=== PATIENT | male | born 1950 | race Caucasian/White ===

== ENCOUNTER → 2020-08-01 10:47 | Outpatient (BNVA) | payer BC, SELFPAY | PROVIDERS: Visit Provider Urology | DX: N40.1 Benign prostatic hyperplasia with lower urinary tract symptoms (principal); R39.12 Poor urinary stream; N13.8 Other obstructive and reflux uropathy; R35.1 Nocturia | CPT/HCPCS: 81002 ==

== ENCOUNTER 2020-11-23 10:48 | Outpatient (REF) | payer BC, SELFPAY ==
[2020-11-23 13:37] LABS: Hematocrit 39.4 % (42-52); Hemoglobin 12.6 g/dl (14.0-18.0); Mean Corpuscular Hemoglobin 31.1 pg (27.0-33.0); Mean Corpuscular Volume 97.3 fL (80-98); Mean Platelet Volume 12.4 fL (9.4-12.4); Platelet Count 153 X10*3/uL (160-400); Red Blood Count 4.05 X10*6/uL (4.60-5.80); Red Cell Distribution Width 14.1 % (11.0-16.0); White Blood Count 5.7 X10*3/uL (4.8-10.8)
[2020-11-23 14:25] LABS: Alanine Aminotransferase 11 U/L (0-40); Albumin Level 3.8 g/dL (3.5-5.0); Alkaline Phosphatase 79 U/L (39-117); Anion Gap 11 (12-20); Aspartate Amino Transferase 16 U/L (5-37); Bilirubin Total 0.4 mg/dL (0.0-1.0); Blood Urea Nitrogen 28 mg/dL (9-16); Calcium 9.1 mg/dL (8.4-10.2); Carbon Dioxide 29 mmol/L (22-29); Chloride 106 mmol/L (96-108); Estimated Glomerular Filt Rate > 60; Glucose Random 83 mg/dL (60-115); Potassium 3.9 mmol/L (3.3-5.1); Sodium 142 mmol/L (135-145); Total Protein 5.8 g/dL (6.5-8.0)
== END 2020-11-23 10:49 | disposition home or self-care (01) ==
LOC: HO.LAB 10:48
PROVIDERS: PCP Internal Medicine; Referring Provider Internal Medicine; Visit Provider Nurse Practitioner Family
DX: Z86.010 Personal history of colon polyps (principal); M62.838 Other muscle spasm; G25.79 Other drug induced movement disorders; T43.015A Adverse effect of tricyclic antidepressants, initial encounter
CPT/HCPCS: 36415; 80053; 85027

== ENCOUNTER 2021-04-17 15:53 | Outpatient (REF) | payer BC, SELFPAY ==
[2021-04-17 16:56] LABS: Cholesterol 138 mg/dL; HDL Cholesterol 45 mg/dL; LDL Cholesterol Calculated 75 mg/dl; Triglycerides 92 mg/dL
[2021-04-17 17:13] LABS: Prostate Specific Antigen 0.12 ng/mL (<0.05-4.0)
[2021-04-17 17:18] LABS: Thyroid Stimulating Hormone 0.73 uIU/mL (0.32-4.0)
== END 2021-04-17 15:54 | disposition home or self-care (01) ==
LOC: HO.LAB 15:53
PROVIDERS: Urology; PCP Internal Medicine; Visit Provider Internal Medicine
DX: Z12.5 Encounter for screening for malignant neoplasm of prostate (principal); N13.8 Other obstructive and reflux uropathy; N40.1 Benign prostatic hyperplasia with lower urinary tract symptoms; E78.00 Pure hypercholesterolemia, unspecified; I10 Essential (primary) hypertension; R63.4 Abnormal weight loss; Z86.010 Personal history of colon polyps
CPT/HCPCS: 36415; 80061; 84153; 84443

== ENCOUNTER 2021-05-29 09:15 | Day surgery (SDC) | payer BC, SELFPAY ==
[2021-05-29 09:59] VITALS: BP 151/82; PULSE 84; RESP 18; TEMP 36.1; O2SAT 96; BMI 22.3
--- NOTE | 2021-05-29 10:25 | P.HPSUR_ITS ---
Pre-Procedural Eval Section A Date of Service: 05/29/21 Section B Chief Complaint: screening Relevant Family History (Specify if Yes): No Relevant Social History: Tobacco Use Present Medications: see Short Stay Collaborative assessment Medical History: Significant History (Chronic back pain Groin pain HTN (hypertension)) History of Previous Operations: Relevant previous surgery/procedure and date(s) (H/O arthroscopic knee surgery History of left knee replacement Previous back surgery) Allergies: Allergies Allergy/AdvReac Type Severity Reaction Status Date / Time amitriptyline [From ELAVIL] AdvReac Unknown ARMS Verified 11/23/20 10:59 SHAKING Elavil AdvReac Unknown muscle Uncoded 03/06/17 00:00 spasms, uncontrollable arm movements Review of Systems Sugical H&P ROS: Negative: Constitution, Cardiovascular, Respiratory, Ne urological, Psychiatric, Hem-Onc, Allergic/Immunologic, Gastrointestinal, Genitourinary, Musculoskeletal, Integumentary, Endocrine and Eyes/Ears/Nose/Throat Exam Surgical H&P Exam: Normal: HEENT, Normal: Heart, Normal: Lungs, Normal: Extremities, Normal: Abdomen, Normal: Skin and Normal: Neurological Plan Diagnosis/Plan: Unchanged I have reviewed the history and physical and performed a pertinent physical examination on my patient. No changes have occurred unless specified.
--- NOTE | 2021-05-29 10:42 | P.CONAN_ITS ---
HPI - Anesthesia Eval Consult details Narrative: 71yo male patient for colonoscopy PMFSH Active Problems Active Problems: All Active Problems (Updated 08/01/20 @ 11:27 by Ortega Richardson MD) Nocturia more than twice per night (Acute) Weak urinary stream (Acute) BPH w urinary obs/LUTS (Acute) Glaucoma- eye drops prn for increased pressure Memory issues-does not know president, cannot remember if he did the prep or whether he had breakfast GERD- not needed omeprazole recently. Asymptomatic Past Medical History Medical History (Updated 05/29/21 @ 10:50 by Beverly Wong RN) Chronic back pain Groin pain HTN (hypertension) Left knee injury Family History Family history of problems with anesthesia: No Surgical History Surgical History (Updated 05/29/21 @ 10:55 by Candi Payne MD) H/O arthroscopic knee surgery History of left knee replacement Previous back surgery History of Problems with Anesthesia: No Social History Social History (Updated 05/29/21 @ 10:52 by Candi Payne MD) Patient Tobacco Use Status: Current everyday Tobacco user Smoked in Last 30 Days: Yes Use of substances other than those prescribed or required for medical reasons: No Have you been hit, kicked, punched, or otherwise hurt by someone within the past year? If so, by whom?: No Are you DNR?: No Advance Directives: No Advance Directives Information Provided: Yes Meds Allergies Allergy/AdvReac Type Severity Reaction Status Date / Time amitriptyline [From ELAVIL] AdvReac Unknown ARMS Verified 11/23/20 10:59 SHAKING Elavil AdvReac Unknown muscle Uncoded 03/06/17 00:00 spasms, uncontrollable arm movements Active Medications: Current Medications Lactated Ringer's (Lr) 1,000 mls @ 100 mls/hr IVCONT .Q10H [facility] Home Medications Medication Instructions Recorded Confirmed Last Taken Type atorvastatin 80 mg tablet 80 mg PO DAILY 08/01/20 Unknown History diclofenac sodium 75 mg 75 mg PO BID 08/01/20 Unknown History tablet,delayed release ergocalciferol (vitamin D2) 1,250 1,250 mcg PO QWEEK 08/01/20 Unknown History mcg (50,000 unit) capsule gabapentin 600 mg tablet 600 mg PO TID 08/01/20 Unknown History lisinopril 10 1 tab PO DAILY 08/01/20 Unknown History mg-hydrochlorothiazide 12.5 mg tablet omeprazole 20 mg capsule,delayed 20 mg PO DAILY 08/01/20 Unknown History release buprenorphine 8 mg-naloxone 2 mg 2 film SUBLINGUAL DAILY 05/29/21 05/29/21 Unknown History sublingual film (Suboxone) Exam Exam Date and Time: May 29, 2021 1042 Height,Weight and Vital Signs: Height 5 ft 11 in Weight 72.575 kg Last Vital Signs Temp 97 F 05/29/21 09:59 Pulse 84 05/29/21 09:59 Resp 18 05/29/21 09:59 BP 151/82 H 05/29/21 09:59 Pulse Ox 96 05/29/21 09:59 Airway Mallampati Class: II TM Dist: >3cm Neck ROM: Full Denture: Upper and Lower Heart: RRR Lungs: CTAB Assessment and Plan Assessment Anesthesia Assessment: Anesthesia Plan Discussed and Chart Reviewed Final Anesthetic Review Family History of Problems with Anesthesia: No History of Problems with Anesthesia: No NPO: Yes ASA Class: II Final Preanesthetic Review: No Changes in Pt Med Stat, Meds/Allgs Chart Reviewed, Consent Obtained/Reviewed and Anes Risks/Benef Reviewed Patient Risk: Low Procedure Risk: Low Assessment/Block/Sedation in SS: Assess/Block/Sedation-SS Anesthetic Plan Anesthetic Plan: MAC: Disposition: Standard PACU and Inp. Admit - Standard Bed
[2021-05-29] MEDS: Lactated Ringers 1,000 ML 100 ML IVCONT (10:46)
--- NOTE | 2021-05-29 10:53 | PC.NURSE ---
SON STATED PT TOOK ENTIRE PREP AND WITH CLEAR RESULTS ALL CLEAR LIQUIDS YESTERDAY NO MEDS TAKEN TODAY
--- NOTE | 2021-05-29 11:00 | PC.NURSE ---
PT NEEDS ASSISTANCE TO GET DRESS UNSTEADY WHEN ATTEMPTING TO AMBULATE WITH [facility] NOTED TO RIGHT HIP PT DENIES FALL STS BUMPED INTO SOMETHING PT TRANSFERRED WITH ONE ASST AND CANE FROM W/C TO BED THIS RN UNDRESSED PATIENT
--- NOTE | 2021-05-29 11:04 | HO.ANESPROP2 ---
[facility] Active Problems Active Problems: All Active Problems (Updated 05/29/21 @ 10:50 by Beverly Wong, RN) BPH w urinary obs/LUTS (Acute) Weak urinary stream (Acute) Nocturia more than twice per night (Acute) Past Medical History Medical History (Updated 05/29/21 @ 10:50 by Beverly Wong RN) Chronic back pain Groin pain HTN (hypertension) Left knee injury Family History Family history of problems with anesthesia: No Surgical History Surgical History (Updated 05/29/21 @ 10:55 by Candi Payne MD) H/O arthroscopic knee surgery History of left knee replacement Previous back surgery History of Problems with Anesthesia: No Social History Social History (Updated 05/29/21 @ 10:52 by Candi Payne MD) Patient Tobacco Use Status: Current everyday Tobacco user Smoked in Last 30 Days: Yes Use of substances other than those prescribed or required for medical reasons: No Have you been hit, kicked, punched, or otherwise hurt by someone within the past year? If so, by whom?: No Are you DNR?: No Advance Directives: No Advance Directives Information Provided: Yes Meds Allergies Allergy/AdvReac Type Severity Reaction Status Date / Time amitriptyline [From ELAVIL] AdvReac Unknown ARMS Verified 11/23/20 10:59 SHAKING Elavil AdvReac Unknown muscle Uncoded 03/06/17 00:00 spasms, uncontrollable arm movements Active Medications: Current Medications Lactated Ringer's (Lr) 1,000 mls @ 100 mls/hr IVCONT .Q10H J LUIS Last Admin: 05/29/21 10:46 Dose: 100 mls/hr Documented by: Ondansetron HCl (Ondansetron Hcl 4 Mg/2 Ml Vial) 4 mg IVPUSH ONCE PRN PRN Reason: Nausea and Vomiting Home Medications Medication Instructions Recorded Confirmed Last Taken Type atorvastatin 80 mg tablet 80 mg PO DAILY 08/01/20 Unknown History diclofenac sodium 75 mg 75 mg PO BID 08/01/20 Unknown History tablet,delayed release ergocalciferol (vitamin D2) 1,250 1,250 mcg PO QWEEK 08/01/20 Unknown History mcg (50,000 unit) capsule gabapentin 600 mg tablet 600 mg PO TID 08/01/20 Unknown History lisinopril 10 1 tab PO DAILY 08/01/20 Unknown History mg-hydrochlorothiazide 12.5 mg tablet omeprazole 20 mg capsule,delayed 20 mg PO DAILY 08/01/20 Unknown History release buprenorphine 8 mg-naloxone 2 mg 2 film SUBLINGUAL DAILY 05/29/21 05/29/21 Unknown History sublingual film (Suboxone) Exam Exam Date and Time: May 29, 2021 1104 Height,Weight and Vital Signs: Height 5 ft 11 in Weight 72.575 kg Last Vital Signs Temp 97 F 05/29/21 09:59 Pulse 84 05/29/21 09:59 Resp 18 05/29/21 09:59 BP 151/82 H 05/29/21 09:59 Pulse Ox 96 05/29/21 09:59 Airway Mallampati Class: II TM Dist: >3cm Neck ROM: Full Denture: Upper and Lower Assessment and Plan Assessment Anesthesia Assessment: Anesthesia Plan Discussed, Smoking Cess. Discussed and Chart Reviewed Final Anesthetic Review Family History of Problems with Anesthesia: No History of Problems with Anesthesia: No NPO: Yes ASA Class: II Final Preanesthetic Review: No Changes in Pt Med Stat, Meds/Allgs Chart Reviewed, Consent Obtained/Reviewed and Anes Risks/Benef Reviewed Patient Risk: Intermediate Procedure Risk: Low Anesthetic Plan Anesthetic Plan: MAC: Disposition: Standard PACU
--- NOTE | 2021-05-29 11:14 | PM.OP ---
Brief Operative Note Date of Service: 05/29/21 Pre-op diagnosis: hx of polyps of colon Post-op diagnosis: same Procedure: see op note Surgeon: Heron Robledo MD Anesthesia: MAC Was an Dental Office Receptionist used for this Procedure?: No Estimated blood loss (mL): 0 Condition: stable Disposition: PACU
--- NOTE | 2021-05-29 11:15 | W.PM.OPN ---
Operative Note Operative Note Date of Service: 05/29/21 Narrative: Operative Information Procedure Description: Colonoscopy COLONOSCOPY Instrument: Olympus variable stiffness adult scope 190L Colonoscopy Monitoring: Vital signs and clinical assessment, continuous EKG monitoring, Pulse oximetry, Carbon Dioxide monitoring and blood pressure monitoring were done throughout the procedure. Colon withdrawal time was 12 minutes. Procedure: The patient was placed in the left lateral decubitis position and pre-procedure medications were administered. After a digital rectal examination of the ano-rectum, the video colonoscope was inserted into the rectum and advanced through the colon to the cecum/TI. The colonoscope was slowly withdrawn in a retrograde panoramic fashion and the colon mucosa was carefully examined including a retroflexed view of the rectum. Findings and interventions are described below. Procedure Difficulty: moderate Findings: Terminal Ileum-not intubated Cecum:normal Ascending Colon: normal Transverse Colon -normal Descending Colon:normal Sigmoid Colon: normal Rectum: Retroflexion with small internal hemorrhoids, grade I Anorectum - normal Colon preparation: Donalds Bowel Preparation Scale Right colon; 1 Transverse colon: 2 Left colon; 1 (0 = Unprepared colon segment with mucosa not seen due to solid stool that cannot be cleared. 1 = Portion of mucosa of the colon segment seen, but other areas of the colon segment not well seen due to staining, residual stool and/or opaque liquid. 2 = Minor amount of residual staining, small fragments of stool and/or opaque liquid, but mucosa of colon segment seen well. 3 = Entire mucosa of colon segment seen well with no residual staining, small fragments of stool or opaque liquid) Impression and Post Procedure Diagnosis: internal hemorrhoids poor prep Plan: High fiber diet leaflet Avoid straining at stool, epsom salts and sitz bath, anusol supps or cream Repeat Colonoscopy in 6-12 months or earlier if clinically indicated, check compliance with prep, may need 2 d clear diet next time. Within limitations of prep no large masses or tumours seen but smaller lesions may have been missed. Above findings were reviewed with the patient and relevant handouts were provided if indicated.
[2021-05-29 12:01] VITALS: BP 122/63; PULSE 84; RESP 16; TEMP 36.5; O2SAT 97
[2021-05-29 12:16] VITALS: BP 123/83; PULSE 78; RESP 16; TEMP 36.5; O2SAT 97
[2021-05-29 12:31] VITALS: BP 110/66; PULSE 63; RESP 16; TEMP 36.7; O2SAT 97
== END 2021-05-29 13:15 | disposition home or self-care (01) ==
PROVIDERS: PCP Internal Medicine; Visit Provider Internal Medicine Gastroenterology
PROC: 0DJD8ZZ Inspection of Lower Intestinal Tract, Via Natural or Artificial Opening Endoscopic (ICD-10-PCS; CPT 45378; principal; 2021-05-29 10:50)
DX: Z12.11 Encounter for screening for malignant neoplasm of colon (principal); K64.0 First degree hemorrhoids; Z86.010 Personal history of colon polyps; R10.30 Lower abdominal pain, unspecified; G89.29 Other chronic pain; M54.9 Dorsalgia, unspecified; I10 Essential (primary) hypertension; N40.1 Benign prostatic hyperplasia with lower urinary tract symptoms; R39.12 Poor urinary stream; Z79.899 Other long term (current) drug therapy; Z88.8 Allergy status to other drugs, medicaments and biological substances; Z96.652 Presence of left artificial knee joint; F17.210 Nicotine dependence, cigarettes, uncomplicated
CPT/HCPCS: 45378

== ENCOUNTER 2021-07-29 20:35 | Emergency (ER) | payer BC, SELFPAY ==
--- NOTE | ~2021-07-29 | XR_ITS ---
EXAMINATION: XR CHEST CLINICAL INFORMATION: Question CHF COMPARISON: None TECHNIQUE: Frontal view of the chest was obtained. FINDINGS: Mild elevation of the right hemidiaphragm. No focal consolidation is seen. Linear atelectasis is present at the right lung base. No evidence of pneumothorax, pleural effusion, or pulmonary edema. The cardiomediastinal contour is unremarkable. There is severe degenerative change at the left glenohumeral joint. XR/XR chest 1V IMPRESSION: No acute cardiopulmonary findings.
--- NOTE | ~2021-07-29 | CT_ITS ---
EXAMINATION: NONCONTRAST HEAD CT NONCONTRAST CERVICAL SPINE CT INDICATION INFORMATION: Fall, hematoma, neck pain COMPARISON: None TECHNIQUE: Separate noncontrast CT examinations of the head and cervical spine were performed. Coronal head CT images and coronal and sagittal cervical spine images were created at the technologist workstation. DLP: 1085 mGy-cm DOSE LOWERING TECHNIQUES: This CT examination was performed using dose optimization techniques as appropriate, variously including the following: - Automated exposure control - Adjustment of mA and/or kV according to patient size (this includes techniques or standardized protocols for targeted exams were dose is matched to indication/reason for exam; i.e. extremities or head) - Use of iterative reconstruction technique FINDINGS: Head: Limited evaluation in some regions due to motion artifact. There is no evidence of acute intracranial hemorrhage or territorial infarction. No abnormal mass-effect or midline shift is seen. [place] to white matter differentiation is well preserved. No extra-axial fluid collections are identified. The ventricles are normal in size. There is mild periventricular white matter hypoattenuation consistent with chronic small vessel ischemic disease. Right frontal scalp hematoma is present. No acute fracture is seen.. The mastoid air cells and visualized portions of the paranasal sinuses are well-aerated. Cervical spine: There is reversal of the normal cervical lordosis. There is disc space narrowing throughout the cervical spine with endplate osteophytes which is most severe at C5-C6 and C6-C7. Multilevel facet arthropathy is present, most severe at C2-C3 on the right and C2-C3 and C3-C4 on the left. Vertebral body heights are maintained. No evidence of acute fracture. No prevertebral soft tissue swelling. Visualized portions of the lung apices demonstrate emphysema. The thyroid gland is grossly unremarkable. CT/CT cervical spine wo con IMPRESSION: No acute findings identified in the head or cervical spine. Moderate to severe degenerative changes of the cervical spine as noted above.
[2021-07-29 20:44] VITALS: BP 147/79; PULSE 70; RESP 18; TEMP 36.7; BMI 18.8
[2021-07-29 21:00] LABS: MANUAL DIFF FLAG NO
[2021-07-29 21:01] LABS: Basophils Percent Auto 0.5 % (0-2); Eosinophils Absolute Auto 0.1 X10*3/uL (0.0-0.4); Eosinophils Percent Auto 1.5 % (0-4); Hematocrit 40.3 % (42.0-52.0); Imm Gran Abs Auto 0.02 X10*3/uL (0.00-0.03); Imm Gran Pct Auto 0.4 % (0.0-0.4); Lymphocytes Absolute Auto 0.7 X10*3/uL (1.2-4.9); Lymphocytes Percent Auto 13.5 % (20-40); Mean Corpuscular HGB Conc 32.3 g/dl (31.0-36.0); Mean Corpuscular Hemoglobin 31.9 pg (27.0-33.0); Mean Platelet Volume 11.7 fL (9.4-12.4); Monocytes Absolute Auto 0.4 X10*3/uL (0.1-1.2); Monocytes Percent Auto 6.9 % (2-11); Neutrophils Absolute Auto 4.3 x10*3/uL (2.0-8.3); Neutrophils Percent Auto 77.2 % (45-73); Platelet Count 159 X10*3/uL (160-400); Red Blood Count 4.07 X10*6/uL (4.60-5.80); Red Cell Distribution Width 13.3 % (11.0-16.0); White Blood Count 5.5 X10*3/uL (4.8-10.8)
[2021-07-29 21:14] LABS: Anion Gap 10 (12-20); Blood Urea Nitrogen 41 mg/dL (9-16); Calcium 9.1 mg/dL (8.4-10.2); Carbon Dioxide 33 mmol/L (22-29); Chloride 105 mmol/L (96-108); Creatinine Clr Calc Pharmacy 86.2; Estimated Glomerular Filt Rate > 60; Glucose Random 105 mg/dL (60-115); Potassium 4.2 mmol/L (3.3-5.1); Sodium 144 mmol/L (135-145)
--- NOTE | 2021-07-29 21:51 | PC.NURSE ---
pt taken to ct
--- NOTE | 2021-07-29 21:59 | ED_ITS ---
HPI - Fall General Chief Complaint: Fall Stated Complaint: fell and hit his head Time Seen by Provider: 07/29/21 21:35 Source: patient Mode of arrival: ambulatory Limitations: no limitations History of Present Illness HPI Narrative: Patient was walking to the bathroom without asking for help did not use his walker or cane lost balance and fell in the kitchen ,came with hematoma on the right forehead above the eye no loss of consciousness no other injury patient is not on any blood thinner patient been falling very often feel dizzy lightheaded off and on denies any palpitation or chest pain prior to episode but felt lightheaded Related Data Home Medications Medication Instructions Recorded Confirmed atorvastatin 80 mg tablet 80 mg PO DAILY 08/01/20 diclofenac sodium 75 mg 75 mg PO BID 08/01/20 tablet,delayed release ergocalciferol (vitamin D2) 1,250 1,250 mcg PO QWEEK 08/01/20 mcg (50,000 unit) capsule gabapentin 600 mg tablet 600 mg PO TID 08/01/20 lisinopril 10 1 tab PO DAILY 08/01/20 mg-hydrochlorothiazide 12.5 mg tablet buprenorphine 8 mg-naloxone 2 mg 2 film SUBLINGUAL DAILY 05/29/21 05/29/21 sublingual film (Suboxone) Valium 5 g PO BID 07/30/21 07/30/21 trazodone 150 mg PO BEDTIME 07/30/21 07/30/21 Previous Rx's Medication Instructions Recorded bisacodyl 5 mg tablet,delayed 10 mg PO ONCE 1 Days #2 tab 05/27/21 release (Dulcolax (bisacodyl)) terazosin 5 mg capsule 5 mg PO BEDTIME #90 cap 06/04/21 Allergies Allergy/AdvReac Type Severity Reaction Status Date / Time amitriptyline [From ELAVIL] AdvReac Unknown ARMS Verified 07/29/21 20:44 SHAKING Elavil AdvReac Unknown muscle Uncoded 07/29/21 20:44 spasms, uncontrollable arm movements Review of Systems Review of Systems: Yes all other systems are reviewed and are negative PMFSH Past Medical History Medical History Chronic back pain COPD (chronic obstructive pulmonary disease) Cough Emphysema lung Groin pain HTN (hypertension) Left knee injury Surgical History H/O arthroscopic knee surgery History of left knee replacement Previous back surgery Social History Social History Alcohol intake: never Patient Tobacco Use Status: Current everyday Tobacco user Smoked in Last 30 Days: Yes Use of substances other than those prescribed or required for medical reasons: No Advance Directives: No Advance Directives Information Provided: No Physical Exam Vital Signs: Vital Signs: Last Vital Signs Temp 98.1 F 07/29/21 20:44 Pulse 95 07/30/21 00:20 Resp 16 07/30/21 00:20 BP 154/99 H 07/30/21 00:20 Pulse Ox 94 07/30/21 00:20 BMI result Body Mass Index 18.8 Appearance: Alert. Oriented X3. No acute distress. Eyes: PERRLA, No Nystagmus ENT: Pharynx normal. Oral Mucosa moist hematoma above right eyebrow Neck: Normal inspection. Neck supple. CVS: Irregularly irregular heart rate no murmur or gallop Pulses normal. Respiratory: No respiratory distress. Equal air entry bilateral, no wheezing/rales/rhonchi Abdomen: Soft and nontender. Bowel sounds are present, no mass palpable, no CVA tenderness Skin: Skin warm and dry. Normal skin color. Normal skin turgor. Extremities: No lower extremity edema. No calf tenderness low muscle mass Neuro: Oriented X 3. No motor deficit. .No cerebellar signs , cranial nerves II-XII intact HENMT: Face images: 1. Hematoma with ecchymosis MDM - Fall MDM Narrative Medical decision making narrative: Patient with atrial fibrillation with history of dizziness and fall multiple times likely the cause along with patient has low muscle mass. Patient does not have a diagnosis of AFib in the past will admit patient for further workup as he has a high risk of fall will just give aspirin for now. Heart rate is controlled Lab Data Attestation: I reviewed the patient's lab results. Result diagrams: 07/29/21 20:56 07/29/21 20:56 Labs: Lab Results 07/29/21 07/29/21 Range/Units 20:56 20:56 WBC 5.5 (4.8-10.8) X10*3/uL RBC 4.07 L (4.60-5.80) X10*6/uL Hgb 13.0 L (14.0-18.0) g/dl Hct 40.3 L (42.0-52.0) % MCV 99.0 H (80.0-98.0) fL MCH 31.9 (27.0-33.0) pg MCHC 32.3 (31.0-36.0) g/dl RDW 13.3 (11.0-16.0) % Plt Count 159 L (160-400) X10*3/uL MPV 11.7 (9.4-12.4) fL Immature Gran % (Auto) 0.4 (0.0-0.4) % Neut % (Auto) 77.2 H (45-73) % Lymph % (Auto) 13.5 L (20-40) % [place] % (Auto) 6.9 (2-11) % Eos % (Auto) 1.5 (0-4) % Baso % (Auto) 0.5 (0-2) % Lymph # (Auto) 0.7 L (1.2-4.9) X10*3/uL [place] # (Auto) 0.4 (0.1-1.2) X10*3/uL Eos # (Auto) 0.1 (0.0-0.4) X10*3/uL Baso # (Auto) 0.0 (0.0-0.2) X10*3/uL Abs Immat Gran (auto) 0.02 (0.00-0.03) X10*3/uL Absolute Neuts (auto) 4.3 (2.0-8.3) x10*3/uL Absolute Nucleated RBC 0.000 (0.0-0.012) X10*3/uL Nucleated RBC % (auto) 0.0 (0.0-0.2) /100WBC Sodium 144 (135-145) mmol/L Potassium 4.2 (3.3-5.1) mmol/L Chloride 105 (96-108) mmol/L Carbon Dioxide 33 H (22-29) mmol/L Anion Gap 10 L (12-20) BUN 41 H (9-16) mg/dL Creatinine 0.68 (0.5-1.4) mg/dL Estim Creat Clear Calc 86.2 Estimated GFR > 60 Random Glucose 105 (60-115) mg/dL Calcium 9.1 (8.4-10.2) mg/dL ECG Data Attestation: I personally reviewed and interpreted this ECG as follows: Interpretation: Heart rate 72 beats per minute irregularly irregular atrial fibrillation no acute ST T wave changes no acute ischemia Discharge Plan Discharge Clinical Impression: New onset a-fib, Frequent falls Patient Disposition: Admitted As Inpatient
--- NOTE | 2021-07-29 22:02 | ECG_ITS ---
Test Reason : FALL Blood Pressure : / mmHG Vent. Rate : 091 BPM Atrial Rate : 091 BPM P-R Int : 136 ms QRS Dur : 098 ms QT Int : 380 ms P-R-T Axes : -01 064 021 degrees QTc Int : 467 ms Normal sinus rhythm Nonspecific ST abnormality Abnormal ECG When compared with ECG of 30-APR-2016 16:01, Vent. rate has increased BY 30 BPM Nonspecific T wave abnormality now evident in Inferior leads QT has lengthened Referred By: Wesley Holder Electronically Signed By:Rafita Prater
[2021-07-29 23:12] VITALS: BP 156/83; PULSE 88; RESP 17; O2SAT 93
--- NOTE | 2021-07-29 23:52 | PM.IMHP ---
History of Present Illness Date of Service: 07/29/21 Chief Complaint: fall PMF Medical History Chronic back pain COPD (chronic obstructive pulmonary disease) Cough Emphysema lung Groin pain HTN (hypertension) Left knee injury Surgical History H/O arthroscopic knee surgery History of left knee replacement Previous back surgery Social History Alcohol intake: never Patient Tobacco Use Status: Current everyday Tobacco user Smoked in Last 30 Days: Yes Use of substances other than those prescribed or required for medical reasons: No Advance Directives: No Advance Directives Information Provided: No Meds Allergies Allergy/AdvReac Type Severity Reaction Status Date / Time amitriptyline [From ELAVIL] AdvReac Unknown ARMS Verified 07/29/21 20:44 SHAKING Elavil AdvReac Unknown muscle Uncoded 07/29/21 20:44 spasms, uncontrollable arm movements Home Medications Medication Instructions Recorded Confirmed Last Taken Type atorvastatin 80 mg tablet 80 mg PO DAILY 08/01/20 07/30/21 07/29/21 History diclofenac sodium 75 mg 75 mg PO BID 08/01/20 07/30/21 07/29/21 History tablet,delayed release ergocalciferol (vitamin D2) 1,250 1,250 mcg PO QWEEK 08/01/20 07/30/21 07/22/21 History mcg (50,000 unit) capsule gabapentin 600 mg tablet 600 mg PO TID 08/01/20 07/30/21 07/29/21 History lisinopril 10 1 tab PO DAILY 08/01/20 07/30/21 07/29/21 History mg-hydrochlorothiazide 12.5 mg tablet buprenorphine 8 mg-naloxone 2 mg 2 film SUBLINGUAL DAILY 05/29/21 05/29/21 Unknown History sublingual film (Suboxone) Valium 5 g PO BID 07/30/21 07/30/21 07/30/21 History 1 trazodone 150 mg PO BEDTIME 07/30/21 07/30/21 07/29/21 History Physical Exam Vital Signs and Narrative: Vital Signs: Last Vital Signs Temp 98.1 F 07/29/21 20:44 Pulse 88 02/28/22 23:12 Resp 17 07/29/21 23:12 BP 156/83 H 07/29/21 23:12 Pulse Ox 93 07/29/21 23:12 BMI result Body Mass Index 18.8 Results Labs CBC and Chem 7: 07/29/21 20:56 07/29/21 20:56 Labs: Laboratory Results - last 24 hr 07/29/21 07/29/21 20:56 20:56 MCV 99.0 H MCH 31.9 MCHC 32.3 RDW 13.3 Plt Count 159 L MPV 11.7 Immature Gran % (Auto) 0.4 Neut % (Auto) 77.2 H Lymph % (Auto) 13.[address] [place] % (Auto) 6.9 Eos % (Auto) 1.5 Baso % (Auto) 0.5 Lymph # (Auto) 0.[address] [place] # (Auto) 0.4 Eos # (Auto) 0.1 Baso # (Auto) 0.0 Abs Immat Gran (auto) 0.02 Absolute Neuts (auto) 4.3 Absolute Nucleated RBC 0.000 Nucleated RBC % (auto) 0.0 Anion Gap 10 L Estim Creat Clear Calc 86.2 Estimated GFR > 60 Random Glucose 105 Calcium 9.1 Imaging Radiologist's Impressions: Impressions Cervical Spine CT 07/29/21 22:24 IMPRESSION: No acute findings identified in the head or cervical spine. Moderate to severe degenerative changes of the cervical spine as noted above. Head CT 07/29/21 22:24 IMPRESSION: No acute findings identified in the head or cervical spine. Moderate to severe degenerative changes of the cervical spine as noted above. Assessment and Plan (1) New onset a-fib: Status: Acute (2) Frequent falls: Status: Acute Plan 71-year-old male with a past medical history of hypertension, hyperlipidemia, COPD, chronic back pain, history of back surgery, walks with the help of a crutches at home; presented to the hospital today with a chief complaint of fall. Patient reports that he had intermittent falls mostly mechanical; today he had a fall, lost balance and fell on the ground, hit on the forehead; denies any loss of consciousness. Denies any chest pain or palpitations. Denies any lightheadedness dizziness. Patient denies any GI symptoms. Review of all other systems is negative except mentioned above ER course: Per ER team patient noted to have large ecchymosis on the left eye; intact extraocular movements; CT head showed no acute findings; labs essentially benign; on EKG noted to have new onset AFib; admitted to the hospital for further management Quality Stroke Does the patient have a stroke diagnosis?: No VTE Prior VTE?: No VTE Risk Level:: Medical - moderate - high VTE Device Contraindication: Treatment Not Indicated VTE Drug Contraindication: N/A - Med Ordered
[2021-07-30 00:20] VITALS: BP 154/99; PULSE 95; RESP 16; O2SAT 94
[2021-07-30] MEDS: Nicotine 14 MG PATCH.TD24 TRANSDERMA (00:26)
[2021-07-30] MEDS: Aspirin 81 MG TAB.CHEW 162 MG PO (00:27)
[2021-07-30] MEDS: Heparin Sodium,Porcine 5,000 UNIT/ML VIAL 5000 UNIT SUBCUT (00:27)
[2021-07-30 01:06] LABS: COVID-19 Test Negative (Negative)
== END 2021-07-30 01:19 | disposition home or self-care (01) ==
LOC: HO.ED 23:27 → HO.EDOVER 07-30 01:03
PROVIDERS: Emergency Provider Internal Medicine; PCP Internal Medicine
DX: S00.11XA Contusion of right eyelid and periocular area, initial encounter (principal); W18.39XA Other fall on same level, initial encounter; R42 Dizziness and giddiness; R53.1 Weakness; F17.200 Nicotine dependence, unspecified, uncomplicated; Z91.81 History of falling; Y93.89 Activity, other specified; Y92.000 Kitchen of unspecified non-institutional (private) residence as the place of occurrence of the external cause; Y99.9 Unspecified external cause status
CPT/HCPCS: 36415; 70450; 71045; 72125; 80048; 85025; 87635; 93005; 99284

== ENCOUNTER 2021-09-09 13:42 | Inpatient (IN) | payer OTHER, SELFPAY ==
--- NOTE | ~2021-09-09 | XR_ITS ---
EXAMINATION: PORTABLE CHEST 1 VIEW CLINICAL INFORMATION: ams . COMPARISON: 07/30/2021. TECHNIQUE: Portable frontal view of the chest was obtained. FINDINGS: The lungs are mildly hypoexpanded, in part due to the patient rotation to the right. There are increased markings at the right base which could be due to atelectasis although early infiltrate cannot be excluded in the acute setting.. No focal infiltrate, effusion, edema, or pneumothorax. Cardiac and mediastinal silhouettes are within normal limits for technique. No acute bony abnormality seen. XR/XR chest 1V IMPRESSION: Increased right basilar airspace disease may reflect component of atelectasis although early infiltrate could've a similar appearance. Clinical correlation and follow-up would be helpful.
--- NOTE | ~2021-09-09 | CT_ITS ---
EXAMINATION: CT CHEST WITHOUT CONTRAST CLINICAL INFORMATION: Respiratory failure, hypoxia, weight loss, heavy smoking history. COMPARISON: CXR from 07/30/2021 and 09/09/2021. TECHNIQUE: Multidetector volumetric CT imaging of the chest was done. Axial MIP volume rendering provided. Sagittal and coronal reformatted images were obtained. This CT examination was performed using dose optimization techniques as appropriate, variously including the following: *Automated exposure control *Adjustment of mA and/or kV according to patient size (this includes techniques or standardized protocols for targeted exams where dose is matched to indication/reason for exam; i.e. extremities or head) *Use of iterative reconstruction technique DLP: 267 mGy-cm Fleischner Society guidelines are followed, if deemed appropriate. FINDINGS: LUNGS AND PLEURA: Trachea and central airways are widely patent and normal in caliber. The right diaphragm is chronically, mildly elevated. [id number] centrilobular emphysema has an upper lobe predominance. There are mild linear and slightly nodular opacities in the posterior right upper lobe that are probably inflammatory or postinfectious changes. However, in a patient with risk factors, noncontrast chest CT follow-up is recommended. The findings include a 0.5 cm noncalcified nodular focus (image 150, series 5) and irregular, predominantly linear opacity in the nearby upper lobe occupying area of approximately 1.5 cm transverse dimension (as measured on image 173, series 5). Linear opacity of mild atelectasis in the posterior right lower lobe. No pneumothorax or pleural effusion. CARDIOVASCULAR: The heart size is normal. No pericardial effusion. There is atherosclerotic calcification of the left anterior descending coronary artery. Pulmonary arteries and thoracic aorta are normal in caliber. MEDIASTINUM AND LOWER NECK: No mediastinal mass. The esophagus is unremarkable. LYMPHATICS: No pathologic sized lymph nodes. UPPER ABDOMEN: Unremarkable. SKELETAL AND CHEST WALL: No suspicious bone lesions. Bones are diffusely osteopenic. There is levocurvature of the upper thoracic spine. There is Schmorl's node and minimal compression deformity of the superior endplate of T12. Vacuum disc phenomenon at T11-T12. CT/CT chest wo con IMPRESSION: * [id number] centrilobular emphysema has an upper lobe predominance. * There are linear and somewhat nodular opacities in the posterior right upper lobe. Although these are likely inflammatory/infectious changes, follow-up is advised, particularly in a patient with risk factors. [address] follow-up is recommended to determine whether these abnormalities resolve/improve Fleischner Society guideline.
--- NOTE | ~2021-09-09 | CT_ITS ---
EXAMINATION: CT HEAD WITHOUT CONTRAST CLINICAL INFORMATION: AMS COMPARISON: None TECHNIQUE: Contiguous axial imaging was performed from the skull base to vertex without intravenous administration of contrast. This CT examination was performed using dose optimization techniques as appropriate, variously including the following: *Automated exposure control *Adjustment of mA and/or kV according to patient size (this includes techniques or standardized protocols for targeted exams where dose is matched to indication/reason for exam; i.e. extremities or head) *Use of iterative reconstruction technique DLP: 782 mGy-cm FINDINGS: There is no evidence of acute intracranial hemorrhage or territorial infarction. No abnormal mass effect or midline shift is seen. There is diffuse periventricular hypodensity in both cerebral hemispheres suggestive of chronic small vessel ischemic changes. These are most prominent in the posterior parietal region. No extra-axial fluid collections are identified. The lateral ventricles are symmetrical in size and configuration without enlargement. The osseous structures and soft tissues are normal. The mastoid air cells and visualized portions of the paranasal sinuses are well aerated. CT/CT head/brain wo con IMPRESSION: No acute intracranial process seen.
[2021-09-09 14:30] VITALS: BP 134/108; PULSE 63; RESP 16; TEMP 36.2; O2SAT 83; BMI 18.8
--- NOTE | 2021-09-09 14:43 | PC.NURSE ---
lungs - diminished all lobes
--- NOTE | 2021-09-09 14:45 | ECG_ITS ---
Test Reason : AMS Blood Pressure : / mmHG Vent. Rate : 098 BPM Atrial Rate : 098 BPM P-R Int : 136 ms QRS Dur : 104 ms QT Int : 368 ms P-R-T Axes : 034 164 069 degrees QTc Int : 469 ms Normal sinus rhythm with sinus arrhythmia Right axis deviation Minimal voltage criteria for LVH, may be normal variant ( Deuce product ) Nonspecific ST and T wave abnormality Abnormal ECG When compared with ECG of 29-JUL-2021 23:00, QRS axis Shifted right Nonspecific T wave abnormality, worse in Anterolateral leads Referred By: Generic ED Physician Electronically Signed By:Rafita Prater
--- NOTE | 2021-09-09 15:00 | PC.NURSE ---
pt finger slightly dusky, was a ppd smoker now 1/2ppd smoker. 02 applied at 2l/m via n/c.
[2021-09-09 15:04] LABS: MANUAL DIFF FLAG NO
[2021-09-09 15:09] LABS: Basophils Percent Auto 0.1 % (0-2); Hematocrit 48.4 % (42.0-52.0); Hemoglobin 15.5 g/dl (14.0-18.0); Imm Gran Abs Auto 0.03 X10*3/uL (0.00-0.03); Imm Gran Pct Auto 0.4 % (0.0-0.4); Lymphocytes Absolute Auto 0.6 X10*3/uL (1.2-4.9); Lymphocytes Percent Auto 6.5 % (20-40); Mean Corpuscular Hemoglobin 31.4 pg (27.0-33.0); Mean Corpuscular Volume 98.2 fL (80.0-98.0); Mean Platelet Volume 11.9 fL (9.4-12.4); Monocytes Absolute Auto 0.8 X10*3/uL (0.1-1.2); Monocytes Percent Auto 9.4 % (2-11); Neutrophils Percent Auto 83.6 % (45-73); Platelet Count 241 X10*3/uL (160-400); Red Blood Count 4.93 X10*6/uL (4.60-5.80); Red Cell Distribution Width 14.5 % (11.0-16.0); White Blood Count 8.4 X10*3/uL (4.8-10.8)
[2021-09-09 15:22] LABS: Alanine Aminotransferase 23 U/L (0-40); Albumin Level 3.7 g/dL (3.5-5.0); Alkaline Phosphatase 125 U/L (39-117); Anion Gap 12 (12-20); Aspartate Amino Transferase 20 U/L (5-37); Bilirubin Total 0.5 mg/dL (0.0-1.0); Blood Urea Nitrogen 24 mg/dL (9-16); Calcium 9.2 mg/dL (8.4-10.2); Carbon Dioxide 38 mmol/L (22-29); Chloride 90 mmol/L (96-108); Creatinine Clr Calc Pharmacy 87.5; Estimated Glomerular Filt Rate > 60; Glucose Random 118 mg/dL (60-115); Sodium 136 mmol/L (135-145); Total Protein 5.9 g/dL (6.5-8.0)
[2021-09-09 15:28] LABS: Troponin-I High Sensitivity 61.8 ng/L (<3.5-35.0)
[2021-09-09 15:35] VITALS: BP 143/89; PULSE 81; RESP 10; TEMP 36.8; O2SAT 98
--- NOTE | 2021-09-09 16:35 | ED.MALEGU ---
HPI - Male Genitourinary General Chief complaint: Urogenital-Male Stated complaint: quest uti Time Seen by Provider: 09/09/21 15:46 Source: family Mode of arrival: wheelchair Limitations: altered mental status History of Present Illness HPI Narrative: Patient lives at home with his son on Suboxone, Valium for chronic back pain, has history of recurrent UTI brought by his son as patient was feeling more weak for last 3 weeks got worse in last 1 week had difficulty in walking and more confused lately no fever, no cough ,unlikely patient has taken any extra dose of medication when came to the ER patient is in deep sleep Related Data Home Medications Medication Instructions Recorded Confirmed atorvastatin 80 mg tablet 80 mg PO BEDTIME 08/01/20 09/09/21 diclofenac sodium 75 mg 75 mg PO BID 08/01/20 09/09/21 tablet,delayed release gabapentin 600 mg tablet 600 mg PO TID 08/01/20 09/09/21 lisinopril 10 1 tab PO DAILY 08/01/20 09/09/21 mg-hydrochlorothiazide 12.5 mg tablet trazodone 150 mg PO BEDTIME 07/30/21 09/09/21 acetaminophen 500 mg tablet 1,000 mg PO BID 09/09/21 09/09/21 acetaminophen 500 mg tablet 500 mg PO DAILY@1200 09/09/21 09/09/21 buprenorphine 2 mg-naloxone 0.5 mg 3 tab SUBLINGUAL BID 09/09/21 09/09/21 sublingual tablet bupropion HCl 300 mg 24 hr tablet, 300 mg PO QAM 09/09/21 09/09/21 extended release diazepam 5 mg tablet 1 tab PO BID 09/09/21 09/09/21 venlafaxine 150 mg 150 mg PO DAILY 09/09/21 09/09/21 capsule,extended release 24 hr Allergies Allergy/AdvReac Type Severity Reaction Status Date / Time amitriptyline [From ELAVIL] AdvReac Unknown ARMS Verified 07/29/21 20:44 SHAKING Elavil AdvReac Unknown muscle Uncoded 07/29/21 20:44 spasms, uncontrollable arm movements Review of Systems Review of Systems: Per patient's son no head injury no seizures no fever no cough Yes all other systems are reviewed and are negative PMFSH Past Medical History Medical History Chronic back pain COPD (chronic obstructive pulmonary disease) Cough Emphysema lung Groin pain HTN (hypertension) Left knee injury Surgical History H/O arthroscopic knee surgery History of left knee replacement Previous back surgery Social History Social History Alcohol intake: never Patient Tobacco Use Status: Current everyday Tobacco user Advance Directives: No Advance Directives Information Provided: No Physical Exam Vital Signs: Vital Signs: Last Vital Signs Temp 97.9 F 09/09/21 22:00 Pulse 75 09/09/21 22:00 Resp 18 09/09/21 22:00 BP 158/95 H 09/09/21 22:00 Pulse Ox 96 09/09/21 22:00 BMI result Body Mass Index 18.8 Appearance: Lethargic ,in deep sleep Eyes: PERRLA, No Nystagmus ENT: Pharynx normal. Oral Mucosa moist Neck: Normal inspection. Neck supple. CVS: Normal heart rate and rhythm. Pulses normal. Respiratory: No respiratory distress. Equal air entry bilateral, no wheezing/rales/rhonchi Abdomen: Soft and nontender. Bowel sounds are present, no mass palpable, no CVA tenderness Skin: Skin warm and dry. Normal skin color. Normal skin turgor. Extremities: No lower extremity edema. No calf tenderness Neuro: Oriented X 3. No motor deficit. Course Reevaluation(s) Reevaluation #1: Patient more alert still lethargic asking for pain medication for chronic back pain will hold on to narcotics at this time will advise him to take p.o. food first. Patient is on Suboxone 12 mg a day and has taken only 3 tablets today Time: 01:04 MDM - Male Genitourinary MDM Narrative Medical decision making narrative: Patient is 71 years old with chronic back pain hip pain on chronic pain management with Suboxone 12 mg a day with Valium came here for increased lethargy and weakness sleeping all the time and difficulty in walking on arrival patient workup is negative no signs of infection head CT was negative patient was sleeping pill 01:00 started waking up asking for more pain medication. Patient still lethargic. Urine drug screening showed positive for benzo. Family is not sure whether patient needs to go to rehab at this time were not will admit patient for failure to thrive and increased lethargy patient chest x-ray showed possible right lower lobe infiltrate versus atelectasis was given a dose of Rocephin Lab Data Attestation: I reviewed the patient's lab results. Result diagrams: 09/09/21 14:59 09/09/21 14:59 Labs: Lab Results 09/09/21 09/09/21 09/09/21 Range/Units 14:59 14:59 14:59 WBC 8.4 (4.8-10.8) X10*3/uL RBC 4.93 D (4.60-5.80) X10*6/uL Hgb 15.5 (14.0-18.0) g/dl Hct 48.4 D (42.0-52.0) % MCV 98.2 H (80.0-98.0) fL MCH 31.4 (27.0-33.0) pg MCHC 32.0 (31.0-36.0) g/dl RDW 14.5 (11.0-16.0) % Plt Count 241 D (160-400) X10*3/uL MPV 11.9 (9.4-12.4) fL Immature Gran % (Auto) 0.4 (0.0-0.4) % Neut % (Auto) 83.6 H (45-73) % Lymph % (Auto) 6.5 L (20-40) % [place] % (Auto) 9.4 (2-11) % Eos % (Auto) 0.0 (0-4) % Baso % (Auto) 0.1 (0-2) % Lymph # (Auto) 0.6 L (1.2-4.9) X10*3/uL [place] # (Auto) 0.8 (0.1-1.2) X10*3/uL Eos # (Auto) 0.0 (0.0-0.4) X10*3/uL Baso # (Auto) 0.0 (0.0-0.2) X10*3/uL Abs Immat Gran (auto) 0.03 (0.00-0.03) X10*3/uL Absolute Neuts (auto) 7.0 (2.0-8.3) x10*3/uL Absolute Nucleated RBC 0.000 (0.0-0.012) X10*3/uL Nucleated RBC % (auto) 0.0 (0.0-0.2) /100WBC VBG pH (7.32-7.43) VBG pCO2 mmHg VBG pO2 mmHg VBG HCO3 (22-26) mmol/L VBG O2 Saturation % VBG Base Excess mmol/L Sodium 136 (135-145) mmol/L Potassium 4.0 (3.3-5.1) mmol/L Chloride 90 L (96-108) mmol/L Carbon Dioxide 38 H (22-29) mmol/L Anion Gap 12 (12-20) BUN 24 H (9-16) mg/dL Creatinine 0.67 (0.5-1.4) mg/dL Estim Creat Clear Calc 87.5 Estimated GFR > 60 Random Glucose 118 H (60-115) mg/dL Lactic Acid (0.5-2.0) mmol/L Calcium 9.2 (8.4-10.2) mg/dL Total Bilirubin 0.5 (0.0-1.0) mg/dL AST 20 (5-37) U/L ALT 23 (0-40) U/L Alkaline Phosphatase 125 H D (39-117) U/L Ammonia (13-55) umol/L Troponin I High Sens 61.8 H (<3.5-35.0) ng/L Total Protein 5.9 L (6.5-8.0) g/dL Albumin 3.7 (3.5-5.0) g/dL Urine Color Urine Appearance Urine pH (5.0-8.0) Ur Specific [place] (1.005-1.025) Urine Protein (NEG-TRACE) MG/DL Urine Glucose (UA) (NEG) MG/DL Urine Ketones (NEG) MG/DL Urine Blood (NEG) Urine Nitrite (NEG) Ur Leukocyte Esterase (NEG) Urine Opiates Screen (Not Detect) Urine Fentanyl Screen (Not Detect) Ur Barbiturates Screen (Not Detect) Ur Phencyclidine Scrn (Not Detect) Ur Amphetamines Screen (Not Detect) U Benzodiazepines Scrn (Not Detect) Urine Cocaine Screen (Not Detect) U Marijuana (THC) Screen (Not Detect) COVID-19 (RADHA) COVID-19 Clin Com Influenza Type A (PHILLIP) (Negative) Influenza Type B (PHILLIP) (Negative) Influenza A & B Note 09/09/21 09/09/21 09/09/21 Range/Units 17:06 17:06 17:06 WBC (4.8-10.8) X10*3/uL RBC (4.60-5.80) X10*6/uL Hgb (14.0-18.0) g/dl Hct (42.0-52.0) % MCV (80.0-98.0) fL MCH (27.0-33.0) pg MCHC (31.0-36.0) g/dl RDW (11.0-16.0) % Plt Count (160-400) X10*3/uL MPV (9.4-12.4) fL Immature Gran % (Auto) (0.0-0.4) % Neut % (Auto) (45-73) % Lymph % (Auto) (20-40) % [place] % (Auto) (2-11) % Eos % (Auto) (0-4) % Baso % (Auto) (0-2) % Lymph # (Auto) (1.2-4.9) X10*3/uL [place] # (Auto) (0.1-1.2) X10*3/uL Eos # (Auto) (0.0-0.4) X10*3/uL Baso # (Auto) (0.0-0.2) X10*3/uL Abs Immat Gran (auto) (0.00-0.03) X10*3/uL Absolute Neuts (auto) (2.0-8.3) x10*3/uL Absolute Nucleated RBC (0.0-0.012) X10*3/uL Nucleated RBC % (auto) (0.0-0.2) /100WBC VBG pH (7.32-7.43) VBG pCO2 mmHg VBG pO2 mmHg VBG HCO3 (22-26) mmol/L VBG O2 Saturation % VBG Base Excess mmol/L Sodium (135-145) mmol/L Potassium (3.3-5.1) mmol/L Chloride (96-108) mmol/L Carbon Dioxide (22-29) mmol/L Anion Gap (12-20) BUN (9-16) mg/dL Creatinine (0.5-1.4) mg/dL Estim Creat Clear Calc Estimated GFR Random Glucose (60-115) mg/dL Lactic Acid 0.7 (0.5-2.0) mmol/L Calcium (8.4-10.2) mg/dL Total Bilirubin (0.0-1.0) mg/dL AST (5-37) U/L ALT (0-40) U/L Alkaline Phosphatase (39-117) U/L Ammonia (13-55) umol/L Troponin I High Sens (<3.5-35.0) ng/L Total Protein (6.5-8.0) g/dL Albumin (3.5-5.0) g/dL Urine Color YELLOW Urine Appearance CLEAR Urine pH 6.0 (5.0-8.0) Ur Specific [place] 1.020 (1.005-1.025) Urine Protein TRACE (NEG-TRACE) MG/DL Urine Glucose (UA) NEG (NEG) MG/DL Urine Ketones NEG (NEG) MG/DL Urine Blood NEG (NEG) Urine Nitrite NEG (NEG) Ur Leukocyte Esterase NEG (NEG) Urine Opiates Screen (Not Detect) Urine Fentanyl Screen (Not Detect) Ur Barbiturates Screen (Not Detect) Ur Phencyclidine Scrn (Not Detect) Ur Amphetamines Screen (Not Detect) U Benzodiazepines Scrn (Not Detect) Urine Cocaine Screen (Not Detect) U Marijuana (THC) Screen (Not Detect) COVID-19 (RADHA) Cancelled COVID-19 Clin Com Cancelled Influenza Type A (PHILLIP) (Negative) Influenza Type B (PHILLIP) (Negative) Influenza A & B Note 09/09/21 09/09/21 09/09/21 Range/Units 17:06 19:22 19:31 WBC (4.8-10.8) X10*3/uL RBC (4.60-5.80) X10*6/uL Hgb (14.0-18.0) g/dl Hct (42.0-52.0) % MCV (80.0-98.0) fL MCH (27.0-33.0) pg MCHC (31.0-36.0) g/dl RDW (11.0-16.0) % Plt Count (160-400) X10*3/uL MPV (9.4-12.4) fL Immature Gran % (Auto) (0.0-0.4) % Neut % (Auto) (45-73) % Lymph % (Auto) (20-40) % [place] % (Auto) (2-11) % Eos % (Auto) (0-4) % Baso % (Auto) (0-2) % Lymph # (Auto) (1.2-4.9) X10*3/uL [place] # (Auto) (0.1-1.2) X10*3/uL Eos # (Auto) (0.0-0.4) X10*3/uL Baso # (Auto) (0.0-0.2) X10*3/uL Abs Immat Gran (auto) (0.00-0.03) X10*3/uL Absolute Neuts (auto) (2.0-8.3) x10*3/uL Absolute Nucleated RBC (0.0-0.012) X10*3/uL Nucleated RBC % (auto) (0.0-0.2) /100WBC VBG pH (7.32-7.43) VBG pCO2 mmHg VBG pO2 mmHg VBG HCO3 (22-26) mmol/L VBG O2 Saturation % VBG Base Excess mmol/L Sodium (135-145) mmol/L Potassium (3.3-5.1) mmol/L Chloride (96-108) mmol/L Carbon Dioxide (22-29) mmol/L Anion Gap (12-20) BUN (9-16) mg/dL Creatinine (0.5-1.4) mg/dL Estim Creat Clear Calc Estimated GFR Random Glucose (60-115) mg/dL Lactic Acid (0.5-2.0) mmol/L Calcium (8.4-10.2) mg/dL Total Bilirubin (0.0-1.0) mg/dL AST (5-37) U/L ALT (0-40) U/L Alkaline Phosphatase (39-117) U/L Ammonia (13-55) umol/L Troponin I High Sens 52.3 H (<3.5-35.0) ng/L Total Protein (6.5-8.0) g/dL Albumin (3.5-5.0) g/dL Urine Color Urine Appearance Urine pH (5.0-8.0) Ur Specific [place] (1.005-1.025) Urine Protein (NEG-TRACE) MG/DL Urine Glucose (UA) (NEG) MG/DL Urine Ketones (NEG) MG/DL Urine Blood (NEG) Urine Nitrite (NEG) Ur Leukocyte Esterase (NEG) Urine Opiates Screen Not Detected (Not Detect) Urine Fentanyl Screen Not Detected (Not Detect) Ur Barbiturates Screen Not Detected (Not Detect) Ur Phencyclidine Scrn Not Detected (Not Detect) Ur Amphetamines Screen Not Detected (Not Detect) U Benzodiazepines Scrn POSITIVE H (Not Detect) Urine Cocaine Screen Not Detected (Not Detect) U Marijuana (THC) Screen Not Detected (Not Detect) COVID-19 (RADHA) COVID-19 Clin Com Influenza Type A (PHILLIP) Negative (Negative) Influenza Type B (PHILLIP) Negative (Negative) Influenza A & B Note See Note 09/09/21 09/09/21 09/09/21 Range/Units 19:36 21:56 21:58 WBC (4.8-10.8) X10*3/uL RBC (4.60-5.80) X10*6/uL Hgb (14.0-18.0) g/dl Hct (42.0-52.0) % MCV (80.0-98.0) fL MCH (27.0-33.0) pg MCHC (31.0-36.0) g/dl RDW (11.0-16.0) % Plt Count (160-400) X10*3/uL MPV (9.4-12.4) fL Immature Gran % (Auto) (0.0-0.4) % Neut % (Auto) (45-73) % Lymph % (Auto) (20-40) % [place] % (Auto) (2-11) % Eos % (Auto) (0-4) % Baso % (Auto) (0-2) % Lymph # (Auto) (1.2-4.9) X10*3/uL [place] # (Auto) (0.1-1.2) X10*3/uL Eos # (Auto) (0.0-0.4) X10*3/uL Baso # (Auto) (0.0-0.2) X10*3/uL Abs Immat Gran (auto) (0.00-0.03) X10*3/uL Absolute Neuts (auto) (2.0-8.3) x10*3/uL Absolute Nucleated RBC (0.0-0.012) X10*3/uL Nucleated RBC % (auto) (0.0-0.2) /100WBC VBG pH 7.30 L (7.32-7.43) VBG pCO2 74 mmHg VBG pO2 124 mmHg VBG HCO3 37 H (22-26) mmol/L VBG O2 Saturation 99.0 % VBG Base Excess 7.6 mmol/L Sodium (135-145) mmol/L Potassium (3.3-5.1) mmol/L Chloride (96-108) mmol/L Carbon Dioxide (22-29) mmol/L Anion Gap (12-20) BUN (9-16) mg/dL Creatinine (0.5-1.4) mg/dL Estim Creat Clear Calc Estimated GFR Random Glucose (60-115) mg/dL Lactic Acid (0.5-2.0) mmol/L Calcium (8.4-10.2) mg/dL Total Bilirubin (0.0-1.0) mg/dL AST (5-37) U/L ALT (0-40) U/L Alkaline Phosphatase (39-117) U/L Ammonia 48 (13-55) umol/L Troponin I High Sens (<3.5-35.0) ng/L Total Protein (6.5-8.0) g/dL Albumin (3.5-5.0) g/dL Urine Color Urine Appearance Urine pH (5.0-8.0) Ur Specific [place] (1.005-1.025) Urine Protein (NEG-TRACE) MG/DL Urine Glucose (UA) (NEG) MG/DL Urine Ketones (NEG) MG/DL Urine Blood (NEG) Urine Nitrite (NEG) Ur Leukocyte Esterase (NEG) Urine Opiates Screen (Not Detect) Urine Fentanyl Screen (Not Detect) Ur Barbiturates Screen (Not Detect) Ur Phencyclidine Scrn (Not Detect) Ur Amphetamines Screen (Not Detect) U Benzodiazepines Scrn (Not Detect) Urine Cocaine Screen (Not Detect) U Marijuana (THC) Screen (Not Detect) COVID-19 (RADHA) Negative COVID-19 Clin Com See Note Influenza Type A (PHILLIP) (Negative) Influenza Type B (PHILLIP) (Negative) Influenza A & B Note Discharge Plan Discharge Clinical Impression: Adult failure to thrive, Pneumonia, Weakness Patient Disposition: Admitted As Inpatient
[2021-09-09 17:23] LABS: Appearance Urine CLEAR; Color Urine YELLOW; Glucose Urine UA NEG (NEG); Leukocyte Esterase Urine NEG (NEG); Nitrite Urine NEG (NEG); Urine Blood NEG (NEG); Urine Ketones NEG (NEG); Urine Protein TRACE MG/DL (NEG-TRACE)
[2021-09-09 17:40] LABS: Lactic Acid 0.7 mmol/L (0.5-2.0)
[2021-09-09] MEDS: 0.9 % Sodium Chloride 1,000 ML 999 ML IV ×2 (17:49→22:03)
[2021-09-09 19:18] VITALS: BP 162/93; PULSE 82; RESP 16; TEMP 37.1; O2SAT 99
[2021-09-09] MEDS: Naloxone HCl 0.4 MG/ML VIAL IVPUSH (19:28)
[2021-09-09 19:57] LABS: Influenza A Negative (Negative); Influenza B2 Negative (Negative)
[2021-09-09 20:20] LABS: COVID-19 Test Negative (Negative); IDNOW Serial# 55D5AD1C
[2021-09-09 20:24] LABS: Amphetamine Screen Urine Not Detected (Not Detect); Barbiturates, Urine Not Detected (Not Detect); Benzodiazepines Screen Urine POSITIVE (Not Detect); Cannabinoid Screen Urine Not Detected (Not Detect); Cocaine Screen Urine Not Detected (Not Detect); Fentanyl, urine Not Detected (Not Detect); Opiate Screen Urine Not Detected (Not Detect); Phencyclidine Screen Urine Not Detected (Not Detect)
[2021-09-09 20:24] LABS: Troponin-I High Sensitivity 52.3 ng/L (<3.5-35.0)
[2021-09-09] MEDS: cefTRIAXone sodium 1 GM in 0.9 % Sodium Chloride 50 ML IV (20:34)
--- NOTE | 2021-09-09 21:51 | PHA.MEDREC ---
Pharmacy Consult ? Medication Reconciliation Pharmacy has completed the medication reconciliation.
[2021-09-09 22:00] VITALS: BP 158/95; PULSE 75; RESP 18; TEMP 36.6; O2SAT 96
[2021-09-09 22:09] LABS: VBG Base Excess 7.6 mmol/L; VBG HCO3 37 mmol/L (22-26); VBG pCO2 74 mmHg; VBG pO2 124 mmHg
[2021-09-09 22:13] LABS: Ammonia 48 umol/L (13-55)
--- NOTE | 2021-09-09 22:15 | PC.NURSE ---
PATIENT NORIEGA CATCH OUT PUT WAS 500 ML ,COLOR YELLOW
[2021-09-09 22:16] LABS: Venous Blood Gas Refer to POC result
--- NOTE | 2021-09-09 22:46 | PC.NURSE ---
patient responsive at this time, drinking fluids when offered. patient in no obvious distress at this time. still non-verbal at this time.
[2021-09-10] VITALS (13 sets, daily range): BP systolic 140–172; BP diastolic 75–117; PULSE 64–102; RESP 10–22; TEMP 36.4; O2SAT 92–100
[2021-09-10] MEDS: Haloperidol Lactate 5 MG/ML VIAL 2.5 MG IM (03:23)
[2021-09-10] MEDS: LORazepam 2 MG/ML VIAL IM (04:11)
--- NOTE | 2021-09-10 10:18 | PM.IMHP ---
History of Present Illness Date of Service: 09/10/21 Chief Complaint: confusion This is a 71 yo M with a PMH as outlined below who was brought to [facility] ED on 09/09/21 by family for increasing confusion over the last 5 days prior to arrival. The patient is currently sedated and unable to provide a history. Hence, the history is obtained from his son Maliha (and HCP) who is bedside. His son (whom the patient lives) reports that the last 5 days his father has becoming increasingly confused and agitated. The son reports that his father also may have been hallucinating. He reports that the patient, who is on chronic suboxone for back pain recently had his dose increased (but has only received 1 dose of the increased amount). The son reports that in addition to the increasing confusion, his father has not been eating or drinking well. There are no reports of fevers or chills. Son reports that his father had a similar presentation in the past when he had a UTI. Initially upon arrival to the ED, the patient was found to be lethargic and minimally responsive. He was hypoxic down to 83% on RA. His work up revealed a possible early RLL pneumonia. His VBG (suspected mixed sampling given pO2) showed a pH of 7.3 and pCO2 of 72. He was given IVF and IV antibiotics. Overnight, it appears that the patient became increasingluy more alert and eventually agitated -- pulling out his IV and dowell. He required IV sedation with haldol and ativan. The patient is seen this morning around 9 am. He is minimally responsive. He is seen again around 10am at which point in time, it appears that he is slowly waking up. Review of Systems Review of Systems: unable to complete due to mental status [facility] Medical History Chronic back pain COPD (chronic obstructive pulmonary disease) Cough Emphysema lung Groin pain HTN (hypertension) Left knee injury Pertinent family history: unable to determine due to mental status Surgical History H/O arthroscopic knee surgery History of left knee replacement Previous back surgery Social History (Updated 09/10/21 @ 10:25 by Kevin Vasquez MD) Alcohol intake: never Patient Tobacco Use Status: Current everyday Tobacco user Use of substances other than those prescribed or required for medical reasons: No Advance Directives: No Advance Directives Information Provided: No Meds Allergies Allergy/AdvReac Type Severity Reaction Status Date / Time amitriptyline [From ELAVIL] AdvReac Unknown ARMS Verified 07/29/21 20:44 SHAKING Elavil AdvReac Unknown muscle Uncoded 07/29/21 20:44 spasms, uncontrollable arm movements Active Medications: Current Medications Acetaminophen (Acetaminophen 325 Mg Tablet) 650 mg PO Q6H PRN PRN Reason: Pain, Mild (Pain Scale 1-3) Enoxaparin Sodium (Enoxaparin Sodium 40 Mg/0.4 Ml Syringe) 40 mg SUBCUT Q24H J LUIS Ondansetron HCl (Ondansetron Hcl 4 Mg/2 Ml Vial) 4 mg IVPUSH Q8H PRN PRN Reason: Nausea and Vomiting Sodium Chloride (0.9 % Sodium Chloride Flush 3 Ml Syringe) 3 ml IVFLUSH QSHIFT J LUIS Home Medications Medication Instructions Recorded Confirmed Last Taken Type atorvastatin 80 mg tablet 80 mg PO BEDTIME 08/01/20 09/09/21 09/08/21 History diclofenac sodium 75 mg 75 mg PO BID 08/01/20 09/09/21 09/09/21 History tablet,delayed release gabapentin 600 mg tablet 600 mg PO TID 08/01/20 09/09/21 09/09/21 History lisinopril 10 1 tab PO DAILY 08/01/20 09/09/21 09/09/21 History mg-hydrochlorothiazide 12.5 mg tablet trazodone 150 mg PO BEDTIME 07/30/21 09/09/21 09/08/21 History acetaminophen 500 mg tablet 1,000 mg PO BID 09/09/21 09/09/21 09/09/21 History acetaminophen 500 mg tablet 500 mg PO DAILY@1200 09/09/21 09/09/21 09/09/21 History buprenorphine 2 mg-naloxone 0.5 mg 3 tab SUBLINGUAL BID 09/09/21 09/09/21 09/09/21 History sublingual tablet bupropion HCl 300 mg 24 hr tablet, 300 mg PO QAM 09/09/21 09/09/21 09/09/21 History extended release diazepam 5 mg tablet 1 tab PO BID 09/09/21 09/09/21 09/09/21 History venlafaxine 150 mg 150 mg PO DAILY 09/09/21 09/09/21 09/09/21 History capsule,extended release 24 hr Physical Exam Vital Signs and Narrative: Vital Signs: Last Vital Signs Temp 97.9 F 09/09/21 22:00 Pulse 83 09/10/21 08:44 Resp 13 09/10/21 08:44 BP 164/95 H 09/10/21 08:44 Pulse Ox 96 09/10/21 08:44 BMI result Body Mass Index 18.8 Const: Other: Constitutional - Lethargic and minimally responsive HEENT - eyes close but opens to verbal stimuli; PERRL, dry mucous membranes Cardiovascular - S1S2, RRR, No edema Respiratory - Diminished breath sounds, no respiratory distress; saturatios upper 90s on 3L Gastrointestinal - NT / ND; +BS; No rebound or guarding - No CVA tenderness Extremities - no calf tenderness bilaterally, no swelling Musculoskeletal - Normal inspection, normal ROM Skin - Warm/Dry Neurological - lethargic, unable to obey commands Results Labs CBC and Chem 7: 09/09/21 14:59 09/09/21 14:59 Labs: Laboratory Results - last 24 hr 09/09/21 09/09/21 09/09/21 14:59 14:59 14:59 MCV 98.2 H MCH 31.4 MCHC 32.0 RDW 14.5 Plt Count 241 D MPV 11.9 Immature Gran % (Auto) 0.4 Neut % (Auto) 83.6 H Lymph % (Auto) 6.5 L [place] % (Auto) 9.4 Eos % (Auto) 0.0 Baso % (Auto) 0.1 Lymph # (Auto) 0.6 L [place] # (Auto) 0.8 Eos # (Auto) 0.0 Baso # (Auto) 0.0 Abs Immat Gran (auto) 0.03 Absolute Neuts (auto) 7.0 Absolute Nucleated RBC 0.000 Nucleated RBC % (auto) 0.0 VBG pH VBG pCO2 VBG pO2 VBG HCO3 VBG O2 Saturation VBG Base Excess Anion Gap 12 Estim Creat Clear Calc 87.5 Estimated GFR > 60 Random Glucose 118 H Lactic Acid Calcium 9.2 Total Bilirubin 0.5 AST 20 ALT 23 Alkaline Phosphatase 125 H D Ammonia Troponin I High Sens 61.8 H Total Protein 5.9 L Albumin 3.7 Urine Color Urine Appearance Urine pH Ur Specific [place] Urine Protein Urine Glucose (UA) Urine Ketones Urine Blood Urine Nitrite Ur Leukocyte Esterase Urine Opiates Screen Urine Fentanyl Screen Ur Barbiturates Screen Ur Phencyclidine Scrn Ur Amphetamines Screen U Benzodiazepines Scrn Urine Cocaine Screen U Marijuana (THC) Screen COVID-19 (RADHA) COVID-19 Clin Com Influenza Type A (PHILLIP) Influenza Type B (PHILLIP) Influenza A & B Note 09/09/21 09/09/21 09/09/21 17:06 17:06 17:06 MCV MCH MCHC RDW Plt Count MPV Immature Gran % (Auto) Neut % (Auto) Lymph % (Auto) [place] % (Auto) Eos % (Auto) Baso % (Auto) Lymph # (Auto) [place] # (Auto) Eos # (Auto) Baso # (Auto) Abs Immat Gran (auto) Absolute Neuts (auto) Absolute Nucleated RBC Nucleated RBC % (auto) VBG pH VBG pCO2 VBG pO2 VBG HCO3 VBG O2 Saturation VBG Base Excess Anion Gap Estim Creat Clear Calc Estimated GFR Random Glucose Lactic Acid 0.7 Calcium Total Bilirubin AST ALT Alkaline Phosphatase Ammonia Troponin I High Sens Total Protein Albumin Urine Color YELLOW Urine Appearance CLEAR Urine pH 6.0 Ur Specific [place] 1.020 Urine Protein TRACE Urine Glucose (UA) NEG Urine Ketones NEG Urine Blood NEG Urine Nitrite NEG Ur Leukocyte Esterase NEG Urine Opiates Screen Urine Fentanyl Screen Ur Barbiturates Screen Ur Phencyclidine Scrn Ur Amphetamines Screen U Benzodiazepines Scrn Urine Cocaine Screen U Marijuana (THC) Screen COVID-19 (RADHA) Cancelled COVID-19 Clin Com Cancelled Influenza Type A (PHILLIP) Influenza Type B (PHILLIP) Influenza A & B Note 09/09/21 09/09/21 09/09/21 17:06 19:22 19:31 MCV MCH MCHC RDW Plt Count MPV Immature Gran % (Auto) Neut % (Auto) Lymph % (Auto) [place] % (Auto) Eos % (Auto) Baso % (Auto) Lymph # (Auto) [place] # (Auto) Eos # (Auto) Baso # (Auto) Abs Immat Gran (auto) Absolute Neuts (auto) Absolute Nucleated RBC Nucleated RBC % (auto) VBG pH VBG pCO2 VBG pO2 VBG HCO3 VBG O2 Saturation VBG Base Excess Anion Gap Estim Creat Clear Calc Estimated GFR Random Glucose Lactic Acid Calcium Total Bilirubin AST ALT Alkaline Phosphatase Ammonia Troponin I High Sens 52.3 H Total Protein Albumin Urine Color Urine Appearance Urine pH Ur Specific [place] Urine Protein Urine Glucose (UA) Urine Ketones Urine Blood Urine Nitrite Ur Leukocyte Esterase Urine Opiates Screen Not Detected Urine Fentanyl Screen Not Detected Ur Barbiturates Screen Not Detected Ur Phencyclidine Scrn Not Detected Ur Amphetamines Screen Not Detected U Benzodiazepines Scrn POSITIVE H Urine Cocaine Screen Not Detected U Marijuana (THC) Screen Not Detected COVID-19 (RADHA) COVID-19 Clin Com Influenza Type A (PHILLIP) Negative Influenza Type B (PHILLIP) Negative Influenza A & B Note See Note 09/09/21 09/09/21 09/09/21 19:36 21:56 21:58 MCV MCH MCHC RDW Plt Count MPV Immature Gran % (Auto) Neut % (Auto) Lymph % (Auto) [place] % (Auto) Eos % (Auto) Baso % (Auto) Lymph # (Auto) [place] # (Auto) Eos # (Auto) Baso # (Auto) Abs Immat Gran (auto) Absolute Neuts (auto) Absolute Nucleated RBC Nucleated RBC % (auto) VBG pH 7.30 L VBG pCO2 74 VBG pO2 124 VBG HCO3 37 H VBG O2 Saturation 99.0 VBG Base Excess 7.6 Anion Gap Estim Creat Clear Calc Estimated GFR Random Glucose Lactic Acid Calcium Total Bilirubin AST ALT Alkaline Phosphatase Ammonia 48 Troponin I High Sens Total Protein Albumin Urine Color Urine Appearance Urine pH Ur Specific [place] Urine Protein Urine Glucose (UA) Urine Ketones Urine Blood Urine Nitrite Ur Leukocyte Esterase Urine Opiates Screen Urine Fentanyl Screen Ur Barbiturates Screen Ur Phencyclidine Scrn Ur Amphetamines Screen U Benzodiazepines Scrn Urine Cocaine Screen U Marijuana (THC) Screen COVID-19 (RADHA) Negative COVID-19 Clin Com See Note Influenza Type A (PHILLIP) Influenza Type B (PHILLIP) Influenza A & B Note Imaging Radiologist's Impressions: Impressions Chest X-Ray 09/09/21 17:40 IMPRESSION: Increased right basilar airspace disease may reflect component of atelectasis although early infiltrate could've a similar appearance. Clinical correlation and follow-up would be helpful. Head CT 09/09/21 18:59 IMPRESSION: No acute intracranial process seen. Assessment and Plan (1) Pneumonia: Status: Acute Plan This is a 71 year old M who arrived to [facility] on 09/09/21 with reports of worsening confusion over the preceeding 5 days. His work up has revealed a likely early pneumonia. No definitive cause of his acute encephalopathy is found. 1. Acute Toxic/Metabolic Encephalopathy No definitive cause of his presentation. Possibly medication related. VBG showing elevated PCO2 yesterday evening. Will repeat one now. for now, hold any sedative meds and observe will given gentle IVF, NPO for now and bedside swallow eval once more awake 2. Suspected early pneumonia, possibly aspiration 2a. Acute respiratory failure with hypoxia IV unasyn f/u cultures continue 2L by NC -- goal 88-92 3. Chronic back pain hold all sedative meds for now and reassess 4. Elevated HS trop-I flat x 2 monitor on tele 5. Suspected undiagnosed COPD DuoNebs q6 hours 6. HTN hold PO meds Full Code DVT pptx, Lovenox Son Maliha endorses he is HCP In light of the patient's encephalopathy + pneumonia + hypoxia, I anticipate he will likely need a inpatient hospitalization spanning at least 2 midnights to treatment and monitoring response. This cannot be completed in a less acute setting. Quality Stroke Does the patient have a stroke diagnosis?: No VTE Prior VTE?: No VTE Risk Level:: Medical - moderate - high VTE Device Contraindication: Treatment Not Indicated VTE Drug Contraindication: N/A - Med Ordered
--- NOTE | 2021-09-10 10:19 | PC.NURSE ---
son present and Dr Vasquez present. pt was turned and repositioned, rectal temp was 97.8. he was not responsive fully and only briefly opened his eyes for a short period of time. O2 is 85% on RA and pt put back on 2 L. HR in the 90's and sinus rhythm noted.
[2021-09-10 11:26] LABS: Venous Blood Gas Refer to POC result
[2021-09-10 11:27] LABS: VBG Base Excess 13.6 mmol/L; VBG HCO3 44 mmol/L (22-26); VBG pCO2 81 mmHg; VBG pH 7.33 (7.32-7.43); VBG pO2 112 mmHg
[2021-09-10] MEDS: Ampicillin Sodium/Sulbactam Na 1.5 GM in 0.9 % Sodium Chloride 100 ML IV ×3 (11:39→21:43)
[2021-09-10] MEDS: Enoxaparin Sodium 40 MG/0.4 ML SYRINGE SUBCUT (11:40)
[2021-09-10] MEDS: Nicotine 21 MG PATCH.TD24 TRANSDERMA (11:40)
[2021-09-10] MEDS: Dextrose 5 % and 0.9 % NaCl 1,000 ML 80 ML IVCONT (12:45)
[2021-09-10] MEDS: Albuterol/Iprat 2.5/0.5MG 3 ML AMPUL.NEB INHALE (13:59)
--- NOTE | 2021-09-10 14:36 | PC.NURSE ---
has been resting/sleeping for the last few hours. now is awake, responds to name, slightly agitated but redirectable. cleansed of incontinent stool.
[2021-09-10] MEDS: buPROPion HCl XL 300 MG TAB.ER.24H PO (16:05)
--- NOTE | 2021-09-10 18:44 | PC.NURSE ---
Pt has dowell catheter placed, 1000 ml of urine was removed.
[2021-09-10] MEDS: Gabapentin 600 MG TABLET PO ×2 (18:52→21:44)
[2021-09-10] MEDS: 0.9 % Sodium Chloride Flush 3 ML SYRINGE IVFLUSH (18:53)
[2021-09-10] MEDS: Buprenorphine/Naloxone 2/0.5mg FILM 3 FILM SUBLINGUAL (19:13)
[2021-09-10] MEDS: traZODone HCL 50 MG TABLET 150 MG PO (21:45)
--- NOTE | 2021-09-10 21:50 | PC.NURSE ---
Pt sleeping in bed, son at bedside. Son agreeable to some PO medications for pt, pills crushed in pudding. Pt able to wake for Trazodone and Gabapentin. Other medications documented against due to concern for aspiration. Pt tolerating crushed pills well with small sips of water.
[2021-09-11] VITALS (12 sets, daily range): BP systolic 114–159; BP diastolic 74–93; PULSE 79–98; RESP 15–34; TEMP 36.3–37.2; O2SAT 89–100
[2021-09-11] MEDS: 0.9 % Sodium Chloride Flush 3 ML SYRINGE IVFLUSH ×2 (01:05→17:11)
--- NOTE | 2021-09-11 02:03 | PC.NURSE ---
Pt remains asleep in bed at this time. Pt repositioned into POC, pillows added for comfort. 800 ml of UO drained from dowell bag. VSS. Continue to monitor.
[2021-09-11] MEDS: Ampicillin Sodium/Sulbactam Na 1.5 GM in 0.9 % Sodium Chloride 100 ML IV ×4 (03:48→21:54)
[2021-09-11] MEDS: Dextrose 5 % and 0.9 % NaCl 1,000 ML 80 ML IVCONT ×2 (04:48→13:13)
--- NOTE | 2021-09-11 06:40 | PC.NURSE ---
Pt rotated onto side, pillows applied for comfort. Pt noted to be clean/dry @ this time. VSS.
[2021-09-11 07:20] LABS: Hemoglobin 14.7 g/dl (14.0-18.0); Mean Corpuscular HGB Conc 31.3 g/dl (31.0-36.0); Mean Corpuscular Hemoglobin 32.3 pg (27.0-33.0); Mean Corpuscular Volume 103.3 fL (80.0-98.0); Mean Platelet Volume 11.4 fL (9.4-12.4); Platelet Count 158 X10*3/uL (160-400); Red Blood Count 4.55 X10*6/uL (4.60-5.80); Red Cell Distribution Width 14.5 % (11.0-16.0); White Blood Count 6.2 X10*3/uL (4.8-10.8)
--- NOTE | 2021-09-11 07:34 | PC.NURSE ---
pt repositioned to eat breakfast, reports feeling hungry. alert to person only. IVF running at 80ml/hr. pt afebrile and VSS
[2021-09-11 07:44] LABS: Anion Gap 9 (12-20); Blood Urea Nitrogen 14 mg/dL (9-16); Calcium 8.5 mg/dL (8.4-10.2); Carbon Dioxide 44 mmol/L (22-29); Chloride 95 mmol/L (96-108); Creatinine Clr Calc Pharmacy 97.8; Estimated Glomerular Filt Rate > 60; Glucose Random 128 mg/dL (60-115); Potassium 3.6 mmol/L (3.3-5.1); Sodium 144 mmol/L (135-145)
[2021-09-11] MEDS: Albuterol/Iprat 2.5/0.5MG 3 ML AMPUL.NEB INHALE ×3 (08:12→19:26)
[2021-09-11] MEDS: lisinopriL 10 MG, hydroCHLOROthiazide 12.5 MG PO (09:18)
[2021-09-11] MEDS: Acetaminophen 325 MG TABLET 975 MG PO (09:18)
[2021-09-11] MEDS: Gabapentin 600 MG TABLET PO ×3 (09:19→21:30)
[2021-09-11] MEDS: Venlafaxine HCl ER 150 MG CAP.ER.24H PO (09:19)
[2021-09-11] MEDS: Diclofenac Sodium Delayed Rel 75 MG TABLET.DR PO ×2 (09:19→21:29)
[2021-09-11] MEDS: buPROPion HCl XL 300 MG TAB.ER.24H PO (09:19)
[2021-09-11] MEDS: Nicotine 21 MG PATCH.TD24 TRANSDERMA (09:20)
[2021-09-11] MEDS: Buprenorphine/Naloxone 2/0.5mg FILM 3 FILM SUBLINGUAL ×2 (09:20→21:30)
[2021-09-11] MEDS: diazePAM 5 MG TABLET 2.5 MG PO (09:20)
[2021-09-11] MEDS: Enoxaparin Sodium 40 MG/0.4 ML SYRINGE SUBCUT (10:49)
[2021-09-11 12:22] LABS: ABG Refer to POC result
[2021-09-11 12:24] LABS: ABG Base Excess 18.4 mmol/L; ABG HCO3 49 mmol/L (22-26); ABG pCO2 95 mmHg (32-45); ABG pH 7.32 (7.35-7.45); ABG pO2 147 mmHg (83-108)
--- NOTE | 2021-09-11 12:41 | MHC.CM.PN ---
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
--- NOTE | 2021-09-11 14:01 | HO.PM.IMPN ---
Subjective Subjective Date of Service: 09/11/21 Interval History: F/u for acute hypoxic respiratory, metabolic encephalopath Interval history: intermittently somnolent, with bicap inreasing CO2 Review of Systems intermittently sob, no wheeze, some confusion Physical Exam Vital Signs: Vital Signs: Last Vital Signs Temp 97.9 F 09/11/21 06:42 Pulse 81 09/11/21 12:00 Resp 18 09/11/21 12:00 BP 125/81 09/11/21 12:00 Pulse Ox 100 09/11/21 12:00 BMI result Body Mass Index 18.8 Const: Other: General: Alert x1,, no acute distress Resp: No wheeze, hyperresonance sounds, no accessory muscle use CVS: S1,S2,RRR GI: +BS, NT, no distention Skin: No rash Neuro: motor grossly intact Psych: appropriate affect Objective Data Active Medications Acetaminophen (Acetaminophen 325 Mg Tablet) 650 mg PO Q6H PRN PRN Reason: Pain, Mild (Pain Scale 1-3) Acetaminophen (Acetaminophen 325 Mg Tablet) 975 mg PO BID [facility] Last Admin: 09/11/21 09:18 Dose: 975 mg Documented by: JERE Albuterol/Ipratropium (Albuterol/Iprat 2.5/0.5mg 3 Ml Ampul.Neb) 3 ml INHALE RQ6H WHILE AWAKE [facility] Last Admin: 09/11/21 08:12 Dose: 3 ml Documented by: RASHIDA Atorvastatin Calcium (Atorvastatin Calcium 80 Mg Tablet) 80 mg PO BEDTIME [facility] Last Admin: 09/10/21 21:44 Dose: Not Given Documented by: CARLOS Non-Admin Reason: Patient Refused Buprenorphine/Naloxone (Buprenorphine/Naloxone 2/0.5mg Film) 3 film SUBLINGUAL BID [facility] Last Admin: 09/11/21 09:20 Dose: 3 film Documented by: JERE Bupropion HCl (Bupropion Hcl Xl 300 Mg Tab.Er.24h) 300 mg PO DAILY [facility] Last Admin: 09/11/21 09:19 Dose: 300 mg Documented by: JERE Lisinopril 10 mg/ (Hydrochlorothiazide 12.5 mg) 0 mg PO DAILY [facility] Last Admin: 09/11/21 09:18 Dose: 22.5 tablet Documented by: JERE Diazepam (Diazepam 5 Mg Tablet) 2.5 mg PO BID [facility] Last Admin: 09/11/21 09:20 Dose: 2.5 mg Documented by: JERE Diclofenac Sodium (Diclofenac Sodium Delayed Rel 75 Mg Tablet.Dr) 75 mg PO BID [facility] Last Admin: 09/11/21 09:19 Dose: 75 mg Documented by: JERE Enoxaparin Sodium (Enoxaparin Sodium 40 Mg/0.4 Ml Syringe) 40 mg SUBCUT Q24H [facility] Last Admin: 09/11/21 10:49 Dose: 40 mg Documented by: JERE Gabapentin (Gabapentin 600 Mg Tablet) 600 mg PO TID [facility] Last Admin: 09/11/21 09:19 Dose: 600 mg Documented by: JERE Ampicillin Sodium/Sulbactam (Sodium 1.5 gm/ Sodium Chloride) 100 mls @ 200 mls/hr IV Q6H [facility] Last Infusion: 09/11/21 11:38 Dose: 0 mls/hr Documented by: JERE Dextrose/Sodium Chloride (D5ns) 1,000 mls @ 80 mls/hr IVCONT .[id number] [facility] Last Admin: 09/11/21 13:13 Dose: 80 mls/hr Documented by: GINI Nicotine (Nicotine 21 Mg Patch.Td24) 21 mg TRANSDERMA DAILY [facility] Last Admin: 09/11/21 09:20 Dose: 21 mg Documented by: JERE Ondansetron HCl (Ondansetron Hcl 4 Mg/2 Ml Vial) 4 mg IVPUSH Q8H PRN PRN Reason: Nausea and Vomiting Sodium Chloride (0.9 % Sodium Chloride Flush 3 Ml Syringe) 3 ml IVFLUSH QSHIFT [facility] Last Admin: 09/11/21 10:26 Dose: Not Given Documented by: JERE Non-Admin Reason: IV Running Trazodone HCl (Trazodone Hcl 50 Mg Tablet) 150 mg PO BEDTIME [facility] Last Admin: 09/10/21 21:45 Dose: 150 mg Documented by: CARLOS Venlafaxine HCl (Venlafaxine Hcl Er 150 Mg Cap.Er.24h) 150 mg PO DAILY [facility] Last Admin: 09/11/21 09:19 Dose: 150 mg Documented by: JERE Labs CBC & Chem 7: 09/11/21 06:55 09/11/21 06:55 Labs: Laboratory Results - last 24 hr 09/11/21 09/11/21 09/11/21 06:55 06:55 12:11 MCV 103.3 H D MCH 32.3 MCHC 31.3 RDW 14.5 Plt Count 158 L D MPV 11.4 Absolute Nucleated RBC 0.000 Nucleated RBC % (auto) 0.0 O2 Saturation 99.0 ABG pH at Pt Temp 7.32 L ABG pCO2 at Pt Temp 95 H* ABG pO2 at Pt Temp 147 H ABG HCO3 49 H ABG Base Excess (Actual) 18.4 Anion Gap 9 L Estim Creat Clear Calc 97.8 Estimated GFR > 60 Random Glucose 128 H Calcium 8.5 D Microbiology Microbiology Results: Microbiology 09/09/21 17:48 Blood Culture - Preliminary Blood - Venous No growth after 24 hours. 09/09/21 17:48 Blood Culture - Preliminary Blood - Venous No growth after 24 hours. Assessment and Plan (1) Pneumonia: Status: Acute (2) COPD (chronic obstructive pulmonary disease): Status: Acute Plan 71 year old M who arrived to [facility] on 09/09/21 with reports of worsening confusion over the preceeding 5 days. His work up has revealed a likely early pneumonia. No definitive cause of his acute encephalopathy is found. 1. Acute Toxic/Metabolic Encephalopathy--likely related to CO2 narcosis and sedative meds given in ED 2. 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 Suspected early pneumonia, possibly aspiration -Continue Unasyn 3. Chronic back pain hold all sedative meds for now and reassess 4. Elevated HS trop-I flat x 2 monitor on tele 6. HTN--BP normal, hold meds DVT pptx, Lovenox Son Maliha endorses he is HCP Need for inpatient: acute resp failure that needs bibpa and being evaluated for ICU level of care. Discussed with son at the bedside Quality Stroke Does the patient have a stroke diagnosis?: No VTE Prior VTE?: No VTE Risk Level:: Medical - moderate - high VTE Device Contraindication: Treatment Not Indicated VTE Drug Contraindication: N/A - Med Ordered
--- NOTE | 2021-09-11 15:03 | PM.CCN ---
Critical Care Event Note Summary Date of Service: 09/11/21 Code activated: No Narrative: 71-year-old gentleman with underlying COPD, CO2 retention admitted with alteration of mental status, UTI, possible aspiration pneumonia, adult failure to thrive, covered with empiric Unasyn. Today patient with worsening lethargy with arterial blood gas showing worsening CO2 retention and acidemia requiring rescue BiPAP support. Patient started on BiPAP and slated to be transferred to the intensive care unit, however no staffed bed available at this time. Patient kept on telemetry medical sher with follow-up arterial blood gas ordered. If improving, may be titrated off BiPAP. Otherwise, may require intubation. Critical Care Time (minutes): 30
[2021-09-11] MEDS: acetaZOLAMIDE sodium 500 MG VIAL 250 MG IVPUSH (15:15)
[2021-09-11 15:56] LABS: ABG HCO3 49 mmol/L (22-26); ABG pCO2 67 mmHg (32-45); ABG pH 7.46 (7.35-7.45); ABG pO2 49 mmHg (83-108)
[2021-09-11] MEDS: Acetaminophen 325 MG TABLET 650 MG PO (18:00)
[2021-09-11 18:29] LABS: Venous Blood Gas Refer to POC result
[2021-09-11 18:30] LABS: VBG Base Excess 18.5 mmol/L; VBG HCO3 44 mmol/L (22-26); VBG pCO2 53 mmHg; VBG pH 7.52 (7.32-7.43); VBG pO2 70 mmHg
[2021-09-11 19:41] LABS: ABG Refer to POC result
[2021-09-11] MEDS: traZODone HCL 50 MG TABLET 150 MG PO (21:29)
[2021-09-11] MEDS: Atorvastatin Calcium 80 MG TABLET PO (21:30)
[2021-09-12] VITALS (14 sets, daily range): BP systolic 156–200; BP diastolic 52–97; PULSE 57–101; RESP 18–22; TEMP 36.4–37.9; O2SAT 90–99; BMI 18.8
[2021-09-12] MEDS: Ampicillin Sodium/Sulbactam Na 1.5 GM in 0.9 % Sodium Chloride 100 ML IV ×4 (04:56→22:22)
[2021-09-12] MEDS: Albuterol/Iprat 2.5/0.5MG 3 ML AMPUL.NEB INHALE ×3 (07:48→20:04)
[2021-09-12] MEDS: 0.9 % Sodium Chloride Flush 3 ML SYRINGE IVFLUSH ×2 (08:11→16:17)
[2021-09-12] MEDS: Acetaminophen 325 MG TABLET 975 MG PO (08:11)
[2021-09-12] MEDS: lisinopriL 10 MG, hydroCHLOROthiazide 12.5 MG PO (08:12)
[2021-09-12] MEDS: Buprenorphine/Naloxone 2/0.5mg FILM 3 FILM SUBLINGUAL ×2 (08:13→20:46)
[2021-09-12] MEDS: buPROPion HCl XL 300 MG TAB.ER.24H PO (08:13)
[2021-09-12] MEDS: Nicotine 21 MG PATCH.TD24 TRANSDERMA (08:13)
[2021-09-12] MEDS: Gabapentin 600 MG TABLET PO ×3 (08:13→20:45)
[2021-09-12] MEDS: Enoxaparin Sodium 40 MG/0.4 ML SYRINGE SUBCUT (10:39)
--- NOTE | 2021-09-12 10:48 | MHC.CLN ---
PT IS SEVERELY MALNOURISHED PT WITH 21% SIGNIFICANT WT LOSS X 1YEAR WITH MODERATELY DEPLTED MUSCLE MASS, BMI 18.8 AND CHRONIC POOR PO INTAKE REPORTED BY FAMILY FAMILY STATED PT ONLY TAKES SIPS/BITES OF MEALS DIET RX: PUREED-APPROPRIATE PT NOT RECEPTIVE TO ENSURE ENLIVE AND STATED I DONT DRINK THAT PT WILLING TO TRIAL ENSURE CLEAR TID TO INCREASE KCALS SUPP TO PROVIDE 720KCALS, 24G PROTEIN MONITOR PO INTAKE CLOSELY SEE ALSO FULL CLINICAL NUTRITION ASSESSMENT
--- NOTE | 2021-09-12 11:16 | HO.PM.IMPN ---
Subjective Subjective Date of Service: 09/12/21 Interval History: F/u for acute hypoxic respiratory, metabolic encephalopath Interval history: He's more awake yet confusion remains Review of Systems intermittently sob, no wheeze, some confusion Physical Exam Vital Signs: Vital Signs: Last Vital Signs Temp 98.8 F 09/12/21 07:02 Pulse 92 09/12/21 07:50 Resp 20 09/12/21 07:50 BP 170/90 H 09/12/21 07:02 Pulse Ox 90 L 09/12/21 11:11 BMI result Body Mass Index 18.8 Const: Other: General: Alert x1,, no acute distress Resp: No wheeze, hyperresonance sounds, no accessory muscle use CVS: S1,S2,RRR GI: +BS, NT, no distention Skin: No rash Neuro: motor grossly intact Psych: appropriate affect Objective Data Active Medications Acetaminophen (Acetaminophen 325 Mg Tablet) 650 mg PO Q6H PRN PRN Reason: Pain, Mild (Pain Scale 1-3) Last Admin: 09/11/21 18:00 Dose: 650 mg Documented by: GINI Acetaminophen (Acetaminophen 325 Mg Tablet) 975 mg PO BID [facility] Last Admin: 09/12/21 08:11 Dose: 975 mg Documented by: ALLEN Albuterol/Ipratropium (Albuterol/Iprat 2.5/0.5mg 3 Ml Ampul.Neb) 3 ml INHALE RQ6H WHILE AWAKE [facility] Last Admin: 09/12/21 07:48 Dose: 3 ml Documented by: KEELEY Atorvastatin Calcium (Atorvastatin Calcium 80 Mg Tablet) 80 mg PO BEDTIME [facility] Last Admin: 09/11/21 21:30 Dose: 80 mg Documented by: DANIELLE Buprenorphine/Naloxone (Buprenorphine/Naloxone 2/0.5mg Film) 3 film SUBLINGUAL BID [facility] Last Admin: 09/12/21 08:13 Dose: 3 film Documented by: ALLEN Bupropion HCl (Bupropion Hcl Xl 300 Mg Tab.Er.24h) 300 mg PO DAILY [facility] Last Admin: 09/12/21 08:13 Dose: 300 mg Documented by: ALLEN Lisinopril 10 mg/ (Hydrochlorothiazide 12.5 mg) 0 mg PO DAILY [facility] Last Admin: 09/12/21 08:12 Dose: 2 tablet Documented by: ALLEN Diclofenac Sodium (Diclofenac Sodium Delayed Rel 75 Mg Tablet.Dr) 75 mg PO BID [facility] Last Admin: 09/12/21 08:14 Dose: Not Given Documented by: ALLEN Non-Admin Reason: cannot be crushed Enoxaparin Sodium (Enoxaparin Sodium 40 Mg/0.4 Ml Syringe) 40 mg SUBCUT Q24H [facility] Last Admin: 09/12/21 10:39 Dose: 40 mg Documented by: ALLEN Gabapentin (Gabapentin 600 Mg Tablet) 600 mg PO TID [facility] Last Admin: 09/12/21 08:13 Dose: 600 mg Documented by: ALLEN Ampicillin Sodium/Sulbactam (Sodium 1.5 gm/ Sodium Chloride) 100 mls @ 200 mls/hr IV Q6H [facility] Last Admin: 09/12/21 10:47 Dose: 200 mls/hr Documented by: ALLEN Nicotine (Nicotine 21 Mg Patch.Td24) 21 mg TRANSDERMA DAILY [facility] Last Admin: 09/12/21 08:13 Dose: 21 mg Documented by: ALLEN Ondansetron HCl (Ondansetron Hcl 4 Mg/2 Ml Vial) 4 mg IVPUSH Q8H PRN PRN Reason: Nausea and Vomiting Sodium Chloride (0.9 % Sodium Chloride Flush 3 Ml Syringe) 3 ml IVFLUSH QSHIFT [facility] Last Admin: 09/12/21 08:11 Dose: 3 ml Documented by: ALLEN Trazodone HCl (Trazodone Hcl 50 Mg Tablet) 150 mg PO BEDTIME [facility] Last Admin: 09/11/21 21:29 Dose: 150 mg Documented by: DANIELLE Venlafaxine HCl (Venlafaxine Hcl Er 150 Mg Cap.Er.24h) 150 mg PO DAILY [facility] Last Admin: 09/12/21 08:14 Dose: Not Given Documented by: ALLEN Non-Admin Reason: cannot be crushed Labs CBC & Chem 7: 09/11/21 06:55 09/11/21 06:55 Labs: Laboratory Results - last 24 hr 09/11/21 09/11/21 09/11/21 12:11 15:49 18:24 O2 Saturation 99.0 82.0 ABG pH at Pt Temp 7.32 L 7.46 H ABG pCO2 at Pt Temp 95 H* 67 H* ABG pO2 at Pt Temp 147 H 49 L* ABG HCO3 49 H 49 H ABG Base Excess (Actual) 18.4 21.0 VBG pH 7.52 H VBG pCO2 53 VBG pO2 70 VBG HCO3 44 H VBG O2 Saturation 96.0 VBG Base Excess 18.5 Microbiology Microbiology Results: Microbiology 09/09/21 17:48 Blood Culture - Preliminary Blood - Venous No growth after 48 hours. 09/09/21 17:48 Blood Culture - Preliminary Blood - Venous No growth after 48 hours. Assessment and Plan (1) Pneumonia: Status: Acute (2) COPD (chronic obstructive pulmonary disease): Status: Acute Plan 71 year old M who arrived to [facility] [place] on 09/09/21 with reports of worsening confusion over the preceeding 5 days. His work up has revealed a likely early pneumonia. No definitive cause of his acute encephalopathy is found. 1. Acute Toxic/Metabolic Encephalopathy--likely related to CO2 narcosis and sedative meds given in ED, could also possible have underlying dementia 2. Acute hypercarbic respiratory failure with marked increase in CO2 likely leading to somnolence and confusion -He likely has underlying undiagnosed COPD with chronic CO2 retention---Was put on BiPAP briefly for this (BIPAP not for sepsis) -keep O2 88 to 92 -continue bronchodialtors and corticosteroids, smoking cessation discussed 2. Suspected early pneumonia, possibly aspiration -Continue Unasyn 3. Chronic back pain hold all sedative meds for now and reassess 4. Elevated HS trop-I flat x 2 monitor on tele 6. HTN--BP normal, hold meds 7. Severe protein caloary malnutrition--supplement DVT pptx, Lovenox Son Maliha endorses he is HCP Need for inpatient: acute resp failure, encephalopathy need for IV steroid for copd exacerbation and IV Abx for sepsis with asipriation pneumonia Quality Stroke Does the patient have a stroke diagnosis?: No VTE Prior VTE?: No VTE Risk Level:: Medical - moderate - high VTE Device Contraindication: Treatment Not Indicated VTE Drug Contraindication: N/A - Med Ordered
--- NOTE | 2021-09-12 12:41 | PC.NURSE ---
Addendum entered by Alexandria Dennis RN 09/12/21 15:41: Pt voided small amount, yellow, incontinent at 14:30. Next due to void 09/12/21 20:20 Original Note: Pt dowell catheter previously placed due to urinary retention. Pt dowell removed today 09/12/21 at 12:20. Pt due to void 18:20.
[2021-09-12] MEDS: Acetaminophen 325 MG TABLET 650 MG PO (16:17)
[2021-09-12] MEDS: diazePAM 5 MG TABLET PO (16:54)
[2021-09-12 20:07] LABS: CDiff Gene PCR NEGATIVE (Negative)
[2021-09-12] MEDS: traZODone HCL 50 MG TABLET 150 MG PO (20:45)
[2021-09-12] MEDS: Diclofenac Sodium Delayed Rel 75 MG TABLET.DR PO (20:45)
[2021-09-12] MEDS: Atorvastatin Calcium 80 MG TABLET PO (20:45)
[2021-09-12] MEDS: amLODIPine Besylate 2.5 MG TABLET PO (20:51)
[2021-09-13] VITALS (11 sets, daily range): BP systolic 100–177; BP diastolic 64–100; PULSE 63–106; RESP 12–24; TEMP 36.8–37.2; O2SAT 93–98
[2021-09-13] MEDS: QUEtiapine Fumarate 25 MG TABLET PO (02:00)
[2021-09-13] MEDS: Acetaminophen 325 MG TABLET 650 MG PO (02:25)
[2021-09-13] MEDS: Ampicillin Sodium/Sulbactam Na 1.5 GM in 0.9 % Sodium Chloride 100 ML IV ×4 (04:10→22:33)
[2021-09-13] MEDS: Albuterol/Iprat 2.5/0.5MG 3 ML AMPUL.NEB INHALE ×3 (07:47→18:05)
[2021-09-13] MEDS: Gabapentin 600 MG TABLET PO ×2 (09:11→19:37)
[2021-09-13] MEDS: lisinopriL 10 MG, hydroCHLOROthiazide 12.5 MG PO (09:11)
[2021-09-13] MEDS: Buprenorphine/Naloxone 2/0.5mg FILM 3 FILM SUBLINGUAL ×2 (09:12→19:36)
[2021-09-13] MEDS: Nicotine 21 MG PATCH.TD24 TRANSDERMA (09:12)
[2021-09-13] MEDS: 0.9 % Sodium Chloride Flush 3 ML SYRINGE IVFLUSH ×3 (09:13→19:38)
[2021-09-13] MEDS: Acetaminophen 325 MG TABLET 975 MG PO ×2 (09:14→19:37)
[2021-09-13] MEDS: Diclofenac Sodium Delayed Rel 75 MG TABLET.DR PO ×2 (09:15→19:36)
--- NOTE | 2021-09-13 10:48 | MHC.CLN ---
F/U PT IS SEVERELY MALNOURISHED SEE ALSO FULL CLINICAL NUTRITION ASSESSMENT DATED 09/12 PO INTAKE 100% X 2 MEALS DIET RX: PUREED-APPROPRIATE PT WILLING TO TRIAL ENSURE CLEAR TID TO INCREASE KCALS PROVIDES 720KCALS, 24G PROTEIN MONITOR PO INTAKE CLOSELY
--- NOTE | 2021-09-13 12:13 | P.PNIM_ITS ---
Subjective Subjective Date of Service: 09/13/21 Interval History: F/u for acute hypoxic respiratory, metabolic encephalopath Interval history: he remains confused, no sings of respiratory distress, family reports signficant weight loss Review of Systems intermittently sob, no wheeze, some confusion Physical Exam Vital Signs: Vital Signs: Last Vital Signs Temp 98.4 F 09/13/21 11:24 Pulse 78 09/13/21 11:24 Resp 18 09/13/21 11:24 BP 160/82 H 09/13/21 11:24 Pulse Ox 95 09/13/21 11:24 BMI result Body Mass Index 18.8 Const: Other: General: Alert x1,, no acute distress Resp: No wheeze, hyperresonance sounds, no accessory muscle use CVS: S1,S2,RRR GI: +BS, NT, no distention Skin: No rash Neuro: motor grossly intact Psych: appropriate affect Objective Data Active Medications Acetaminophen (Acetaminophen 325 Mg Tablet) 650 mg PO Q6H PRN PRN Reason: Pain, Mild (Pain Scale 1-3) Last Admin: 09/13/21 02:25 Dose: 650 mg Documented by: Acetaminophen (Acetaminophen 325 Mg Tablet) 975 mg PO BID [facility] Last Admin: 09/13/21 09:14 Dose: 975 mg Documented by: CHRIS Albuterol/Ipratropium (Albuterol/Iprat 2.5/0.5mg 3 Ml Ampul.Neb) 3 ml INHALE RQ6H WHILE AWAKE [facility] Last Admin: 09/13/21 07:47 Dose: 3 ml Documented by: KEELEY Atorvastatin Calcium (Atorvastatin Calcium 80 Mg Tablet) 80 mg PO BEDTIME [facility] Last Admin: 09/12/21 20:45 Dose: 80 mg Documented by: DANIELLE Buprenorphine/Naloxone (Buprenorphine/Naloxone 2/0.5mg Film) 3 film SUBLINGUAL BID [facility] Last Admin: 09/13/21 09:12 Dose: 3 film Documented by: CHRIS Bupropion HCl (Bupropion Hcl Xl 300 Mg Tab.Er.24h) 300 mg PO DAILY [facility] Last Admin: 09/13/21 09:10 Dose: 300 mg Documented by: CHRIS Lisinopril 10 mg/ (Hydrochlorothiazide 12.5 mg) 0 mg PO DAILY [facility] Last Admin: 09/13/21 09:11 Dose: 2 tablet Documented by: CHRIS Diazepam (Diazepam 2 Mg Tablet) 2 mg PO BID [facility] Diclofenac Sodium (Diclofenac Sodium Delayed Rel 75 Mg Tablet.Dr) 75 mg PO BID [facility] Last Admin: 09/13/21 09:15 Dose: 75 mg Documented by: CHRIS Enoxaparin Sodium (Enoxaparin Sodium 40 Mg/0.4 Ml Syringe) 40 mg SUBCUT Q24H [facility] Last Admin: 09/13/21 09:28 Dose: Not Given Documented by: CHRIS Non-Admin Reason: patient refusing Gabapentin (Gabapentin 600 Mg Tablet) 600 mg PO TID [facility] Last Admin: 09/13/21 09:11 Dose: 600 mg Documented by: CHRIS Ampicillin Sodium/Sulbactam (Sodium 1.5 gm/ Sodium Chloride) 100 mls @ 200 mls/hr IV Q6H [facility] Last Infusion: 09/13/21 10:18 Dose: 100 mls/hr Documented by: CHRIS Nicotine (Nicotine 21 Mg Patch.Td24) 21 mg TRANSDERMA DAILY [facility] Last Admin: 09/13/21 09:12 Dose: 21 mg Documented by: CHRIS Ondansetron HCl (Ondansetron Hcl 4 Mg/2 Ml Vial) 4 mg IVPUSH Q8H PRN PRN Reason: Nausea and Vomiting Sodium Chloride (0.9 % Sodium Chloride Flush 3 Ml Syringe) 3 ml IVFLUSH QSHIFT [facility] Last Admin: 09/13/21 09:13 Dose: 3 ml Documented by: CHRIS Trazodone HCl (Trazodone Hcl 50 Mg Tablet) 150 mg PO BEDTIME [facility] Last Admin: 09/12/21 20:45 Dose: 150 mg Documented by: DANIELLE Venlafaxine HCl (Venlafaxine Hcl Er 150 Mg Cap.Er.24h) 150 mg PO DAILY [facility] Last Admin: 09/13/21 09:10 Dose: 150 mg Documented by: CHRIS Labs CBC & Chem 7: 09/11/21 06:55 09/11/21 06:55 Labs: Laboratory Results - last 24 hr 09/12/21 18:48 C. difficile Tox B Gene NEGATIVE Assessment and Plan (1) Pneumonia: Status: Acute (2) COPD (chronic obstructive pulmonary disease): Status: Acute Plan 71 year old M who arrived to [facility] on 09/09/21 with reports of worsening confusion over the preceeding 5 days. His work up has revealed a likely early pneumonia. No definitive cause of his acute encephalopathy is found. 1. Acute Toxic/Metabolic Encephalopathy--likely related to CO2 narcosis and sedative meds given in ED, could also possible have underlying dementia 2. Acute hypercarbic respiratory failure with marked increase in CO2 likely leading to somnolence and confusion -He likely has underlying undiagnosed COPD with chronic CO2 retention---Was put on BiPAP briefly for this (BIPAP not for sepsis) -keep O2 88 to 92, BiPAP at night -continue bronchodialtors and corticosteroids, smoking cessation discussed -CT of chest to assess lungs better 2. Suspected early pneumonia, possibly aspiration -Continue Unasyn 3. Chronic back pain hold all sedative meds for now and reassess 4. Elevated HS trop-I flat x 2 monitor on tele 6. HTN--BP normal, hold meds 7. Severe protein caloary malnutrition--supplement--At some point will need malignancy work up 8. History of anxiety--to continue anxiety DVT pptx, Lovenox Son Maliha endorses he is HCP Need for inpatient: acute resp failure, encephalopathy need for IV steroid for copd exacerbation and IV Abx for sepsis with asipriation pneumonia Quality Stroke Does the patient have a stroke diagnosis?: No VTE Prior VTE?: No VTE Risk Level:: Medical - moderate - high VTE Device Contraindication: Treatment Not Indicated VTE Drug Contraindication: N/A - Med Ordered
--- NOTE | 2021-09-13 13:52 | MHC.CM.PN ---
CM MET W/PT'S HCP/SON ZEINAB AND SISTER/ALTERNATE HCP ALEXANDRA AT BEDSIDE PER REQUEST TO DISCUSS DCP AND SNF PREFERENCES FOR STR, ALEXANDRA GAVE CM A LIST OF PREFERRED SNF'S W/[facility] AND IN ORDER IF MM DOESN'T HAVE A BED, [facility], [facility] [place] AND THEN [place], PT EVAL WILL NEED TO BE COMPLETED PRIOR TO TXFR AND PT'S SON/HCP ZEINAB WILL BRING IN A COPY OF PT'S HCP WE DO NOT HAVE IT ON FILE. D/C PLAN: STR W/BLS TRANSPORT.
[2021-09-13] MEDS: Haloperidol Lactate 5 MG/ML VIAL 1 MG IM (14:16)
[2021-09-13 15:19] LABS: ABG Base Excess 12.5 mmol/L; ABG HCO3 35 mmol/L (22-26); ABG pCO2 40 mmHg (32-45); ABG pH 7.55 (7.35-7.45); ABG pO2 71 mmHg (83-108)
[2021-09-13 18:21] LABS: ABG Refer to POC result
[2021-09-13] MEDS: traZODone HCL 50 MG TABLET 150 MG PO (19:37)
[2021-09-13] MEDS: diazePAM 2 MG TABLET PO (19:38)
[2021-09-13] MEDS: Atorvastatin Calcium 80 MG TABLET PO (19:38)
[2021-09-14] VITALS (10 sets, daily range): BP systolic 132–168; BP diastolic 60–120; PULSE 66–102; RESP 16–20; TEMP 36.3–36.7; O2SAT 93–100
[2021-09-14] MEDS: Ampicillin Sodium/Sulbactam Na 1.5 GM in 0.9 % Sodium Chloride 100 ML IV ×3 (03:48→21:56)
[2021-09-14] MEDS: hydrOXYzine HCL 50 MG/ML VIAL 25 MG IM (03:53)
[2021-09-14 08:25] LABS: Hematocrit 49.2 % (42.0-52.0); Hemoglobin 15.8 g/dl (14.0-18.0); Mean Corpuscular HGB Conc 32.1 g/dl (31.0-36.0); Mean Corpuscular Hemoglobin 31.5 pg (27.0-33.0); Mean Corpuscular Volume 98.2 fL (80.0-98.0); Mean Platelet Volume 11.4 fL (9.4-12.4); Platelet Count 154 X10*3/uL (160-400); Red Blood Count 5.01 X10*6/uL (4.60-5.80); Red Cell Distribution Width 14.8 % (11.0-16.0); White Blood Count 7.9 X10*3/uL (4.8-10.8)
[2021-09-14 08:41] LABS: Anion Gap 13 (12-20); Blood Urea Nitrogen 26 mg/dL (9-16); Calcium 9.6 mg/dL (8.4-10.2); Carbon Dioxide 37 mmol/L (22-29); Chloride 97 mmol/L (96-108); Creatinine Clr Calc Pharmacy 90.2; Estimated Glomerular Filt Rate > 60; Glucose Random 104 mg/dL (60-115); Potassium 4.2 mmol/L (3.3-5.1); Sodium 143 mmol/L (135-145)
--- NOTE | 2021-09-14 09:11 | P.PNIM_ITS ---
Subjective Subjective Date of Service: 09/14/21 Interval History: F/u for acute hypoxic respiratory, metabolic encephalopath Interval history: Persistent confusion, but less agitation, no hypoxia Review of Systems intermittently sob, no wheeze, some confusion Physical Exam Vital Signs: Vital Signs: Last Vital Signs Temp 97.3 F 09/14/21 08:00 Pulse 99 09/14/21 08:00 Resp 16 09/14/21 08:00 BP 158/70 H 09/14/21 08:00 Pulse Ox 96 09/14/21 08:00 BMI result Body Mass Index 18.8 Const: Other: General: Alert x1,, no acute distress, emaciated Resp: No wheeze, hyperresonance sounds, no accessory muscle use CVS: S1,S2,RRR GI: +BS, NT, no distention Skin: No rash Neuro: motor grossly intact Psych: appropriate affect Objective Data Active Medications Acetaminophen (Acetaminophen 325 Mg Tablet) 650 mg PO Q6H PRN PRN Reason: Pain, Mild (Pain Scale 1-3) Last Admin: 09/13/21 02:25 Dose: 650 mg Documented by: Acetaminophen (Acetaminophen 325 Mg Tablet) 975 mg PO BID [facility] Last Admin: 09/13/21 19:37 Dose: 975 mg Documented by: TAMIKO Albuterol/Ipratropium (Albuterol/Iprat 2.5/0.5mg 3 Ml Ampul.Neb) 3 ml INHALE RQ6H WHILE AWAKE [facility] Last Admin: 09/14/21 07:39 Dose: Not Given Documented by: SHERMAN Non-Admin Reason: Patient Refused Atorvastatin Calcium (Atorvastatin Calcium 80 Mg Tablet) 80 mg PO BEDTIME [facility] Last Admin: 09/13/21 19:38 Dose: 80 mg Documented by: TAMIKO Buprenorphine/Naloxone (Buprenorphine/Naloxone 2/0.5mg Film) 3 film SUBLINGUAL BID [facility] Last Admin: 09/13/21 19:36 Dose: 3 film Documented by: TAMIKO Bupropion HCl (Bupropion Hcl Xl 300 Mg Tab.Er.24h) 300 mg PO DAILY [facility] Last Admin: 09/13/21 14:20 Dose: Not Given Documented by: CHRIS Non-Admin Reason: patient spit out Lisinopril 10 mg/ (Hydrochlorothiazide 12.5 mg) 0 mg PO DAILY [facility] Last Admin: 09/13/21 09:11 Dose: 2 tablet Documented by: CHRIS Diazepam (Diazepam 2 Mg Tablet) 2 mg PO BID [facility] Last Admin: 09/13/21 19:38 Dose: 2 mg Documented by: TAMIKO Diclofenac Sodium (Diclofenac Sodium Delayed Rel 75 Mg Tablet.Dr) 75 mg PO BID [facility] Last Admin: 09/13/21 19:36 Dose: 75 mg Documented by: TAMIKO Enoxaparin Sodium (Enoxaparin Sodium 40 Mg/0.4 Ml Syringe) 40 mg SUBCUT Q24H [facility] Last Admin: 09/13/21 09:28 Dose: Not Given Documented by: CHRIS Non-Admin Reason: patient refusing Gabapentin (Gabapentin 600 Mg Tablet) 600 mg PO TID [facility] Last Admin: 09/13/21 19:37 Dose: 600 mg Documented by: TAMIKO Hydroxyzine HCl (Hydroxyzine Hcl 50 Mg/Ml Vial) 25 mg IM Q6H PRN PRN Reason: Anxiety Last Admin: 09/14/21 03:53 Dose: 25 mg Documented by: TAMIKO Ampicillin Sodium/Sulbactam (Sodium 1.5 gm/ Sodium Chloride) 100 mls @ 200 mls/hr IV Q6H [facility] Last Infusion: 09/14/21 05:08 Dose: 0 mls/hr Documented by: TAMIKO Nicotine (Nicotine 21 Mg Patch.Td24) 21 mg TRANSDERMA DAILY [facility] Last Admin: 09/13/21 09:12 Dose: 21 mg Documented by: CHRIS Ondansetron HCl (Ondansetron Hcl 4 Mg/2 Ml Vial) 4 mg IVPUSH Q8H PRN PRN Reason: Nausea and Vomiting Sodium Chloride (0.9 % Sodium Chloride Flush 3 Ml Syringe) 3 ml IVFLUSH QSHIFT [facility] Last Admin: 09/13/21 19:38 Dose: 3 ml Documented by: TAMIKO Trazodone HCl (Trazodone Hcl 50 Mg Tablet) 150 mg PO BEDTIME [facility] Last Admin: 09/13/21 19:37 Dose: 150 mg Documented by: TAMIKO Venlafaxine HCl (Venlafaxine Hcl Er 150 Mg Cap.Er.24h) 150 mg PO DAILY [facility] Last Admin: 09/13/21 14:20 Dose: Not Given Documented by: CHRIS Non-Admin Reason: patient spit out Labs CBC & Chem 7: 09/14/21 08:17 09/14/21 08:17 Labs: Laboratory Results - last 24 hr 09/13/21 09/14/21 09/14/21 15:10 08:17 08:17 MCV 98.2 H D MCH 31.5 MCHC 32.1 RDW 14.8 Plt Count 154 L MPV 11.4 Absolute Nucleated RBC 0.000 Nucleated RBC % (auto) 0.0 O2 Saturation 96.0 ABG pH at Pt Temp 7.55 H ABG pCO2 at Pt Temp 40 ABG pO2 at Pt Temp 71 L ABG HCO3 35 H ABG Base Excess (Actual) 12.5 Anion Gap 13 Estim Creat Clear Calc 90.2 Estimated GFR > 60 Random Glucose 104 Calcium 9.6 D Assessment and Plan (1) Pneumonia: Status: Acute (2) COPD (chronic obstructive pulmonary disease): Status: Acute Plan 71 year old M who [place] [facility] with reports of worsening confusion over the preceeding 5 days. His work up has revealed a likely early pneumonia. No definitive cause of his acute encephalopathy is found. 1. Acute Toxic/Metabolic Encephalopathy--likely related to CO2 narcosis and sedative meds given in ED, could also possible have underlying dementia--slightly better 2. Acute hypercarbic respiratory failure with marked increase in CO2 likely leading to somnolence and confusion -He likely has underlying undiagnosed COPD with chronic CO2 retention-- Has been tolerate bipap -keep O2 88 to 92, BiPAP at night -continue bronchodialtors and corticosteroids, smoking cessation discussed -CT of chest to assess lungs better 2. Suspected early pneumonia, possible aspiration -Continue Unasyn 3. Chronic back pain--Tyelenol for pain, avoid narcs for now 4. Elevated HS trop-I flat x 2 monitor on tele 6. HTN--BP normal, hold meds 7. Severe protein caloary malnutrition--supplement--At some point will need malignancy work up 8. History of anxiety--takes Valum 5 mg po bid at home, continue to avoid withdrawal state DVT pptx, Lovenox Son Maliha endorses he is HCP Need for inpatient: acute resp failure, encephalopathy need for IV steroid for copd exacerbation and IV Abx for sepsis with asipriation pneumonia Quality Stroke Does the patient have a stroke diagnosis?: No VTE Prior VTE?: No VTE Risk Level:: Medical - moderate - high VTE Device Contraindication: Treatment Not Indicated VTE Drug Contraindication: N/A - Med Ordered
[2021-09-14] MEDS: buPROPion HCl XL 300 MG TAB.ER.24H PO (10:04)
[2021-09-14] MEDS: lisinopriL 10 MG, hydroCHLOROthiazide 12.5 MG PO (10:04)
[2021-09-14] MEDS: Diclofenac Sodium Delayed Rel 75 MG TABLET.DR PO ×2 (10:04→20:30)
[2021-09-14] MEDS: Venlafaxine HCl ER 150 MG CAP.ER.24H PO (10:06)
[2021-09-14] MEDS: Acetaminophen 325 MG TABLET 975 MG PO ×2 (10:06→20:29)
[2021-09-14] MEDS: Gabapentin 600 MG TABLET PO ×3 (10:07→20:30)
[2021-09-14] MEDS: diazePAM 2 MG TABLET PO ×2 (10:07→20:30)
[2021-09-14] MEDS: Enoxaparin Sodium 40 MG/0.4 ML SYRINGE SUBCUT (10:10)
[2021-09-14] MEDS: Buprenorphine/Naloxone 2/0.5mg FILM 3 FILM SUBLINGUAL ×2 (10:12→20:31)
[2021-09-14] MEDS: Nicotine 21 MG PATCH.TD24 TRANSDERMA (10:15)
[2021-09-14] MEDS: Albuterol/Iprat 2.5/0.5MG 3 ML AMPUL.NEB INHALE ×2 (15:20→20:01)
[2021-09-14] MEDS: Atorvastatin Calcium 80 MG TABLET PO (20:29)
[2021-09-14] MEDS: traZODone HCL 50 MG TABLET 150 MG PO (20:30)
[2021-09-14] MEDS: 0.9 % Sodium Chloride Flush 3 ML SYRINGE IVFLUSH (21:59)
[2021-09-15] VITALS (12 sets, daily range): BP systolic 95–153; BP diastolic 66–76; PULSE 66–101; RESP 12–20; TEMP 36.4–37.2; O2SAT 93–98
[2021-09-15] MEDS: Ampicillin Sodium/Sulbactam Na 1.5 GM in 0.9 % Sodium Chloride 100 ML IV (03:46)
[2021-09-15] MEDS: Albuterol/Iprat 2.5/0.5MG 3 ML AMPUL.NEB INHALE ×3 (07:28→20:10)
--- NOTE | 2021-09-15 09:26 | HO.PM.IMPN ---
Subjective Subjective Date of Service: 09/15/21 Interval History: F/u for acute hypoxic respiratory, metabolic encephalopath Interval history: less confused and more cooperative, no sob Review of Systems intermittently sob, no wheeze, some confusion Physical Exam Vital Signs: Vital Signs: Last Vital Signs Temp 98.9 F 09/15/21 07:39 Pulse 89 09/15/21 07:39 Resp 20 09/15/21 07:39 BP 127/75 09/15/21 07:39 Pulse Ox 97 09/15/21 04:00 BMI result Body Mass Index 18.8 Const: Other: General: Alert x1,, no acute distress, emaciated Resp: No wheeze, hyperresonance sounds, no accessory muscle use CVS: S1,S2,RRR GI: +BS, NT, no distention Skin: No rash Neuro: motor grossly intact Psych: appropriate affect Objective Data Active Medications Acetaminophen (Acetaminophen 325 Mg Tablet) 650 mg PO Q6H PRN PRN Reason: Pain, Mild (Pain Scale 1-3) Last Admin: 09/13/21 02:25 Dose: 650 mg Documented by: Acetaminophen (Acetaminophen 325 Mg Tablet) 975 mg PO BID [facility] Last Admin: 09/14/21 20:29 Dose: 975 mg Documented by: SAGE Albuterol/Ipratropium (Albuterol/Iprat 2.5/0.5mg 3 Ml Ampul.Neb) 3 ml INHALE RQ6H WHILE AWAKE [facility] Last Admin: 09/15/21 07:28 Dose: 3 ml Documented by: SHERMAN Atorvastatin Calcium (Atorvastatin Calcium 80 Mg Tablet) 80 mg PO BEDTIME [facility] Last Admin: 09/14/21 20:29 Dose: 80 mg Documented by: SAGE Buprenorphine/Naloxone (Buprenorphine/Naloxone 2/0.5mg Film) 3 film SUBLINGUAL BID [facility] Last Admin: 09/14/21 20:31 Dose: 3 film Documented by: SAGE Bupropion HCl (Bupropion Hcl Xl 300 Mg Tab.Er.24h) 300 mg PO DAILY [facility] Last Admin: 09/14/21 10:04 Dose: 300 mg Documented by: ZACH Lisinopril 10 mg/ (Hydrochlorothiazide 12.5 mg) 0 mg PO DAILY [facility] Last Admin: 09/14/21 10:04 Dose: 12.5 each Documented by: ZACH Diazepam (Diazepam 2 Mg Tablet) 2 mg PO BID [facility] Last Admin: 09/14/21 20:30 Dose: 2 mg Documented by: SAGE Diclofenac Sodium (Diclofenac Sodium Delayed Rel 75 Mg Tablet.Dr) 75 mg PO BID [facility] Last Admin: 09/14/21 20:30 Dose: 75 mg Documented by: SAGE Enoxaparin Sodium (Enoxaparin Sodium 40 Mg/0.4 Ml Syringe) 40 mg SUBCUT Q24H [facility] Last Admin: 09/14/21 10:10 Dose: 40 mg Documented by: ZACH Gabapentin (Gabapentin 600 Mg Tablet) 600 mg PO TID [facility] Last Admin: 09/14/21 20:30 Dose: 600 mg Documented by: SAGE Hydroxyzine HCl (Hydroxyzine Hcl 50 Mg/Ml Vial) 25 mg IM Q6H PRN PRN Reason: Anxiety Last Admin: 09/14/21 03:53 Dose: 25 mg Documented by: TAMIKO Ampicillin Sodium/Sulbactam (Sodium 1.5 gm/ Sodium Chloride) 100 mls @ 200 mls/hr IV Q6H [facility] Last Infusion: 09/15/21 04:25 Dose: 0 mls/hr Documented by: SAGE Nicotine (Nicotine 21 Mg Patch.Td24) 21 mg TRANSDERMA DAILY [facility] Last Admin: 09/14/21 10:15 Dose: 21 mg Documented by: ZACH Ondansetron HCl (Ondansetron Hcl 4 Mg/2 Ml Vial) 4 mg IVPUSH Q8H PRN PRN Reason: Nausea and Vomiting Sodium Chloride (0.9 % Sodium Chloride Flush 3 Ml Syringe) 3 ml IVFLUSH QSHIFT [facility] Last Admin: 09/14/21 21:59 Dose: 3 ml Documented by: SAGE Trazodone HCl (Trazodone Hcl 50 Mg Tablet) 150 mg PO BEDTIME [facility] Last Admin: 09/14/21 20:30 Dose: 150 mg Documented by: SAGE Venlafaxine HCl (Venlafaxine Hcl Er 150 Mg Cap.Er.24h) 150 mg PO DAILY [facility] Last Admin: 09/14/21 10:06 Dose: 150 mg Documented by: HO.LENNJU Labs CBC & Chem 7: 09/14/21 08:17 09/14/21 08:17 Microbiology Microbiology Results: Microbiology 09/09/21 17:48 Blood Culture - Final Blood - Venous No growth after 5 days. 09/09/21 17:48 Blood Culture - Final Blood - Venous No growth after 5 days. Assessment and Plan (1) Pneumonia: Status: Acute (2) COPD (chronic obstructive pulmonary disease): Status: Acute Plan 71 year old M who arrived [place] [facility] [place] with reports of worsening confusion over the preceeding 5 days. His work up has revealed a likely early pneumonia. No definitive cause of his acute encephalopathy is found. 1. Acute Toxic/Metabolic Encephalopathy--likely related to CO2 narcosis, overall better. I think he has underlying undiagnosed dementia 2. Acute hypercarbic respiratory failure with marked increase in CO2 with likely chronic respiratory failure due to copd -He likely has underlying undiagnosed COPD with chronic CO2 retention-- Has been tolerate bipap -keep O2 88 to 92, BiPAP at night -continue bronchodialtors and corticosteroids, smoking cessation discussed -CT lung suggest emphasema 2. Suspected early pneumonia, possible aspiration -Change to PO Augmentin 3. Chronic back pain--Tyelenol for pain, avoid narcs for now 4. Elevated HS trop-I flat x 2 monitor on tele 6. HTN--BP normal, hold meds 7. Severe protein caloary malnutrition--supplement--At some point will need malignancy work up 8. History of anxiety--takes Valum 5 mg po bid at home, continue to avoid withdrawal state PT eval tomorrow DVT pptx, Lovenox Son Maliha endorses he is HCP Need for inpatient: acute resp failure, encephalopathy need for IV steroid for copd exacerbation and IV Abx for sepsis with asipriation pneumonia Quality Stroke Does the patient have a stroke diagnosis?: No VTE Prior VTE?: No VTE Risk Level:: Medical - moderate - high VTE Device Contraindication: Treatment Not Indicated VTE Drug Contraindication: N/A - Med Ordered
[2021-09-15] MEDS: buPROPion HCl XL 300 MG TAB.ER.24H PO (09:54)
[2021-09-15] MEDS: Diclofenac Sodium Delayed Rel 75 MG TABLET.DR PO ×2 (09:55→20:20)
[2021-09-15] MEDS: Amoxicillin/Potassium Clav 875 MG TABLET PO ×2 (09:55→20:19)
[2021-09-15] MEDS: Acetaminophen 325 MG TABLET 975 MG PO ×2 (09:56→20:19)
[2021-09-15] MEDS: diazePAM 2 MG TABLET PO ×2 (09:56→20:19)
[2021-09-15] MEDS: Venlafaxine HCl ER 150 MG CAP.ER.24H PO (09:57)
[2021-09-15] MEDS: lisinopriL 10 MG, hydroCHLOROthiazide 12.5 MG PO (09:57)
[2021-09-15] MEDS: Gabapentin 600 MG TABLET PO ×3 (09:58→20:19)
[2021-09-15] MEDS: Buprenorphine/Naloxone 2/0.5mg FILM 3 FILM SUBLINGUAL ×2 (10:06→20:20)
[2021-09-15] MEDS: Nicotine 21 MG PATCH.TD24 TRANSDERMA (10:06)
[2021-09-15] MEDS: 0.9 % Sodium Chloride Flush 3 ML SYRINGE IVFLUSH ×3 (10:08→20:20)
[2021-09-15] MEDS: Enoxaparin Sodium 40 MG/0.4 ML SYRINGE SUBCUT (10:08)
[2021-09-15] MEDS: traZODone HCL 50 MG TABLET 150 MG PO (20:19)
[2021-09-15] MEDS: Atorvastatin Calcium 80 MG TABLET PO (20:19)
[2021-09-16] VITALS (10 sets, daily range): BP systolic 114–142; BP diastolic 60–97; PULSE 72–92; RESP 16–20; TEMP 36.4–37; O2SAT 91–98
[2021-09-16] MEDS: Albuterol/Iprat 2.5/0.5MG 3 ML AMPUL.NEB INHALE ×3 (07:40→20:07)
[2021-09-16] MEDS: Nicotine 21 MG PATCH.TD24 TRANSDERMA (10:07)
[2021-09-16] MEDS: buPROPion HCl XL 300 MG TAB.ER.24H PO (10:08)
[2021-09-16] MEDS: Amoxicillin/Potassium Clav 875 MG TABLET PO ×2 (10:08→21:32)
[2021-09-16] MEDS: lisinopriL 10 MG, hydroCHLOROthiazide 12.5 MG PO (10:08)
[2021-09-16] MEDS: Buprenorphine/Naloxone 2/0.5mg FILM 3 FILM SUBLINGUAL ×2 (10:08→21:31)
[2021-09-16] MEDS: diazePAM 2 MG TABLET PO ×2 (10:08→21:31)
[2021-09-16] MEDS: Acetaminophen 325 MG TABLET 975 MG PO ×2 (10:09→21:32)
[2021-09-16] MEDS: Gabapentin 600 MG TABLET PO ×3 (10:09→21:33)
[2021-09-16] MEDS: Diclofenac Sodium Delayed Rel 75 MG TABLET.DR PO ×2 (10:09→21:33)
[2021-09-16] MEDS: 0.9 % Sodium Chloride Flush 3 ML SYRINGE IVFLUSH ×3 (10:10→21:31)
[2021-09-16] MEDS: Enoxaparin Sodium 40 MG/0.4 ML SYRINGE SUBCUT (10:10)
[2021-09-16] MEDS: Venlafaxine HCl ER 150 MG CAP.ER.24H PO (10:10)
--- NOTE | 2021-09-16 10:19 | P.PNIM_ITS ---
Subjective Subjective Date of Service: 09/16/21 Interval History: F/u for acute hypoxic respiratory, Toxic metabolic encephalopath Interval history: less confused and more cooperative, no sob, eating well. off O2 Review of Systems no sob no fever underlying cognitive impairment Physical Exam Vital Signs: Vital Signs: Last Vital Signs Temp 98.1 F 09/16/21 06:55 Pulse 77 09/16/21 07:45 Resp 20 09/16/21 07:45 BP 123/82 09/16/21 06:55 Pulse Ox 95 09/16/21 06:55 BMI result Body Mass Index 18.8 Const: Other: General: Alert x2,, no acute distress, emaciated Resp: No wheeze, hyperresonance sounds, no accessory muscle use CVS: S1,S2,RRR GI: +BS, NT, no distention Skin: No rash Neuro: motor grossly intact Psych: appropriate affect Objective Data Active Medications Acetaminophen (Acetaminophen 325 Mg Tablet) 650 mg PO Q6H PRN PRN Reason: Pain, Mild (Pain Scale 1-3) Last Admin: 09/13/21 02:25 Dose: 650 mg Documented by: Acetaminophen (Acetaminophen 325 Mg Tablet) 975 mg PO BID [facility] Last Admin: 09/15/21 20:19 Dose: 975 mg Documented by: TAMIKO Albuterol/Ipratropium (Albuterol/Iprat 2.5/0.5mg 3 Ml Ampul.Neb) 3 ml INHALE RQ6H WHILE AWAKE [facility] Last Admin: 09/16/21 07:40 Dose: 3 ml Documented by: RASHIDA Amoxicillin/Clavulanate Potassium (Amoxicillin/Potassium Clav 875 Mg Tablet) 875 mg PO Q12H [facility] Last Admin: 09/15/21 20:19 Dose: 875 mg Documented by: TAMIKO Atorvastatin Calcium (Atorvastatin Calcium 80 Mg Tablet) 80 mg PO BEDTIME [facility] Last Admin: 09/15/21 20:19 Dose: 80 mg Documented by: TAMIKO Buprenorphine/Naloxone (Buprenorphine/Naloxone 2/0.5mg Film) 3 film SUBLINGUAL BID [facility] Last Admin: 09/15/21 20:20 Dose: 3 film Documented by: TAMIKO Bupropion HCl (Bupropion Hcl Xl 300 Mg Tab.Er.24h) 300 mg PO DAILY [facility] Last Admin: 09/15/21 09:54 Dose: 300 mg Documented by: ZACH Lisinopril 10 mg/ (Hydrochlorothiazide 12.5 mg) 0 mg PO DAILY [facility] Last Admin: 09/15/21 09:57 Dose: 10 each Documented by: ZACH Comments: 12.5 Diazepam (Diazepam 2 Mg Tablet) 2 mg PO BID [facility] Last Admin: 09/15/21 20:19 Dose: 2 mg Documented by: TAMIKO Diclofenac Sodium (Diclofenac Sodium Delayed Rel 75 Mg Tablet.Dr) 75 mg PO BID [facility] Last Admin: 09/15/21 20:20 Dose: 75 mg Documented by: TAMIKO Enoxaparin Sodium (Enoxaparin Sodium 40 Mg/0.4 Ml Syringe) 40 mg SUBCUT Q24H [facility] Last Admin: 09/15/21 10:08 Dose: 40 mg Documented by: ZACH Gabapentin (Gabapentin 600 Mg Tablet) 600 mg PO TID [facility] Last Admin: 09/15/21 20:19 Dose: 600 mg Documented by: TAMIKO Hydroxyzine HCl (Hydroxyzine Hcl 50 Mg/Ml Vial) 25 mg IM Q6H PRN PRN Reason: Anxiety Last Admin: 09/14/21 03:53 Dose: 25 mg Documented by: TAMIKO Nicotine (Nicotine 21 Mg Patch.Td24) 21 mg TRANSDERMA DAILY [facility] Last Admin: 09/15/21 10:06 Dose: 21 mg Documented by: ZACH Ondansetron HCl (Ondansetron Hcl 4 Mg/2 Ml Vial) 4 mg IVPUSH Q8H PRN PRN Reason: Nausea and Vomiting Sodium Chloride (0.9 % Sodium Chloride Flush 3 Ml Syringe) 3 ml IVFLUSH QSHIFT [facility] Last Admin: 09/15/21 20:20 Dose: 3 ml Documented by: TAMIKO Trazodone HCl (Trazodone Hcl 50 Mg Tablet) 150 mg PO BEDTIME [facility] Last Admin: 09/15/21 20:19 Dose: 150 mg Documented by: TAMIKO Venlafaxine HCl (Venlafaxine Hcl Er 150 Mg Cap.Er.24h) 150 mg PO DAILY [facility] Last Admin: 09/15/21 09:57 Dose: 150 mg Documented by: ZACH Labs CBC & Chem 7: 09/14/21 08:17 09/14/21 08:17 Assessment and Plan (1) Pneumonia: Status: Acute (2) COPD (chronic obstructive pulmonary disease): Status: Acute Plan 71 year old M who arrived to [facility] on 09/09/21 with reports of worsening confusion over the preceeding 5 days. His work up has revealed a likely early pneumonia. No definitive cause of his acute encephalopathy is found. 1. Acute Toxic/Metabolic Encephalopathy--likely related to CO2 narcosis, overall better. I think this is baseline now with undiagnosed underlinging dementia 2. Acute hypercarbic respiratory failure with marked increase in CO2 with likely chronic respiratory failure due to copd--this has improved much -He likely has underlying undiagnosed COPD with chronic CO2 retention-- Has been tolerate bipap -keep O2 88 to 92, BiPAP at night -continue bronchodialtors, smoking cessation discussed -CT lung suggest emphasema 2. Suspected early pneumonia, possible aspiration -Change to PO Augmentin--treat for 7 days total 3. Chronic back pain--Tyelenol for pain, avoid narcs for now 4. Elevated HS trop-I flat x 2 monitor on tele 6. HTN--BP normal, hold meds 7. Severe protein caloary malnutrition--supplement--At some point will need malignancy work up 8. History of anxiety--takes Valum 5 mg po bid at home, continue to avoid withdrawal state PT eval today DVT pptx, Lovenox Son Maliha endorses he is HCP Need for inpatient: acute resp failure, encephalopathy need for IV steroid for copd exacerbation and IV Abx for sepsis with asipriation pneumonia Quality Stroke Does the patient have a stroke diagnosis?: No VTE Prior VTE?: No VTE Risk Level:: Medical - moderate - high VTE Device Contraindication: Treatment Not Indicated VTE Drug Contraindication: N/A - Med Ordered
--- NOTE | 2021-09-16 12:20 | MHC.CLN ---
F/U PT IS SEVERELY MALNOURISHED APPEARS TO BE EATING WELL WITH MOST MEALS 100%. DIET RX: PUREED-APPROPRIATE. ENSURE CLEAR TID TO PROVIDES ADDITIONAL 720 KCALS, 24 G PROTEIN. MONITOR PO INTAKE CLOSELY
[2021-09-16] MEDS: traZODone HCL 50 MG TABLET 150 MG PO (21:31)
[2021-09-16] MEDS: Atorvastatin Calcium 80 MG TABLET PO (21:31)
[2021-09-17] VITALS (9 sets, daily range): BP systolic 135–172; BP diastolic 80–109; PULSE 64–87; RESP 16–20; TEMP 36.3–37.3; O2SAT 91–96
[2021-09-17] MEDS: Albuterol/Iprat 2.5/0.5MG 3 ML AMPUL.NEB INHALE (07:40)
--- NOTE | 2021-09-17 08:43 | P.PNIM_ITS ---
Subjective Subjective Date of Service: 09/17/21 Interval History: F/u for acute hypoxic respiratory, Toxic metabolic encephalopath Interval history: Minimal confusion, proabably at baseline, no sob, no agiation, Review of Systems no sob no fever underlying cognitive impairment Physical Exam Vital Signs: Vital Signs: Last Vital Signs Temp 99.0 F 09/17/21 07:20 Pulse 87 09/17/21 07:41 Resp 18 09/17/21 07:41 BP 160/90 H 09/17/21 07:20 Pulse Ox 94 09/17/21 07:20 BMI result Body Mass Index 18.8 Const: Other: General: Alert x2,, no acute distress, emaciated Resp: No wheeze, hyperresonance sounds, no accessory muscle use CVS: S1,S2,RRR GI: +BS, NT, no distention Skin: No rash Neuro: motor grossly intact Psych: appropriate affect Objective Data Active Medications Acetaminophen (Acetaminophen 325 Mg Tablet) 650 mg PO Q6H PRN PRN Reason: Pain, Mild (Pain Scale 1-3) Last Admin: 09/13/21 02:25 Dose: 650 mg Documented by: Acetaminophen (Acetaminophen 325 Mg Tablet) 975 mg PO BID [facility] Last Admin: 09/16/21 21:32 Dose: 975 mg Documented by: JACKIE Albuterol/Ipratropium (Albuterol/Iprat 2.5/0.5mg 3 Ml Ampul.Neb) 3 ml INHALE RQ6H WHILE AWAKE [facility] Last Admin: 09/17/21 07:40 Dose: 3 ml Documented by: KEELEY Amoxicillin/Clavulanate Potassium (Amoxicillin/Potassium Clav 875 Mg Tablet) 875 mg PO Q12H [facility] Last Admin: 09/16/21 21:32 Dose: 875 mg Documented by: JACKIE Atorvastatin Calcium (Atorvastatin Calcium 80 Mg Tablet) 80 mg PO BEDTIME [facility] Last Admin: 09/16/21 21:31 Dose: 80 mg Documented by: JACKIE Buprenorphine/Naloxone (Buprenorphine/Naloxone 2/0.5mg Film) 3 film SUBLINGUAL BID [facility] Last Admin: 09/16/21 21:31 Dose: 3 film Documented by: JACKIE Bupropion HCl (Bupropion Hcl Xl 300 Mg Tab.Er.24h) 300 mg PO DAILY [facility] Last Admin: 09/16/21 10:08 Dose: 300 mg Documented by: SHANNON Lisinopril 10 mg/ (Hydrochlorothiazide 12.5 mg) 0 mg PO DAILY [facility] Last Admin: 09/16/21 10:08 Dose: 22.5 each Documented by: SHANNON Diazepam (Diazepam 2 Mg Tablet) 2 mg PO BID [facility] Last Admin: 09/16/21 21:31 Dose: 2 mg Documented by: JACKIE Diclofenac Sodium (Diclofenac Sodium Delayed Rel 75 Mg Tablet.Dr) 75 mg PO BID [facility] Last Admin: 09/16/21 21:33 Dose: 75 mg Documented by: JACKIE Enoxaparin Sodium (Enoxaparin Sodium 40 Mg/0.4 Ml Syringe) 40 mg SUBCUT Q24H [facility] Last Admin: 09/16/21 10:10 Dose: 40 mg Documented by: SHANNON Gabapentin (Gabapentin 600 Mg Tablet) 600 mg PO TID [facility] Last Admin: 09/16/21 21:33 Dose: 600 mg Documented by: JACKIE Hydroxyzine HCl (Hydroxyzine Hcl 50 Mg/Ml Vial) 25 mg IM Q6H PRN PRN Reason: Anxiety Last Admin: 09/14/21 03:53 Dose: 25 mg Documented by: TAMIKO Nicotine (Nicotine 21 Mg Patch.Td24) 21 mg TRANSDERMA DAILY [facility] Last Admin: 09/16/21 10:07 Dose: 21 mg Documented by: SHANNON Ondansetron HCl (Ondansetron Hcl 4 Mg/2 Ml Vial) 4 mg IVPUSH Q8H PRN PRN Reason: Nausea and Vomiting Sodium Chloride (0.9 % Sodium Chloride Flush 3 Ml Syringe) 3 ml IVFLUSH QSHIFT [facility] Last Admin: 09/16/21 21:31 Dose: 3 ml Documented by: JACKIE Trazodone HCl (Trazodone Hcl 50 Mg Tablet) 150 mg PO BEDTIME [facility] Last Admin: 09/16/21 21:31 Dose: 150 mg Documented by: JACKIE Venlafaxine HCl (Venlafaxine Hcl Er 150 Mg Cap.Er.24h) 150 mg PO DAILY [facility] Last Admin: 09/16/21 10:10 Dose: 150 mg Documented by: SHANNON Labs CBC & Chem 7: 09/14/21 08:17 09/14/21 08:17 Assessment and Plan (1) COPD (chronic obstructive pulmonary disease): Status: Acute (2) Adult failure to thrive: Status: Acute (3) Pneumonia: Status: Acute Plan 71 year old M who arrived to [facility] on 09/09/21 with reports of worsening confusion over the preceeding 5 days. His work up has revealed a likely early pneumonia. No definitive cause of his acute encephalopathy is found. 1. Acute Toxic/Metabolic Encephalopathy--likely related to CO2 narcosis, overall better. I continue to think this is baseline now with undiagnosed underlinging dementia 2. Acute hypercarbic respiratory failure with marked increase in CO2 with likely chronic respiratory failure due to copd--this has improved much -He likely has underlying undiagnosed COPD with chronic CO2 retention-- Has been tolerate bipap -keep O2 88 to 92, BiPAP at night -continue bronchodialtors, smoking cessation discussed -CT lung suggest emphasema - Can follow pulmonology on outpatient basis 2. Suspected early pneumonia, possible aspiration -Change to PO Augmentin--treat for 7 days total 3. Chronic back pain--Tyelenol for pain, avoid narcs for now 4. Elevated HS trop-I flat x 2 monitor on tele 6. HTN--BP normal, hold meds 7. Severe protein caloary malnutrition--supplement--At some point will need malignancy work up 8. History of anxiety--takes Valum 5 mg po bid at home, continue to avoid withdrawal state 9. Cognitive Imapairment.. He likely has undiagnosed underlying dementia, work usually outpatient, will check B12, Folate and TSH. neurology consult. I don't think MRI is needed at this time physical deconditioning--PT recommends STR rehab Try to DC sitter Care discussed with son and Sister--both HealthCare proxies and requesting another provider, one of my coleagues will take over starting tomorrow DVT pptx, Lovenox Son Maliha is HCP Need for inpatient: COPD treatment,encephlaopathy and will need rehab Quality Stroke Does the patient have a stroke diagnosis?: No VTE Prior VTE?: No VTE Risk Level:: Medical - moderate - high VTE Device Contraindication: Treatment Not Indicated VTE Drug Contraindication: N/A - Med Ordered
[2021-09-17] MEDS: Diclofenac Sodium Delayed Rel 75 MG TABLET.DR PO ×2 (09:03→20:08)
[2021-09-17] MEDS: Enoxaparin Sodium 40 MG/0.4 ML SYRINGE SUBCUT (09:03)
[2021-09-17] MEDS: Buprenorphine/Naloxone 2/0.5mg FILM 3 FILM SUBLINGUAL ×2 (09:03→20:09)
[2021-09-17] MEDS: lisinopriL 10 MG, hydroCHLOROthiazide 12.5 MG PO (09:04)
[2021-09-17] MEDS: Venlafaxine HCl ER 150 MG CAP.ER.24H PO (09:04)
[2021-09-17] MEDS: Gabapentin 600 MG TABLET PO ×3 (09:04→20:08)
[2021-09-17] MEDS: buPROPion HCl XL 300 MG TAB.ER.24H PO (09:04)
[2021-09-17] MEDS: Amoxicillin/Potassium Clav 875 MG TABLET PO ×2 (09:04→20:07)
[2021-09-17] MEDS: diazePAM 2 MG TABLET PO ×2 (09:04→20:08)
[2021-09-17] MEDS: Acetaminophen 325 MG TABLET 975 MG PO ×2 (09:04→20:07)
[2021-09-17] MEDS: 0.9 % Sodium Chloride Flush 3 ML SYRINGE IVFLUSH ×3 (09:05→20:09)
[2021-09-17] MEDS: Nicotine 21 MG PATCH.TD24 TRANSDERMA (09:05)
--- NOTE | 2021-09-17 10:41 | PM.NEUROCN ---
History of Present Illness Data of Consult Service Date: 09/17/21 Primary Care Provider: Lucía Higginbotham MD [facility] Reason for consult: Question dementia 71 years old man who was brought to hospital with few days his of confusion and change in mental status. In hospital he was noted to be hypoxic with possible infectious lung pathology. Initially he was unable to provide any history but now he was alert and awake and talking. Family stated that even before this illness he was somewhat forgetful. Review of Systems Review of Systems: At this point there was no shortness of breath. He was still somewhat vaguely confused. There was no report of change in personality or headache. [facility] Past Medical History Medical History (Updated 09/17/21 @ 10:51 by Ramirez Robertson MD) Chronic back pain COPD (chronic obstructive pulmonary disease) Cough Emphysema lung Groin pain HTN (hypertension) Left knee injury Surgical History Surgical History H/O arthroscopic knee surgery History of left knee replacement Previous back surgery Social History Social History (Updated 09/10/21 @ 10:25 by Kevin Vasquez MD) Household Members: Family Housing: House Do you presently have visiting nurse or other home services: No Alcohol intake: never Patient Tobacco Use Status: Current everyday Tobacco user Tobacco use type: Cigarette Cigarette Packs Per Day: 1 Cigarettes Per Day: 20.0 service: Yes Current occupational status: retired Meds Allergies Allergy/AdvReac Type Severity Reaction Status Date / Time amitriptyline [From ELAVIL] AdvReac Unknown ARMS Verified 07/29/21 20:44 SHAKING Elavil AdvReac Unknown muscle Uncoded 07/29/21 20:44 spasms, uncontrollable arm movements Active Medications: Current Medications Acetaminophen (Acetaminophen 325 Mg Tablet) 650 mg PO Q6H PRN PRN Reason: Pain, Mild (Pain Scale 1-3) Last Admin: 09/13/21 02:25 Dose: 650 mg Documented by: Acetaminophen (Acetaminophen 325 Mg Tablet) 975 mg PO BID [facility] Last Admin: 09/17/21 09:04 Dose: 975 mg Documented by: Albuterol/Ipratropium (Albuterol/Iprat 2.5/0.5mg 3 Ml Ampul.Neb) 3 ml INHALE RQ6H WHILE AWAKE [facility] Last Admin: 09/17/21 07:40 Dose: 3 ml Documented by: Amoxicillin/Clavulanate Potassium (Amoxicillin/Potassium Clav 875 Mg Tablet) 875 mg PO Q12H [facility] Last Admin: 09/17/21 09:04 Dose: 875 mg Documented by: Atorvastatin Calcium (Atorvastatin Calcium 80 Mg Tablet) 80 mg PO BEDTIME [facility] Last Admin: 09/16/21 21:31 Dose: 80 mg Documented by: Buprenorphine/Naloxone (Buprenorphine/Naloxone 2/0.5mg Film) 3 film SUBLINGUAL BID [facility] Last Admin: 09/17/21 09:03 Dose: 3 film Documented by: Bupropion HCl (Bupropion Hcl Xl 300 Mg Tab.Er.24h) 300 mg PO DAILY [facility] Last Admin: 09/17/21 09:04 Dose: 300 mg Documented by: Lisinopril 10 mg/ (Hydrochlorothiazide 12.5 mg) 0 mg PO DAILY [facility] Last Admin: 09/17/21 09:04 Dose: 22.5 each Documented by: Diazepam (Diazepam 2 Mg Tablet) 2 mg PO BID [facility] Last Admin: 09/17/21 09:04 Dose: 2 mg Documented by: Diclofenac Sodium (Diclofenac Sodium Delayed Rel 75 Mg Tablet.) 75 mg PO BID [facility] Last Admin: 09/17/21 09:03 Dose: 75 mg Documented by: Enoxaparin Sodium (Enoxaparin Sodium 40 Mg/0.4 Ml Syringe) 40 mg SUBCUT Q24H [facility] Last Admin: 09/17/21 09:03 Dose: 40 mg Documented by: Gabapentin (Gabapentin 600 Mg Tablet) 600 mg PO TID [facility] Last Admin: 09/17/21 09:04 Dose: 600 mg Documented by: Hydroxyzine HCl (Hydroxyzine Hcl 50 Mg/Ml Vial) 25 mg IM Q6H PRN PRN Reason: Anxiety Last Admin: 09/14/21 03:53 Dose: 25 mg Documented by: Nicotine (Nicotine 21 Mg Patch.Td24) 21 mg TRANSDERMA DAILY [facility] Last Admin: 09/17/21 09:05 Dose: 21 mg Documented by: Ondansetron HCl (Ondansetron Hcl 4 Mg/2 Ml Vial) 4 mg IVPUSH Q8H PRN PRN Reason: Nausea and Vomiting Sodium Chloride (0.9 % Sodium Chloride Flush 3 Ml Syringe) 3 ml IVFLUSH QSHIFT [facility] Last Admin: 09/17/21 09:05 Dose: 3 ml Documented by: Trazodone HCl (Trazodone Hcl 50 Mg Tablet) 150 mg PO BEDTIME [facility] Last Admin: 09/16/21 21:31 Dose: 150 mg Documented by: Venlafaxine HCl (Venlafaxine Hcl Er 150 Mg Cap.Er.24h) 150 mg PO DAILY [facility] Last Admin: 09/17/21 09:04 Dose: 150 mg Documented by: Home Medications Medication Instructions Recorded Confirmed Last Taken Type atorvastatin 80 mg tablet 80 mg PO BEDTIME 08/01/20 09/09/21 09/08/21 History diclofenac sodium 75 mg 75 mg PO BID 08/01/20 09/09/21 09/09/21 History tablet,delayed release gabapentin 600 mg tablet 600 mg PO TID 08/01/20 09/09/21 09/09/21 History lisinopril 10 1 tab PO DAILY 08/01/20 09/09/21 09/09/21 History mg-hydrochlorothiazide 12.5 mg tablet trazodone 150 mg PO BEDTIME 07/30/21 09/09/21 09/08/21 History acetaminophen 500 mg tablet 1,000 mg PO BID 09/09/21 09/09/21 09/09/21 History acetaminophen 500 mg tablet 500 mg PO DAILY@1200 09/09/21 09/09/21 09/09/21 History buprenorphine 2 mg-naloxone 0.5 mg 3 tab SUBLINGUAL BID 09/09/21 09/09/21 09/09/21 History sublingual tablet bupropion HCl 300 mg 24 hr tablet, 300 mg PO QAM 09/09/21 09/09/21 09/09/21 History extended release diazepam 5 mg tablet 1 tab PO BID 09/09/21 09/09/21 09/09/21 History venlafaxine 150 mg 150 mg PO DAILY 09/09/21 09/09/21 09/09/21 History capsule,extended release 24 hr Physical Exam Vital Signs: Vital Signs: Last Vital Signs Temp 99.0 F 09/17/21 07:20 Pulse 87 09/17/21 09:37 Resp 18 09/17/21 07:41 BP 160/90 H 09/17/21 07:20 Pulse Ox 94 09/17/21 07:20 BMI result Body Mass Index 18.8 Neuro: Other: Alert and awake with normal spontaneity of speech fluency comprehension and slightly vague affect. He was able to follow commands. Language was okay. Face was symmetrical. There was no abnormal posturing. He was laying flat with his body half naked and wearing a diaper. Deep tendon reflexes are absent with flexor plantars. Results Labs CBC & Chem 7: 09/14/21 08:17 09/14/21 08:17 Labs: Noncontrast head CT did not reveal any significant atrophy. [id number] chronic microvascular ischemic changes were noted Microbiology Microbiology Results: Microbiology 09/09/21 17:48 Blood - Venous Blood Culture - Final No growth after 5 days. 09/09/21 17:48 Blood - Venous Blood Culture - Final No growth after 5 days. Assessment and Plan (1) Encephalopathy: Status: Acute As far as this illness is concerned, it is best explained based upon metabolic toxic encephalopathy. While suffering from this condition, 1 should avoid making a diagnosis of dementia. The might be underlying cognitive difficulties of mild nature. In any case, cognitive dysfunction or dementia evaluation should ideally be performed few weeks after this illness is resolved. At this time I recommend checking serum B12 level Procedures Date of Service Date of Service: 09/17/21
[2021-09-17 11:29] LABS: TSH reflex Free T4 1.19 uIU/mL (0.32-4.0)
[2021-09-17 11:46] LABS: Folate 3.8 ng/mL (> or = 4.0); Vitamin B12 185 pg/mL (200-900)
[2021-09-17] MEDS: traZODone HCL 50 MG TABLET 150 MG PO (20:07)
[2021-09-17] MEDS: Atorvastatin Calcium 80 MG TABLET PO (20:08)
[2021-09-18] VITALS (8 sets, daily range): BP systolic 133–161; BP diastolic 68–97; PULSE 60–88; RESP 16–20; TEMP 36.7–36.9; O2SAT 91–99
[2021-09-18] MEDS: 0.9 % Sodium Chloride Flush 3 ML SYRINGE IVFLUSH ×2 (09:13→17:21)
[2021-09-18] MEDS: Acetaminophen 325 MG TABLET 975 MG PO ×2 (09:14→19:22)
[2021-09-18] MEDS: lisinopriL 10 MG, hydroCHLOROthiazide 12.5 MG PO (09:15)
[2021-09-18] MEDS: Diclofenac Sodium Delayed Rel 75 MG TABLET.DR PO ×2 (09:15→19:21)
[2021-09-18] MEDS: diazePAM 2 MG TABLET PO (09:16)
[2021-09-18] MEDS: Gabapentin 600 MG TABLET PO ×3 (09:17→19:21)
[2021-09-18] MEDS: Amoxicillin/Potassium Clav 875 MG TABLET PO ×2 (09:17→22:32)
[2021-09-18] MEDS: Venlafaxine HCl ER 150 MG CAP.ER.24H PO (09:18)
[2021-09-18] MEDS: buPROPion HCl XL 300 MG TAB.ER.24H PO (09:18)
[2021-09-18] MEDS: Nicotine 21 MG PATCH.TD24 TRANSDERMA (09:26)
[2021-09-18] MEDS: Buprenorphine/Naloxone 2/0.5mg FILM 3 FILM SUBLINGUAL ×2 (09:30→19:21)
--- NOTE | 2021-09-18 10:47 | MHC.CLN ---
F/U APPEARS TO BE EATING WELL WITH MOST MEALS 100%. DIET RX: PUREED-APPROPRIATE. ENSURE CLEAR TID TO PROVIDES ADDITIONAL 720 KCALS, 24 G PROTEIN. SKIN WITH ABRASION TO RIGHT FOOT. MONITOR PO INTAKE CLOSELY.
[2021-09-18] MEDS: Enoxaparin Sodium 40 MG/0.4 ML SYRINGE SUBCUT (10:58)
--- NOTE | 2021-09-18 11:32 | MHC.CM.PN ---
Per ROUNDS discussion, Patient is medically cleared for dc; Sitter was dc'd yesterday morning. Broad SNF search been initiated and CM will continue to follow for dc planning.
--- NOTE | 2021-09-18 13:52 | HO.PM.IMPN ---
Subjective Subjective Date of Service: 09/18/21 Interval History: Complaining of chronic back pain but otherwise no acute events overnight Review of Systems Denies chest pain Denies shortness of breath Denies nausea vomiting diarrhea Denies fever chills Physical Exam Vital Signs: Vital Signs: Last Vital Signs Temp 98.5 F 09/18/21 12:00 Pulse 88 09/18/21 12:00 Resp 19 09/18/21 12:00 BP 150/72 H 09/18/21 12:00 Pulse Ox 94 09/18/21 12:00 BMI result Body Mass Index 18.8 Const: Other: Awake; mildly confused but easily reoriented no acute distress Resp: Other: Clear to auscultation bilaterally no rales rhonchi or wheezes Cardio: Other: No S4; positive S1-S2; no S3 murmurs rubs or gallops GI: Other: Soft nontender nondistended with normoactive bowel sounds Neuro: Other: Alert and awake with normal spontaneity of speech fluency comprehension and slightly vague affect. He was able to follow commands. Language was okay. Face was symmetrical. There was no abnormal posturing. He was laying flat with his body half naked and wearing a diaper. Deep tendon reflexes are absent with flexor plantars. Extrem: Other: No edema bilaterally Objective Data Active Medications Acetaminophen (Acetaminophen 325 Mg Tablet) 650 mg PO Q6H PRN PRN Reason: Pain, Mild (Pain Scale 1-3) Last Admin: 09/13/21 02:25 Dose: 650 mg Documented by: Acetaminophen (Acetaminophen 325 Mg Tablet) 975 mg PO BID [facility] Last Admin: 09/18/21 09:14 Dose: 975 mg Documented by: ZACH Amoxicillin/Clavulanate Potassium (Amoxicillin/Potassium Clav 875 Mg Tablet) 875 mg PO Q12H [facility] Last Admin: 09/18/21 09:17 Dose: 875 mg Documented by: ZACH Atorvastatin Calcium (Atorvastatin Calcium 80 Mg Tablet) 80 mg PO BEDTIME [facility] Last Admin: 09/17/21 20:08 Dose: 80 mg Documented by: MADELYN Buprenorphine/Naloxone (Buprenorphine/Naloxone 2/0.5mg Film) 3 film SUBLINGUAL BID [facility] Last Admin: 09/18/21 09:30 Dose: 3 film Documented by: ZACH Bupropion HCl (Bupropion Hcl Xl 300 Mg Tab.Er.24h) 300 mg PO DAILY [facility] Last Admin: 09/18/21 09:18 Dose: 300 mg Documented by: ZACH Lisinopril 10 mg/ (Hydrochlorothiazide 12.5 mg) 0 mg PO DAILY [facility] Last Admin: 09/18/21 09:15 Dose: 10 each Documented by: ZACH Comments: 12.5 Diclofenac Sodium (Diclofenac Sodium Delayed Rel 75 Mg Tablet.Dr) 75 mg PO BID [facility] Last Admin: 09/18/21 09:15 Dose: 75 mg Documented by: ZACH Enoxaparin Sodium (Enoxaparin Sodium 40 Mg/0.4 Ml Syringe) 40 mg SUBCUT Q24H [facility] Last Admin: 09/18/21 10:58 Dose: 40 mg Documented by: ZACH Gabapentin (Gabapentin 600 Mg Tablet) 600 mg PO TID [facility] Last Admin: 09/18/21 09:17 Dose: 600 mg Documented by: ZACH Hydroxyzine HCl (Hydroxyzine Hcl 50 Mg/Ml Vial) 25 mg IM Q6H PRN PRN Reason: Anxiety Last Admin: 09/14/21 03:53 Dose: 25 mg Documented by: TAMIKO Nicotine (Nicotine 21 Mg Patch.Td24) 21 mg TRANSDERMA DAILY [facility] Last Admin: 09/18/21 09:26 Dose: 21 mg Documented by: ZACH Ondansetron HCl (Ondansetron Hcl 4 Mg/2 Ml Vial) 4 mg IVPUSH Q8H PRN PRN Reason: Nausea and Vomiting Sodium Chloride (0.9 % Sodium Chloride Flush 3 Ml Syringe) 3 ml IVFLUSH QSHIFT [facility] Last Admin: 09/18/21 09:13 Dose: 3 ml Documented by: ZACH Trazodone HCl (Trazodone Hcl 50 Mg Tablet) 150 mg PO BEDTIME [facility] Last Admin: 09/17/21 20:07 Dose: 150 mg Documented by: MADELYN Venlafaxine HCl (Venlafaxine Hcl Er 150 Mg Cap.Er.24h) 150 mg PO DAILY [facility] Last Admin: 09/18/21 09:18 Dose: 150 mg Documented by: ZACH Labs CBC & Chem 7: 09/14/21 08:17 09/14/21 08:17 Assessment and Plan (1) Encephalopathy: Status: Acute (2) COPD (chronic obstructive pulmonary disease): Status: Acute (3) Pneumonia: Status: Acute (4) HTN (hypertension): Status: Acute Plan 71 year old M who arrived to [facility] on 09/09/21 with reports of worsening confusion over the preceeding 5 days. His work up has revealed a likely early pneumonia. No definitive cause of his acute encephalopathy is found. 1. Acute Toxic/Metabolic Encephalopathy -resolving -likely back to baseline.. . Question early dementia 2. Acute hypercarbic respiratory failure (likely chronic COPD with CO2 retention) -keep O2 88 to 92, BiPAP at night -bronchodialtors, smoking cessation discussed 3.Pneumonia, possible aspiration -initially Unasyn(4) -Augmentin--10 days total 4.HTN -acceptable control on current therapies -adjust as indicated 5.Anxiety -continue Valium 5 mg b.i.d. -adjust as indicated DVT pptx, Lovenox Son Maliha is HCP Requiring ongoing hospitalization for treatment of pneumonia and resolution of encephalopathy Quality Stroke Does the patient have a stroke diagnosis?: No VTE Prior VTE?: No VTE Risk Level:: Medical - moderate - high VTE Device Contraindication: Treatment Not Indicated VTE Drug Contraindication: N/A - Med Ordered
[2021-09-18] MEDS: Folic Acid 1 MG TABLET PO (15:32)
[2021-09-18] MEDS: Atorvastatin Calcium 80 MG TABLET PO (19:22)
[2021-09-18] MEDS: traZODone HCL 50 MG TABLET 150 MG PO (19:22)
--- NOTE | 2021-09-18 21:39 | PC.NURSE ---
Pt. was seen for 2100 med pass sitting at the edge of the bed with two aids trying to keep him from exiting. Pt. was attempting to throw himself on the floor, became combative with nurse and aids, stated we were trying to kill him, raping him, kidnapping him. Pt. was then somewhat compliant with his medication. He stated that this mortgage or loan underwriter was poisoning him as well as stealing his medications. TW was able to have pt agree to most of his medications; however he took a bite of the medication mixed with apple sauce and spit/threw it at the aid. made aware of situation. 2.5mg Haldol IV STAT ordered. When attempting to push Haldol, pt. again became combative and pulled at his IV. When attempting to flush IV, TW noticed IV was no longer patent. When pt. was told another IV would need to be placed, pt. refused. Will work with clinical coordinator and preceptor to obtain IV access.
[2021-09-19] MEDS: hydrOXYzine HCL 50 MG/ML VIAL 25 MG IM (01:40)
[2021-09-19] MEDS: Acetaminophen 325 MG TABLET 650 MG PO (01:40)
[2021-09-19 06:03] VITALS: BP 148/79; PULSE 85; RESP 18; O2SAT 94
[2021-09-19 06:12] LABS: MANUAL DIFF FLAG NO
[2021-09-19 06:27] LABS: Basophils Percent Auto 0.6 % (0-2); Eosinophils Absolute Auto 0.1 X10*3/uL (0.0-0.4); Eosinophils Percent Auto 1.5 % (0-4); Hematocrit 45.8 % (42.0-52.0); Hemoglobin 14.7 g/dl (14.0-18.0); Imm Gran Abs Auto 0.04 X10*3/uL (0.00-0.03); Imm Gran Pct Auto 0.7 % (0.0-0.4); Lymphocytes Absolute Auto 0.9 X10*3/uL (1.2-4.9); Mean Corpuscular HGB Conc 32.1 g/dl (31.0-36.0); Mean Corpuscular Hemoglobin 31.4 pg (27.0-33.0); Mean Corpuscular Volume 97.9 fL (80.0-98.0); Monocytes Absolute Auto 0.6 X10*3/uL (0.1-1.2); Monocytes Percent Auto 10.5 % (2-11); Neutrophils Absolute Auto 3.9 x10*3/uL (2.0-8.3); Neutrophils Percent Auto 70.7 % (45-73); Platelet Count 197 X10*3/uL (160-400); Red Blood Count 4.68 X10*6/uL (4.60-5.80); White Blood Count 5.5 X10*3/uL (4.8-10.8)
[2021-09-19 06:46] LABS: Alanine Aminotransferase 28 U/L (0-40); Albumin Level 3.3 g/dL (3.5-5.0); Alkaline Phosphatase 87 U/L (39-117); Anion Gap 13 (12-20); Aspartate Amino Transferase 22 U/L (5-37); Bilirubin Total 0.6 mg/dL (0.0-1.0); Blood Urea Nitrogen 20 mg/dL (9-16); Calcium 9.3 mg/dL (8.4-10.2); Carbon Dioxide 34 mmol/L (22-29); Chloride 96 mmol/L (96-108); Creatinine Clr Calc Pharmacy 102.9; Estimated Glomerular Filt Rate > 60; Glucose Fasting 110 mg/dL (60-99); Sodium 139 mmol/L (135-145); Total Protein 5.5 g/dL (6.5-8.0)
[2021-09-19 07:17] VITALS: BP 168/80; PULSE 92; RESP 18; TEMP 36.3; O2SAT 97
[2021-09-19 08:35] VITALS: BP 168/80; PULSE 92; O2SAT 97
[2021-09-19] MEDS: Diclofenac Sodium Delayed Rel 75 MG TABLET.DR PO ×2 (10:39→21:26)
[2021-09-19] MEDS: Acetaminophen 325 MG TABLET 975 MG PO ×2 (10:40→21:25)
[2021-09-19] MEDS: lisinopriL 10 MG, hydroCHLOROthiazide 12.5 MG PO (10:41)
[2021-09-19] MEDS: buPROPion HCl XL 300 MG TAB.ER.24H PO (10:42)
[2021-09-19] MEDS: Folic Acid 1 MG TABLET PO (10:42)
[2021-09-19] MEDS: Nicotine 21 MG PATCH.TD24 TRANSDERMA (10:48)
[2021-09-19] MEDS: Buprenorphine/Naloxone 2/0.5mg FILM 3 FILM SUBLINGUAL ×2 (10:49→21:25)
[2021-09-19] MEDS: Gabapentin 600 MG TABLET PO ×3 (10:54→21:25)
[2021-09-19] MEDS: 0.9 % Sodium Chloride Flush 3 ML SYRINGE IVFLUSH (10:55)
[2021-09-19] MEDS: Amoxicillin/Potassium Clav 875 MG TABLET PO ×2 (10:56→21:25)
[2021-09-19] MEDS: Venlafaxine HCl ER 150 MG CAP.ER.24H PO (10:56)
[2021-09-19 12:00] VITALS: BP 158/82; PULSE 87; RESP 18; TEMP 36.7; O2SAT 97
[2021-09-19] MEDS: diazePAM 2 MG TABLET PO ×2 (15:04→21:25)
[2021-09-19 15:12] VITALS: BP 160/78; PULSE 90; RESP 18; TEMP 36.4; O2SAT 97
--- NOTE | 2021-09-19 15:25 | HO.PM.IMPN ---
Subjective Subjective Date of Service: 09/19/21 Interval History: Slightly agitated today; confused but easily redirectable Review of Systems Denies chest pain Denies shortness of breath Denies nausea vomiting diarrhea Denies fever chills Physical Exam Vital Signs: Vital Signs: Last Vital Signs Temp 97.6 F 09/19/21 15:12 Pulse 90 09/19/21 15:12 Resp 18 09/19/21 15:12 BP 160/78 H 09/19/21 15:12 Pulse Ox 97 09/19/21 15:12 BMI result Body Mass Index 18.8 Const: Other: Awake; mildly confused but easily reoriented no acute distress Resp: Other: Clear to auscultation bilaterally no rales rhonchi or wheezes Cardio: Other: No S4; positive S1-S2; no S3 murmurs rubs or gallops GI: Other: Soft nontender nondistended with normoactive bowel sounds Neuro: Other: Alert and awake with normal spontaneity of speech fluency comprehension and slightly vague affect. He was able to follow commands. Language was okay. Face was symmetrical. There was no abnormal posturing. He was laying flat with his body half naked and wearing a diaper. Deep tendon reflexes are absent with flexor plantars. Extrem: Other: No edema bilaterally Objective Data Active Medications Acetaminophen (Acetaminophen 325 Mg Tablet) 650 mg PO Q6H PRN PRN Reason: Pain, Mild (Pain Scale 1-3) Last Admin: 09/19/21 01:40 Dose: 650 mg Documented by: JACKIE Acetaminophen (Acetaminophen 325 Mg Tablet) 975 mg PO BID [facility] Last Admin: 09/19/21 10:40 Dose: 975 mg Documented by: ZACH Amoxicillin/Clavulanate Potassium (Amoxicillin/Potassium Clav 875 Mg Tablet) 875 mg PO Q12H [facility] Last Admin: 09/19/21 10:56 Dose: 875 mg Documented by: ZACH Atorvastatin Calcium (Atorvastatin Calcium 80 Mg Tablet) 80 mg PO BEDTIME [facility] Last Admin: 09/18/21 19:22 Dose: 80 mg Documented by: JACKIE Buprenorphine/Naloxone (Buprenorphine/Naloxone 2/0.5mg Film) 3 film SUBLINGUAL BID [facility] Last Admin: 09/19/21 10:49 Dose: 3 film Documented by: ZACH Bupropion HCl (Bupropion Hcl Xl 300 Mg Tab.Er.24h) 300 mg PO DAILY [facility] Last Admin: 09/19/21 10:42 Dose: 300 mg Documented by: ZACH Lisinopril 10 mg/ (Hydrochlorothiazide 12.5 mg) 0 mg PO DAILY [facility] Last Admin: 09/19/21 10:41 Dose: 10 each Documented by: ZACH Comments: 12.5 Diazepam (Diazepam 2 Mg Tablet) 2 mg PO BID [facility] Last Admin: 09/19/21 15:04 Dose: 2 mg Documented by: ZACH Diclofenac Sodium (Diclofenac Sodium Delayed Rel 75 Mg Tablet.Dr) 75 mg PO BID [facility] Last Admin: 09/19/21 10:39 Dose: 75 mg Documented by: ZACH Enoxaparin Sodium (Enoxaparin Sodium 40 Mg/0.4 Ml Syringe) 40 mg SUBCUT Q24H [facility] Last Admin: 09/19/21 10:56 Dose: Not Given Documented by: ZACH Non-Admin Reason: Patient Refused Folic Acid (Folic Acid 1 Mg Tablet) 1 mg PO DAILY [facility] Last Admin: 09/19/21 10:42 Dose: 1 mg Documented by: ZACH Gabapentin (Gabapentin 600 Mg Tablet) 600 mg PO TID [facility] Last Admin: 09/19/21 15:04 Dose: 600 mg Documented by: ZACH Hydroxyzine HCl (Hydroxyzine Hcl 50 Mg/Ml Vial) 25 mg IM Q6H PRN PRN Reason: Anxiety Last Admin: 09/19/21 01:40 Dose: 25 mg Documented by: JACKIE Nicotine (Nicotine 21 Mg Patch.Td24) 21 mg TRANSDERMA DAILY [facility] Last Admin: 09/19/21 10:48 Dose: 21 mg Documented by: ZACH Ondansetron HCl (Ondansetron Hcl 4 Mg/2 Ml Vial) 4 mg IVPUSH Q8H PRN PRN Reason: Nausea and Vomiting Sodium Chloride (0.9 % Sodium Chloride Flush 3 Ml Syringe) 3 ml IVFLUSH QSHIFT [facility] Last Admin: 09/19/21 10:55 Dose: 3 ml Documented by: ZACH Trazodone HCl (Trazodone Hcl 50 Mg Tablet) 150 mg PO BEDTIME [facility] Last Admin: 09/18/21 19:22 Dose: 150 mg Documented by: JACKIE Venlafaxine HCl (Venlafaxine Hcl Er 150 Mg Cap.Er.24h) 150 mg PO DAILY [facility] Last Admin: 09/19/21 10:56 Dose: 150 mg Documented by: ZACH Labs CBC & Chem 7: 09/19/21 05:59 09/19/21 05:59 Labs: Laboratory Results - last 24 hr 09/19/21 09/19/21 05:59 05:59 MCV 97.9 MCH 31.4 MCHC 32.1 RDW 14.0 Plt Count 197 D MPV 12.0 Immature Gran % (Auto) 0.7 H Neut % (Auto) 70.7 Lymph % (Auto) 16.0 L [place] % (Auto) 10.5 Eos % (Auto) 1.5 Baso % (Auto) 0.6 Lymph # (Auto) 0.9 L [place] # (Auto) 0.6 Eos # (Auto) 0.1 Baso # (Auto) 0.0 Abs Immat Gran (auto) 0.04 H Absolute Neuts (auto) 3.9 Absolute Nucleated RBC 0.000 Nucleated RBC % (auto) 0.0 Anion Gap 13 Estim Creat Clear Calc 102.9 Estimated GFR > 60 Fasting Glucose 110 H Calcium 9.3 Total Bilirubin 0.6 AST 22 ALT 28 Alkaline Phosphatase 87 D Total Protein 5.5 L Albumin 3.3 L Assessment and Plan (1) Encephalopathy: Status: Acute (2) COPD (chronic obstructive pulmonary disease): Status: Acute (3) Pneumonia: Status: Acute (4) HTN (hypertension): Status: Acute Plan 71 year old M who arrived to [facility] [place] [place] on 09/09/21 with reports of worsening confusion over the preceeding 5 days. His work up has revealed a likely early pneumonia. No definitive cause of his acute encephalopathy is found. 1. Acute Toxic/Metabolic Encephalopathy -resolved -presentation more resembles dementia with agitated features(worsened by hypercapnea) -BiPAP at night -restart outpt valium 2. Acute hypercarbic respiratory failure (likely chronic COPD with CO2 retention) -keep O2 88 to 92, BiPAP at night -bronchodialtors, smoking cessation discussed 3.Pneumonia, possible aspiration -initially Unasyn(4) -Augmentin--10 days total 4.HTN -acceptable control on current therapies -adjust as indicated 5.Anxiety -continue Valium 5 mg b.i.d. -adjust as indicated DVT pptx, Lovenox Son Maliha is HCP Requiring ongoing hospitalization for treatment of pneumonia and resolution of encephalopathy Quality Stroke Does the patient have a stroke diagnosis?: No VTE Prior VTE?: No VTE Risk Level:: Medical - moderate - high VTE Device Contraindication: Treatment Not Indicated VTE Drug Contraindication: N/A - Med Ordered
[2021-09-19 19:13] VITALS: BP 165/43; PULSE 83; RESP 16; TEMP 37.6; O2SAT 90
[2021-09-19] MEDS: Atorvastatin Calcium 80 MG TABLET PO (21:25)
[2021-09-19] MEDS: traZODone HCL 50 MG TABLET 150 MG PO (21:26)
[2021-09-20] VITALS (9 sets, daily range): BP systolic 128–172; BP diastolic 78–93; PULSE 54–106; RESP 15–18; TEMP 36.1–37.2; O2SAT 85–98
[2021-09-20] MEDS: 0.9 % Sodium Chloride Flush 3 ML SYRINGE IVFLUSH ×4 (00:30→21:34)
[2021-09-20 06:28] LABS: MANUAL DIFF FLAG NO
[2021-09-20 06:34] LABS: Venous Blood Gas Refer to POC result
[2021-09-20 06:34] LABS: VBG Base Excess 8.6 mmol/L; VBG HCO3 31 mmol/L (22-26); VBG pCO2 38 mmHg; VBG pH 7.52 (7.32-7.43); VBG pO2 157 mmHg
[2021-09-20 06:38] LABS: Basophils Percent Auto 0.5 % (0-2); Eosinophils Percent Auto 0.7 % (0-4); Hematocrit 49.4 % (42.0-52.0); Hemoglobin 15.5 g/dl (14.0-18.0); Imm Gran Abs Auto 0.02 X10*3/uL (0.00-0.03); Imm Gran Pct Auto 0.3 % (0.0-0.4); Lymphocytes Absolute Auto 1.2 X10*3/uL (1.2-4.9); Lymphocytes Percent Auto 19.4 % (20-40); Mean Corpuscular HGB Conc 31.4 g/dl (31.0-36.0); Mean Corpuscular Hemoglobin 31.5 pg (27.0-33.0); Mean Corpuscular Volume 100.4 fL (80.0-98.0); Mean Platelet Volume 11.7 fL (9.4-12.4); Monocytes Absolute Auto 0.6 X10*3/uL (0.1-1.2); Monocytes Percent Auto 10.4 % (2-11); Neutrophils Absolute Auto 4.1 x10*3/uL (2.0-8.3); Neutrophils Percent Auto 68.7 % (45-73); Platelet Count 157 X10*3/uL (160-400); Red Blood Count 4.92 X10*6/uL (4.60-5.80); Red Cell Distribution Width 14.1 % (11.0-16.0)
[2021-09-20 08:17] LABS: Alanine Aminotransferase 28 U/L (0-40); Albumin Level 3.3 g/dL (3.5-5.0); Alkaline Phosphatase 86 U/L (39-117); Anion Gap 8 (12-20); Aspartate Amino Transferase 21 U/L (5-37); Bilirubin Total 0.6 mg/dL (0.0-1.0); Blood Urea Nitrogen 19 mg/dL (9-16); Calcium 9.3 mg/dL (8.4-10.2); Carbon Dioxide 38 mmol/L (22-29); Chloride 98 mmol/L (96-108); Creatinine Clr Calc Pharmacy 106.6; Estimated Glomerular Filt Rate > 60; Glucose Fasting 115 mg/dL (60-99); Potassium 3.9 mmol/L (3.3-5.1); Sodium 140 mmol/L (135-145); Total Protein 5.4 g/dL (6.5-8.0)
[2021-09-20] MEDS: Acetaminophen 325 MG TABLET 975 MG PO ×2 (09:42→21:32)
[2021-09-20] MEDS: Diclofenac Sodium Delayed Rel 75 MG TABLET.DR PO ×2 (09:42→21:33)
[2021-09-20] MEDS: Venlafaxine HCl ER 150 MG CAP.ER.24H PO (09:44)
[2021-09-20] MEDS: diazePAM 2 MG TABLET PO ×2 (09:46→21:33)
[2021-09-20] MEDS: Nicotine 21 MG PATCH.TD24 TRANSDERMA (09:46)
[2021-09-20] MEDS: Folic Acid 1 MG TABLET PO (09:46)
[2021-09-20] MEDS: Amoxicillin/Potassium Clav 875 MG TABLET PO ×2 (09:46→21:32)
[2021-09-20] MEDS: buPROPion HCl XL 300 MG TAB.ER.24H PO (09:46)
[2021-09-20] MEDS: lisinopriL 10 MG, hydroCHLOROthiazide 12.5 MG PO (09:46)
[2021-09-20] MEDS: Buprenorphine/Naloxone 2/0.5mg FILM 3 FILM SUBLINGUAL ×2 (09:47→21:34)
[2021-09-20] MEDS: Gabapentin 600 MG TABLET PO ×3 (09:51→21:33)
[2021-09-20] MEDS: Enoxaparin Sodium 40 MG/0.4 ML SYRINGE SUBCUT (09:52)
--- NOTE | 2021-09-20 11:01 | P.PNIM_ITS ---
Subjective Subjective Date of Service: 09/20/21 Interval History: Less agitated since Valium added back to regimen. No acute issues overnight Review of Systems Denies chest pain Denies shortness of breath Denies nausea vomiting diarrhea Denies fever chills Physical Exam Vital Signs: Vital Signs: Last Vital Signs Temp 98 F 09/20/21 07:44 Pulse 74 09/20/21 09:30 Resp 16 09/20/21 07:44 BP 160/93 H 09/20/21 09:30 Pulse Ox 94 09/20/21 09:30 BMI result Body Mass Index 18.8 Const: Other: Awake; mildly confused but easily reoriented no acute distress Resp: Other: Clear to auscultation bilaterally no rales rhonchi or wheezes Cardio: Other: No S4; positive S1-S2; no S3 murmurs rubs or gallops GI: Other: Soft nontender nondistended with normoactive bowel sounds Neuro: Other: Alert and awake with normal spontaneity of speech fluency comprehension and slightly vague affect. He was able to follow commands. Language was okay. Face was symmetrical. There was no abnormal posturing. He was laying flat with his body half naked and wearing a diaper. Deep tendon reflexes are absent with flexor plantars. Extrem: Other: No edema bilaterally Objective Data Active Medications Acetaminophen (Acetaminophen 325 Mg Tablet) 650 mg PO Q6H PRN PRN Reason: Pain, Mild (Pain Scale 1-3) Last Admin: 09/19/21 01:40 Dose: 650 mg Documented by: JACKIE Acetaminophen (Acetaminophen 325 Mg Tablet) 975 mg PO BID [facility] Last Admin: 09/20/21 09:42 Dose: 975 mg Documented by: RASHI Amoxicillin/Clavulanate Potassium (Amoxicillin/Potassium Clav 875 Mg Tablet) 875 mg PO Q12H [facility] Last Admin: 09/20/21 09:46 Dose: 875 mg Documented by: RASHI Atorvastatin Calcium (Atorvastatin Calcium 80 Mg Tablet) 80 mg PO BEDTIME [facility] Last Admin: 09/19/21 21:25 Dose: 80 mg Documented by: BRITTANI Buprenorphine/Naloxone (Buprenorphine/Naloxone 2/0.5mg Film) 3 film SUBLINGUAL BID [facility] Last Admin: 09/20/21 09:47 Dose: 3 film Documented by: RASHI Bupropion HCl (Bupropion Hcl Xl 300 Mg Tab.Er.24h) 300 mg PO DAILY [facility] Last Admin: 09/20/21 09:46 Dose: 300 mg Documented by: RASHI Lisinopril 10 mg/ (Hydrochlorothiazide 12.5 mg) 0 mg PO DAILY [facility] Last Admin: 09/20/21 09:46 Dose: 12.5 each Documented by: RASHI Diazepam (Diazepam 2 Mg Tablet) 2 mg PO BID [facility] Last Admin: 09/20/21 09:46 Dose: 2 mg Documented by: RASHI Diclofenac Sodium (Diclofenac Sodium Delayed Rel 75 Mg Tablet.Dr) 75 mg PO BID [facility] Last Admin: 09/20/21 09:42 Dose: 75 mg Documented by: RASHI Enoxaparin Sodium (Enoxaparin Sodium 40 Mg/0.4 Ml Syringe) 40 mg SUBCUT Q24H [facility] Last Admin: 09/20/21 09:52 Dose: 40 mg Documented by: RASHI Folic Acid (Folic Acid 1 Mg Tablet) 1 mg PO DAILY [facility] Last Admin: 09/20/21 09:46 Dose: 1 mg Documented by: RASHI Gabapentin (Gabapentin 600 Mg Tablet) 600 mg PO TID [facility] Last Admin: 09/20/21 09:51 Dose: 600 mg Documented by: RASHI Hydroxyzine HCl (Hydroxyzine Hcl 50 Mg/Ml Vial) 25 mg IM Q6H PRN PRN Reason: Anxiety Last Admin: 09/19/21 01:40 Dose: 25 mg Documented by: JACKIE Nicotine (Nicotine 21 Mg Patch.Td24) 21 mg TRANSDERMA DAILY [facility] Last Admin: 09/20/21 09:46 Dose: 21 mg Documented by: RASHI Ondansetron HCl (Ondansetron Hcl 4 Mg/2 Ml Vial) 4 mg IVPUSH Q8H PRN PRN Reason: Nausea and Vomiting Sodium Chloride (0.9 % Sodium Chloride Flush 3 Ml Syringe) 3 ml IVFLUSH QSHIFT [facility] Last Admin: 09/20/21 09:42 Dose: 3 ml Documented by: RASHI Trazodone HCl (Trazodone Hcl 50 Mg Tablet) 150 mg PO BEDTIME [facility] Last Admin: 09/19/21 21:26 Dose: 150 mg Documented by: BRITTANI Venlafaxine HCl (Venlafaxine Hcl Er 150 Mg Cap.Er.24h) 150 mg PO DAILY [facility] Last Admin: 09/20/21 09:44 Dose: 150 mg Documented by: RASHI Labs CBC & Chem 7: 09/20/21 06:15 09/20/21 07:31 Labs: Laboratory Results - last 24 hr 09/20/21 09/20/21 09/20/21 06:15 06:27 07:31 MCV 100.4 H MCH 31.5 MCHC 31.4 RDW 14.1 Plt Count 157 L MPV 11.7 Immature Gran % (Auto) 0.3 Neut % (Auto) 68.7 Lymph % (Auto) 19.4 L [place] % (Auto) 10.4 Eos % (Auto) 0.7 Baso % (Auto) 0.5 Lymph # (Auto) 1.2 [place] # (Auto) 0.6 Eos # (Auto) 0.0 Baso # (Auto) 0.0 Abs Immat Gran (auto) 0.02 Absolute Neuts (auto) 4.1 Absolute Nucleated RBC 0.000 Nucleated RBC % (auto) 0.0 VBG pH 7.52 H VBG pCO2 38 VBG pO2 157 VBG HCO3 31 H VBG O2 Saturation 99.0 VBG Base Excess 8.6 Anion Gap 8 L Estim Creat Clear Calc 106.6 Estimated GFR > 60 Fasting Glucose 115 H Calcium 9.3 Total Bilirubin 0.6 AST 21 ALT 28 Alkaline Phosphatase 86 Total Protein 5.4 L Albumin 3.3 L Assessment and Plan (1) Encephalopathy: Status: Acute (2) COPD (chronic obstructive pulmonary disease): Status: Acute (3) Pneumonia: Status: Acute (4) HTN (hypertension): Status: Acute Plan 71 year old M who [place] [facility] [facility] [place] with reports of worsening confusion over the preceeding 5 days. His work up has revealed a likely early pneumonia. No definitive cause of his acute encephalopathy is found. 1. Acute Toxic/Metabolic Encephalopathy -presentation more resembles dementia with agitated features(worsened by hypercapnea) -BiPAP at night -good response to Valium 2. Acute hypercarbic respiratory failure (likely chronic COPD with CO2 retention) -keep O2 88 to 92, BiPAP at night...[VBG PCO2 38 this am] -bronchodialtors, smoking cessation discussed 3.Pneumonia, possible aspiration -initially Unasyn(4) -Augmentin(02/08) days l 4.HTN -acceptable control on current therapies -adjust as indicated 5.Anxiety -continue Valium 5 mg b.i.d. -adjust as indicated DVT pptx, Lovenox Gordon Jett is HCP Requiring ongoing hospitalization for treatment of pneumonia and resolution of encephalopathy Quality Stroke Does the patient have a stroke diagnosis?: No VTE Prior VTE?: No VTE Risk Level:: Medical - moderate - high VTE Device Contraindication: Treatment Not Indicated VTE Drug Contraindication: N/A - Med Ordered
--- NOTE | 2021-09-20 11:21 | MHC.CLN ---
F/U APPEARS TO BE EATING WELL, WITH MOST MEALS 50-100%. DIET RX: PUREED-APPROPRIATE. ENSURE CLEAR TID TO PROVIDES ADDITIONAL 720 KCALS, 24 G PROTEIN. MONITOR PO INTAKE CLOSELY.
--- NOTE | 2021-09-20 13:32 | MHC.CM.PN ---
PER ROUNDS PT READY [facility] DC AWAITING RESOLUTION OF SUBOXONE ISSUE
[2021-09-20] MEDS: traZODone HCL 50 MG TABLET 150 MG PO (21:33)
[2021-09-20] MEDS: Atorvastatin Calcium 80 MG TABLET PO (21:34)
[2021-09-21] VITALS (7 sets, daily range): BP systolic 119–159; BP diastolic 81–102; PULSE 58–100; RESP 17–20; TEMP 36.4–37.2; O2SAT 91–97
[2021-09-21 06:47] LABS: MANUAL DIFF FLAG NO
[2021-09-21 06:57] LABS: Basophils Absolute Auto 0.1 X10*3/uL (0.0-0.2); Basophils Percent Auto 0.9 % (0-2); Eosinophils Absolute Auto 0.1 X10*3/uL (0.0-0.4); Eosinophils Percent Auto 0.9 % (0-4); Hematocrit 48.1 % (42.0-52.0); Hemoglobin 15.3 g/dl (14.0-18.0); Imm Gran Abs Auto 0.02 X10*3/uL (0.00-0.03); Imm Gran Pct Auto 0.4 % (0.0-0.4); Lymphocytes Absolute Auto 0.9 X10*3/uL (1.2-4.9); Lymphocytes Percent Auto 17.1 % (20-40); Mean Corpuscular HGB Conc 31.8 g/dl (31.0-36.0); Mean Corpuscular Hemoglobin 31.5 pg (27.0-33.0); Mean Platelet Volume 11.8 fL (9.4-12.4); Monocytes Absolute Auto 0.5 X10*3/uL (0.1-1.2); Monocytes Percent Auto 8.8 % (2-11); Neutrophils Absolute Auto 3.9 x10*3/uL (2.0-8.3); Neutrophils Percent Auto 71.9 % (45-73); Platelet Count 225 X10*3/uL (160-400); Red Blood Count 4.86 X10*6/uL (4.60-5.80); Red Cell Distribution Width 14.1 % (11.0-16.0); White Blood Count 5.4 X10*3/uL (4.8-10.8)
[2021-09-21 07:46] LABS: Alanine Aminotransferase 31 U/L (0-40); Albumin Level 3.4 g/dL (3.5-5.0); Alkaline Phosphatase 87 U/L (39-117); Anion Gap 12 (12-20); Aspartate Amino Transferase 26 U/L (5-37); Bilirubin Total 0.7 mg/dL (0.0-1.0); Blood Urea Nitrogen 21 mg/dL (9-16); Calcium 9.2 mg/dL (8.4-10.2); Carbon Dioxide 34 mmol/L (22-29); Chloride 97 mmol/L (96-108); Estimated Glomerular Filt Rate > 60; Glucose Fasting 116 mg/dL (60-99); Potassium 4.4 mmol/L (3.3-5.1); Sodium 139 mmol/L (135-145); Total Protein 5.9 g/dL (6.5-8.0)
[2021-09-21] MEDS: Nicotine 21 MG PATCH.TD24 TRANSDERMA (08:05)
[2021-09-21] MEDS: Gabapentin 600 MG TABLET PO ×2 (08:06→20:32)
[2021-09-21] MEDS: Diclofenac Sodium Delayed Rel 75 MG TABLET.DR PO ×2 (08:06→20:31)
[2021-09-21] MEDS: 0.9 % Sodium Chloride Flush 3 ML SYRINGE IVFLUSH ×2 (08:06→15:07)
[2021-09-21] MEDS: Buprenorphine/Naloxone 2/0.5mg FILM 3 FILM SUBLINGUAL ×2 (08:06→20:32)
[2021-09-21] MEDS: Folic Acid 1 MG TABLET PO (08:07)
[2021-09-21] MEDS: lisinopriL 10 MG, hydroCHLOROthiazide 12.5 MG PO (08:07)
[2021-09-21] MEDS: Acetaminophen 325 MG TABLET 975 MG PO ×2 (08:07→20:32)
[2021-09-21] MEDS: buPROPion HCl XL 300 MG TAB.ER.24H PO (08:08)
[2021-09-21] MEDS: Amoxicillin/Potassium Clav 875 MG TABLET PO ×2 (08:08→20:32)
[2021-09-21] MEDS: Venlafaxine HCl ER 150 MG CAP.ER.24H PO (08:08)
[2021-09-21] MEDS: diazePAM 2 MG TABLET PO ×2 (08:08→20:32)
[2021-09-21] MEDS: Enoxaparin Sodium 40 MG/0.4 ML SYRINGE SUBCUT (10:27)
--- NOTE | 2021-09-21 12:43 | P.PNIM_ITS ---
Subjective Subjective Date of Service: 09/21/21 Interval History: No acute issues overnight Review of Systems Denies chest pain Denies shortness of breath Denies nausea vomiting diarrhea Denies fever chills Physical Exam Vital Signs: Vital Signs: Last Vital Signs Temp 98.6 F 09/21/21 11:41 Pulse 82 09/21/21 11:41 Resp 20 09/21/21 11:41 BP 135/90 H 09/21/21 11:41 Pulse Ox 95 09/21/21 11:41 BMI result Body Mass Index 18.8 Const: Other: Awake; mildly confused but easily reoriented no acute distress Resp: Other: Clear to auscultation bilaterally no rales rhonchi or wheezes Cardio: Other: No S4; positive S1-S2; no S3 murmurs rubs or gallops GI: Other: Soft nontender nondistended with normoactive bowel sounds Extrem: Other: No edema bilaterally Objective Data Active Medications Acetaminophen (Acetaminophen 325 Mg Tablet) 650 mg PO Q6H PRN PRN Reason: Pain, Mild (Pain Scale 1-3) Last Admin: 09/19/21 01:40 Dose: 650 mg Documented by: JACKIE Acetaminophen (Acetaminophen 325 Mg Tablet) 975 mg PO BID [facility] Last Admin: 09/21/21 08:07 Dose: 975 mg Documented by: RASHI Amoxicillin/Clavulanate Potassium (Amoxicillin/Potassium Clav 875 Mg Tablet) 875 mg PO Q12H [facility] Last Admin: 09/21/21 08:08 Dose: 875 mg Documented by: RASHI Atorvastatin Calcium (Atorvastatin Calcium 80 Mg Tablet) 80 mg PO BEDTIME [facility] Last Admin: 09/20/21 21:34 Dose: 80 mg Documented by: VIOLET Buprenorphine/Naloxone (Buprenorphine/Naloxone 2/0.5mg Film) 3 film SUBLINGUAL BID [facility] Last Admin: 09/21/21 08:06 Dose: 3 film Documented by: RASHI Bupropion HCl (Bupropion Hcl Xl 300 Mg Tab.Er.24h) 300 mg PO DAILY [facility] Last Admin: 09/21/21 08:08 Dose: 300 mg Documented by: RASHI Lisinopril 10 mg/ (Hydrochlorothiazide 12.5 mg) 0 mg PO DAILY [facility] Last Admin: 09/21/21 08:07 Dose: 12.5 each Documented by: RASHI Diazepam (Diazepam 2 Mg Tablet) 2 mg PO BID [facility] Last Admin: 09/21/21 08:08 Dose: 2 mg Documented by: RASHI Diclofenac Sodium (Diclofenac Sodium Delayed Rel 75 Mg Tablet.Dr) 75 mg PO BID [facility] Last Admin: 09/21/21 08:06 Dose: 75 mg Documented by: RASHI Enoxaparin Sodium (Enoxaparin Sodium 40 Mg/0.4 Ml Syringe) 40 mg SUBCUT Q24H [facility] Last Admin: 09/21/21 10:27 Dose: 40 mg Documented by: RASHI Folic Acid (Folic Acid 1 Mg Tablet) 1 mg PO DAILY [facility] Last Admin: 09/21/21 08:07 Dose: 1 mg Documented by: RASHI Gabapentin (Gabapentin 600 Mg Tablet) 600 mg PO TID [facility] Last Admin: 09/21/21 08:06 Dose: 600 mg Documented by: RASHI Hydroxyzine HCl (Hydroxyzine Hcl 50 Mg/Ml Vial) 25 mg IM Q6H PRN PRN Reason: Anxiety Last Admin: 09/19/21 01:40 Dose: 25 mg Documented by: JACKIE Nicotine (Nicotine 21 Mg Patch.Td24) 21 mg TRANSDERMA DAILY [facility] Last Admin: 09/21/21 08:05 Dose: 21 mg Documented by: RASHI Ondansetron HCl (Ondansetron Hcl 4 Mg/2 Ml Vial) 4 mg IVPUSH Q8H PRN PRN Reason: Nausea and Vomiting Sodium Chloride (0.9 % Sodium Chloride Flush 3 Ml Syringe) 3 ml IVFLUSH QSHIFT [facility] Last Admin: 09/21/21 08:06 Dose: 3 ml Documented by: RASHI Trazodone HCl (Trazodone Hcl 50 Mg Tablet) 150 mg PO BEDTIME [facility] Last Admin: 09/20/21 21:33 Dose: 150 mg Documented by: VIOLET Venlafaxine HCl (Venlafaxine Hcl Er 150 Mg Cap.Er.24h) 150 mg PO DAILY [facility] Last Admin: 09/21/21 08:08 Dose: 150 mg Documented by: RASHI Labs CBC & Chem 7: 09/21/21 06:37 09/21/21 06:33 Labs: Laboratory Results - last 24 hr 09/21/21 09/21/21 06:33 06:37 MCV 99.0 H MCH 31.5 MCHC 31.8 RDW 14.1 Plt Count 225 D MPV 11.8 Immature Gran % (Auto) 0.4 Neut % (Auto) 71.9 Lymph % (Auto) 17.1 L [place] % (Auto) 8.8 Eos % (Auto) 0.9 Baso % (Auto) 0.9 Lymph # (Auto) 0.9 L [place] # (Auto) 0.5 Eos # (Auto) 0.1 Baso # (Auto) 0.1 Abs Immat Gran (auto) 0.02 Absolute Neuts (auto) 3.9 Absolute Nucleated RBC 0.000 Nucleated RBC % (auto) 0.0 Anion Gap 12 Estim Creat Clear Calc 115.0 Estimated GFR > 60 Fasting Glucose 116 H Calcium 9.2 Total Bilirubin 0.7 AST 26 ALT 31 Alkaline Phosphatase 87 Total Protein 5.9 L Albumin 3.4 L Assessment and Plan (1) Encephalopathy: Status: Acute (2) COPD (chronic obstructive pulmonary disease): Status: Acute (3) Pneumonia: Status: Acute (4) HTN (hypertension): Status: Acute Plan 71 year old M who arrived to [facility] on 09/09/21 with reports of worsening confusion over the preceeding 5 days. His work up has revealed a likely early pneumonia. No definitive cause of his acute encephalopathy is found. 1. Acute Toxic/Metabolic Encephalopathy -presentation more resembles dementia with agitated features(worsened by hypercapnea) -BiPAP at night -good response to Valium...continue same 2. Acute hypercarbic respiratory failure (likely chronic COPD with CO2 retention) -keep O2 88 to 92, BiPAP at night -bronchodialtors, smoking cessation discussed 3.Pneumonia, possible aspiration -initially Unasyn(4) -Augmentin(10) days l 4.HTN -acceptable control on current therapies -adjust as indicated 5.Anxiety -continue Valium 5 mg b.i.d. -adjust as indicated DVT pptx, Lovenox Son Maliha is HCP Requiring ongoing hospitalization for treatment of pneumonia and resolution of encephalopathy Quality Stroke Does the patient have a stroke diagnosis?: No VTE Prior VTE?: No VTE Risk Level:: Medical - moderate - high VTE Device Contraindication: Treatment Not Indicated VTE Drug Contraindication: N/A - Med Ordered
[2021-09-21] MEDS: hydrOXYzine HCL 50 MG/ML VIAL 25 MG IM (18:49)
[2021-09-21] MEDS: traZODone HCL 50 MG TABLET 150 MG PO (20:31)
[2021-09-21] MEDS: Atorvastatin Calcium 80 MG TABLET PO (20:32)
[2021-09-22 03:39] VITALS: BP 125/76; PULSE 60; RESP 17; TEMP 36.4; O2SAT 95
[2021-09-22 08:00] VITALS: BP 164/99; PULSE 83; RESP 18; TEMP 37; O2SAT 96
[2021-09-22] MEDS: 0.9 % Sodium Chloride Flush 3 ML SYRINGE IVFLUSH ×3 (08:56→20:32)
[2021-09-22] MEDS: Enoxaparin Sodium 40 MG/0.4 ML SYRINGE SUBCUT (08:56)
[2021-09-22] MEDS: Nicotine 21 MG PATCH.TD24 TRANSDERMA (08:56)
[2021-09-22] MEDS: Buprenorphine/Naloxone 2/0.5mg FILM 3 FILM SUBLINGUAL ×2 (08:56→20:32)
[2021-09-22] MEDS: Diclofenac Sodium Delayed Rel 75 MG TABLET.DR PO ×2 (08:57→20:32)
[2021-09-22] MEDS: Amoxicillin/Potassium Clav 875 MG TABLET PO (08:57)
[2021-09-22] MEDS: Acetaminophen 325 MG TABLET 975 MG PO ×2 (08:57→20:31)
[2021-09-22] MEDS: buPROPion HCl XL 300 MG TAB.ER.24H PO (08:57)
[2021-09-22] MEDS: Gabapentin 600 MG TABLET PO ×3 (08:58→20:31)
[2021-09-22] MEDS: Venlafaxine HCl ER 150 MG CAP.ER.24H PO (08:58)
[2021-09-22] MEDS: lisinopriL 10 MG, hydroCHLOROthiazide 12.5 MG PO (08:58)
[2021-09-22] MEDS: diazePAM 2 MG TABLET PO ×2 (08:58→20:31)
[2021-09-22] MEDS: Folic Acid 1 MG TABLET PO (08:59)
[2021-09-22 11:20] VITALS: BP 134/66; PULSE 87; RESP 18; TEMP 36.6; O2SAT 96
--- NOTE | 2021-09-22 15:01 | P.PNIM_ITS ---
Subjective Subjective Date of Service: 09/22/21 Interval History: No acute issues overnight Review of Systems Denies chest pain Denies shortness of breath Denies nausea vomiting diarrhea Denies fever chills Physical Exam Vital Signs: Vital Signs: Last Vital Signs Temp 97.9 F 09/22/21 11:20 Pulse 87 09/22/21 11:20 Resp 18 09/22/21 11:20 BP 134/66 09/22/21 11:20 Pulse Ox 96 09/22/21 11:20 BMI result Body Mass Index 18.8 Const: Other: Awake; mildly confused but easily reoriented no acute distress Resp: Other: Clear to auscultation bilaterally no rales rhonchi or wheezes Cardio: Other: No S4; positive S1-S2; no S3 murmurs rubs or gallops GI: Other: Soft nontender nondistended with normoactive bowel sounds Neuro: Other: Alert and awake with normal spontaneity of speech fluency comprehension and slightly vague affect. He was able to follow commands. Language was okay. Face was symmetrical. There was no abnormal posturing. He was laying flat with his body half naked and wearing a diaper. Deep tendon reflexes are absent with flexor plantars. Extrem: Other: No edema bilaterally Objective Data Active Medications Acetaminophen (Acetaminophen 325 Mg Tablet) 650 mg PO Q6H PRN PRN Reason: Pain, Mild (Pain Scale 1-3) Last Admin: 09/19/21 01:40 Dose: 650 mg Documented by: JACKIE Acetaminophen (Acetaminophen 325 Mg Tablet) 975 mg PO BID [facility] Last Admin: 09/22/21 08:57 Dose: 975 mg Documented by: RASHI Atorvastatin Calcium (Atorvastatin Calcium 80 Mg Tablet) 80 mg PO BEDTIME [facility] Last Admin: 09/21/21 20:32 Dose: 80 mg Documented by: VIOLET Buprenorphine/Naloxone (Buprenorphine/Naloxone 2/0.5mg Film) 3 film SUBLINGUAL BID [facility] Last Admin: 09/22/21 08:56 Dose: 3 film Documented by: RASHI Bupropion HCl (Bupropion Hcl Xl 300 Mg Tab.Er.24h) 300 mg PO DAILY [facility] Last Admin: 09/22/21 08:57 Dose: 300 mg Documented by: RASHI Lisinopril 10 mg/ (Hydrochlorothiazide 12.5 mg) 0 mg PO DAILY [facility] Last Admin: 09/22/21 08:58 Dose: 12.5 each Documented by: RASHI Diazepam (Diazepam 2 Mg Tablet) 2 mg PO BID [facility] Last Admin: 09/22/21 08:58 Dose: 2 mg Documented by: RASHI Diclofenac Sodium (Diclofenac Sodium Delayed Rel 75 Mg Tablet.Dr) 75 mg PO BID [facility] Last Admin: 09/22/21 08:57 Dose: 75 mg Documented by: RASHI Enoxaparin Sodium (Enoxaparin Sodium 40 Mg/0.4 Ml Syringe) 40 mg SUBCUT Q24H [facility] Last Admin: 09/22/21 08:56 Dose: 40 mg Documented by: RASHI Folic Acid (Folic Acid 1 Mg Tablet) 1 mg PO DAILY [facility] Last Admin: 09/22/21 08:59 Dose: 1 mg Documented by: RASHI Gabapentin (Gabapentin 600 Mg Tablet) 600 mg PO TID [facility] Last Admin: 09/22/21 08:58 Dose: 600 mg Documented by: RASHI Hydroxyzine HCl (Hydroxyzine Hcl 50 Mg/Ml Vial) 25 mg IM Q6H PRN PRN Reason: Anxiety Last Admin: 09/21/21 18:49 Dose: 25 mg Documented by: RASHI Nicotine (Nicotine 21 Mg Patch.Td24) 21 mg TRANSDERMA DAILY [facility] Last Admin: 09/22/21 08:56 Dose: 21 mg Documented by: RASHI Ondansetron HCl (Ondansetron Hcl 4 Mg/2 Ml Vial) 4 mg IVPUSH Q8H PRN PRN Reason: Nausea and Vomiting Sodium Chloride (0.9 % Sodium Chloride Flush 3 Ml Syringe) 3 ml IVFLUSH QSHIFT [facility] Last Admin: 09/22/21 08:56 Dose: 3 ml Documented by: RASHI Trazodone HCl (Trazodone Hcl 50 Mg Tablet) 150 mg PO BEDTIME [facility] Last Admin: 09/21/21 20:31 Dose: 150 mg Documented by: VIOLET Venlafaxine HCl (Venlafaxine Hcl Er 150 Mg Cap.Er.24h) 150 mg PO DAILY [facility] Last Admin: 09/22/21 08:58 Dose: 150 mg Documented by: RASHI Labs CBC & Chem 7: 09/21/21 06:37 09/21/21 06:33 Assessment and Plan (1) Encephalopathy: Status: Acute (2) COPD (chronic obstructive pulmonary disease): Status: Acute (3) Pneumonia: Status: Acute (4) HTN (hypertension): Status: Acute Plan 71 year old M who arrived to [facility] on 09/09/21 with reports of worsening confusion over the preceeding 5 days. His work up has revealed a likely early pneumonia. No definitive cause of his acute encephalopathy is found. 1. Acute Toxic/Metabolic Encephalopathy -presentation more resembles dementia with agitated features(worsened by hypercapnea) -add prn Seroquel/scheduled dose -BiPAP at night -good response to Valium...continue same 2. Acute hypercarbic respiratory failure (likely chronic COPD with CO2 retention) -keep O2 88 to 92, BiPAP at night -bronchodialtors, smoking cessation discussed 3.Pneumonia, possible aspiration -initially Unasyn(4) -Augmentin(03/10) days l 4.HTN -acceptable control on current therapies -adjust as indicated 5.Anxiety -continue Valium 5 mg b.i.d. -adjust as indicated DVT pptx, Lovenox Son Maliha is HCP Requiring ongoing hospitalization for treatment of pneumonia and resolution of encephalopathy. Discussed at length with sister....all questions answered Quality Stroke Does the patient have a stroke diagnosis?: No VTE Prior VTE?: No VTE Risk Level:: Medical - moderate - high VTE Device Contraindication: Treatment Not Indicated VTE Drug Contraindication: N/A - Med Ordered
[2021-09-22 15:39] VITALS: BP 131/76; PULSE 86; RESP 17; TEMP 37.1; O2SAT 95
[2021-09-22 19:40] VITALS: BP 150/89; PULSE 96; RESP 17; TEMP 37.1; O2SAT 98
[2021-09-22] MEDS: Atorvastatin Calcium 80 MG TABLET PO (20:29)
[2021-09-22] MEDS: traZODone HCL 50 MG TABLET 150 MG PO (20:30)
[2021-09-22] MEDS: QUEtiapine Fumarate 25 MG TABLET 12.5 MG PO (20:30)
[2021-09-22 23:27] VITALS: BP 111/60; PULSE 67; RESP 18; TEMP 37.1; O2SAT 97
[2021-09-23] VITALS (9 sets, daily range): BP systolic 100–125; BP diastolic 62–83; PULSE 58–99; RESP 14–20; TEMP 36.5–37.1; O2SAT 90–97; BMI 18.8
[2021-09-23 08:01] LABS: Basophils Percent Auto 0.5 % (0-2); Eosinophils Absolute Auto 0.1 X10*3/uL (0.0-0.4); Eosinophils Percent Auto 1.9 % (0-4); Hemoglobin 13.7 g/dl (14.0-18.0); Imm Gran Abs Auto 0.04 X10*3/uL (0.00-0.03); Lymphocytes Percent Auto 23.1 % (20-40); Mean Corpuscular HGB Conc 31.9 g/dl (31.0-36.0); Mean Corpuscular Hemoglobin 31.5 pg (27.0-33.0); Mean Corpuscular Volume 98.9 fL (80.0-98.0); Mean Platelet Volume 11.4 fL (9.4-12.4); Monocytes Absolute Auto 0.4 X10*3/uL (0.1-1.2); Monocytes Percent Auto 9.4 % (2-11); Neutrophils Absolute Auto 2.7 x10*3/uL (2.0-8.3); Neutrophils Percent Auto 64.1 % (45-73); Platelet Count 225 X10*3/uL (160-400); Red Blood Count 4.35 X10*6/uL (4.60-5.80); White Blood Count 4.2 X10*3/uL (4.8-10.8)
[2021-09-23] MEDS: QUEtiapine Fumarate 25 MG TABLET 12.5 MG PO (08:53)
[2021-09-23] MEDS: Folic Acid 1 MG TABLET PO (08:54)
[2021-09-23] MEDS: Acetaminophen 325 MG TABLET 975 MG PO ×2 (08:54→20:51)
[2021-09-23] MEDS: Venlafaxine HCl ER 150 MG CAP.ER.24H PO (08:54)
[2021-09-23] MEDS: lisinopriL 10 MG, hydroCHLOROthiazide 12.5 MG PO (08:54)
[2021-09-23] MEDS: buPROPion HCl XL 300 MG TAB.ER.24H PO (08:55)
[2021-09-23] MEDS: diazePAM 2 MG TABLET PO ×2 (08:55→20:52)
[2021-09-23] MEDS: Diclofenac Sodium Delayed Rel 75 MG TABLET.DR PO ×2 (08:55→20:51)
[2021-09-23] MEDS: Gabapentin 600 MG TABLET PO ×3 (08:55→20:51)
[2021-09-23] MEDS: Nicotine 21 MG PATCH.TD24 TRANSDERMA (08:56)
[2021-09-23] MEDS: Buprenorphine/Naloxone 2/0.5mg FILM 3 FILM SUBLINGUAL (08:56)
--- NOTE | 2021-09-23 10:10 | P.PNIM_ITS ---
Subjective Subjective Date of Service: 09/23/21 Interval History: Episodic behaviors overnight; no acute distress Review of Systems Denies chest pain Denies shortness of breath Denies nausea vomiting diarrhea Denies fever chills Physical Exam Vital Signs: Vital Signs: Last Vital Signs Temp 97.9 F 09/23/21 07:46 Pulse 85 09/23/21 09:11 Resp 20 09/23/21 07:46 BP 112/72 09/23/21 09:11 Pulse Ox 93 09/23/21 09:11 BMI result Body Mass Index 18.8 Const: Other: Awake; mildly confused but easily reoriented no acute distress Resp: Other: Clear to auscultation bilaterally no rales rhonchi or wheezes Cardio: Other: No S4; positive S1-S2; no S3 murmurs rubs or gallops GI: Other: Soft nontender nondistended with normoactive bowel sounds Extrem: Other: No edema bilaterally Objective Data Active Medications Acetaminophen (Acetaminophen 325 Mg Tablet) 650 mg PO Q6H PRN PRN Reason: Pain, Mild (Pain Scale 1-3) Last Admin: 09/19/21 01:40 Dose: 650 mg Documented by: JACKIE Acetaminophen (Acetaminophen 325 Mg Tablet) 975 mg PO BID [facility] Last Admin: 09/23/21 08:54 Dose: 975 mg Documented by: SPENCER Atorvastatin Calcium (Atorvastatin Calcium 80 Mg Tablet) 80 mg PO BEDTIME [facility] Last Admin: 09/22/21 20:29 Dose: 80 mg Documented by: MADELYN Buprenorphine/Naloxone (Buprenorphine/Naloxone 4/1 Mg Film) 1 film SUBLINGUAL BID [facility] Buprenorphine/Naloxone (Buprenorphine/Naloxone 2/0.5mg Film) 1 film SUBLINGUAL BID [facility] Bupropion HCl (Bupropion Hcl Xl 300 Mg Tab.Er.24h) 300 mg PO DAILY [facility] Last Admin: 09/23/21 08:55 Dose: 300 mg Documented by: SPENCER Lisinopril 10 mg/ (Hydrochlorothiazide 12.5 mg) 0 mg PO DAILY [facility] Last Admin: 09/23/21 08:54 Dose: 10 each Documented by: SPENCER Comments: 12.5 Diazepam (Diazepam 2 Mg Tablet) 2 mg PO BID [facility] Last Admin: 09/23/21 08:55 Dose: 2 mg Documented by: SPENCER Diclofenac Sodium (Diclofenac Sodium Delayed Rel 75 Mg Tablet.) 75 mg PO BID [facility] Last Admin: 09/23/21 08:55 Dose: 75 mg Documented by: SPENCER Enoxaparin Sodium (Enoxaparin Sodium 40 Mg/0.4 Ml Syringe) 40 mg SUBCUT Q24H [facility] Last Admin: 09/22/21 08:56 Dose: 40 mg Documented by: RASHI Folic Acid (Folic Acid 1 Mg Tablet) 1 mg PO DAILY [facility] Last Admin: 09/23/21 08:54 Dose: 1 mg Documented by: SPENCER Gabapentin (Gabapentin 600 Mg Tablet) 600 mg PO TID [facility] Last Admin: 09/23/21 08:55 Dose: 600 mg Documented by: SPENCER Hydroxyzine HCl (Hydroxyzine Hcl 50 Mg/Ml Vial) 25 mg IM Q6H PRN PRN Reason: Anxiety Last Admin: 09/21/21 18:49 Dose: 25 mg Documented by: RASHI Nicotine (Nicotine 21 Mg Patch.Td24) 21 mg TRANSDERMA DAILY [facility] Last Admin: 09/23/21 08:56 Dose: 21 mg Documented by: SPENCER Ondansetron HCl (Ondansetron Hcl 4 Mg/2 Ml Vial) 4 mg IVPUSH Q8H PRN PRN Reason: Nausea and Vomiting Quetiapine Fumarate (Quetiapine Fumarate 25 Mg Tablet) 25 mg PO Q8H PRN PRN Reason: anxiety/restlessness Sodium Chloride (0.9 % Sodium Chloride Flush 3 Ml Syringe) 3 ml IVFLUSH QSHIFT [facility] Last Admin: 09/22/21 20:32 Dose: 3 ml Documented by: MADELYN Trazodone HCl (Trazodone Hcl 50 Mg Tablet) 150 mg PO BEDTIME [facility] Last Admin: 09/22/21 20:30 Dose: 150 mg Documented by: MADELYN Venlafaxine HCl (Venlafaxine Hcl Er 150 Mg Cap.Er.24h) 150 mg PO DAILY [facility] Last Admin: 09/23/21 08:54 Dose: 150 mg Documented by: SPENCER Labs CBC & Chem 7: 09/23/21 07:46 09/21/21 06:33 Labs: Laboratory Results - last 24 hr 09/23/21 07:46 MCV 98.9 H MCH 31.5 MCHC 31.9 RDW 14.0 Plt Count 225 MPV 11.4 Immature Gran % (Auto) 1.0 H Neut % (Auto) 64.1 Lymph % (Auto) 23.1 [place] % (Auto) 9.4 Eos % (Auto) 1.9 Baso % (Auto) 0.5 Lymph # (Auto) 1.0 L [place] # (Auto) 0.4 Eos # (Auto) 0.1 Baso # (Auto) 0.0 Abs Immat Gran (auto) 0.04 H Absolute Neuts (auto) 2.7 Absolute Nucleated RBC 0.000 Nucleated RBC % (auto) 0.0 Assessment and Plan (1) Encephalopathy: Status: Acute (2) COPD (chronic obstructive pulmonary disease): Status: Acute (3) Pneumonia: Status: Acute (4) HTN (hypertension): Status: Acute Plan 71 year old M who arrived [place] [facility] [place] with reports of worsening confusion over the preceeding 5 days. His work up has revealed a likely early pneumonia. No definitive cause of his acute encephalopathy is found. 1. Acute Toxic/Metabolic Encephalopathy -presentation more resembles dementia with agitated features(worsened by hypercapnea) -increase Seroquel to 25 b.i.d. -BiPAP at night 2. Acute hypercarbic respiratory failure (likely chronic COPD with CO2 retentio n) -keep O2 88 to 92, BiPAP at night -bronchodialtors, smoking cessation discussed 3.Pneumonia, possible aspiration -completed therapy 4.HTN -acceptable control on current therapies -adjust as indicated 5.Anxiety -continue Valium 5 mg b.i.d. -adjust as indicated DVT pptx, Lovenox Son Maliha is HCP Requiring ongoing hospitalization for treatment of pneumonia and resolution of encephalopathy. Discussed at length with sister....all questions answered Quality Stroke Does the patient have a stroke diagnosis?: No VTE Prior VTE?: No VTE Risk Level:: Medical - moderate - high VTE Device Contraindication: Treatment Not Indicated VTE Drug Contraindication: N/A - Med Ordered
[2021-09-23 10:17] LABS: MANUAL DIFF FLAG NO
[2021-09-23] MEDS: 0.9 % Sodium Chloride Flush 3 ML SYRINGE IVFLUSH ×3 (10:21→20:52)
[2021-09-23] MEDS: Enoxaparin Sodium 40 MG/0.4 ML SYRINGE SUBCUT (10:21)
[2021-09-23] MEDS: traZODone HCL 50 MG TABLET 150 MG PO (20:51)
[2021-09-23] MEDS: QUEtiapine Fumarate 25 MG TABLET PO (20:51)
[2021-09-23] MEDS: Buprenorphine/Naloxone 2/0.5mg FILM 1 FILM SUBLINGUAL (20:52)
[2021-09-23] MEDS: Atorvastatin Calcium 80 MG TABLET PO (20:52)
[2021-09-23] MEDS: Buprenorphine/Naloxone 4/1 mg FILM 1 FILM SUBLINGUAL (20:52)
[2021-09-24] VITALS (8 sets, daily range): BP systolic 115–139; BP diastolic 59–81; PULSE 54–97; RESP 16–20; TEMP 36.3–37.1; O2SAT 90–100
--- NOTE | 2021-09-24 08:31 | PC.NURSE ---
Skin assessment completed. Patient has a stage 2 to coccyx. Cleanse with wound cleanser then Woundres' gel applied covered with foam dressing.
--- NOTE | 2021-09-24 08:54 | P.CDIC_ITS ---
CDI Concurrent Query Documentation Clarification: PHYSICIAN'S DOCUMENTATION REQUEST Date of Query: 09/24/21 0854 Patient Name: Roddy Perez Admit Date: 09/10/21 Dear Doctor, A review of the medical record indicates additional documentation may be indicated. Please review below and update the documentation accordingly. Clinical Indicators: Risk Factors/Clinical Indicators/Treatments Nutrition notes 09/24 - New Stage II coccyx pressure injury. Increased nutrition risk due to pressure injury. Yoandy to promote wound heeling. Based on the above, could you please provide, in the Progress Notes, further information regarding the ulcer/wound: * If a pressure ulcer, please also include the stage* of the ulcer: * Stage 1 - Skin intact, non-blanchable redness * Stage 2 - Partial thickness loss of dermis, includes intact or open blister * Stage 3 - Full thickness tissue not including bone, tendon, or muscle * Stage 4 - Full thickness tissue loss, including exposed bones, tendon, or muscle * Other * Unable to determine *Source: National Pressure Ulcer Advisory Panel (NPUAP) Use of terms such as suspected, likely, concern for, or probable (associated with a specific diagnosis that is being evaluated, monitored, or treated as if it exists) are acceptable and can be coded in the inpatient setting, when documented at the time of discharge. Thank you, Katiana Ring [facility], CDIS Extension: [phone] Please use your independent medical judgment in providing your response. THIS QUERY IS PART OF THE PERMANENT MEDICAL RECORD Provider Response: Other Other Diagnosis: Unable to determine
[2021-09-24] MEDS: Nicotine 21 MG PATCH.TD24 TRANSDERMA (09:06)
[2021-09-24] MEDS: Buprenorphine/Naloxone 2/0.5mg FILM 1 FILM SUBLINGUAL ×2 (09:06→21:23)
[2021-09-24] MEDS: Buprenorphine/Naloxone 4/1 mg FILM 1 FILM SUBLINGUAL ×2 (09:06→21:23)
[2021-09-24] MEDS: lisinopriL 10 MG, hydroCHLOROthiazide 12.5 MG PO (09:07)
[2021-09-24] MEDS: buPROPion HCl XL 300 MG TAB.ER.24H PO (09:07)
[2021-09-24] MEDS: QUEtiapine Fumarate 25 MG TABLET PO ×2 (09:08→21:23)
[2021-09-24] MEDS: Acetaminophen 325 MG TABLET 975 MG PO ×2 (09:08→21:22)
[2021-09-24] MEDS: Diclofenac Sodium Delayed Rel 75 MG TABLET.DR PO ×2 (09:08→21:22)
[2021-09-24] MEDS: Venlafaxine HCl ER 150 MG CAP.ER.24H PO (09:08)
[2021-09-24] MEDS: diazePAM 2 MG TABLET PO ×2 (09:09→21:22)
[2021-09-24] MEDS: Folic Acid 1 MG TABLET PO (09:09)
[2021-09-24] MEDS: Gabapentin 600 MG TABLET PO ×3 (09:09→21:23)
[2021-09-24] MEDS: Enoxaparin Sodium 40 MG/0.4 ML SYRINGE SUBCUT (09:22)
--- NOTE | 2021-09-24 11:45 | MHC.CM.PN ---
CHEY returned a call to Patient's Sister/Alternate HCP/Lelo @ [phone].Lelo will not allow Patient to go to [facility]F, which other than [facility]F that is closed to admissions, is the only SNF that considers Patient's on Suboxone. Per Lelo's request, CHEY has requested that MD call her to discuss the possibility of changing the Suboxone, which is for pain in Patient's case, to something else that may not limit Patient's SNF choices. Should [facility] or [facility] be the only options, Lelo indicated that Patient will return home instead. CHEY will follow.
--- NOTE | 2021-09-24 12:39 | HO.PM.IMPN ---
Subjective Subjective Date of Service: 09/24/21 Interval History: Episodic behaviors overnight; no acute distress Review of Systems Denies chest pain Denies shortness of breath Denies nausea vomiting diarrhea Denies fever chills Physical Exam Vital Signs: Vital Signs: Last Vital Signs Temp 97.6 F 09/24/21 11:33 Pulse 80 09/24/21 11:33 Resp 16 09/24/21 11:33 BP 115/59 L 09/24/21 11:33 Pulse Ox 93 09/24/21 11:33 BMI result Body Mass Index 18.8 Const: Other: Awake; mildly confused but easily reoriented no acute distress Resp: Other: Clear to auscultation bilaterally no rales rhonchi or wheezes Cardio: Other: No S4; positive S1-S2; no S3 murmurs rubs or gallops GI: Other: Soft nontender nondistended with normoactive bowel sounds Neuro: Other: Alert and awake with normal spontaneity of speech fluency comprehension and slightly vague affect. He was able to follow commands. Language was okay. Face was symmetrical. There was no abnormal posturing. He was laying flat with his body half naked and wearing a diaper. Deep tendon reflexes are absent with flexor plantars. Extrem: Other: No edema bilaterally Objective Data Active Medications Acetaminophen (Acetaminophen 325 Mg Tablet) 650 mg PO Q6H PRN PRN Reason: Pain, Mild (Pain Scale 1-3) Last Admin: 09/19/21 01:40 Dose: 650 mg Documented by: JACKIE Acetaminophen (Acetaminophen 325 Mg Tablet) 975 mg PO BID [facility] Last Admin: 09/24/21 09:08 Dose: 975 mg Documented by: SPENCER Atorvastatin Calcium (Atorvastatin Calcium 80 Mg Tablet) 80 mg PO BEDTIME [facility] Last Admin: 09/23/21 20:52 Dose: 80 mg Documented by: LAMINE Buprenorphine/Naloxone (Buprenorphine/Naloxone 4/1 Mg Film) 1 film SUBLINGUAL BID [facility] Last Admin: 09/24/21 09:06 Dose: 1 film Documented by: SPENCER Buprenorphine/Naloxone (Buprenorphine/Naloxone 2/0.5mg Film) 1 film SUBLINGUAL BID [facility] Last Admin: 09/24/21 09:06 Dose: 1 film Documented by: SPENCER Bupropion HCl (Bupropion Hcl Xl 300 Mg Tab.Er.24h) 300 mg PO DAILY [facility] Last Admin: 09/24/21 09:07 Dose: 300 mg Documented by: SPENCER Lisinopril 10 mg/ (Hydrochlorothiazide 12.5 mg) 0 mg PO DAILY [facility] Last Admin: 09/24/21 09:07 Dose: 10 each Documented by: SPENCER Comments: 12.5 Diazepam (Diazepam 2 Mg Tablet) 2 mg PO BID [facility] Last Admin: 09/24/21 09:09 Dose: 2 mg Documented by: SPENCER Diclofenac Sodium (Diclofenac Sodium Delayed Rel 75 Mg Tablet.) 75 mg PO BID [facility] Last Admin: 09/24/21 09:08 Dose: 75 mg Documented by: SPENCER Enoxaparin Sodium (Enoxaparin Sodium 40 Mg/0.4 Ml Syringe) 40 mg SUBCUT Q24H [facility] Last Admin: 09/24/21 09:22 Dose: 40 mg Documented by: SPENCER Folic Acid (Folic Acid 1 Mg Tablet) 1 mg PO DAILY [facility] Last Admin: 09/24/21 09:09 Dose: 1 mg Documented by: SPENCER Gabapentin (Gabapentin 600 Mg Tablet) 600 mg PO TID [facility] Last Admin: 09/24/21 09:09 Dose: 600 mg Documented by: SPENCER Hydroxyzine HCl (Hydroxyzine Hcl 50 Mg/Ml Vial) 25 mg IM Q6H PRN PRN Reason: Anxiety Last Admin: 09/21/21 18:49 Dose: 25 mg Documented by: RASHI Nicotine (Nicotine 21 Mg Patch.Td24) 21 mg TRANSDERMA DAILY [facility] Last Admin: 09/24/21 09:06 Dose: 21 mg Documented by: SPENCER Ondansetron HCl (Ondansetron Hcl 4 Mg/2 Ml Vial) 4 mg IVPUSH Q8H PRN PRN Reason: Nausea and Vomiting Quetiapine Fumarate (Quetiapine Fumarate 25 Mg Tablet) 25 mg PO Q8H PRN PRN Reason: anxiety/restlessness Quetiapine Fumarate (Quetiapine Fumarate 25 Mg Tablet) 25 mg PO BID [facility] Last Admin: 09/24/21 09:08 Dose: 25 mg Documented by: SPENCER Sodium Chloride (0.9 % Sodium Chloride Flush 3 Ml Syringe) 3 ml IVFLUSH QSHIFT [facility] Last Admin: 09/24/21 11:11 Dose: Not Given Documented by: SPENCER Non-Admin Reason: IV Running Trazodone HCl (Trazodone Hcl 50 Mg Tablet) 150 mg PO BEDTIME [facility] Last Admin: 09/23/21 20:51 Dose: 150 mg Documented by: LAMINE Venlafaxine HCl (Venlafaxine Hcl Er 150 Mg Cap.Er.24h) 150 mg PO DAILY [facility] Last Admin: 09/24/21 09:08 Dose: 150 mg Documented by: SPENCER Labs CBC & Chem 7: 09/23/21 07:46 09/21/21 06:33 Assessment and Plan (1) Encephalopathy: Status: Acute (2) COPD (chronic obstructive pulmonary disease): Status: Acute (3) Pneumonia: Status: Acute (4) HTN (hypertension): Status: Acute Plan 71 year old M who arrived to [facility] on 09/09/21 with reports of worsening confusion over the preceeding 5 days. His work up has revealed a likely early pneumonia. No definitive cause of his acute encephalopathy is found. 1. Acute Toxic/Metabolic Encephalopathy -presentation more resembles dementia with agitated features(worsened by hypercapnea) -increase Seroquel to 25 b.i.d. -BiPAP at night 2. Acute hypercarbic respiratory failure (likely chronic COPD with CO2 retention) -keep O2 88 to 92, BiPAP at night -bronchodialtors, smoking cessation discussed 3.Pneumonia, possible aspiration -completed therapy 4.HTN -acceptable control on current therapies -adjust as indicated 5.Anxiety -continue Valium 5 mg b.i.d. -adjust as indicated DVT pptx, Lovenox Son Maliha is HCP Requiring ongoing hospitalization for treatment of pneumonia and resolution of encephalopathy. Discussed at length with sister....will switch oxycodone for suboxone to facilitate placement. Care Team consulted Quality Stroke Does the patient have a stroke diagnosis?: No VTE Prior VTE?: No VTE Risk Level:: Medical - moderate - high VTE Device Contraindication: Treatment Not Indicated VTE Drug Contraindication: N/A - Med Ordered
[2021-09-24] MEDS: 0.9 % Sodium Chloride Flush 3 ML SYRINGE IVFLUSH ×2 (15:38→21:24)
[2021-09-24] MEDS: traZODone HCL 50 MG TABLET 150 MG PO (21:23)
[2021-09-24] MEDS: Atorvastatin Calcium 80 MG TABLET PO (21:23)
[2021-09-25] VITALS (9 sets, daily range): BP systolic 105–140; BP diastolic 62–88; PULSE 58–95; RESP 17–18; TEMP 36.2–36.9; O2SAT 93–98
[2021-09-25] MEDS: Buprenorphine/Naloxone 4/1 mg FILM 1 FILM SUBLINGUAL (09:13)
[2021-09-25] MEDS: Enoxaparin Sodium 40 MG/0.4 ML SYRINGE SUBCUT (09:13)
[2021-09-25] MEDS: Buprenorphine/Naloxone 2/0.5mg FILM 1 FILM SUBLINGUAL (09:13)
[2021-09-25] MEDS: Nicotine 21 MG PATCH.TD24 TRANSDERMA (09:13)
[2021-09-25] MEDS: Diclofenac Sodium Delayed Rel 75 MG TABLET.DR PO ×2 (09:14→20:49)
[2021-09-25] MEDS: buPROPion HCl XL 300 MG TAB.ER.24H PO (09:14)
[2021-09-25] MEDS: Acetaminophen 325 MG TABLET 975 MG PO ×2 (09:15→20:49)
[2021-09-25] MEDS: lisinopriL 10 MG, hydroCHLOROthiazide 12.5 MG PO (09:15)
[2021-09-25] MEDS: QUEtiapine Fumarate 25 MG TABLET PO (09:15)
[2021-09-25] MEDS: Gabapentin 600 MG TABLET PO ×3 (09:16→20:48)
[2021-09-25] MEDS: Venlafaxine HCl ER 150 MG CAP.ER.24H PO (09:16)
[2021-09-25] MEDS: diazePAM 2 MG TABLET PO (09:16)
[2021-09-25] MEDS: Folic Acid 1 MG TABLET PO (09:16)
[2021-09-25] MEDS: 0.9 % Sodium Chloride Flush 3 ML SYRINGE IVFLUSH ×3 (09:17→20:50)
--- NOTE | 2021-09-25 09:46 | HO.ADDICTCON ---
History of Present Illness Date of Service: 09/24/2021 Chief Complaint: confusion Reason for Consult: ? suboxone taper Requesting physician: Arsen Willard Discussed with referring provider: Yes Sources of Information: patient interviewed and chart reviewed HPI Narrative: Patient is a 71 year old male who is currently medically admitted with AMS--? dementia Consult requested as patient has been prescribed Suboxone for pain management (per attending) and family is requesting taper/discontinuation or transition to another medication. Patient seen very briefly, unreliable historian. Oriented to self only. Very pleasant, but quite confused. Unaware of any medications he is taking or reasons he is taking them, including suboxone. At this time Suboxone dose is 6mg BID. Per [facility] Suboxone has been prescribed for at least 2 years with dose increasing over time. Review of Systems Review of Systems Yes Unobtainable due to mental status Diagnostics Vital Signs (24Hr): Vital Signs - 24 hr 09/24/21 10:32 09/24/21 11:33 09/24/21 15:51 Temperature 97.6 F 98.7 F Pulse Rate 80 80 57 Respiratory Rate 16 18 Blood Pressure 130/68 115/59 L 139/67 Pulse Oximetry 90 L 93 98 09/24/21 19:18 09/25/21 00:00 09/25/21 00:59 Temperature 98.0 F 97.2 F Pulse Rate 95 72 Respiratory Rate 18 17 17 Blood Pressure 134/81 140/73 H Pulse Oximetry 100 95 09/25/21 03:54 09/25/21 07:20 09/25/21 08:51 Temperature 97.3 F 97.5 F Pulse Rate 60 63 63 Respiratory Rate 18 18 Blood Pressure 120/86 132/78 132/78 Pulse Oximetry 98 94 94 BMI result Body Mass Index 18.8 Labs Results: 09/23/21 07:46 09/21/21 06:33 Imaging Radiology Impressions: ITS Impressions Chest X-Ray 09/09/21 17:40 IMPRESSION: Increased right basilar airspace disease may reflect component of atelectasis although early infiltrate could've a similar appearance. Clinical correlation and follow-up would be helpful. Head CT 09/09/21 18:59 IMPRESSION: No acute intracranial process seen. Chest CT 09/14/21 10:56 IMPRESSION: * [id number] centrilobular emphysema has an upper lobe predominance. * There are linear and somewhat nodular opacities in the posterior right upper lobe. Although these are likely inflammatory/infectious changes, follow-up is advised, particularly in a patient with risk factors. [address] follow-up is recommended to determine whether these abnormalities resolve/improve Fleischner Society guideline. Mental Status Exam Mental Status Exam Patient Appearance: Well Grooomed Patient Orientation: Person Level of Consciousness: Awake and Alert Patient Behavior: Cooperative Affect Description: Calm Thought Process: Disoriented and Confusion Judgement: Poor Medications Medications Current Medications Acetaminophen (Acetaminophen 325 Mg Tablet) 650 mg PO Q6H PRN PRN Reason: Pain, Mild (Pain Scale 1-3) Last Admin: 09/19/21 01:40 Dose: 650 mg Documented by: Acetaminophen (Acetaminophen 325 Mg Tablet) 975 mg PO BID [facility] Last Admin: 09/25/21 09:15 Dose: 975 mg Documented by: Atorvastatin Calcium (Atorvastatin Calcium 80 Mg Tablet) 80 mg PO BEDTIME [facility] Last Admin: 09/24/21 21:23 Dose: 80 mg Documented by: Buprenorphine/Naloxone (Buprenorphine/Naloxone 4/1 Mg Film) 1 film SUBLINGUAL BID [facility] Last Admin: 09/25/21 09:13 Dose: 1 film Documented by: Buprenorphine/Naloxone (Buprenorphine/Naloxone 2/0.5mg Film) 1 film SUBLINGUAL BID [facility] Last Admin: 09/25/21 09:13 Dose: 1 film Documented by: Bupropion HCl (Bupropion Hcl Xl 300 Mg Tab.Er.24h) 300 mg PO DAILY [facility] Last Admin: 09/25/21 09:14 Dose: 300 mg Documented by: Lisinopril 10 mg/ (Hydrochlorothiazide 12.5 mg) 0 mg PO DAILY [facility] Last Admin: 09/25/21 09:15 Dose: 2 each Documented by: Cyanocobalamin (Cyanocobalamin (Vitamin B-12) 1,000 Mcg Tablet) 1,000 mcg PO DAILY [facility] Diazepam (Diazepam 2 Mg Tablet) 2 mg PO BID [facility] Last Admin: 09/25/21 09:16 Dose: 2 mg Documented by: Diclofenac Sodium (Diclofenac Sodium Delayed Rel 75 Mg Tablet.) 75 mg PO BID [facility] Last Admin: 09/25/21 09:14 Dose: 75 mg Documented by: Enoxaparin Sodium (Enoxaparin Sodium 40 Mg/0.4 Ml Syringe) 40 mg SUBCUT Q24H [facility] Last Admin: 09/25/21 09:13 Dose: 40 mg Documented by: Folic Acid (Folic Acid 1 Mg Tablet) 1 mg PO DAILY [facility] Last Admin: 09/25/21 09:16 Dose: 1 mg Documented by: Gabapentin (Gabapentin 600 Mg Tablet) 600 mg PO TID [facility] Last Admin: 09/25/21 09:16 Dose: 600 mg Documented by: Hydroxyzine HCl (Hydroxyzine Hcl 50 Mg/Ml Vial) 25 mg IM Q6H PRN PRN Reason: Anxiety Last Admin: 09/21/21 18:49 Dose: 25 mg Documented by: Nicotine (Nicotine 21 Mg Patch.Td24) 21 mg TRANSDERMA DAILY [facility] Last Admin: 09/25/21 09:13 Dose: 21 mg Documented by: Ondansetron HCl (Ondansetron Hcl 4 Mg/2 Ml Vial) 4 mg IVPUSH Q8H PRN PRN Reason: Nausea and Vomiting Quetiapine Fumarate (Quetiapine Fumarate 25 Mg Tablet) 25 mg PO Q8H PRN PRN Reason: anxiety/restlessness Quetiapine Fumarate (Quetiapine Fumarate 25 Mg Tablet) 25 mg PO BID [facility] Last Admin: 09/25/21 09:15 Dose: 25 mg Documented by: Sodium Chloride (0.9 % Sodium Chloride Flush 3 Ml Syringe) 3 ml IVFLUSH QSHIFT [facility] Last Admin: 09/25/21 09:17 Dose: 3 ml Documented by: Trazodone HCl (Trazodone Hcl 50 Mg Tablet) 150 mg PO BEDTIME [facility] Last Admin: 09/24/21 21:23 Dose: 150 mg Documented by: Venlafaxine HCl (Venlafaxine Hcl Er 150 Mg Cap.Er.24h) 150 mg PO DAILY [facility] Last Admin: 09/25/21 09:16 Dose: 150 mg Documented by: Allergies Allergies Allergy/AdvReac Type Severity Reaction Status Date / Time amitriptyline [From [facility]] AdvReac Unknown muscle Verified 09/17/21 11:24 spasms, uncontrollable arm movements Assessment & Plan Assessment & Plan (1) Encephalopathy: Status: Acute Code(s): G93.40 - Encephalopathy, unspecified Assessment and Plan: If plan is to transition from Suboxone to other opioid consider holding Suboxone and starting oxycodone 5-10q 6 hrs titrating to desired dose/effect. Or Oxycontin 10 BID titrating up to effect with short acting PRN available in btwn if necessary. Due to age starting lower and slower is helpful Due to current mental status, will require close monitoring for signs of withdrawal as patient is unlikely to be able to report pain or withdrawal sx accurately; as such medications should be scheduled with PRNs available for concern of withdrawal/pain- Hold doses or decrease if patient appears sedated. Patients opioid tolerance combined with cognitive impairment may make this transition a bit challenging. Consider collaborating with outpatient pain management provider as well (provider who has been prescribing subxone) I spent ___30___ minutes with the patient and/or on the patient floor today, greater than?50% of which was spent counseling/coordinating care. [facility] Past Medical History Medical History (Updated 09/18/21 @ 13:56 by Arsen Willard DO) Chronic back pain COPD (chronic obstructive pulmonary disease) Cough Emphysema lung Groin pain HTN (hypertension) Left knee injury Surgical History Surgical History H/O arthroscopic knee surgery History of left knee replacement Previous back surgery Social History Social History (Updated 09/10/21 @ 10:25 by Kevin Vasquez MD) Household Members: Family Housing: House Do you presently have visiting nurse or other home services: No Alcohol intake: never Patient Tobacco Use Status: Current everyday Tobacco user Tobacco use type: Cigarette Cigarette Packs Per Day: 1 Cigarettes Per Day: 20.0 service: Yes Current occupational status: retired
--- NOTE | 2021-09-25 11:15 | MHC.CLN ---
F/U PO INTAKE 50-100%. DIET RX: PUREED-APPROPRIATE PT RECEIVING ENSURE CLEAR TID AND ALENA BID PROVIDES 880KCALS, 29G PROTEIN. CONTINUE TO MONITOR PO INTAKE AND SUPPLEMENT ACCEPTANCE CLOSELY.
--- NOTE | 2021-09-25 11:20 | PC.NURSE ---
Skin/Wound assessment completed. Patient has abrasions to bilateral dorsal feet, cleansed with wound cleanser then Woundres' gel applied covered with foam dressing. Barrier cream applied coccyx/buttocks
--- NOTE | 2021-09-25 13:59 | P.PNIM_ITS ---
Subjective Subjective Date of Service: 09/25/21 Interval History: cc: ams interval history:feeling weak, back pain Cardiovascular Cardiovascular: Reports no additional cardiovascular complaints Gastrointestinal Gastrointestinal: Reports no additional gastrointestinal complaints Physical Exam Vital Signs: Vital Signs: Last Vital Signs Temp 98.5 F 09/25/21 11:20 Pulse 73 09/25/21 11:20 Resp 18 09/25/21 11:20 BP 105/62 09/25/21 11:20 Pulse Ox 96 09/25/21 11:20 BMI result Body Mass Index 18.8 General: AO X 3, no acute distress Resp: CTA bilateral, no accessory muscles used CVS: S1,S2,RRR GI: soft, non tender, non distended Neuro: motor grossly intact, alert Psych: appropriate affect, appropriate insight Objective Data Active Medications Acetaminophen (Acetaminophen 325 Mg Tablet) 650 mg PO Q6H PRN PRN Reason: Pain, Mild (Pain Scale 1-3) Last Admin: 09/19/21 01:40 Dose: 650 mg Documented by: JACKIE Acetaminophen (Acetaminophen 325 Mg Tablet) 975 mg PO BID [facility] Last Admin: 09/25/21 09:15 Dose: 975 mg Documented by: CHRIS Atorvastatin Calcium (Atorvastatin Calcium 80 Mg Tablet) 80 mg PO BEDTIME [facility] Last Admin: 09/24/21 21:23 Dose: 80 mg Documented by: SAGE Bupropion HCl (Bupropion Hcl Xl 300 Mg Tab.Er.24h) 300 mg PO DAILY [facility] Last Admin: 09/25/21 09:14 Dose: 300 mg Documented by: CHRIS Lisinopril 10 mg/ (Hydrochlorothiazide 12.5 mg) 0 mg PO DAILY [facility] Last Admin: 09/25/21 09:15 Dose: 2 each Documented by: CHRIS Cyanocobalamin (Cyanocobalamin (Vitamin B-12) 1,000 Mcg Tablet) 1,000 mcg PO DAILY [facility] Diazepam (Diazepam 2 Mg Tablet) 2 mg PO BID [facility] Last Admin: 09/25/21 09:16 Dose: 2 mg Documented by: CHRIS Diclofenac Sodium (Diclofenac Sodium Delayed Rel 75 Mg Tablet.) 75 mg PO BID [facility] Last Admin: 09/25/21 09:14 Dose: 75 mg Documented by: CHRIS Enoxaparin Sodium (Enoxaparin Sodium 40 Mg/0.4 Ml Syringe) 40 mg SUBCUT Q24H [facility] Last Admin: 09/25/21 09:13 Dose: 40 mg Documented by: CHRIS Folic Acid (Folic Acid 1 Mg Tablet) 1 mg PO DAILY [facility] Last Admin: 09/25/21 09:16 Dose: 1 mg Documented by: CHRIS Gabapentin (Gabapentin 600 Mg Tablet) 600 mg PO TID [facility] Last Admin: 09/25/21 09:16 Dose: 600 mg Documented by: CHRIS Hydroxyzine HCl (Hydroxyzine Hcl 50 Mg/Ml Vial) 25 mg IM Q6H PRN PRN Reason: Anxiety Last Admin: 09/21/21 18:49 Dose: 25 mg Documented by: RASHI Nicotine (Nicotine 21 Mg Patch.Td24) 21 mg TRANSDERMA DAILY [facility] Last Admin: 09/25/21 09:13 Dose: 21 mg Documented by: CHRIS Ondansetron HCl (Ondansetron Hcl 4 Mg/2 Ml Vial) 4 mg IVPUSH Q8H PRN PRN Reason: Nausea and Vomiting Oxycodone HCl (Oxycodone Hcl Er 10 Mg Tab.Er.12h) 10 mg PO BID [facility] Oxycodone HCl (Oxycodone Hcl Immed Release 5 Mg Tablet) 5 mg PO Q6H PRN PRN Reason: moderate pain Quetiapine Fumarate (Quetiapine Fumarate 25 Mg Tablet) 25 mg PO Q8H PRN PRN Reason: anxiety/restlessness Quetiapine Fumarate (Quetiapine Fumarate 25 Mg Tablet) 25 mg PO BID [facility] Last Admin: 09/25/21 09:15 Dose: 25 mg Documented by: CHRIS Sodium Chloride (0.9 % Sodium Chloride Flush 3 Ml Syringe) 3 ml IVFLUSH QSHIFT [facility] Last Admin: 09/25/21 09:17 Dose: 3 ml Documented by: CHRIS Trazodone HCl (Trazodone Hcl 50 Mg Tablet) 150 mg PO BEDTIME [facility] Last Admin: 09/24/21 21:23 Dose: 150 mg Documented by: SAGE Venlafaxine HCl (Venlafaxine Hcl Er 150 Mg Cap.Er.24h) 150 mg PO DAILY [facility] Last Admin: 09/25/21 09:16 Dose: 150 mg Documented by: CHRIS Labs CBC & Chem 7: 09/23/21 07:46 09/21/21 06:33 Assessment and Plan (1) Encephalopathy: Status: Acute (2) COPD (chronic obstructive pulmonary disease): Status: Acute (3) Pneumonia: Status: Acute (4) HTN (hypertension): Status: Acute Plan 71M presented with ams, found to have hypercapneic resp failure, went to ICU for bipap improved and was downgraded to medical floor with improvement in symptoms. Metabolic encephalopathy due to acute hypoxic and hypercapnic respiratory failure due to COPD with acute exacerbation Now back to baseline Continue BiPAP at night (13/10) asipration pneumonia completed therapy folate deficiency folic acid 1mg daily b12 defeciciency given 1000mcg IM once continue oral 1mg daily mood disorder valium 1mg daily wellbutrin effexor chronic back pain clinical nurse specialist appreciated dc suboxone start oxycontin 10mg bid, oxy 5mg q6h prn titrate as needed htn lisinopril, hctz DVT pptx, Lovenox reason for continued hospitalization: monitoring inpaitetn for tolerance of change form suboxone to oxycontin as high risk for sedation- hypercarbia Quality Stroke Does the patient have a stroke diagnosis?: No VTE Prior VTE?: No VTE Risk Level:: Medical - moderate - high VTE Device Contraindication: Treatment Not Indicated VTE Drug Contraindication: N/A - Med Ordered
[2021-09-25] MEDS: hydrOXYzine HCL 50 MG/ML VIAL 25 MG IM (15:01)
--- NOTE | 2021-09-25 17:49 | PC.NURSE ---
Around 1500 patient having increased anxiety and restlessness. Patient made several attempts to get out of bed regardless of alarms and camera use. In addition, patient also continuously pulling off advisory intern, shirt, and external catheter. MD made aware. PRN anxiety meds given (see MAR). Per MD ok to remove tele monitor, no events noted previously.
[2021-09-25] MEDS: diazePAM 2 MG TABLET 1 MG PO (20:48)
[2021-09-25] MEDS: Atorvastatin Calcium 80 MG TABLET PO (20:48)
[2021-09-25] MEDS: oxyCODONE HCl ER 10 MG TAB.ER.12H PO (20:48)
[2021-09-25] MEDS: traZODone HCL 50 MG TABLET 150 MG PO (20:49)
[2021-09-26] VITALS (7 sets, daily range): BP systolic 110–152; BP diastolic 73–81; PULSE 57–90; RESP 17–20; TEMP 35.7–37.3; O2SAT 94–98
[2021-09-26 06:10] LABS: Hematocrit 44.9 % (42.0-52.0); Hemoglobin 14.4 g/dl (14.0-18.0); Mean Corpuscular HGB Conc 32.1 g/dl (31.0-36.0); Mean Corpuscular Hemoglobin 31.6 pg (27.0-33.0); Mean Corpuscular Volume 98.7 fL (80.0-98.0); Mean Platelet Volume 11.8 fL (9.4-12.4); Platelet Count 201 X10*3/uL (160-400); Red Blood Count 4.55 X10*6/uL (4.60-5.80); Red Cell Distribution Width 13.8 % (11.0-16.0); White Blood Count 4.3 X10*3/uL (4.8-10.8)
[2021-09-26 06:26] LABS: Anion Gap 10 (12-20); Blood Urea Nitrogen 20 mg/dL (9-16); Calcium 9.3 mg/dL (8.4-10.2); Carbon Dioxide 36 mmol/L (22-29); Chloride 97 mmol/L (96-108); Creatinine Clr Calc Pharmacy 106.6; Estimated Glomerular Filt Rate > 60; Glucose Fasting 94 mg/dL (60-99); Potassium 4.5 mmol/L (3.3-5.1); Sodium 138 mmol/L (135-145)
--- NOTE | 2021-09-26 08:28 | P.CDIC_ITS ---
CDI Concurrent Query Documentation Clarification: PHYSICIAN'S DOCUMENTATION REQUEST Date of Query: 09/26/2128 Patient Name: Roddy Perez Admit Date: 09/10/21 Dear Doctor, A review of the medical record indicates additional documentation may be needed. Please review below and update the documentation accordingly. Risk Factors/Clinical Indicators/Treatments Nutrition notes 09/23 - patient is severely malnourished with BMI 18.8 significant weight loss (21%) x 1 year, moderately depleted muscle mass, chronic poor po intake. Ensure clear TID. ASPEN Criteria* Acute Illness Chronic Illness Clinical Characteristic Non-Severe (2 or more criteria present) Severe (2 or more criteria present) Non-Severe (2 or more criteria present) Severe (2 or more criteria present) Energy Intake <75% for >7 days <=50% for >=5 days <75% for >=1 month <=75% for >=1 month Weight Loss 1 week 1 ? 2% >2% N/A N/A 1 month 5% >5% 5% >5% 3 months 7.5 % >7.5% 7.5% >7.5% 6 months N/A N/A 10% >10% 1 year N/A N/A 20% >20% Body Fat Mild Moderate Mild Severe Muscle Mass Mild Moderate Mild Severe Fluid Accumulation Mild Moderate to Severe Mild Severe Reduced Magazine Editor Strength N/A Measurably Reduced N/A Measurably Reduced *[facility] Hospitalist, 2017 If possible, please provide in your progress notes, additional specificity regarding the severity of the malnutrition using the above information: * Mild * Moderate * Severe * Other (please specify) * Unable to determine Use of terms such as suspected, likely, concern for, or probable (associated with a specific diagnosis that is being evaluated, monitored, or treated as if it exists) are acceptable and can be coded in the inpatient setting, when documented at the time of discharge. Thank you, Katiana Ring [facility], CDIS Extension: [phone] Please use your independent medical judgment in providing your response. THIS QUERY IS PART OF THE PERMANENT MEDICAL RECORD Provider Response: Moderate Protein-Calorie Malnutrition
--- NOTE | 2021-09-26 08:35 | HO.PM.IMPN ---
Subjective Subjective Date of Service: 09/26/21 Interval History: cc: ams interval history:feeling weak, back pain Cardiovascular Cardiovascular: Reports no additional cardiovascular complaints Gastrointestinal Gastrointestinal: Reports no additional gastrointestinal complaints Physical Exam Vital Signs: Vital Signs: Last Vital Signs Temp 96.9 F 09/26/21 07:07 Pulse 68 09/26/21 07:07 Resp 20 09/26/21 07:07 BP 135/77 09/26/21 07:07 Pulse Ox 97 09/26/21 07:07 BMI result Body Mass Index 18.8 General: AO X 3, no acute distress Resp:? diminihsed bilateral, no accessory muscles used CVS: S1,S2,RRR GI: soft, non tender, non distended Neuro:? motor grossly intact, alert Psych: appropriate affect, impaired insight? Objective Data Active Medications Acetaminophen (Acetaminophen 325 Mg Tablet) 650 mg PO Q6H PRN PRN Reason: Pain, Mild (Pain Scale 1-3) Last Admin: 09/19/21 01:40 Dose: 650 mg Documented by: JACKIE Acetaminophen (Acetaminophen 325 Mg Tablet) 975 mg PO BID [facility] Last Admin: 09/25/21 20:49 Dose: 975 mg Documented by: JACKIE Atorvastatin Calcium (Atorvastatin Calcium 80 Mg Tablet) 80 mg PO BEDTIME [facility] Last Admin: 09/25/21 20:48 Dose: 80 mg Documented by: JACKIE Bupropion HCl (Bupropion Hcl Xl 300 Mg Tab.Er.24h) 300 mg PO DAILY [facility] Last Admin: 09/25/21 09:14 Dose: 300 mg Documented by: CHRIS Lisinopril 10 mg/ (Hydrochlorothiazide 12.5 mg) 0 mg PO DAILY [facility] Last Admin: 09/25/21 09:15 Dose: 2 each Documented by: CHRIS Cyanocobalamin (Cyanocobalamin (Vitamin B-12) 1,000 Mcg Tablet) 1,000 mcg PO DAILY [facility] Diazepam (Diazepam 2 Mg Tablet) 1 mg PO BID [facility] Last Admin: 09/25/21 20:48 Dose: 1 mg Documented by: JACKIE Diclofenac Sodium (Diclofenac Sodium Delayed Rel 75 Mg Tablet.) 75 mg PO BID [facility] Last Admin: 09/25/21 20:49 Dose: 75 mg Documented by: JACKIE Enoxaparin Sodium (Enoxaparin Sodium 40 Mg/0.4 Ml Syringe) 40 mg SUBCUT Q24H [facility] Last Admin: 09/25/21 09:13 Dose: 40 mg Documented by: CHRIS Folic Acid (Folic Acid 1 Mg Tablet) 1 mg PO DAILY [facility] Last Admin: 09/25/21 09:16 Dose: 1 mg Documented by: CHRIS Gabapentin (Gabapentin 600 Mg Tablet) 600 mg PO TID [facility] Last Admin: 09/25/21 20:48 Dose: 600 mg Documented by: JACKIE Hydroxyzine HCl (Hydroxyzine Hcl 50 Mg/Ml Vial) 25 mg IM Q6H PRN PRN Reason: Anxiety Last Admin: 09/25/21 15:01 Dose: 25 mg Documented by: CHRIS Nicotine (Nicotine 21 Mg Patch.Td24) 21 mg TRANSDERMA DAILY [facility] Last Admin: 09/25/21 09:13 Dose: 21 mg Documented by: CHRIS Ondansetron HCl (Ondansetron Hcl 4 Mg/2 Ml Vial) 4 mg IVPUSH Q8H PRN PRN Reason: Nausea and Vomiting Oxycodone HCl (Oxycodone Hcl Er 10 Mg Tab.Er.12h) 10 mg PO BID [facility] Last Admin: 09/25/21 20:48 Dose: 10 mg Documented by: JACKIE Oxycodone HCl (Oxycodone Hcl Immed Release 5 Mg Tablet) 5 mg PO Q6H PRN PRN Reason: moderate pain Quetiapine Fumarate (Quetiapine Fumarate 25 Mg Tablet) 25 mg PO Q8H PRN PRN Reason: anxiety/restlessness Sodium Chloride (0.9 % Sodium Chloride Flush 3 Ml Syringe) 3 ml IVFLUSH QSHIFT [facility] Last Admin: 09/25/21 20:50 Dose: 3 ml Documented by: JACKIE Trazodone HCl (Trazodone Hcl 50 Mg Tablet) 150 mg PO BEDTIME [facility] Last Admin: 09/25/21 20:49 Dose: 150 mg Documented by: JACKIE Venlafaxine HCl (Venlafaxine Hcl Er 150 Mg Cap.Er.24h) 150 mg PO DAILY [facility] Last Admin: 09/25/21 09:16 Dose: 150 mg Documented by: CHRIS Labs CBC & Chem 7: 09/26/21 05:56 09/26/21 05:56 Labs: Laboratory Results - last 24 hr 09/26/21 09/26/21 05:56 05:56 MCV 98.7 H MCH 31.6 MCHC 32.1 RDW 13.8 Plt Count 201 MPV 11.8 Absolute Nucleated RBC 0.000 Nucleated RBC % (auto) 0.0 Anion Gap 10 L Estim Creat Clear Calc 106.6 Estimated GFR > 60 Fasting Glucose 94 Calcium 9.3 Assessment and Plan (1) Encephalopathy: Status: Acute (2) COPD (chronic obstructive pulmonary disease): Status: Acute (3) Pneumonia: Status: Acute (4) HTN (hypertension): Status: Acute Plan 71M presented with ams, found to have hypercapneic resp failure, went to ICU for bipap improved and was downgraded to medical floor with improvement in symptoms. Metabolic encephalopathy due to acute hypoxic and hypercapnic respiratory failure due to COPD with acute exacerbation Now back to baseline Continue BiPAP at night (13/10) moderate protein calorie malnutrition encourage po stage II coccyx ulcer avoid pressure local care aspiration pneumonia completed therapy folate deficiency folic acid 1mg daily b12 defeciciency given 1000mcg IM once continue oral 1mg daily mood disorder valium 1mg daily wellbutrin effexor chronic back pain utility specialist appreciated now off suboxone started oxycontin 10mg bid, oxy 5mg q6h prn titrate as needed, appears pain is decently controlled htn lisinopril, hctz DVT pptx, Lovenox reason for continued hospitalization: monitoring inpatient for tolerance of change from suboxone to oxycontin as high risk for sedation- hypercarbia Quality Stroke Does the patient have a stroke diagnosis?: No VTE Prior VTE?: No VTE Risk Level:: Medical - moderate - high VTE Device Contraindication: Treatment Not Indicated VTE Drug Contraindication: N/A - Med Ordered
[2021-09-26] MEDS: lisinopriL 10 MG, hydroCHLOROthiazide 12.5 MG PO (08:39)
[2021-09-26] MEDS: buPROPion HCl XL 300 MG TAB.ER.24H PO (08:39)
[2021-09-26] MEDS: Nicotine 21 MG PATCH.TD24 TRANSDERMA (08:39)
[2021-09-26] MEDS: Acetaminophen 325 MG TABLET 975 MG PO ×2 (08:39→20:26)
[2021-09-26] MEDS: diazePAM 2 MG TABLET 1 MG PO ×2 (08:39→20:26)
[2021-09-26] MEDS: Enoxaparin Sodium 40 MG/0.4 ML SYRINGE SUBCUT (08:39)
[2021-09-26] MEDS: Folic Acid 1 MG TABLET PO (08:41)
[2021-09-26] MEDS: Venlafaxine HCl ER 150 MG CAP.ER.24H PO (08:41)
[2021-09-26] MEDS: Gabapentin 600 MG TABLET PO ×3 (08:41→20:26)
[2021-09-26] MEDS: Cyanocobalamin (Vitamin B-12) 1,000 MCG TABLET 1000 MCG PO (08:41)
[2021-09-26] MEDS: oxyCODONE HCl ER 10 MG TAB.ER.12H PO ×2 (08:41→20:26)
[2021-09-26] MEDS: Diclofenac Sodium Delayed Rel 75 MG TABLET.DR PO ×2 (08:41→20:25)
[2021-09-26] MEDS: 0.9 % Sodium Chloride Flush 3 ML SYRINGE IVFLUSH ×3 (08:49→20:27)
[2021-09-26] MEDS: QUEtiapine Fumarate 25 MG TABLET PO (12:08)
[2021-09-26] MEDS: hydrOXYzine HCL 50 MG/ML VIAL 25 MG IM (15:55)
[2021-09-26] MEDS: Atorvastatin Calcium 80 MG TABLET PO (20:25)
[2021-09-26] MEDS: traZODone HCL 50 MG TABLET 150 MG PO (20:27)
[2021-09-27] VITALS (7 sets, daily range): BP systolic 96–140; BP diastolic 58–84; PULSE 63–103; RESP 16–20; TEMP 36.3–36.9; O2SAT 92–98
[2021-09-27] MEDS: oxyCODONE HCl Immed Release 5 MG TABLET PO (04:22)
[2021-09-27] MEDS: QUEtiapine Fumarate 25 MG TABLET PO ×2 (04:22→22:06)
[2021-09-27] MEDS: Enoxaparin Sodium 40 MG/0.4 ML SYRINGE SUBCUT (10:19)
[2021-09-27] MEDS: 0.9 % Sodium Chloride Flush 3 ML SYRINGE IVFLUSH ×2 (10:19→20:41)
[2021-09-27] MEDS: Acetaminophen 325 MG TABLET 975 MG PO ×2 (10:23→20:40)
[2021-09-27] MEDS: oxyCODONE HCl ER 10 MG TAB.ER.12H PO ×2 (10:24→20:40)
[2021-09-27] MEDS: buPROPion HCl XL 300 MG TAB.ER.24H PO (10:24)
[2021-09-27] MEDS: Cyanocobalamin (Vitamin B-12) 1,000 MCG TABLET 1000 MCG PO (10:24)
[2021-09-27] MEDS: Venlafaxine HCl ER 150 MG CAP.ER.24H PO (10:26)
[2021-09-27] MEDS: Gabapentin 600 MG TABLET PO ×3 (10:26→20:40)
[2021-09-27] MEDS: Diclofenac Sodium Delayed Rel 75 MG TABLET.DR PO ×2 (10:27→20:41)
[2021-09-27] MEDS: lisinopriL 10 MG, hydroCHLOROthiazide 12.5 MG PO (10:27)
[2021-09-27] MEDS: Folic Acid 1 MG TABLET PO (10:29)
[2021-09-27] MEDS: diazePAM 2 MG TABLET 1 MG PO ×2 (10:30→20:40)
--- NOTE | 2021-09-27 12:23 | MHC.CLN ---
F/U PO INTAKE 75-100% IMPROVING SLOWLY DIET RX: PUREED-APPROPRIATE PT RECEIVING ENSURE CLEAR TID AND ALENA BID PROVIDES 880KCALS, 29G PROTEIN FOR WOUND HEALING CONTINUE TO MONITOR PO INTAKE AND SUPPLEMENT ACCEPTANCE CLOSELY.
--- NOTE | 2021-09-27 12:36 | MHC.CM.PN ---
per rounds pt ready for dc bed search continues facilities notified pt now on oxycodone not suboxone
--- NOTE | 2021-09-27 12:58 | HO.PM.IMPN ---
Subjective Subjective Date of Service: 09/27/21 Interval History: Being followed for AMS, complaining of back pain , denies other medical issues, no acute events overnight. 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 motor grossly intact, alert Psych: appropriate affect, impaired insight? Objective Data Active Medications Acetaminophen (Acetaminophen 325 Mg Tablet) 650 mg PO Q6H PRN PRN Reason: Pain, Mild (Pain Scale 1-3) Last Admin: 09/19/21 01:40 Dose: 650 mg Documented by: JACKIE Acetaminophen (Acetaminophen 325 Mg Tablet) 975 mg PO BID [facility] Last Admin: 09/27/21 10:23 Dose: 975 mg Documented by: JAMAR Atorvastatin Calcium (Atorvastatin Calcium 80 Mg Tablet) 80 mg PO BEDTIME [facility] Last Admin: 09/26/21 20:25 Dose: 80 mg Documented by: JACKIE Bupropion HCl (Bupropion Hcl Xl 300 Mg Tab.Er.24h) 300 mg PO DAILY [facility] Last Admin: 09/27/21 10:24 Dose: 300 mg Documented by: JAMAR Lisinopril 10 mg/ (Hydrochlorothiazide 12.5 mg) 0 mg PO DAILY [facility] Last Admin: 09/27/21 10:27 Dose: 1 each Documented by: JAMAR Cyanocobalamin (Cyanocobalamin (Vitamin B-12) 1,000 Mcg Tablet) 1,000 mcg PO DAILY [facility] Last Admin: 09/27/21 10:24 Dose: 1,000 mcg Documented by: JAMAR Diazepam (Diazepam 2 Mg Tablet) 1 mg PO BID [facility] Last Admin: 09/27/21 10:30 Dose: 1 mg Documented by: JAMAR Diclofenac Sodium (Diclofenac Sodium Delayed Rel 75 Mg Tablet.Dr) 75 mg PO BID [facility] Last Admin: 09/27/21 10:27 Dose: 75 mg Documented by: JAMAR Enoxaparin Sodium (Enoxaparin Sodium 40 Mg/0.4 Ml Syringe) 40 mg SUBCUT Q24H [facility] Last Admin: 09/27/21 10:19 Dose: 40 mg Documented by: JAMAR Folic Acid (Folic Acid 1 Mg Tablet) 1 mg PO DAILY [facility] Last Admin: 09/27/21 10:29 Dose: 1 mg Documented by: JAMAR Gabapentin (Gabapentin 600 Mg Tablet) 600 mg PO TID [facility] Last Admin: 09/27/21 10:26 Dose: 600 mg Documented by: JAMAR Hydroxyzine HCl (Hydroxyzine Hcl 50 Mg/Ml Vial) 25 mg IM Q6H PRN PRN Reason: Anxiety Last Admin: 09/26/21 15:55 Dose: 25 mg Documented by: GINI Nicotine (Nicotine 21 Mg Patch.Td24) 21 mg TRANSDERMA DAILY [facility] Last Admin: 09/27/21 10:28 Dose: Not Given Documented by: JAMAR Non-Admin Reason: Patient Refused Ondansetron HCl (Ondansetron Hcl 4 Mg/2 Ml Vial) 4 mg IVPUSH Q8H PRN PRN Reason: Nausea and Vomiting Oxycodone HCl (Oxycodone Hcl Er 10 Mg Tab.Er.12h) 10 mg PO BID [facility] Last Admin: 09/27/21 10:24 Dose: 10 mg Documented by: JAMAR Oxycodone HCl (Oxycodone Hcl Immed Release 5 Mg Tablet) 5 mg PO Q6H PRN PRN Reason: moderate pain Last Admin: 09/27/21 04:22 Dose: 5 mg Documented by: JACKIE Quetiapine Fumarate (Quetiapine Fumarate 25 Mg Tablet) 25 mg PO Q8H PRN PRN Reason: anxiety/restlessness Last Admin: 09/27/21 04:22 Dose: 25 mg Documented by: JACKIE Sodium Chloride (0.9 % Sodium Chloride Flush 3 Ml Syringe) 3 ml IVFLUSH QSHIFT [facility] Last Admin: 09/27/21 10:19 Dose: 3 ml Documented by: JAMAR Trazodone HCl (Trazodone Hcl 50 Mg Tablet) 150 mg PO BEDTIME [facility] Last Admin: 09/26/21 20:27 Dose: 150 mg Documented by: JACKIE Venlafaxine HCl (Venlafaxine Hcl Er 150 Mg Cap.Er.24h) 150 mg PO DAILY [facility] Last Admin: 09/27/21 10:26 Dose: 150 mg Documented by: JAMAR Labs CBC & Chem 7: 09/26/21 05:56 09/26/21 05:56 Assessment and Plan (1) Encephalopathy: Status: Acute (2) COPD (chronic obstructive pulmonary disease): Status: Acute (3) Pneumonia: Status: Acute (4) HTN (hypertension): Status: Acute Plan 71M presented with ams, found to have hypercapneic resp failure, went to ICU for bipap improved and was downgraded to medical floor with improvement in symptoms. Metabolic encephalopathy due to acute hypoxic and hypercapnic respiratory failure due to COPD with acute exacerbation Now back to baseline Continue BiPAP at night (13/10) moderate protein calorie malnutrition encourage po stage II coccyx ulcer avoid pressure local care Tobacco use disorder continue nicotine patch 21 mg daily aspiration pneumonia completed therapy folate deficiency folic acid 1mg daily b12 defeciciency given 1000mcg IM once continue oral 1mg daily mood disorder valium 1mg daily wellbutrin effexor chronic back pain critical care nurse specialist appreciated now off suboxone, on oxycontin 10mg bid, and oxy 5mg q6h prn titrate as needed htn Stable BP, continue lisinopril, hctz DVT pptx, Lovenox reason for continued hospitalization: monitoring inpatient for tolerance of change from suboxone to oxycontin as high risk for sedation- hypercarbia Quality Stroke Does the patient have a stroke diagnosis?: No VTE Prior VTE?: No VTE Risk Level:: Medical - moderate - high VTE Device Contraindication: Treatment Not Indicated VTE Drug Contraindication: N/A - Med Ordered
--- NOTE | 2021-09-27 13:40 | MHC.CM.PN ---
pts bed not bring held privately by family but [facility] will follow for bed avaliabilty when pt ready for dc
[2021-09-27] MEDS: Atorvastatin Calcium 80 MG TABLET PO (20:40)
[2021-09-27] MEDS: traZODone HCL 50 MG TABLET 150 MG PO (20:41)
[2021-09-28] VITALS (8 sets, daily range): BP systolic 109–139; BP diastolic 65–76; PULSE 68–103; RESP 14–20; TEMP 36.1–37.3; O2SAT 92–96
[2021-09-28] MEDS: diazePAM 2 MG TABLET 1 MG PO ×2 (08:50→20:22)
[2021-09-28] MEDS: Diclofenac Sodium Delayed Rel 75 MG TABLET.DR PO ×2 (08:51→20:22)
[2021-09-28] MEDS: oxyCODONE HCl ER 10 MG TAB.ER.12H PO ×2 (08:52→20:21)
[2021-09-28] MEDS: Acetaminophen 325 MG TABLET 975 MG PO ×2 (08:52→20:23)
[2021-09-28] MEDS: 0.9 % Sodium Chloride Flush 3 ML SYRINGE IVFLUSH ×2 (08:53→16:59)
[2021-09-28] MEDS: Folic Acid 1 MG TABLET PO (08:53)
[2021-09-28] MEDS: Gabapentin 600 MG TABLET PO ×3 (08:53→20:22)
[2021-09-28] MEDS: Venlafaxine HCl ER 150 MG CAP.ER.24H PO (08:53)
[2021-09-28] MEDS: Cyanocobalamin (Vitamin B-12) 1,000 MCG TABLET 1000 MCG PO (08:53)
[2021-09-28] MEDS: buPROPion HCl XL 300 MG TAB.ER.24H PO (08:53)
--- NOTE | 2021-09-28 09:55 | HO.PM.IMPN ---
Subjective Subjective Date of Service: 09/28/21 Interval History: cc: ams interval history: anxious Cardiovascular Cardiovascular: Reports no additional cardiovascular complaints Genitourinary Genitourinary: Reports no additional male genitourinary complaints Physical Exam Vital Signs: Vital Signs: Last Vital Signs Temp 98.0 F 09/28/21 07:36 Pulse 87 09/28/21 07:36 Resp 18 09/28/21 07:36 BP 127/70 09/28/21 07:36 Pulse Ox 94 09/28/21 07:36 BMI result Body Mass Index 18.8 General:? Sitting comfortably, no acute distress Neck no JVD Resp:? Clear to auscultation, no respiratory distress CVS: S1,S2,RRR GI: soft, non tender, bowel sounds audible, non distended Neuro:? motor grossly intact, alert Psych: appropriate affect, impaired insight? Objective Data Active Medications Acetaminophen (Acetaminophen 325 Mg Tablet) 650 mg PO Q6H PRN PRN Reason: Pain, Mild (Pain Scale 1-3) Last Admin: 09/19/21 01:40 Dose: 650 mg Documented by: JACKIE Acetaminophen (Acetaminophen 325 Mg Tablet) 975 mg PO BID [facility] Last Admin: 09/28/21 08:52 Dose: 975 mg Documented by: JAMAR Atorvastatin Calcium (Atorvastatin Calcium 80 Mg Tablet) 80 mg PO BEDTIME [facility] Last Admin: 09/27/21 20:40 Dose: 80 mg Documented by: TAMIKO Bupropion HCl (Bupropion Hcl Xl 300 Mg Tab.Er.24h) 300 mg PO DAILY [facility] Last Admin: 09/28/21 08:53 Dose: 300 mg Documented by: JAMAR Lisinopril 10 mg/ (Hydrochlorothiazide 12.5 mg) 0 mg PO DAILY [facility] Last Admin: 09/28/21 08:52 Dose: 1 each Documented by: JAMAR Cyanocobalamin (Cyanocobalamin (Vitamin B-12) 1,000 Mcg Tablet) 1,000 mcg PO DAILY [facility] Last Admin: 09/28/21 08:53 Dose: 1,000 mcg Documented by: JAMAR Diazepam (Diazepam 2 Mg Tablet) 1 mg PO BID [facility] Last Admin: 09/28/21 08:50 Dose: 1 mg Documented by: JAMAR Diclofenac Sodium (Diclofenac Sodium Delayed Rel 75 Mg Tablet.) 75 mg PO BID [facility] Last Admin: 09/28/21 08:51 Dose: 75 mg Documented by: JAMAR Enoxaparin Sodium (Enoxaparin Sodium 40 Mg/0.4 Ml Syringe) 40 mg SUBCUT Q24H [facility] Last Admin: 09/27/21 10:19 Dose: 40 mg Documented by: JAMAR Folic Acid (Folic Acid 1 Mg Tablet) 1 mg PO DAILY [facility] Last Admin: 09/28/21 08:53 Dose: 1 mg Documented by: JAMAR Gabapentin (Gabapentin 600 Mg Tablet) 600 mg PO TID [facility] Last Admin: 09/28/21 08:53 Dose: 600 mg Documented by: JAMAR Hydroxyzine HCl (Hydroxyzine Hcl 50 Mg/Ml Vial) 25 mg IM Q6H PRN PRN Reason: Anxiety Last Admin: 09/26/21 15:55 Dose: 25 mg Documented by: GINI Nicotine (Nicotine 21 Mg Patch.Td24) 21 mg TRANSDERMA DAILY [facility] Last Admin: 09/28/21 08:53 Dose: Not Given Documented by: JAMAR Non-Admin Reason: Patient Refused Ondansetron HCl (Ondansetron Hcl 4 Mg/2 Ml Vial) 4 mg IVPUSH Q8H PRN PRN Reason: Nausea and Vomiting Oxycodone HCl (Oxycodone Hcl Er 10 Mg Tab.Er.12h) 10 mg PO BID [facility] Last Admin: 09/28/21 08:52 Dose: 10 mg Documented by: JAMAR Oxycodone HCl (Oxycodone Hcl Immed Release 5 Mg Tablet) 5 mg PO Q6H PRN PRN Reason: moderate pain Last Admin: 09/27/21 04:22 Dose: 5 mg Documented by: JACKIE Quetiapine Fumarate (Quetiapine Fumarate 25 Mg Tablet) 25 mg PO Q8H PRN PRN Reason: anxiety/restlessness Last Admin: 09/27/21 22:06 Dose: 25 mg Documented by: TAMIKO Sodium Chloride (0.9 % Sodium Chloride Flush 3 Ml Syringe) 3 ml IVFLUSH QSHIFT [facility] Last Admin: 09/28/21 08:53 Dose: 3 ml Documented by: JAMAR Trazodone HCl (Trazodone Hcl 50 Mg Tablet) 150 mg PO BEDTIME [facility] Last Admin: 09/27/21 20:41 Dose: 150 mg Documented by: TAMIKO Venlafaxine HCl (Venlafaxine Hcl Er 150 Mg Cap.Er.24h) 150 mg PO DAILY [facility] Last Admin: 09/28/21 08:53 Dose: 150 mg Documented by: JAMAR Labs CBC & Chem 7: 09/26/21 05:56 09/26/21 05:56 Assessment and Plan (1) Encephalopathy: Status: Acute (2) COPD (chronic obstructive pulmonary disease): Status: Acute (3) Pneumonia: Status: Acute (4) HTN (hypertension): Status: Acute Plan 71M presented with ams, found to have hypercapneic resp failure, went to ICU for bipap improved and was downgraded to medical floor with improvement in symptoms. 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
[2021-09-28] MEDS: QUEtiapine Fumarate 25 MG TABLET PO ×2 (12:16→20:22)
[2021-09-28] MEDS: lisinopriL 10 MG, hydroCHLOROthiazide 12.5 MG PO (12:29)
[2021-09-28 16:30] LABS: Venous Blood Gas Refer to POC result
[2021-09-28 16:41] LABS: VBG Base Excess 10.9 mmol/L; VBG HCO3 39 mmol/L (22-26); VBG pCO2 68 mmHg; VBG pH 7.36 (7.32-7.43); VBG pO2 32 mmHg
[2021-09-28] MEDS: hydrOXYzine HCL 50 MG/ML VIAL 25 MG IM (18:40)
[2021-09-28] MEDS: Atorvastatin Calcium 80 MG TABLET PO (20:23)
[2021-09-28] MEDS: traZODone HCL 50 MG TABLET 150 MG PO (20:34)
[2021-09-29] VITALS (7 sets, daily range): BP systolic 105–165; BP diastolic 61–89; PULSE 65–101; RESP 16–21; TEMP 36.4–37; O2SAT 91–98
[2021-09-29] MEDS: hydrOXYzine HCL 50 MG/ML VIAL 25 MG IM (01:34)
[2021-09-29] MEDS: QUEtiapine Fumarate 25 MG TABLET PO (09:33)
[2021-09-29] MEDS: Venlafaxine HCl ER 150 MG CAP.ER.24H PO (09:34)
[2021-09-29] MEDS: oxyCODONE HCl ER 10 MG TAB.ER.12H PO ×2 (09:34→21:11)
[2021-09-29] MEDS: buPROPion HCl XL 300 MG TAB.ER.24H PO (09:34)
[2021-09-29] MEDS: Acetaminophen 325 MG TABLET 975 MG PO ×2 (09:34→21:10)
[2021-09-29] MEDS: Cyanocobalamin (Vitamin B-12) 1,000 MCG TABLET 1000 MCG PO (09:34)
[2021-09-29] MEDS: Gabapentin 600 MG TABLET PO ×3 (09:35→21:09)
[2021-09-29] MEDS: diazePAM 2 MG TABLET 1 MG PO ×2 (09:35→21:08)
[2021-09-29] MEDS: lisinopriL 10 MG, hydroCHLOROthiazide 12.5 MG PO (09:35)
[2021-09-29] MEDS: Diclofenac Sodium Delayed Rel 75 MG TABLET.DR PO ×2 (09:36→21:10)
[2021-09-29] MEDS: Folic Acid 1 MG TABLET PO (09:36)
[2021-09-29] MEDS: Enoxaparin Sodium 40 MG/0.4 ML SYRINGE SUBCUT (09:36)
--- NOTE | 2021-09-29 11:04 | P.PNIM_ITS ---
Subjective Subjective Date of Service: 09/29/21 Interval History: cc: ams interval history: anxious Cardiovascular Cardiovascular: Reports no additional cardiovascular complaints Respiratory Respiratory: Reports no additional respiratory complaints Physical Exam Vital Signs: Vital Signs: Last Vital Signs Temp 97.5 F 09/29/21 07:56 Pulse 86 09/29/21 07:56 Resp 18 09/29/21 07:56 BP 139/87 09/29/21 07:56 Pulse Ox 97 09/29/21 07:56 BMI result Body Mass Index 18.8 General:? Sitting comfortably, no acute distress Neck no JVD Resp:? Clear to auscultation, no respiratory distress CVS: S1,S2,RRR GI: soft, non tender, bowel sounds audible, non distended Neuro:? motor grossly intact, alert Psych: appropriate affect, impaired insight? Objective Data Active Medications Acetaminophen (Acetaminophen 325 Mg Tablet) 650 mg PO Q6H PRN PRN Reason: Pain, Mild (Pain Scale 1-3) Last Admin: 09/19/21 01:40 Dose: 650 mg Documented by: JACKIE Acetaminophen (Acetaminophen 325 Mg Tablet) 975 mg PO BID [facility] Last Admin: 09/29/21 09:34 Dose: 975 mg Documented by: JAMAR Atorvastatin Calcium (Atorvastatin Calcium 80 Mg Tablet) 80 mg PO BEDTIME [facility] Last Admin: 09/28/21 20:23 Dose: 80 mg Documented by: SAGE Bupropion HCl (Bupropion Hcl Xl 300 Mg Tab.Er.24h) 300 mg PO DAILY [facility] Last Admin: 09/29/21 09:34 Dose: 300 mg Documented by: JAMAR Lisinopril 10 mg/ (Hydrochlorothiazide 12.5 mg) 0 mg PO DAILY [facility] Last Admin: 09/29/21 09:35 Dose: 1 each Documented by: JAMAR Cyanocobalamin (Cyanocobalamin (Vitamin B-12) 1,000 Mcg Tablet) 1,000 mcg PO DAILY [facility] Last Admin: 09/29/21 09:34 Dose: 1,000 mcg Documented by: JAMAR Diazepam (Diazepam 2 Mg Tablet) 1 mg PO BID [facility] Last Admin: 09/29/21 09:35 Dose: 1 mg Documented by: JAMAR Diclofenac Sodium (Diclofenac Sodium Delayed Rel 75 Mg Tablet.Dr) 75 mg PO BID [facility] Last Admin: 09/29/21 09:36 Dose: 75 mg Documented by: JAMAR Enoxaparin Sodium (Enoxaparin Sodium 40 Mg/0.4 Ml Syringe) 40 mg SUBCUT Q24H [facility] Last Admin: 09/29/21 09:36 Dose: 40 mg Documented by: JAMAR Folic Acid (Folic Acid 1 Mg Tablet) 1 mg PO DAILY [facility] Last Admin: 09/29/21 09:36 Dose: 1 mg Documented by: JAMRA Gabapentin (Gabapentin 600 Mg Tablet) 600 mg PO TID [facility] Last Admin: 09/29/21 09:35 Dose: 600 mg Documented by: JAMAR Hydroxyzine HCl (Hydroxyzine Hcl 50 Mg/Ml Vial) 25 mg IM Q6H PRN PRN Reason: Anxiety Last Admin: 09/29/21 01:34 Dose: 25 mg Documented by: SAGE Nicotine (Nicotine 21 Mg Patch.Td24) 21 mg TRANSDERMA DAILY [facility] Last Admin: 09/29/21 10:24 Dose: Not Given Documented by: JAMAR Non-Admin Reason: Patient Refused Ondansetron HCl (Ondansetron Hcl 4 Mg/2 Ml Vial) 4 mg IVPUSH Q8H PRN PRN Reason: Nausea and Vomiting Oxycodone HCl (Oxycodone Hcl Er 10 Mg Tab.Er.12h) 10 mg PO BID [facility] Last Admin: 09/29/21 09:34 Dose: 10 mg Documented by: JAMAR Oxycodone HCl (Oxycodone Hcl Immed Release 5 Mg Tablet) 5 mg PO Q6H PRN PRN Reason: moderate pain Last Admin: 09/27/21 04:22 Dose: 5 mg Documented by: JACKIE Quetiapine Fumarate (Quetiapine Fumarate 25 Mg Tablet) 25 mg PO Q8H PRN PRN Reason: anxiety/restlessness Last Admin: 09/29/21 09:33 Dose: 25 mg Documented by: JAMAR Sodium Chloride (0.9 % Sodium Chloride Flush 3 Ml Syringe) 3 ml IVFLUSH QSHIFT [facility] Last Admin: 09/29/21 09:33 Dose: Not Given Documented by: JAMAR Non-Admin Reason: No Access Trazodone HCl (Trazodone Hcl 50 Mg Tablet) 150 mg PO BEDTIME [facility] Last Admin: 09/28/21 20:34 Dose: 150 mg Documented by: SAGE Venlafaxine HCl (Venlafaxine Hcl Er 150 Mg Cap.Er.24h) 150 mg PO DAILY [facility] Last Admin: 09/29/21 09:34 Dose: 150 mg Documented by: JAMAR Labs CBC & Chem 7: 09/26/21 05:56 09/26/21 05:56 Labs: Laboratory Results - last 24 hr 09/28/21 16:31 VBG pH 7.36 VBG pCO2 68 VBG pO2 32 VBG HCO3 39 H VBG O2 Saturation 42.0 VBG Base Excess 10.9 Assessment and Plan (1) Encephalopathy: Status: Acute (2) COPD (chronic obstructive pulmonary disease): Status: Acute (3) Pneumonia: Status: Acute (4) HTN (hypertension): Status: Acute Plan 71M presented with ams, found to have hypercapneic resp failure, went to ICU for bipap improved and was downgraded to medical floor with improvement in symptoms. 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
[2021-09-29] MEDS: Atorvastatin Calcium 80 MG TABLET PO (21:08)
[2021-09-29] MEDS: traZODone HCL 50 MG TABLET 150 MG PO (21:09)
[2021-09-30] VITALS (9 sets, daily range): BP systolic 126–177; BP diastolic 69–106; PULSE 60–100; RESP 16–22; TEMP 35.8–37.7; O2SAT 93–97
[2021-09-30 07:01] LABS: Hematocrit 43.8 % (42.0-52.0); Hemoglobin 14.2 g/dl (14.0-18.0); Mean Corpuscular HGB Conc 32.4 g/dl (31.0-36.0); Mean Corpuscular Hemoglobin 31.6 pg (27.0-33.0); Mean Corpuscular Volume 97.3 fL (80.0-98.0); Mean Platelet Volume 11.5 fL (9.4-12.4); Platelet Count 204 X10*3/uL (160-400); Red Cell Distribution Width 13.7 % (11.0-16.0); White Blood Count 4.5 X10*3/uL (4.8-10.8)
[2021-09-30 07:31] LABS: Anion Gap 11 (12-20); Blood Urea Nitrogen 22 mg/dL (9-16); Calcium 9.4 mg/dL (8.4-10.2); Carbon Dioxide 32 mmol/L (22-29); Chloride 96 mmol/L (96-108); Creatinine Clr Calc Pharmacy 99.4; Estimated Glomerular Filt Rate > 60; Glucose Fasting 116 mg/dL (60-99); Potassium 4.1 mmol/L (3.3-5.1); Sodium 135 mmol/L (135-145)
[2021-09-30] MEDS: Folic Acid 1 MG TABLET PO (07:57)
[2021-09-30] MEDS: diazePAM 2 MG TABLET 1 MG PO ×2 (07:57→20:21)
[2021-09-30] MEDS: Diclofenac Sodium Delayed Rel 75 MG TABLET.DR PO ×2 (07:57→20:11)
[2021-09-30] MEDS: Acetaminophen 325 MG TABLET 975 MG PO ×2 (07:58→20:10)
[2021-09-30] MEDS: oxyCODONE HCl ER 10 MG TAB.ER.12H PO ×2 (07:58→20:11)
[2021-09-30] MEDS: Venlafaxine HCl ER 150 MG CAP.ER.24H PO (07:59)
[2021-09-30] MEDS: Cyanocobalamin (Vitamin B-12) 1,000 MCG TABLET 1000 MCG PO (07:59)
[2021-09-30] MEDS: lisinopriL 10 MG, hydroCHLOROthiazide 12.5 MG PO (07:59)
[2021-09-30] MEDS: Gabapentin 600 MG TABLET PO ×3 (08:00→20:11)
[2021-09-30] MEDS: Nicotine 21 MG PATCH.TD24 TRANSDERMA (08:00)
[2021-09-30] MEDS: buPROPion HCl XL 300 MG TAB.ER.24H PO (08:00)
[2021-09-30] MEDS: Enoxaparin Sodium 40 MG/0.4 ML SYRINGE SUBCUT (09:25)
--- NOTE | 2021-09-30 11:09 | HO.PM.IMPN ---
Subjective Subjective Date of Service: 09/30/21 Interval History: cc: ams interval history:anxious Cardiovascular Cardiovascular: Reports no additional cardiovascular complaints Respiratory Respiratory: Reports no additional respiratory complaints Physical Exam Vital Signs: Vital Signs: Last Vital Signs Temp 98.0 F 09/30/21 11:03 Pulse 60 09/30/21 11:03 Resp 20 09/30/21 11:03 BP 126/70 09/30/21 11:03 Pulse Ox 94 09/30/21 11:03 BMI result Body Mass Index 18.8 General:? Sitting comfortably, no acute distress Neck no JVD Resp:? Clear to auscultation, no respiratory distress CVS: S1,S2,RRR GI: soft, non tender, bowel sounds audible, non distended Neuro:? motor grossly intact, alert Psych: appropriate affect, impaired insight? Objective Data Active Medications Acetaminophen (Acetaminophen 325 Mg Tablet) 650 mg PO Q6H PRN PRN Reason: Pain, Mild (Pain Scale 1-3) Last Admin: 09/19/21 01:40 Dose: 650 mg Documented by: JACKIE Acetaminophen (Acetaminophen 325 Mg Tablet) 975 mg PO BID [facility] Last Admin: 09/30/21 07:58 Dose: 975 mg Documented by: ELLIOT Atorvastatin Calcium (Atorvastatin Calcium 80 Mg Tablet) 80 mg PO BEDTIME [facility] Last Admin: 09/29/21 21:08 Dose: 80 mg Documented by: JONH Bupropion HCl (Bupropion Hcl Xl 300 Mg Tab.Er.24h) 300 mg PO DAILY [facility] Last Admin: 09/30/21 08:00 Dose: 300 mg Documented by: ELLIOT Lisinopril 10 mg/ (Hydrochlorothiazide 12.5 mg) 0 mg PO DAILY [facility] Last Admin: 09/30/21 07:59 Dose: 10 each Documented by: ELLIOT Comments: lisinopril 10mg and hydrochlorothiazide 12.5mg Cyanocobalamin (Cyanocobalamin (Vitamin B-12) 1,000 Mcg Tablet) 1,000 mcg PO DAILY [facility] Last Admin: 09/30/21 07:59 Dose: 1,000 mcg Documented by: ELLIOT Diazepam (Diazepam 2 Mg Tablet) 1 mg PO BID [facility] Last Admin: 09/30/21 07:57 Dose: 1 mg Documented by: ELLIOT Diclofenac Sodium (Diclofenac Sodium Delayed Rel 75 Mg Tablet.) 75 mg PO BID [facility] Last Admin: 09/30/21 07:57 Dose: 75 mg Documented by: ELLIOT Enoxaparin Sodium (Enoxaparin Sodium 40 Mg/0.4 Ml Syringe) 40 mg SUBCUT Q24H [facility] Last Admin: 09/30/21 09:25 Dose: 40 mg Documented by: ELLIOT Folic Acid (Folic Acid 1 Mg Tablet) 1 mg PO DAILY [facility] Last Admin: 09/30/21 07:57 Dose: 1 mg Documented by: ELLIOT Gabapentin (Gabapentin 600 Mg Tablet) 600 mg PO TID [facility] Last Admin: 09/30/21 08:00 Dose: 600 mg Documented by: ELLIOT Hydroxyzine HCl (Hydroxyzine Hcl 50 Mg/Ml Vial) 25 mg IM Q6H PRN PRN Reason: Anxiety Last Admin: 09/29/21 01:34 Dose: 25 mg Documented by: SAGE Nicotine (Nicotine 21 Mg Patch.Td24) 21 mg TRANSDERMA DAILY [facility] Last Admin: 09/30/21 08:00 Dose: 21 mg Documented by: ELLIOT Ondansetron HCl (Ondansetron Hcl 4 Mg/2 Ml Vial) 4 mg IVPUSH Q8H PRN PRN Reason: Nausea and Vomiting Oxycodone HCl (Oxycodone Hcl Er 10 Mg Tab.Er.12h) 10 mg PO BID [facility] Last Admin: 09/30/21 07:58 Dose: 10 mg Documented by: ELLIOT Oxycodone HCl (Oxycodone Hcl Immed Release 5 Mg Tablet) 5 mg PO Q6H PRN PRN Reason: moderate pain Last Admin: 09/27/21 04:22 Dose: 5 mg Documented by: JACKIE Psyllium Hydrophilic Mucilloid (Psyllium Seed 3.4 Gm Powd.Pack) 3.4 gm PO DAILY [facility] Quetiapine Fumarate (Quetiapine Fumarate 25 Mg Tablet) 25 mg PO Q8H PRN PRN Reason: anxiety/restlessness Last Admin: 09/29/21 09:33 Dose: 25 mg Documented by: DOBROB Sodium Chloride (0.9 % Sodium Chloride Flush 3 Ml Syringe) 3 ml IVFLUSH QSHIFT [facility] Last Admin: 09/30/21 07:46 Dose: Not Given Documented by: ELLIOT Non-Admin Reason: No Access Trazodone HCl (Trazodone Hcl 50 Mg Tablet) 150 mg PO BEDTIME [facility] Last Admin: 09/29/21 21:09 Dose: 150 mg Documented by: JONH Venlafaxine HCl (Venlafaxine Hcl Er 150 Mg Cap.Er.24h) 150 mg PO DAILY [facility] Last Admin: 09/30/21 07:59 Dose: 150 mg Documented by: ELLIOT Labs CBC & Chem 7: 09/30/21 06:13 09/30/21 06:13 Labs: Laboratory Results - last 24 hr 09/30/21 09/30/21 06:13 06:13 MCV 97.3 MCH 31.6 MCHC 32.4 RDW 13.7 Plt Count 204 MPV 11.5 Absolute Nucleated RBC 0.000 Nucleated RBC % (auto) 0.0 Anion Gap 11 L Estim Creat Clear Calc 99.4 Estimated GFR > 60 Fasting Glucose 116 H Calcium 9.4 Assessment and Plan (1) Encephalopathy: Status: Acute (2) COPD (chronic obstructive pulmonary disease): Status: Acute (3) Pneumonia: Status: Acute (4) HTN (hypertension): Status: Acute Plan 71M presented with ams, found to have hypercapneic resp failure, went to ICU for bipap improved and was downgraded to medical floor with improvement in symptoms. Metabolic encephalopathy due to acute hypoxic and hypercapnic respiratory failure due to COPD with acute exacerbation Now back to baseline Continue BiPAP at night (13/10) vbg with mild hypercapnea, encourage bipap will recheck abg moderate protein calorie malnutrition encourage po, ensure stage II coccyx ulcer avoid pressure local care Tobacco use disorder continue nicotine patch 21 mg daily aspiration pneumonia completed therapy LATIN DANCER eval folate deficiency folic acid 1mg daily b12 defeciciency given 1000mcg IM once continue oral 1mg daily mood disorder valium 1mg daily wellbutrin effexor chronic back pain program research 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
--- NOTE | 2021-09-30 11:55 | MHC.CLN ---
F/U PO INTAKE REMAINS 75-100% DIET RX: PUREED-APPROPRIATE PT RECEIVING ENSURE CLEAR TID AND ALENA BID PROVIDES 880KCALS, 29G PROTEIN FOR WOUND HEALING CONTINUE TO MONITOR PO INTAKE CLOSELY.
--- NOTE | 2021-09-30 13:03 | MHC.SL.SWA ---
Speech Pathologist Impression: Oropharyngeal dysphagia Risk of Aspiration Due to: History of Pneumonia Dysphasia Diet Status: Upgrade Liquid Consistency and Strategies for Safe Swallow: Liquid Intake Recommendation: Thin Liquid Intake Strategies: Small Sips No Straws Solid Food Consistency: Dietary Recommendations: Grnd/Mech Altered (NDD2) Additional Modifications to Solid Foods: Recommend UPGRADE solids to GROUND/MECH ALTERED (NDD2) consistency with sauce/gravy and THIN liquids, pills CRUSHED in PUREE. Patient attempts to feed himself, but exhibits some difficulty picking up and holding utensils. Recommend 1:1 assistance for all PO intake, to assist with tray set up and throughout feeding as needed, ensure aspiration precautions, monitor tolerance of upgrade. Patient must have his dentures in to eat. Recommend strategies to promote oral clearance: alternate bites of food with sips of liquid, moisten with sauce/gravy, small bites, oral cavity check. Diet order updated by HVAC ESTIMATOR. Notified care team of changes via Stanley Message. HVAC ESTIMATOR will continue to follow. Oral Medication Intake: Crushed with Puree Please contact the pharmacy regarding appropriate crushable or liquid drug formulations that are available whenever modified delivery is recommended. Compensatory Strategies and Precautions to be Taken for Safe Swallow: Sitting Upright (90 deg) No Straw Small Bites and Sips Alternate Liquids/Solids Rate of Ingestion Change Oral Check Avoid Specific Foods Supervision While Eating and Drinking for Safe Swallow: Total Assistance (1:1) Foods to Avoid: Tough, difficult to chew solids; sticky consistencies Swallowing Recommended Treatments: Compens. Strategy Educat. Recommendation for Speech: Inpatient Speech Therapy Comment: HVAC ESTIMATOR will continue to follow. Frequency/Duration: M-F Date Range for Service Req: Timeline to reassess: Piler Clinican/Clinical Fellow: No Supervisory Statement: I have reviewed and agree with the student/clinical fellow's documentation: N/A Speech Language Pathologist: Nayeli Orozco M.A., CCC-HVAC ESTIMATOR
--- NOTE | 2021-09-30 14:14 | MHC.CM.PN ---
?per rounds pt ready for dc when bed avaliable
[2021-09-30] MEDS: oxyCODONE HCl Immed Release 5 MG TABLET PO (14:17)
[2021-09-30] MEDS: traZODone HCL 50 MG TABLET 150 MG PO (20:11)
[2021-09-30] MEDS: Atorvastatin Calcium 80 MG TABLET PO (20:11)
[2021-09-30] MEDS: 0.9 % Sodium Chloride Flush 3 ML SYRINGE IVFLUSH (20:12)
[2021-10-01] VITALS (9 sets, daily range): BP systolic 132–166; BP diastolic 76–104; PULSE 60–93; RESP 17–20; TEMP 36.5–37; O2SAT 95–98
[2021-10-01] MEDS: QUEtiapine Fumarate 25 MG TABLET PO (06:21)
[2021-10-01] MEDS: Acetaminophen 325 MG TABLET 650 MG PO (06:21)
[2021-10-01] MEDS: diazePAM 2 MG TABLET 1 MG PO ×2 (08:58→19:59)
[2021-10-01] MEDS: Folic Acid 1 MG TABLET PO (08:59)
[2021-10-01] MEDS: oxyCODONE HCl ER 10 MG TAB.ER.12H PO ×2 (08:59→20:00)
[2021-10-01] MEDS: Venlafaxine HCl ER 150 MG CAP.ER.24H PO (08:59)
[2021-10-01] MEDS: Diclofenac Sodium Delayed Rel 75 MG TABLET.DR PO ×2 (09:00→19:58)
[2021-10-01] MEDS: Gabapentin 600 MG TABLET PO ×3 (09:00→20:00)
[2021-10-01] MEDS: buPROPion HCl XL 300 MG TAB.ER.24H PO (09:00)
[2021-10-01] MEDS: Cyanocobalamin (Vitamin B-12) 1,000 MCG TABLET 1000 MCG PO (09:00)
[2021-10-01] MEDS: Enoxaparin Sodium 40 MG/0.4 ML SYRINGE SUBCUT (09:01)
[2021-10-01] MEDS: lisinopriL 10 MG, hydroCHLOROthiazide 12.5 MG PO (09:01)
[2021-10-01] MEDS: Nicotine 21 MG PATCH.TD24 TRANSDERMA (09:05)
--- NOTE | 2021-10-01 09:15 | P.PNIM_ITS ---
Subjective Subjective Date of Service: 10/01/21 Interval History: cc: ams interval history:anxious Cardiovascular Cardiovascular: Reports no additional cardiovascular complaints Respiratory Respiratory: Reports no additional respiratory complaints Physical Exam Vital Signs: Vital Signs: Last Vital Signs Temp 98.2 F 10/01/21 07:22 Pulse 60 10/01/21 07:22 Resp 18 10/01/21 07:22 BP 163/92 H 10/01/21 07:22 Pulse Ox 98 10/01/21 07:22 BMI result Body Mass Index 18.8 General:? Sitting comfortably, no acute distress Neck no JVD Resp:? Clear to auscultation, no respiratory distress CVS: S1,S2,RRR GI: soft, non tender, bowel sounds audible, non distended Neuro:? motor grossly intact, alert Psych: appropriate affect, impaired insight? Objective Data Active Medications Acetaminophen (Acetaminophen 325 Mg Tablet) 650 mg PO Q6H PRN PRN Reason: Pain, Mild (Pain Scale 1-3) Last Admin: 10/01/21 06:21 Dose: 650 mg Documented by: SHANNAN Acetaminophen (Acetaminophen 325 Mg Tablet) 975 mg PO BID [facility] Last Admin: 09/30/21 20:10 Dose: 975 mg Documented by: SHANNAN Atorvastatin Calcium (Atorvastatin Calcium 80 Mg Tablet) 80 mg PO BEDTIME [facility] Last Admin: 09/30/21 20:11 Dose: 80 mg Documented by: SHANNAN Bupropion HCl (Bupropion Hcl Xl 300 Mg Tab.Er.24h) 300 mg PO DAILY [facility] Last Admin: 09/30/21 08:00 Dose: 300 mg Documented by: ELLIOT Lisinopril 10 mg/ (Hydrochlorothiazide 12.5 mg) 0 mg PO DAILY [facility] Last Admin: 09/30/21 07:59 Dose: 10 each Documented by: ELLIOT Comments: lisinopril 10mg and hydrochlorothiazide 12.5mg Cyanocobalamin (Cyanocobalamin (Vitamin B-12) 1,000 Mcg Tablet) 1,000 mcg PO DAILY [facility] Last Admin: 09/30/21 07:59 Dose: 1,000 mcg Documented by: ELLIOT Diazepam (Diazepam 2 Mg Tablet) 1 mg PO BID [facility] Last Admin: 09/30/21 20:21 Dose: 1 mg Documented by: SHANNAN Diclofenac Sodium (Diclofenac Sodium Delayed Rel 75 Mg Tablet.) 75 mg PO BID [facility] Last Admin: 09/30/21 20:11 Dose: 75 mg Documented by: SHANNAN Enoxaparin Sodium (Enoxaparin Sodium 40 Mg/0.4 Ml Syringe) 40 mg SUBCUT Q24H [facility] Last Admin: 09/30/21 09:25 Dose: 40 mg Documented by: ELLIOT Folic Acid (Folic Acid 1 Mg Tablet) 1 mg PO DAILY [facility] Last Admin: 09/30/21 07:57 Dose: 1 mg Documented by: ELLIOT Gabapentin (Gabapentin 600 Mg Tablet) 600 mg PO TID [facility] Last Admin: 09/30/21 20:11 Dose: 600 mg Documented by: SHANNAN Hydroxyzine HCl (Hydroxyzine Hcl 50 Mg/Ml Vial) 25 mg IM Q6H PRN PRN Reason: Anxiety Last Admin: 09/29/21 01:34 Dose: 25 mg Documented by: SAGE Nicotine (Nicotine 21 Mg Patch.Td24) 21 mg TRANSDERMA DAILY [facility] Last Admin: 09/30/21 08:00 Dose: 21 mg Documented by: ELLIOT Ondansetron HCl (Ondansetron Hcl 4 Mg/2 Ml Vial) 4 mg IVPUSH Q8H PRN PRN Reason: Nausea and Vomiting Oxycodone HCl (Oxycodone Hcl Er 10 Mg Tab.Er.12h) 10 mg PO BID [facility] Last Admin: 09/30/21 20:11 Dose: 10 mg Documented by: SHANNAN Oxycodone HCl (Oxycodone Hcl Immed Release 5 Mg Tablet) 5 mg PO Q6H PRN PRN Reason: moderate pain Last Admin: 09/30/21 14:17 Dose: 5 mg Documented by: ELLIOT Psyllium Hydrophilic Mucilloid (Psyllium Seed 3.4 Gm Powd.Pack) 3.4 gm PO DAILY [facility] Quetiapine Fumarate (Quetiapine Fumarate 25 Mg Tablet) 25 mg PO Q8H PRN PRN Reason: anxiety/restlessness Last Admin: 10/01/21 06:21 Dose: 25 mg Documented by: SHANNAN Sodium Chloride (0.9 % Sodium Chloride Flush 3 Ml Syringe) 3 ml IVFLUSH QSHIFT [facility] Last Admin: 09/30/21 20:12 Dose: 3 ml Documented by: SHANNAN Trazodone HCl (Trazodone Hcl 50 Mg Tablet) 150 mg PO BEDTIME [facility] Last Admin: 09/30/21 20:11 Dose: 150 mg Documented by: SHANNAN Venlafaxine HCl (Venlafaxine Hcl Er 150 Mg Cap.Er.24h) 150 mg PO DAILY [facility] Last Admin: 09/30/21 07:59 Dose: 150 mg Documented by: ELLIOT Labs CBC & Chem 7: 09/30/21 06:13 09/30/21 06:13 Assessment and Plan (1) Encephalopathy: Status: Acute (2) COPD (chronic obstructive pulmonary disease): Status: Acute (3) Pneumonia: Status: Acute (4) HTN (hypertension): Status: Acute Plan 71M presented with ams, found to have hypercapneic resp failure, went to ICU for bipap improved and was downgraded to medical floor with improvement in symptoms. Metabolic encephalopathy due to acute hypoxic and hypercapnic respiratory failure due to COPD with acute exacerbation Now back to baseline Continue BiPAP at night (13/10) vbg with mild hypercapnea, encourage bipap refused abg follow up moderate protein calorie malnutrition encourage po, ensure stage II coccyx ulcer avoid pressure local care Tobacco use disorder continue nicotine patch 21 mg daily aspiration pneumonia completed therapy KNIFE EDGER appreciated, continue NDD2 solids, thin liquids folate deficiency folic acid 1mg daily b12 defeciciency given 1000mcg IM once continue oral 1mg daily mood disorder valium 1mg daily wellbutrin effexor chronic back pain science 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
--- NOTE | 2021-10-01 11:26 | MHC.CM.PN ---
CM MET W/PT WHO REPORTS HE WOULD LIKE TO RETURN HOME, CM CONTACTED PT'S SON/HCP ZEINAB AT 11:19AM AT NUMBER ON FILE TO DISCUSS DCP PT WOULD LIKE TO RETURN HOME AND REFERRAL FOR STR UPDATED W/ONLY FACILITIES SHOWING INTEREST ARE [facility] WHICH PT'S SISTER HAD DECLINED PREVIOUSLY REPORTING FAMILY WOULD RATHER TAKE PT HOME, PT'S SON AGREEABLE TO TAKE PT HOME HOWEVER WOULD LIKE TO DISCUSS W/PT'S SISTER WHO IS ALTERNATE HCP, PER ZEINAB PT'S SISTER IS AT WORK AND ALSO REQUESTS CM DISCUSS VNA PREFERENCES W/PT'S SISTER WELL. CM WILL ATTEMPT TO CONTACT PT'S SISTER SHORTLY.
--- NOTE | 2021-10-01 13:27 | MHC.CM.PN ---
CM CONTACTED PTS' SISTER/ALT HCP ALEXANDRA AT 1:18PM AT NUMBER ON FILE TO DISCUSS DCP AND VNA PREFERENCES, REFERRAL HAS BEEN PLACED TO [facility] FOR SN AND PT, ALEXANDRA WOULD LIKE OT WELL, CM TO NOTIFY HOSPITALIST UPON D/C, ALEXANDRA ASKING ABOUT [facility] IN [place] HOWEVER IS AWARE PT WOULD MEET THE CRITERIA AND BE ABLE TO PARTICIPATE IN 3HRS OF REHAB REQUIRED A DAY, ALEXANDRA IS AWARE THE [facility] ARE ONLY SNFS OFFERING A BED, CM OFFERED TO EXPAND STR REFERRAL TO A BROADER AREA HOWEVER ALEXANDRA DECLINED AND IS NOT CONFIDENT IN THE [facility] SNF'S OR ANY OTHER FARTHER AWAY, ALEXANDRA REPORTED SHE DOES NOT HAVE ANY PREFERENCES SHE REPORTS SHE HAS HAD ISSUES W/A VNA IN THE PAST, ALEXANDRA STATED, IT DOESN'T MATTER.. SHE DOES NOT SEEM CONFIDENT IN ANY VNA'S. ALEXANDRA DID REPORT [place] HAS APPROVED [facility] FOR [facility] AND THEY WILL BE DELIVERING A HOSPITAL BED, W/C AND BEDSIDE COMMODE, ALEXANDRA REPORTS THEY WILL BE REQUESTING A WALKER WELL. CM WILL REQUEST PT BE DISCHARGED W/SCRIPT FOR WALKER. 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 HOSPITALIST MADE AWARE VIA [facility]IGER. ALEXANDRA CALLED BACK PRIOR TO THIS NOTE AND REQUESTING PT REMAIN INPT UNTIL THURSDAY SHE IS NOT SURE THE HOUSE WILL BE PREPARED, CM DID MAKE ALEXANDRA AWARE THAT PT HAS NOT BEEN MEETING IPL[facility] AND SHE BECAME MORE IRRITABLE AND TELLING THIS CM THAT MAYBE THE UR PERSON DIDN'T WHAT THEY WERE DOING AND THAT CM WOULD BE HEARING FROM HER A LOT IF PT RECEIVED A B ILL, ALEXANDRA WAS INFORMED SHE WOULD NEED TO GO THROUGH BILLING DEPT IF SHE HAD ANY ISSUES W/PT'S BILL AFTER D/C. CM WILL FOLLOW UP W/ALEXANDRA AND ZEINAB TOMORROW 10/02 AND CONT TO FOLLOW D/C NEEDS.
--- NOTE | 2021-10-01 14:06 | MHC.CM.PN ---
CM ATTEMPTED TO CONTACT STUART FROM [place] AT 2:05PM [phone] AND C [phone] TO DETERMINE IF PT QUALIFIES FOR TRANSPORTATION HOME, NO ANSWER AT EITHER NUMBER, MESSAGE LEFT W/CM CONTACT NUMBER.
[2021-10-01] MEDS: oxyCODONE HCl Immed Release 5 MG TABLET PO (16:59)
[2021-10-01] MEDS: traZODone HCL 50 MG TABLET 150 MG PO (19:58)
[2021-10-01] MEDS: Acetaminophen 325 MG TABLET 975 MG PO (19:59)
[2021-10-01] MEDS: Atorvastatin Calcium 80 MG TABLET PO (20:00)
--- NOTE | 2021-10-01 22:52 | PC.RT ---
Started NOC Oximetry at 2300 placed on left hand with good readings. Son at bedside voiced opinions on fathers care and stated This isn't going to fix the problem; you're just trying to get my father out of the hospital, You can deal with him when he's confused in the morning . RT explained what the test was going to show but, the son left home shortly after i placed the NOC Oximetry on pt.
[2021-10-02] VITALS (7 sets, daily range): BP systolic 150–176; BP diastolic 87–111; PULSE 89–100; RESP 14–20; TEMP 36.2–37.1; O2SAT 91–100
[2021-10-02] MEDS: oxyCODONE HCl Immed Release 5 MG TABLET PO ×2 (03:33→15:34)
[2021-10-02 06:24] LABS: ABG Base Excess 10.1 mmol/L; ABG HCO3 35 mmol/L (22-26); ABG pCO2 51 mmHg (32-45); ABG pH 7.45 (7.35-7.45); ABG pO2 79 mmHg (83-108)
[2021-10-02] MEDS: diazePAM 2 MG TABLET 1 MG PO (07:44)
[2021-10-02] MEDS: oxyCODONE HCl ER 10 MG TAB.ER.12H PO ×2 (07:46→20:02)
[2021-10-02] MEDS: QUEtiapine Fumarate 25 MG TABLET PO ×2 (07:46→15:34)
[2021-10-02] MEDS: Acetaminophen 325 MG TABLET 975 MG PO ×2 (07:58→20:03)
--- NOTE | 2021-10-02 09:45 | MHC.CM.PN ---
CM CONTACTED PT'S SON/HCP ZEINAB TO DISCUSS DCP, ZEINAB REPORTS THEY HAVE RECEIVED SOME EQUIPMENT FROM [place] AND HOSPITAL BED WILL BE DELIVERED LATER TODAY, ZEINAB WOULD LIKE A SCRIPT FOR A WALKER, CM WILL REQUEST. ZEINAB REQUESTING A D/C TOMORROW AM AND REPORTS PT HAS CALLED HIM A FEW TIMES ALREADY TODAY SAYING HE WAS BEING KIDNAPPED, [facility] [employer] FAMILY IS VERY LIKELY TO APPEAL, ZEINAB IS AWARE CM WILL WANT TO ORAGNIZE A MORNING D/C TOMORROW AND IS AGREEABLE, ZEINAB DENIES NEED FOR TRANSPORT AND REPORTS FAMILY WILL MECHANICAL LEAD PT. ZEINAB CONFIRMS PT ALREADY HAS RECEIVED AN APPROVAL LETTER FROM [place] FOR [facility] OF HOME HEALTH AND THEY JUST NEED TO CALL ONCE PT RETURNS HOME. D/C HOME W/NEW [facility] FOR SN AND PT, FAMILY FOR TRANSPORT
--- NOTE | 2021-10-02 13:47 | MHC.SLORD ---
Speech Language Pathology Order Status: Patient is on ground/[facility] altered (NDD2) solid and thin liquids. Patient must have dentures in to eat. Aspiration precautions apply. FLAT KNITTER to f/u tomorrow.
--- NOTE | 2021-10-02 14:09 | P.PNIM_ITS ---
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, no dizziness CVS no chest pain GI no nausea, no vomiting Cardiovascular Cardiovascular: Reports no additional cardiovascular complaints Respiratory Respiratory: Reports no additional respiratory complaints Gastrointestinal Gastrointestinal: Reports no additional gastrointestinal complaints Genitourinary Genitourinary: Reports no additional male genitourinary complaints Physical Exam Vital Signs: Vital Signs: Last Vital Signs Temp 98.1 F 10/02/21 12:00 Pulse 91 10/02/21 12:00 Resp 18 10/02/21 12:00 BP 176/111 H 10/02/21 12:00 Pulse Ox 91 L 10/02/21 12:00 BMI result Body Mass Index 18.8 Const: Other: General: Sitting comfortably, no acute distress, undressed and refusing to cover himself Neck no JVD Resp: Clear to auscultation, no respiratory distress CVS: S1,S2,RRR GI: soft, non tender, bowel sounds audible, non distended Neuro:? motor grossly intact, alert Psych: appropriate affect, impaired insight, following commands? Objective Data Active Medications Acetaminophen (Acetaminophen 325 Mg Tablet) 650 mg PO Q6H PRN PRN Reason: Pain, Mild (Pain Scale 1-3) Last Admin: 10/01/21 06:21 Dose: 650 mg Documented by: SHANNAN Acetaminophen (Acetaminophen 325 Mg Tablet) 975 mg PO BID [facility] Last Admin: 10/02/21 07:58 Dose: 975 mg Documented by: GLORIA Atorvastatin Calcium (Atorvastatin Calcium 80 Mg Tablet) 80 mg PO BEDTIME [facility] Last Admin: 10/01/21 20:00 Dose: 80 mg Documented by: LINUS Bupropion HCl (Bupropion Hcl Xl 300 Mg Tab.Er.24h) 300 mg PO DAILY [facility] Last Admin: 10/02/21 09:51 Dose: Not Given Documented by: GLORIA Non-Admin Reason: Patient Refused Lisinopril 10 mg/ (Hydrochlorothiazide 12.5 mg) 0 mg PO DAILY [facility] Last Admin: 10/02/21 09:55 Dose: Not Given Documented by: GLORIA Non-Admin Reason: Patient Refused Cyanocobalamin (Cyanocobalamin (Vitamin B-12) 1,000 Mcg Tablet) 1,000 mcg PO DAILY [facility] Last Admin: 10/02/21 09:52 Dose: Not Given Documented by: GLORIA Non-Admin Reason: Patient Refused Diazepam (Diazepam 2 Mg Tablet) 0.5 mg PO BID [facility] Diclofenac Sodium (Diclofenac Sodium Delayed Rel 75 Mg Tablet.Dr) 75 mg PO BID [facility] Last Admin: 10/02/21 09:53 Dose: Not Given Documented by: GLORIA Non-Admin Reason: Patient Refused Enoxaparin Sodium (Enoxaparin Sodium 40 Mg/0.4 Ml Syringe) 40 mg SUBCUT Q24H [facility] Last Admin: 10/02/21 09:55 Dose: Not Given Documented by: GLORIA Non-Admin Reason: Patient Refused Folic Acid (Folic Acid 1 Mg Tablet) 1 mg PO DAILY [facility] Last Admin: 10/02/21 09:50 Dose: Not Given Documented by: GLORIA Non-Admin Reason: Patient Refused Gabapentin (Gabapentin 100 Mg Capsule) 200 mg PO TID [facility] Nicotine (Nicotine 21 Mg Patch.Td24) 21 mg TRANSDERMA DAILY [facility] Last Admin: 10/02/21 09:52 Dose: Not Given Documented by: GLORIA Non-Admin Reason: Patient Refused Ondansetron HCl (Ondansetron Hcl 4 Mg/2 Ml Vial) 4 mg IVPUSH Q8H PRN PRN Reason: Nausea and Vomiting Oxycodone HCl (Oxycodone Hcl Er 10 Mg Tab.Er.12h) 10 mg PO BID [facility] Last Admin: 10/02/21 07:46 Dose: 10 mg Documented by: GLORIA Oxycodone HCl (Oxycodone Hcl Immed Release 5 Mg Tablet) 5 mg PO Q6H PRN PRN Reason: moderate pain Last Admin: 10/02/21 03:33 Dose: 5 mg Documented by: JENNIFER Psyllium Hydrophilic Mucilloid (Psyllium Seed 3.4 Gm Powd.Pack) 3.4 gm PO DAILY [facility] Last Admin: 10/02/21 09:54 Dose: Not Given Documented by: GLORIA Non-Admin Reason: Patient Refused Quetiapine Fumarate (Quetiapine Fumarate 25 Mg Tablet) 25 mg PO Q8H PRN PRN Reason: anxiety/restlessness Last Admin: 10/01/21 06:21 Dose: 25 mg Documented by: SHANNAN Sodium Chloride (0.9 % Sodium Chloride Flush 3 Ml Syringe) 3 ml IVFLUSH QSHIFT [facility] Last Admin: 10/02/21 09:49 Dose: Not Given Documented by: GLORIA Non-Admin Reason: No Access Tamsulosin HCl (Tamsulosin Hcl 0.4 Mg Capsule) 0.8 mg PO DAILY [facility] Last Admin: 10/02/21 09:54 Dose: Not Given Documented by: GLORIA Non-Admin Reason: Patient Refused Trazodone HCl (Trazodone Hcl 50 Mg Tablet) 150 mg PO BEDTIME [facility] Last Admin: 10/01/21 19:58 Dose: 150 mg Documented by: LINUS Venlafaxine HCl (Venlafaxine Hcl Er 150 Mg Cap.Er.24h) 150 mg PO DAILY [facility] Last Admin: 10/02/21 09:55 Dose: Not Given Documented by: GLORIA Non-Admin Reason: Patient Refused Labs CBC & Chem 7: 09/30/21 06:13 09/30/21 06:13 Labs: Laboratory Results - last 24 hr 10/02/21 06:15 O2 Saturation 95.0 ABG pH at Pt Temp 7.45 ABG pCO2 at Pt Temp 51 H ABG pO2 at Pt Temp 79 L ABG HCO3 35 H ABG Base Excess (Actual) 10.1 Assessment and Plan (1) Encephalopathy: Status: Acute (2) COPD (chronic obstructive pulmonary disease): Status: Acute (3) Adult failure to thrive: Status: Acute (4) Pneumonia: Status: Acute Plan 71M presented with ams, found to have hypercapneic resp failure, went to ICU for bipap improved and was downgraded to medical floor with improvement in symptoms. 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, continue NDD2 solids, thin liquids folate deficiency folic acid 1mg daily b12 defeciciency given 1000mcg IM once continue oral 1mg daily mood disorder valium 1mg daily wellbutrin effexor chronic back pain surgery specialist appreciated now off suboxone, on oxycontin 10mg bid, and oxy 5mg q6h prn titrate as needed htn Stable BP, continue lisinopril, hctz DVT pptx, Lovenox reason for continued hospitalization: still JAMES encephalopathy awaiting safe dispo Quality Stroke Does the patient have a stroke diagnosis?: No VTE Prior VTE?: No VTE Risk Level:: Medical - moderate - high VTE Device Contraindication: Treatment Not Indicated VTE Drug Contraindication: N/A - Med Ordered
[2021-10-02] MEDS: Gabapentin 100 MG CAPSULE 200 MG PO ×2 (14:52→20:04)
[2021-10-02] MEDS: amLODIPine Besylate 5 MG TABLET PO (14:52)
[2021-10-02] MEDS: Nicotine 21 MG PATCH.TD24 TRANSDERMA (14:53)
--- NOTE | 2021-10-02 15:10 | MHC.CLN ---
F/U POOR INTAKE TODAY. ATE ABOUT 25% OF BREAKFAST, AND DID NOT EAT LUNCH. DIET RX: NDD2 PER NETWORK ADMIN. PT RECEIVING ENSURE CLEAR TID AND ALENA BID (880KCALS, 29G PROTEIN) FOR WOUND HEALING. STAGE II TO COCCYX NOTED 09/30. CONTINUE TO MONITOR PO INTAKE CLOSELY.
--- NOTE | 2021-10-02 15:43 | MHC.CM.PN ---
Addendum entered by Allison Gusman RN 10/02/21 16:22: PER SON/ZEINAB WHO IS HEALTH CARE AGENT SNF REFERRAL EXPANDED TO 40 MILE RADIUS, CM AWAITING BED OFFERS. Addendum entered by Allison Gusman RN 10/02/21 16:05: PER FINANCIAL SERVICES EVEN IF PT DID SIGN UP FOR MEDICARE B IT WOULD NOT GO INTO EFFECT UNTIL NOVEMBER AND PT WOULD RECEIVE A $170 PENALTY FOR NOT SIGNING UP WHEN HE WAS 65. Original Note: CM MET W/RESPIRATORY AND D/T PT NOT HAVING MEDICARE B AND [facility] REQU[facility] SLEEP STUDY PT WILL NOT BE ABLE TO BE DISCHARGED W/A BIPAP, [facility] CONTACTED PT'S SON ZEINAB AT NUMBER ON FILE AND HE REQUESTED A REFERRAL FROM [facility] TO DISCUSS OPTIONS. REFERRALS SENT AT 3:40PM.
--- NOTE | 2021-10-02 16:52 | PC.NURSE ---
VERY DIFFICULT DAY WITH PT BEING VERY CONFUSED, AGITATED AND PARANOID. THIS AM HE WAS VERY RESISTANT WITH CARE. REFUSED MOST MEDICATION. C/O CONSTANT NEED TO VOID. HE WAS VOIDING IN SMALL TO MODERATE AMOUNTS. WAS INC. BLADDER SCAN SHOWED 680. PT REFUSED ST CATH BUT DID CONTINUE VOIDING THROUGHOUT THE DAY LAST SCAN SHOW 218. O2 SAT MID 90'S PT DID NOT REQUIRE O2. PT WAS STARTED ON SEROQUEL
[2021-10-02] MEDS: diazePAM 2 MG TABLET 0.5 MG PO (18:38)
[2021-10-02] MEDS: traZODone HCL 50 MG TABLET 150 MG PO (20:03)
[2021-10-02] MEDS: Atorvastatin Calcium 80 MG TABLET PO (20:04)
[2021-10-02] MEDS: Diclofenac Sodium Delayed Rel 75 MG TABLET.DR PO (20:04)
[2021-10-03] VITALS (8 sets, daily range): BP systolic 101–157; BP diastolic 67–114; PULSE 67–118; RESP 15–22; TEMP 36.3–37.1; O2SAT 69–99
--- NOTE | 2021-10-03 02:17 | PC.NURSE ---
ALERTED TO ROOM BY BEDSIDE SITTER THAT PATIENT IS SAYING HE FEELS ITS HARD TO CATCH MY BREATH . PATIENT SITTING UP IN BED, TALKING, COLOR GOOD, LUNG BOUCHER DIMINISHED TO RIGHT SIDE, NO NOTED COUGH. PT DENIES CHEST PAIN, HEADACHE, LIGHTHEADEDNESS, JAW OR ARM PAIN. PT IS CONFUSED AT BASELINE MOST OF THE TIME. VITALS SHOW BP 151/96-118-20 AND ONLY 69 TO 71% ROOM AIR. HANDS NOTED COOL AND ALSO PT SHOULD BE ON A BIPAP BUT REFUSES TO WEAR AND RESP AWARE OF PT REMOVING IT. FAMILY ALSO INFORMED WOULD NOT WEAR IT PAST 2 NIGHTS ALSO. OXYGEN APPLIED NASAL CANNULA AT 4L/M AND SLOWLY WITH EDUCATION TO TAKE DEEP BREATHS THROUGH NOSE HE WAS ABLE TO REACH 100%. RESPIRATORY THERAPIST ALERTED AND CAME TO VISIT PT, HE APPLIED THE FOREHEAD BAND TO MONITOR HIS SAT LEVELS AND HE WAS 99-100%. O2 DECREASED TO 3 LITERS AND 96%. PT STATED HE FELT BETTER. RESP THERAPIST WILL RETURN TO SEE IF PT WILL AGREE TO BIPAP MASK A LITTLE LATER ON. SITTER AT BEDSIDE AND NOTE SENT VIA [employer] TEXT TO UPDATE HOSPITALIST ON DUTY. HR TO 96 THEN 88, RR18. NO S/SX ACUTE RESP DISTRESS AND WILL MOITOR CLOSELY.
--- NOTE | 2021-10-03 03:27 | PC.RT ---
pt not ivory BIPAP at this time; sat 93% RA
[2021-10-03 07:54] LABS: Anion Gap 15 (12-20); Blood Urea Nitrogen 17 mg/dL (9-16); Calcium 10.3 mg/dL (8.4-10.2); Carbon Dioxide 29 mmol/L (22-29); Chloride 93 mmol/L (96-108); Creatinine Clr Calc Pharmacy 96.2; Estimated Glomerular Filt Rate > 60; Glucose Random 130 mg/dL (60-115); Potassium 4.4 mmol/L (3.3-5.1); Sodium 133 mmol/L (135-145)
[2021-10-03] MEDS: Acetaminophen 325 MG TABLET 975 MG PO ×2 (09:28→21:17)
[2021-10-03] MEDS: amLODIPine Besylate 10 MG TABLET PO (09:29)
[2021-10-03] MEDS: Venlafaxine HCl ER 150 MG CAP.ER.24H PO (09:29)
[2021-10-03] MEDS: Tamsulosin HCL 0.4 MG CAPSULE 0.8 MG PO (09:29)
[2021-10-03] MEDS: Diclofenac Sodium Delayed Rel 75 MG TABLET.DR PO ×2 (09:30→21:16)
[2021-10-03] MEDS: Folic Acid 1 MG TABLET PO (09:30)
[2021-10-03] MEDS: lisinopriL 10 MG, hydroCHLOROthiazide 12.5 MG PO (09:30)
[2021-10-03] MEDS: Cyanocobalamin (Vitamin B-12) 1,000 MCG TABLET 1000 MCG PO (09:31)
[2021-10-03] MEDS: Gabapentin 100 MG CAPSULE 200 MG PO ×3 (09:31→21:18)
[2021-10-03] MEDS: buPROPion HCl XL 300 MG TAB.ER.24H PO (09:31)
[2021-10-03] MEDS: oxyCODONE HCl ER 10 MG TAB.ER.12H PO ×2 (09:31→21:17)
[2021-10-03] MEDS: diazePAM 2 MG TABLET 0.5 MG PO (09:31)
--- NOTE | 2021-10-03 14:04 | HO.PM.IMPN ---
Subjective Subjective Date of Service: 10/03/21 Interval History: seen and evaluated this morning Patient looks more comfortable this morning follows command, sitting in the chair and covered it with bed sheet Refused BiPAP overnight interval history: No reported other events Review of Systems No fever, chills but complaining of generalized pain No chest pain, palpitation No shortness of breath or coughing No abdominal pain, nausea or vomiting No urinary symptoms No any rash or wounds Physical Exam Vital Signs: Vital Signs: Last Vital Signs Temp 98.7 F 10/03/21 11:31 Pulse 68 10/03/21 11:31 Resp 16 10/03/21 11:31 BP 134/92 H 10/03/21 11:31 Pulse Ox 99 10/03/21 11:31 BMI result Body Mass Index 18.8 Const: Other: General: Sitting comfortably, no acute distress, more cooperative Neck no JVD Resp: Clear to auscultation, no respiratory distress CVS: S1,S2,RRR GI: soft, non tender, bowel sounds audible, non distended Neuro:? motor grossly intact, alert Psych: appropriate affect, impaired insight, following commands Skinstage II coccyx ulcer? Objective Data Active Medications Acetaminophen (Acetaminophen 325 Mg Tablet) 650 mg PO Q6H PRN PRN Reason: Pain, Mild (Pain Scale 1-3) Last Admin: 10/01/21 06:21 Dose: 650 mg Documented by: SHANNAN Acetaminophen (Acetaminophen 325 Mg Tablet) 975 mg PO BID [facility] Last Admin: 10/03/21 09:28 Dose: 975 mg Documented by: FUAD Amlodipine Besylate (Amlodipine Besylate 10 Mg Tablet) 10 mg PO DAILY [facility]; Protocol Last Admin: 10/03/21 09:29 Dose: 10 mg Documented by: FUAD Atorvastatin Calcium (Atorvastatin Calcium 80 Mg Tablet) 80 mg PO BEDTIME [facility] Last Admin: 10/02/21 20:04 Dose: 80 mg Documented by: LINUS Bupropion HCl (Bupropion Hcl Xl 300 Mg Tab.Er.24h) 300 mg PO DAILY [facility] Last Admin: 10/03/21 09:31 Dose: 300 mg Documented by: FUAD Lisinopril 10 mg/ (Hydrochlorothiazide 12.5 mg) 0 mg PO DAILY [facility] Last Admin: 10/03/21 09:30 Dose: 1 each Documented by: FUAD Cyanocobalamin (Cyanocobalamin (Vitamin B-12) 1,000 Mcg Tablet) 1,000 mcg PO DAILY [facility] Last Admin: 10/03/21 09:31 Dose: 1,000 mcg Documented by: FUAD Diazepam (Diazepam 2 Mg Tablet) 1 mg PO BID [facility] Diclofenac Sodium (Diclofenac Sodium Delayed Rel 75 Mg Tablet.Dr) 75 mg PO BID [facility] Last Admin: 10/03/21 09:30 Dose: 75 mg Documented by: FUAD Enoxaparin Sodium (Enoxaparin Sodium 40 Mg/0.4 Ml Syringe) 40 mg SUBCUT Q24H [facility] Last Admin: 10/03/21 09:32 Dose: Not Given Documented by: FUAD Non-Admin Reason: Patient Refused Folic Acid (Folic Acid 1 Mg Tablet) 1 mg PO DAILY [facility] Last Admin: 10/03/21 09:30 Dose: 1 mg Documented by: FUAD Gabapentin (Gabapentin 100 Mg Capsule) 200 mg PO TID [facility] Last Admin: 10/03/21 09:31 Dose: 200 mg Documented by: FUAD Nicotine (Nicotine 21 Mg Patch.Td24) 21 mg TRANSDERMA DAILY [facility] Last Admin: 10/02/21 14:53 Dose: 21 mg Documented by: GLORIA Ondansetron HCl (Ondansetron Hcl 4 Mg/2 Ml Vial) 4 mg IVPUSH Q8H PRN PRN Reason: Nausea and Vomiting Oxycodone HCl (Oxycodone Hcl Er 10 Mg Tab.Er.12h) 10 mg PO BID [facility] Last Admin: 10/03/21 09:31 Dose: 10 mg Documented by: FUAD Oxycodone HCl (Oxycodone Hcl Immed Release 5 Mg Tablet) 5 mg PO Q6H PRN PRN Reason: moderate pain Last Admin: 10/02/21 15:34 Dose: 5 mg Documented by: LINUS Psyllium Hydrophilic Mucilloid (Psyllium Seed 3.4 Gm Powd.Pack) 3.4 gm PO DAILY [facility] Last Admin: 10/03/21 09:40 Dose: Not Given Documented by: FUAD Non-Admin Reason: Patient Refused Quetiapine Fumarate (Quetiapine Fumarate 25 Mg Tablet) 25 mg PO Q8H PRN PRN Reason: anxiety/restlessness Last Admin: 10/02/21 15:34 Dose: 25 mg Documented by: LINUS Sodium Chloride (0.9 % Sodium Chloride Flush 3 Ml Syringe) 3 ml IVFLUSH QSHIFT [facility] Last Admin: 10/03/21 09:28 Dose: Not Given Documented by: FUAD Non-Admin Reason: No Access Tamsulosin HCl (Tamsulosin Hcl 0.4 Mg Capsule) 0.8 mg PO DAILY [facility] Last Admin: 10/03/21 09:29 Dose: 0.8 mg Documented by: FUAD Trazodone HCl (Trazodone Hcl 50 Mg Tablet) 150 mg PO BEDTIME [facility] Last Admin: 10/02/21 20:03 Dose: 150 mg Documented by: LINUS Venlafaxine HCl (Venlafaxine Hcl Er 150 Mg Cap.Er.24h) 150 mg PO DAILY [facility] Last Admin: 10/03/21 09:29 Dose: 150 mg Documented by: FUAD Labs CBC & Chem 7: 09/30/21 06:13 10/03/21 07:16 Labs: Laboratory Results - last 24 hr 10/03/21 07:16 Anion Gap 15 Estim Creat Clear Calc 96.2 Estimated GFR > 60 Random Glucose 130 H Calcium 10.3 H D Assessment and Plan (1) Encephalopathy: Status: Acute (2) Weakness: Status: Acute (3) Adult failure to thrive: Status: Acute Plan 71M presented with ams, found to have hypercapneic resp failure, went to ICU for bipap improved and was downgraded to medical floor with improvement in symptoms. 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
--- NOTE | 2021-10-03 14:29 | MHC.CM.PN ---
Addendum entered by Rehana Ordonez 10/04/21 12:27: CALL FROM DR MOE'S RN, SHWETHA ([phone]) SHWETHA ASKS FOR DOCUMENTATION OF PATIENT'S BIPAP NEEDS BE FAXED TO [phone], NOW DONE. NA WILLING TO OFFER RN SKILLS. THIS PORTABLE PINCH RIVETER WAITING FOR CONFIRMATION THAT BIPAP CAN BE SECURED FOR DC TODAY PATIENT ALSO HAD A SLEEP STUDY IN DECEMBER OF 2020 IN [place] WELL IN THE HOME ON MAY 09 2021. Original Note: CALL TO DR MOE'S OFFICE AT [facility] [phone] OPTION 2 CALL RECEIVED BY LAURA, WHO IS FAMILIAR WITH FAMILY AND RECENT CALLS TO THE [place] WITH REQUESTS FOR SERVICES T/W CONTACT NUMBER LEFT FOR DR MOE'S RN TO CALL BACK. LAURA ASKS THAT THIS PORTABLE PINCH RIVETER FAX CLINICALS TO THE [facility] AT [phone] SHE STATED THAT SHE TOLD THIS SISTER, ALEXANDRA THAT THIS INFORMATION WAS NEEDED BUT AGREED THAT IT WAS NOT REQUESTED FROM [facility] DIRECTLY. T/W ASKED IF INDEED A SLEEP STUDY WAS PERFORMED IN THE HOME PREVIOUSLY, AND DID THE [facility]PL[facility] WITH [facility]AP. (SON ANABELA TOLD [facility] FINANCIAL DEPT THIS INFORMATION) LAURA IS UNABLE TO VERIFY THIS INFORMATION BUT WILL HAVE AN OFFICE CONTACT CALL THIS PORTABLE PINCH RIVETER BACK. CASE MANAGEMENT TO FOLLOW UP AT TIME OF THIS NOTE, NO BED OFFERS, AND PATIENT DOES NOT HAVE MEDICARE PART B
[2021-10-03] MEDS: oxyCODONE HCl Immed Release 5 MG TABLET PO (15:51)
--- NOTE | 2021-10-03 17:05 | MHC.SL.SWA ---
Speech Pathologist Impression: Risk of Aspiration Due to: History of Pneumonia Dysphasia Diet Status: Liquid Consistency and Strategies for Safe Swallow: Liquid Intake Recommendation: Thin Liquid Intake Strategies: Small Sips No Straws Solid Food Consistency: Dietary Recommendations: Grnd/Mech Altered (NDD2) Additional Modifications to Solid Foods: Add sauces and gravies. Oral Medication Intake: Crushed with Puree Please contact the pharmacy regarding appropriate crushable or liquid drug formulations that are available whenever modified delivery is recommended. Compensatory Strategies and Precautions to be Taken for Safe Swallow: Sitting Upright (90 deg) No Straw Liquids from Cup Liquids from Spoon Small Bites and Sips Alternate Liquids/Solids Rate of Ingestion Change Supervision While Eating and Drinking for Safe Swallow: Total Supervision (1:1) Foods to Avoid: Tough, difficult to chew solids; sticky consistencies Swallowing Recommended Treatments: Compens. Strategy Educat. Recommendation for Speech: Inpatient Speech Therapy Comment: Pt was seen this a.m. to evaluate toleration of recommended diet of Ground/Mech/Alt w/ thin liquids. Pt was awake and alert, appeared at times mildly confused. Pt and nurse reported that he did not eat anything at breakfast this a.m. because he did not have an appetite, and had not slept well the night before. He accepted tsps and controlled cup sips of ice water this a.m. w/ good oral control and transit of the bolus noted, swallow trigger noted, w/mildly reduced elevation of the larynx on swallow. Pt c/o'd re: taste of the water due to the Styrofoam cup. Pt was offered a variety of foods (puree, chicken salad sandwich) to assess management of food textures, but he declined due to lack of appetite/desire to eat. Pt is tolerating thin liquids well by controlled cup sip or TSP. Based on the BSE yesterday, recommend continue on GROUND/MECH/ALT w/ THIN LIQUIDS w/ PILLS CRUSHED in PUREE. Frequency/Duration: M-F Date Range for Service Req: Timeline to reassess: Electrical Manager Clinican/Clinical Fellow: No Supervisory Statement: I have reviewed and agree with the student/clinical fellow's documentation: N/A Speech Language Pathologist: Allison Bosch M.A., CCC-YOUTH COURT JUDGE
[2021-10-03] MEDS: traZODone HCL 50 MG TABLET 150 MG PO (21:17)
[2021-10-03] MEDS: Atorvastatin Calcium 80 MG TABLET PO (21:18)
[2021-10-03] MEDS: diazePAM 2 MG TABLET 1 MG PO (21:18)
[2021-10-04 03:58] VITALS: BP 138/89; PULSE 101; RESP 17; TEMP 36.6; O2SAT 94
[2021-10-04 08:00] VITALS: BP 153/86; PULSE 61; RESP 18; TEMP 36.1; O2SAT 98
--- NOTE | 2021-10-04 08:32 | PM.EVENT ---
Event Note Date of Service: 10/04/21 Event Note: The patient requires Bipap machine with setting of 15/5 at home for treatment of recurrent episodes of hypercapnic respiratory failure requiring hospital admissions.
[2021-10-04 09:04] LABS: Anion Gap 12 (12-20); Blood Urea Nitrogen 28 mg/dL (9-16); Calcium 9.6 mg/dL (8.4-10.2); Carbon Dioxide 32 mmol/L (22-29); Chloride 95 mmol/L (96-108); Creatinine Clr Calc Pharmacy 101.1; Estimated Glomerular Filt Rate > 60; Glucose Random 107 mg/dL (60-115); Potassium 3.8 mmol/L (3.3-5.1); Sodium 135 mmol/L (135-145)
[2021-10-04] MEDS: Cyanocobalamin (Vitamin B-12) 1,000 MCG TABLET 1000 MCG PO (09:08)
[2021-10-04] MEDS: Venlafaxine HCl ER 150 MG CAP.ER.24H PO (09:08)
[2021-10-04] MEDS: Diclofenac Sodium Delayed Rel 75 MG TABLET.DR PO ×2 (09:08→20:23)
[2021-10-04] MEDS: lisinopriL 10 MG, hydroCHLOROthiazide 12.5 MG PO (09:08)
[2021-10-04] MEDS: Folic Acid 1 MG TABLET PO (09:08)
[2021-10-04] MEDS: buPROPion HCl XL 300 MG TAB.ER.24H PO (09:08)
[2021-10-04] MEDS: amLODIPine Besylate 10 MG TABLET PO (09:11)
[2021-10-04] MEDS: Acetaminophen 325 MG TABLET 975 MG PO ×2 (09:11→20:20)
[2021-10-04] MEDS: Gabapentin 100 MG CAPSULE 200 MG PO ×3 (09:11→20:24)
[2021-10-04] MEDS: diazePAM 2 MG TABLET 1 MG PO ×2 (09:12→20:24)
[2021-10-04] MEDS: Tamsulosin HCL 0.4 MG CAPSULE 0.8 MG PO (09:12)
[2021-10-04] MEDS: Enoxaparin Sodium 40 MG/0.4 ML SYRINGE SUBCUT (09:13)
[2021-10-04] MEDS: Nicotine 21 MG PATCH.TD24 TRANSDERMA (09:13)
[2021-10-04] MEDS: oxyCODONE HCl ER 10 MG TAB.ER.12H PO ×2 (09:13→20:24)
--- NOTE | 2021-10-04 11:20 | MHC.SLORD ---
Speech Language Pathology Order Status: BLEACH TESTER interviewed patient and sitter to discuss swallow safety and toleration. Some issues with scrambled eggs as they were hard to chew. I shared that this appears with many of the patients as being able to break down the eggs and create a cohesive bolus may be difficult. It appears to be an artifact for the diet offered and we will continue with ground for purposes of making the food items palatable. Continue to encourage thin liquids for hydration and general wellness.
[2021-10-04] MEDS: Finasteride 5 MG TABLET PO (11:28)
[2021-10-04 11:37] VITALS: BP 115/81; PULSE 62; RESP 18; TEMP 36.4; O2SAT 97
[2021-10-04] MEDS: QUEtiapine Fumarate 25 MG TABLET PO ×2 (12:47→22:21)
--- NOTE | 2021-10-04 13:18 | MHC.CM.PN ---
Addendum entered by Rehana Ordonez 10/04/21 14:20: NO SNF BED OFFERS OF THIS NOTE Original Note: THIS DIGITAL CONTENT COORDINATOR CALLED HCP/SON ZEINAB AT [phone] (HOUSE PHONE) ZEINAB IS NOW AWARE THAT [facility] IS OFFERING SERVICES IN THE HOME AND CASE MANAGEMENT IS WAITING FOR [facility] (RN, SHWETHA) TO CALL WITH INFORMATION STATING ABILITY TO PROVIDE PATIENT WITH BIPAP IN THE HOME ONCE THIS OCCURS, PATIENT WILL BE DISCHARGED. ZEINAB IN AGREEMENT WITH PLAN. IMM 5/6 IN CHART
--- NOTE | 2021-10-04 13:49 | MHC.CLN ---
F/U PT WITH VERY POOR PO INTAKE DIET UPGRADED TO GRD M/S PER COIL MACHINE OPERATOR RECOMMEND CHANGING SUPPLEMENT TO ENSURE ENLIVE TID TO INCREASE KCALS SUPP TO PROVIDE 1050KCALS, 60G PROTEIN CONTINUE TO MONITOR PO INTAKE CLOSELY
--- NOTE | 2021-10-04 13:58 | P.PNIM_ITS ---
Subjective Subjective Date of Service: 10/04/21 Interval History: seen and evaluated this morning Patient looks more comfortable and cooperative follows command, laying in his bed and speaking Used BiPAP overnight interval history: No reported other events Review of Systems No fever, chills but complaining of generalized pain No chest pain, palpitation No shortness of breath or coughing No abdominal pain, nausea or vomiting No urinary symptoms No any rash or wounds Physical Exam Vital Signs: Vital Signs: Last Vital Signs Temp 97.6 F 10/04/21 11:37 Pulse 62 10/04/21 11:37 Resp 18 10/04/21 11:37 BP 115/81 10/04/21 11:37 Pulse Ox 97 10/04/21 11:37 BMI result Body Mass Index 18.8 Const: Other: General: Sitting comfortably, no acute distress, more cooperative Neck no JVD Resp: Clear to auscultation, no respiratory distress CVS: S1,S2,RRR GI: soft, non tender, bowel sounds audible, non distended Neuro:? motor grossly intact, alert Psych: appropriate affect, impaired insight, following commands Skinstage II coccyx ulcer? Objective Data Active Medications Acetaminophen (Acetaminophen 325 Mg Tablet) 650 mg PO Q6H PRN PRN Reason: Pain, Mild (Pain Scale 1-3) Last Admin: 10/01/21 06:21 Dose: 650 mg Documented by: SHANNAN Acetaminophen (Acetaminophen 325 Mg Tablet) 975 mg PO BID [facility] Last Admin: 10/04/21 09:11 Dose: 975 mg Documented by: ELLIOT Amlodipine Besylate (Amlodipine Besylate 10 Mg Tablet) 10 mg PO DAILY [facility]; Protocol Last Admin: 10/04/21 09:11 Dose: 10 mg Documented by: ELLIOT Atorvastatin Calcium (Atorvastatin Calcium 80 Mg Tablet) 80 mg PO BEDTIME [facility] Last Admin: 10/03/21 21:18 Dose: 80 mg Documented by: ODRISDany Bupropion HCl (Bupropion Hcl Xl 300 Mg Tab.Er.24h) 300 mg PO DAILY [facility] Last Admin: 10/04/21 09:08 Dose: 300 mg Documented by: ELLIOT Lisinopril 10 mg/ (Hydrochlorothiazide 12.5 mg) 0 mg PO DAILY [facility] Last Admin: 10/04/21 09:08 Dose: 10 each Documented by: ELLIOT Cyanocobalamin (Cyanocobalamin (Vitamin B-12) 1,000 Mcg Tablet) 1,000 mcg PO DAILY [facility] Last Admin: 10/04/21 09:08 Dose: 1,000 mcg Documented by: ELLIOT Diazepam (Diazepam 2 Mg Tablet) 1 mg PO BID [facility] Last Admin: 10/04/21 09:12 Dose: 1 mg Documented by: ELLIOT Diclofenac Sodium (Diclofenac Sodium Delayed Rel 75 Mg Tablet.Dr) 75 mg PO BID [facility] Last Admin: 10/04/21 09:08 Dose: 75 mg Documented by: ELLIOT Enoxaparin Sodium (Enoxaparin Sodium 40 Mg/0.4 Ml Syringe) 40 mg SUBCUT Q24H [facility] Last Admin: 10/04/21 09:13 Dose: 40 mg Documented by: ELLIOT Finasteride (Finasteride 5 Mg Tablet) 5 mg PO DAILY [facility] Last Admin: 10/04/21 11:28 Dose: 5 mg Documented by: ELLIOT Folic Acid (Folic Acid 1 Mg Tablet) 1 mg PO DAILY [facility] Last Admin: 10/04/21 09:08 Dose: 1 mg Documented by: ELLIOT Gabapentin (Gabapentin 100 Mg Capsule) 200 mg PO TID [facility] Last Admin: 10/04/21 09:11 Dose: 200 mg Documented by: ELLIOT Nicotine (Nicotine 21 Mg Patch.Td24) 21 mg TRANSDERMA DAILY [facility] Last Admin: 10/04/21 09:13 Dose: 21 mg Documented by: ELLIOT Ondansetron HCl (Ondansetron Hcl 4 Mg/2 Ml Vial) 4 mg IVPUSH Q8H PRN PRN Reason: Nausea and Vomiting Oxycodone HCl (Oxycodone Hcl Er 10 Mg Tab.Er.12h) 10 mg PO BID [facility] Last Admin: 10/04/21 09:13 Dose: 10 mg Documented by: ELLIOT Oxycodone HCl (Oxycodone Hcl Immed Release 5 Mg Tablet) 5 mg PO Q6H PRN PRN Reason: moderate pain Last Admin: 10/03/21 15:51 Dose: 5 mg Documented by: FUAD Psyllium Hydrophilic Mucilloid (Psyllium Seed 3.4 Gm Powd.Pack) 3.4 gm PO DAILY [facility] Last Admin: 10/04/21 09:13 Dose: 3.4 gm Documented by: ELLIOT Quetiapine Fumarate (Quetiapine Fumarate 25 Mg Tablet) 25 mg PO Q8H PRN PRN Reason: anxiety/restlessness Last Admin: 10/04/21 12:47 Dose: 25 mg Documented by: ELLIOT Sodium Chloride (0.9 % Sodium Chloride Flush 3 Ml Syringe) 3 ml IVFLUSH QSHIFT [facility] Last Admin: 10/04/21 09:10 Dose: Not Given Documented by: ELLIOT Non-Admin Reason: No Access Tamsulosin HCl (Tamsulosin Hcl 0.4 Mg Capsule) 0.8 mg PO DAILY [facility] Last Admin: 10/04/21 09:12 Dose: 0.8 mg Documented by: ELLIOT Trazodone HCl (Trazodone Hcl 50 Mg Tablet) 150 mg PO BEDTIME [facility] Last Admin: 10/03/21 21:17 Dose: 150 mg Documented by: BUSHRA Venlafaxine HCl (Venlafaxine Hcl Er 150 Mg Cap.Er.24h) 150 mg PO DAILY [facility] Last Admin: 10/04/21 09:08 Dose: 150 mg Documented by: ELLIOT Labs CBC & Chem 7: 09/30/21 06:13 10/04/21 08:04 Labs: Laboratory Results - last 24 hr 10/04/21 08:04 Anion Gap 12 Estim Creat Clear Calc 101.1 Estimated GFR > 60 Random Glucose 107 Calcium 9.6 D Assessment and Plan (1) Adult failure to thrive: Status: Acute (2) Encephalopathy: Status: Acute (3) BPH w urinary obs/LUTS: Status: Acute Plan 71M presented with ams, found to have hypercapneic resp failure, went to ICU for bipap improved and was downgraded to medical floor with improvement in symptoms. Metabolic encephalopathy , multifactorial due to acute hypoxic and hypercapnic respiratory failure due to COPD with acute exacerbation improving Continue BiPAP at night (13/10), refused it overnight vbg with mild hypercapnea, encourage bipap with plan to discharge on BiPAP machi ne or sleep study if possible refused abg follow up moderate protein calorie malnutrition encourage po, ensure BPH Started tamsulosin and finasteride bladder scan showed 300 cc continue to monitor for the need of Roque catheter as the patient removed the previous one by himself per his sister stage II coccyx ulcer avoid pressure local care Tobacco use disorder continue nicotine patch 21 mg daily aspiration pneumonia completed therapy INSPECTOR OPTICAL INSTRUMENT appreciated, continue NDD2 solids, thin liquids folate deficiency folic acid 1mg daily b12 defeciciency given 1000mcg IM once continue oral 1mg daily mood disorder valium 1mg b.i.d. 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 Quality Stroke Does the patient have a stroke diagnosis?: No VTE Prior VTE?: No VTE Risk Level:: Medical - moderate - high VTE Device Contraindication: Treatment Not Indicated VTE Drug Contraindication: N/A - Med Ordered
--- NOTE | 2021-10-04 14:27 | MHC.CM.PN ---
Addendum entered by Rehana Ordonez 10/04/21 15:15: [facility] RN [facility] ([phone]) says that [facility] is supposed to go to the patient's home with a bipap and do a teaching. Call to [facility] and agency states this is not the case, and that they do not teach bipap in the home. [facility] made aware that patient will not DC home today and to continue to follow. [facility] director of speech pathology asks for prior sleep studies and agency that provided first CPAP machine in the home. Case management contacted Manjit again to request documentation. Addendum entered by Rehana Ordonez 10/04/21 14:57: CALL TO ZEINAB @ [phone] 2ND REQUEST FOR HCP TO BE BROUGHT IN [facility] WILL TELL HIS AUNT TO BRING IT WITH HER TODAY [facility] FOLLOWING BUT CANNOT OFFER TODAY Original Note: REFERRALS PLACED TO [facility] IN THE EVENT THAT THEY CAN OFFER A BED
[2021-10-04] MEDS: Acetaminophen 325 MG TABLET 650 MG PO (14:45)
[2021-10-04 15:29] VITALS: BP 110/72; PULSE 97; RESP 18; TEMP 37.1; O2SAT 96
--- NOTE | 2021-10-04 16:18 | MHC.CM.PN ---
Addendum entered by Allison Gusman RN 10/04/21 16:24: MELLISA ALSO REPORTED THAT THEY HAD DISCUSSED PALLIATIVE CARE W/PT AND FAMILY HOWEVER PT DECLINED. Original Note: CHEY RECEIVED A CALL FROM MELLISA THE RN FOR PT'S [facility], MELLISA REPORTED THAT [facility] ANOTHER [facility] NURSE HAS CALLED, EMAILED AND TEXTED RESPIRATORY AND THEY HAVE NOT RETURNED HIS MESSAGES, MELLISA ALSO REPORTS THAT IT IS NOT LIKELY THAT THEY WILL BE ABLE GET PT A BIPAP DELIVERED VERY QUICKLY DUE TO BACKLOG DUE TO COVID. CM REQUESTED COPY OF SLEEP STUDY FROM CT HOWEVER SYSTEM WAS DOWN, CM WILL FOLLOW UP W/MELLISA ON Thursday10/07/21.
--- NOTE | 2021-10-04 16:32 | MHC.CM.PN ---
PT'S FAMILY HAS STILL NOT BROUGHT IN COPY OF HCP, NO COPY FOUND IN PREVIOUS RECORDS, PT HAD TKA W/DR [facility] IN 2016 AND PCP LISTED WAS BRENT KELLY, CM WILL CONTACT PCP'S ON THURSDAY IF [facility] [place]ORD, CM ATTEMPTED TO CONTACT [facility]DS AT 4:27PM W/NO ANSWER, CM WILL REATTEMPT TO 10/05/21.
[2021-10-04 19:48] VITALS: BP 110/80; PULSE 100; RESP 18; TEMP 36.6; O2SAT 98
[2021-10-04] MEDS: Atorvastatin Calcium 80 MG TABLET PO (20:23)
[2021-10-04] MEDS: traZODone HCL 50 MG TABLET 150 MG PO (20:24)
[2021-10-04 23:24] VITALS: BP 125/72; PULSE 57; RESP 16; TEMP 36.4; O2SAT 96
[2021-10-05] VITALS (9 sets, daily range): BP systolic 128–158; BP diastolic 85–92; PULSE 58–93; RESP 12–20; TEMP 36.2–36.9; O2SAT 95–98
[2021-10-05] MEDS: Acetaminophen 325 MG TABLET 975 MG PO ×2 (08:09→21:01)
[2021-10-05] MEDS: Finasteride 5 MG TABLET PO (08:09)
[2021-10-05] MEDS: Gabapentin 100 MG CAPSULE 200 MG PO ×3 (08:11→21:02)
[2021-10-05] MEDS: lisinopriL 10 MG, hydroCHLOROthiazide 12.5 MG PO (08:11)
[2021-10-05] MEDS: Cyanocobalamin (Vitamin B-12) 1,000 MCG TABLET 1000 MCG PO (08:13)
[2021-10-05] MEDS: diazePAM 2 MG TABLET 1 MG PO ×2 (08:13→21:01)
[2021-10-05] MEDS: Tamsulosin HCL 0.4 MG CAPSULE 0.8 MG PO (08:13)
[2021-10-05] MEDS: amLODIPine Besylate 10 MG TABLET PO (08:13)
[2021-10-05] MEDS: buPROPion HCl XL 300 MG TAB.ER.24H PO (08:13)
[2021-10-05] MEDS: Folic Acid 1 MG TABLET PO (08:13)
[2021-10-05] MEDS: Venlafaxine HCl ER 150 MG CAP.ER.24H PO (08:14)
[2021-10-05] MEDS: Diclofenac Sodium Delayed Rel 75 MG TABLET.DR PO ×2 (08:14→21:02)
--- NOTE | 2021-10-05 09:48 | MHC.CM.PN ---
COPY OF PT'S HCP DROPPED OFF LAST NIGHT, COPY UPLOADED TO [employer] AND PLACED IN CHART. HEALTH CARE AGENT: ZEINAB Sommers [phone], H [phone] ALTERNATE: ALEXANDRA WILDER [phone]
[2021-10-05] MEDS: Nicotine 21 MG PATCH.TD24 TRANSDERMA (10:44)
[2021-10-05] MEDS: Enoxaparin Sodium 40 MG/0.4 ML SYRINGE SUBCUT (10:44)
--- NOTE | 2021-10-05 14:23 | P.PNIM_ITS ---
Subjective Subjective Date of Service: 10/05/21 Interval History: seen and evaluated this morning Patient looks more comfortable and cooperative follows command, laying in his bed and speaking Used BiPAP overnight interval history: No reported other events Review of Systems No fever, chills but complaining of generalized pain No chest pain, palpitation No shortness of breath or coughing No abdominal pain, nausea or vomiting No urinary symptoms No any rash or wounds Physical Exam Vital Signs: Vital Signs: Last Vital Signs Temp 98.4 F 10/05/21 12:12 Pulse 93 10/05/21 12:12 Resp 20 10/05/21 12:12 BP 128/85 10/05/21 12:12 Pulse Ox 95 10/05/21 12:12 BMI result Body Mass Index 18.8 Const: Other: General: Sitting comfortably, no acute distress, more cooperative Neck no JVD Resp: Clear to auscultation, no respiratory distress CVS: S1,S2,RRR GI: soft, non tender, bowel sounds audible, non distended Neuro:? motor grossly intact, alert Psych: appropriate affect, impaired insight, following commands Skinstage II coccyx ulcer? Objective Data Active Medications Acetaminophen (Acetaminophen 325 Mg Tablet) 650 mg PO Q6H PRN PRN Reason: Pain, Mild (Pain Scale 1-3) Last Admin: 10/04/21 14:45 Dose: 650 mg Documented by: ELLIOT Acetaminophen (Acetaminophen 325 Mg Tablet) 975 mg PO BID [facility] Last Admin: 10/05/21 08:09 Dose: 975 mg Documented by: PAL Amlodipine Besylate (Amlodipine Besylate 10 Mg Tablet) 10 mg PO DAILY [facility]; Protocol Last Admin: 10/05/21 08:13 Dose: 10 mg Documented by: PAL Atorvastatin Calcium (Atorvastatin Calcium 80 Mg Tablet) 80 mg PO BEDTIME [facility] Last Admin: 10/04/21 20:23 Dose: 80 mg Documented by: UBALDO Bupropion HCl (Bupropion Hcl Xl 300 Mg Tab.Er.24h) 300 mg PO DAILY [facility] Last Admin: 10/05/21 08:13 Dose: 300 mg Documented by: PAL Lisinopril 10 mg/ (Hydrochlorothiazide 12.5 mg) 0 mg PO DAILY [facility] Last Admin: 10/05/21 08:11 Dose: 1 each Documented by: PAL Cyanocobalamin (Cyanocobalamin (Vitamin B-12) 1,000 Mcg Tablet) 1,000 mcg PO DAILY [facility] Last Admin: 10/05/21 08:13 Dose: 1,000 mcg Documented by: PAL Diazepam (Diazepam 2 Mg Tablet) 1 mg PO BID [facility] Last Admin: 10/05/21 08:13 Dose: 1 mg Documented by: PAL Diclofenac Sodium (Diclofenac Sodium Delayed Rel 75 Mg Tablet.Dr) 75 mg PO BID [facility] Last Admin: 10/05/21 08:14 Dose: 75 mg Documented by: PAL Enoxaparin Sodium (Enoxaparin Sodium 40 Mg/0.4 Ml Syringe) 40 mg SUBCUT Q24H [facility] Last Admin: 10/05/21 10:44 Dose: 40 mg Documented by: PAL Finasteride (Finasteride 5 Mg Tablet) 5 mg PO DAILY [facility] Last Admin: 10/05/21 08:09 Dose: 5 mg Documented by: PAL Folic Acid (Folic Acid 1 Mg Tablet) 1 mg PO DAILY [facility] Last Admin: 10/05/21 08:13 Dose: 1 mg Documented by: PAL Gabapentin (Gabapentin 100 Mg Capsule) 200 mg PO TID [facility] Last Admin: 10/05/21 08:11 Dose: 200 mg Documented by: PAL Nicotine (Nicotine 21 Mg Patch.Td24) 21 mg TRANSDERMA DAILY [facility] Last Admin: 10/05/21 10:44 Dose: 21 mg Documented by: PAL Ondansetron HCl (Ondansetron Hcl 4 Mg/2 Ml Vial) 4 mg IVPUSH Q8H PRN PRN Reason: Nausea and Vomiting Psyllium Hydrophilic Mucilloid (Psyllium Seed 3.4 Gm Powd.Pack) 3.4 gm PO DAILY [facility] Last Admin: 10/05/21 08:08 Dose: 3.4 gm Documented by: PAL Quetiapine Fumarate (Quetiapine Fumarate 25 Mg Tablet) 25 mg PO Q8H PRN PRN Reason: anxiety/restlessness Last Admin: 10/04/21 22:21 Dose: 25 mg Documented by: UBALDO Sodium Chloride (0.9 % Sodium Chloride Flush 3 Ml Syringe) 3 ml IVFLUSH QSHIFT [facility] Last Admin: 10/05/21 08:17 Dose: Not Given Documented by: PAL Non-Admin Reason: no IV access Tamsulosin HCl (Tamsulosin Hcl 0.4 Mg Capsule) 0.8 mg PO DAILY [facility] Last Admin: 10/05/21 08:13 Dose: 0.8 mg Documented by: PAL Trazodone HCl (Trazodone Hcl 50 Mg Tablet) 150 mg PO BEDTIME [facility] Last Admin: 10/04/21 20:24 Dose: 150 mg Documented by: UBALDO Venlafaxine HCl (Venlafaxine Hcl Er 150 Mg Cap.Er.24h) 150 mg PO DAILY [facility] Last Admin: 10/05/21 08:14 Dose: 150 mg Documented by: PAL Labs CBC & Chem 7: 09/30/21 06:13 10/04/21 08:04 Assessment and Plan (1) COPD (chronic obstructive pulmonary disease): Status: Acute (2) Encephalopathy: Status: Acute Plan 71M presented with ams, found to have hypercapneic resp failure, went to ICU for bipap improved and was downgraded to medical floor with improvement in symptoms. Metabolic encephalopathy , multifactorial due to acute hypoxic and hypercapnic respiratory failure due to COPD with acute exacerbation improved, around his baseline Continue BiPAP at night (13/10), refused it overnight vbg with mild hypercapnea, encourage bipap with plan to discharge on BiPAP machine or sleep study if possible moderate protein calorie malnutrition encourage po, ensure BPH Started tamsulosin and finasteride bladder scan showed 300 cc continue to monitor for the need of Roque catheter as the patient removed the previous one by himself per his sister stage II coccyx ulcer avoid pressure local care Tobacco use disorder continue nicotine patch 21 mg daily aspiration pneumonia completed therapy of antibiotics EXTRUSION 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 Quality Stroke Does the patient have a stroke diagnosis?: No VTE Prior VTE?: No VTE Risk Level:: Medical - moderate - high VTE Device Contraindication: Treatment Not Indicated VTE Drug Contraindication: N/A - Med Ordered
[2021-10-05] MEDS: Atorvastatin Calcium 80 MG TABLET PO (21:01)
[2021-10-05] MEDS: traZODone HCL 50 MG TABLET 150 MG PO (21:03)
[2021-10-05] MEDS: QUEtiapine Fumarate 25 MG TABLET PO (21:05)
[2021-10-06 03:23] VITALS: BP 161/79; PULSE 69; RESP 18; TEMP 36.1; O2SAT 96
[2021-10-06 07:37] VITALS: BP 132/92; PULSE 100; RESP 20; TEMP 37.2; O2SAT 99
[2021-10-06] MEDS: diazePAM 2 MG TABLET 1 MG PO ×2 (08:11→21:15)
[2021-10-06] MEDS: Gabapentin 100 MG CAPSULE 200 MG PO ×3 (08:12→21:14)
[2021-10-06] MEDS: Venlafaxine HCl ER 150 MG CAP.ER.24H PO (08:12)
[2021-10-06] MEDS: Finasteride 5 MG TABLET PO (08:12)
[2021-10-06] MEDS: Cyanocobalamin (Vitamin B-12) 1,000 MCG TABLET 1000 MCG PO (08:12)
[2021-10-06] MEDS: Folic Acid 1 MG TABLET PO (08:12)
[2021-10-06] MEDS: Diclofenac Sodium Delayed Rel 75 MG TABLET.DR PO (08:12)
[2021-10-06] MEDS: Acetaminophen 325 MG TABLET 975 MG PO ×2 (08:12→21:14)
[2021-10-06] MEDS: amLODIPine Besylate 10 MG TABLET PO (08:12)
[2021-10-06] MEDS: Nicotine 21 MG PATCH.TD24 TRANSDERMA (08:13)
[2021-10-06] MEDS: lisinopriL 10 MG, hydroCHLOROthiazide 12.5 MG PO (08:13)
[2021-10-06] MEDS: Tamsulosin HCL 0.4 MG CAPSULE 0.8 MG PO (08:13)
[2021-10-06] MEDS: buPROPion HCl XL 300 MG TAB.ER.24H PO (08:13)
[2021-10-06 11:26] VITALS: BP 130/81; PULSE 72; RESP 20; TEMP 36.9; O2SAT 99
[2021-10-06] MEDS: Enoxaparin Sodium 40 MG/0.4 ML SYRINGE SUBCUT (11:27)
[2021-10-06] MEDS: Magnesium Hydrox/Alum Hydrox 30 ML ORAL.SUSP 15 ML PO (11:28)
[2021-10-06] MEDS: Omeprazole 40 MG CAPSULE.DR PO (11:48)
--- NOTE | 2021-10-06 12:57 | P.PNIM_ITS ---
Subjective Subjective Date of Service: 10/06/21 Interval History: seen and evaluated this morning more comfortable and cooperative Report epigastric pain. follows command, laying in his bed and speaking Used BiPAP overnight interval history: No reported other events Review of Systems No fever, chills but complaining of generalized pain No chest pain, palpitation No shortness of breath or coughing No abdominal pain, nausea or vomiting No urinary symptoms No any rash or wounds Physical Exam Vital Signs: Vital Signs: Last Vital Signs Temp 98.4 F 10/06/21 11:26 Pulse 72 10/06/21 11:26 Resp 20 10/06/21 11:26 BP 130/81 10/06/21 11:26 Pulse Ox 99 10/06/21 11:26 BMI result Body Mass Index 18.8 Const: Other: General: Sitting comfortably, no acute distress, more cooperative Neck no JVD Resp: Clear to auscultation, no respiratory distress CVS: S1,S2,RRR GI: soft, non tender, bowel sounds audible, non distended Neuro:? motor grossly intact, alert Psych: appropriate affect, impaired insight, following commands Skinstage II coccyx ulcer? Objective Data Active Medications Acetaminophen (Acetaminophen 325 Mg Tablet) 650 mg PO Q6H PRN PRN Reason: Pain, Mild (Pain Scale 1-3) Last Admin: 10/04/21 14:45 Dose: 650 mg Documented by: ELLIOT Acetaminophen (Acetaminophen 325 Mg Tablet) 975 mg PO BID [facility] Last Admin: 10/06/21 08:12 Dose: 975 mg Documented by: ELLIOT Amlodipine Besylate (Amlodipine Besylate 10 Mg Tablet) 10 mg PO DAILY [facility]; Protocol Last Admin: 10/06/21 08:12 Dose: 10 mg Documented by: ELLIOT Atorvastatin Calcium (Atorvastatin Calcium 80 Mg Tablet) 80 mg PO BEDTIME [facility] Last Admin: 10/05/21 21:01 Dose: 80 mg Documented by: UBALDO Bupropion HCl (Bupropion Hcl Xl 300 Mg Tab.Er.24h) 300 mg PO DAILY [facility] Last Admin: 10/06/21 08:13 Dose: 300 mg Documented by: ELLIOT Lisinopril 10 mg/ (Hydrochlorothiazide 12.5 mg) 0 mg PO DAILY [facility] Last Admin: 10/06/21 08:13 Dose: 10 each Documented by: ELLIOT Cyanocobalamin (Cyanocobalamin (Vitamin B-12) 1,000 Mcg Tablet) 1,000 mcg PO DAILY [facility] Last Admin: 10/06/21 08:12 Dose: 1,000 mcg Documented by: ELLIOT Diazepam (Diazepam 2 Mg Tablet) 1 mg PO BID [facility] Last Admin: 10/06/21 08:11 Dose: 1 mg Documented by: ELLIOT Diclofenac Sodium (Diclofenac Sodium Delayed Rel 75 Mg Tablet.) 75 mg PO BID [facility] Last Admin: 10/06/21 08:12 Dose: 75 mg Documented by: ELLIOT Enoxaparin Sodium (Enoxaparin Sodium 40 Mg/0.4 Ml Syringe) 40 mg SUBCUT Q24H [facility] Last Admin: 10/06/21 11:27 Dose: 40 mg Documented by: ELLIOT Finasteride (Finasteride 5 Mg Tablet) 5 mg PO DAILY [facility] Last Admin: 10/06/21 08:12 Dose: 5 mg Documented by: ELLIOT Folic Acid (Folic Acid 1 Mg Tablet) 1 mg PO DAILY [facility] Last Admin: 10/06/21 08:12 Dose: 1 mg Documented by: ELLIOT Gabapentin (Gabapentin 100 Mg Capsule) 200 mg PO TID [facility] Last Admin: 10/06/21 08:12 Dose: 200 mg Documented by: ELLIOT Nicotine (Nicotine 21 Mg Patch.Td24) 21 mg TRANSDERMA DAILY [facility] Last Admin: 10/06/21 08:13 Dose: 21 mg Documented by: ELLIOT Omeprazole (Omeprazole 40 Mg Capsule.) 40 mg PO DAILY@0630 [facility] Last Admin: 10/06/21 11:48 Dose: 40 mg Documented by: ELLIOT Ondansetron HCl (Ondansetron Hcl 4 Mg/2 Ml Vial) 4 mg IVPUSH Q8H PRN PRN Reason: Nausea and Vomiting Psyllium Hydrophilic Mucilloid (Psyllium Seed 3.4 Gm Powd.Pack) 3.4 gm PO DAILY [facility] Last Admin: 10/06/21 08:13 Dose: 3.4 gm Documented by: ELLIOT Quetiapine Fumarate (Quetiapine Fumarate 25 Mg Tablet) 25 mg PO Q8H PRN PRN Reason: anxiety/restlessness Last Admin: 10/05/21 21:05 Dose: 25 mg Documented by: UBALDO Sodium Chloride (0.9 % Sodium Chloride Flush 3 Ml Syringe) 3 ml IVFLUSH QSHIFT [facility] Last Admin: 10/06/21 09:52 Dose: Not Given Documented by: ELLIOT Non-Admin Reason: No Access Tamsulosin HCl (Tamsulosin Hcl 0.4 Mg Capsule) 0.8 mg PO DAILY [facility] Last Admin: 10/06/21 08:13 Dose: 0.8 mg Documented by: ELLIOT Trazodone HCl (Trazodone Hcl 50 Mg Tablet) 150 mg PO BEDTIME [facility] Last Admin: 10/05/21 21:03 Dose: 150 mg Documented by: UBALDO Venlafaxine HCl (Venlafaxine Hcl Er 150 Mg Cap.Er.24h) 150 mg PO DAILY [facility] Last Admin: 10/06/21 08:12 Dose: 150 mg Documented by: ELLIOT Labs CBC & Chem 7: 09/30/21 06:13 10/04/21 08:04 Assessment and Plan (1) Adult failure to thrive: Status: Acute (2) Weakness: Status: Acute (3) Hypercapnic respiratory failure: Status: Acute Plan 71M presented with ams, found to have hypercapneic resp failure, went to ICU for bipap improved and was downgraded to medical floor with improvement in symptoms. Metabolic encephalopathy , multifactorial due to acute hypoxic and hypercapnic respiratory failure due to COPD with acute exacerbation improved, around his baseline Continue BiPAP at night (13/10), refused it overnight vbg with mild hypercapnea, encourage bipap with plan to discharge on BiPAP machine or sleep study if possible Epigastric pain Likely secondary to gastritis Hold NSAID and start omeprazole moderate protein calorie malnutrition encourage po, ensure BPH Started tamsulosin and finasteride bladder scan showed 300 cc continue to monitor for the need of Roque catheter as the patient removed the previous one by himself per his sister stage II coccyx ulcer avoid pressure local care Tobacco use disorder continue nicotine patch 21 mg daily aspiration pneumonia completed therapy of antibiotics RESIN COATER appreciated, continue NDD2 solids, thin liquids folate deficiency folic acid 1mg daily b12 defeciciency given 1000mcg IM once continue oral 1mg daily mood disorder valium 1mg b.i.d. 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 Quality Stroke Does the patient have a stroke diagnosis?: No VTE Prior VTE?: No VTE Risk Level:: Medical - moderate - high VTE Device Contraindication: Treatment Not Indicated VTE Drug Contraindication: N/A - Med Ordered
[2021-10-06 15:22] VITALS: BP 148/81; PULSE 68; RESP 18; TEMP 37; O2SAT 92
[2021-10-06 19:39] VITALS: BP 130/51; PULSE 76; RESP 18; TEMP 36.5; O2SAT 94
[2021-10-06] MEDS: Atorvastatin Calcium 80 MG TABLET PO (21:14)
[2021-10-06] MEDS: traZODone HCL 50 MG TABLET 150 MG PO (21:15)
[2021-10-06 23:30] VITALS: BP 102/94; PULSE 85; RESP 18; TEMP 36; O2SAT 95
[2021-10-07 03:10] VITALS: TEMP 36
[2021-10-07] MEDS: Omeprazole 40 MG CAPSULE.DR PO (06:00)
[2021-10-07 07:44] VITALS: BP 150/90; PULSE 70; RESP 20; TEMP 36.2; O2SAT 100
[2021-10-07] MEDS: lisinopriL 10 MG, hydroCHLOROthiazide 12.5 MG PO (09:31)
[2021-10-07] MEDS: buPROPion HCl XL 300 MG TAB.ER.24H PO (09:31)
[2021-10-07] MEDS: Acetaminophen 325 MG TABLET 975 MG PO ×2 (09:31→20:52)
[2021-10-07] MEDS: Folic Acid 1 MG TABLET PO (09:31)
[2021-10-07] MEDS: diazePAM 2 MG TABLET 1 MG PO ×2 (09:31→20:53)
[2021-10-07] MEDS: Finasteride 5 MG TABLET PO (09:32)
[2021-10-07] MEDS: Venlafaxine HCl ER 150 MG CAP.ER.24H PO (09:32)
[2021-10-07] MEDS: Cyanocobalamin (Vitamin B-12) 1,000 MCG TABLET 1000 MCG PO (09:32)
[2021-10-07] MEDS: amLODIPine Besylate 10 MG TABLET PO (09:32)
[2021-10-07] MEDS: Tamsulosin HCL 0.4 MG CAPSULE 0.8 MG PO (09:32)
[2021-10-07] MEDS: Gabapentin 100 MG CAPSULE 200 MG PO ×3 (09:32→20:52)
--- NOTE | 2021-10-07 10:58 | MHC.SL.SWA ---
Speech Pathologist Impression: Oropharyngeal dysphagia Risk of Aspiration Due to: History of Pneumonia Dysphasia Diet Status: Downgrade solids Liquid Consistency and Strategies for Safe Swallow: Liquid Intake Recommendation: Thin Liquid Intake Strategies: Small Sips No Straws Solid Food Consistency: Dietary Recommendations: Pureed (NDD1) Oral Medication Intake: Crushed with Puree Please contact the pharmacy regarding appropriate crushable or liquid drug formulations that are available whenever modified delivery is recommended. Compensatory Strategies and Precautions to be Taken for Safe Swallow: Sitting Upright (90 deg) No Straw Liquids from Cup Liquids from Spoon Small Bites and Sips Alternate Liquids/Solids Rate of Ingestion Change Oral Check Supervision While Eating and Drinking for Safe Swallow: Total Supervision (1:1) Swallowing Recommended Treatments: Compens. Strategy Educat. Recommendation for Speech: Inpatient Speech Therapy Frequency/Duration: M-F Date Range for Service Req: Timeline to reassess: Habitat Conservation Planner Clinican/Clinical Fellow: No Supervisory Statement: I have reviewed and agree with the student/clinical fellow's documentation: N/A Speech Language Pathologist: Nayeli Orozco M.A., CCC-CUSTOMER ACQUISITION SPECIALIST
[2021-10-07 11:17] VITALS: BP 146/80; PULSE 70; RESP 20; TEMP 36.2; O2SAT 99
--- NOTE | 2021-10-07 12:44 | MHC.CM.PN ---
CM CONTACTED [facility] NUR[facility] AT 8:50AM [phone] [id number] TO FOLLOW-UP ON SLEEP STUDY REPORT, CM DID RECEIVE COPY OF HOME SLEEP STUDY HOWEVER CM NEEDS INPT SLEEP STUDY DONE IN [place], AT TIME OF THIS NOTE CM HAS ATTEMTED TO CONTACT MELLISA HOWEVER THERE HAS BEEN NO ANSWER AND NO ABLILITY TO LEAVE MESSAGE, CM ALSO WENT THROUGH MAIN NUMBER AND CALL WAS SENT THROUGH LOOP W/NO ABLILTY TO LEAVE A MESSAGE, CM WILL REATTEMPT AT 1PM. [facility]CTED [facility] GETACHEW YANES AT [phone] EXT [phone] TO DISCUSS AUTH AND GETACHEW REPORTED THAT THAT WOULD NEED TO COME FROM PCP OFFICE, GETACHEW ALSO REPORTED HIS [facility] SHOULD COVER THE COST. GETACHEW VERIFIES PT HAS A SNF AND RESPITE BENEFIT. PT NO LONGER RECOMMENDING SHORT TERM REHAB SO PT NEED RESPITE BED, CM HAS PLACED 50 NEW REFERRALS AND WILL CONT TO OBTAIN A BED FOR PT WHILE RESPIRATORY WILL WORK ON GETTING BIPAP THROUGH [facility] ONCE COPY OF [facility] SLEEP STUDY [facility].
--- NOTE | 2021-10-07 13:03 | MHC.CM.PN ---
[facility] CONTACTED [facility] NU MELLISA [phone] EXT [phone] AT TIME OF THIS NOTE TO REQUEST INLAB SLEEP STUDY HOWEVER MELLISA PULLED UP NOTES AND REPORTED NOTES SAID THAT PT DOES NOT HAVE A CPAP, THIS CM WILL CONTACT PT'SON TO [facility].
--- NOTE | 2021-10-07 13:18 | MHC.CM.PN ---
Addendum entered by Allison Gusman RN 10/07/21 14:33: CLARIFICATION: PER HOSPITALIST IF FAMILY AGREES TO PLACE IN STR/SNF PT CAN STAY OTHERWISE PT WILL NEED TO RETURN HOME AND WAIT FOR SCHEDULED SLEEP STUDY. CM WILL CONTACT FAMILY ONCE FINAL WORD IS RECEIVED FROM RESPIRATORY. Addendum entered by Allison Gusman RN 10/07/21 14:25: CM DISCUSSED W/HOSPITALIST AND RESPIRATORY, PER DR DIGGS PT'S HOME STUDY WOULD NOT QUALIFY PT FOR CPAP/BIPAP AND PT WOULD NEED TO COME IN ON 10/28 FOR SLEEP STUDY TO DETERMINE, RESPIRATORY ALSO REPORTED PT IS ON A CPAP NOT A BIPAP. RESPIRATORY PROVIDED W/CORRECT INSURANCE INFO AND THEY WILL SEE IF [facility] HAS ANY WAY OF GETTING PT A CPAP AT HOME. PER HOSPITALIST IF FAMILY AGREES TO PLACE IN STR/SNF PT CAN STAY OTHERWISE PT WILL NEED TO REVIEW Addendum entered by Allison Gusman RN 10/07/21 13:30: PER RESPIRATORY WILL REVIEW W/HOD AND PT MAY BE ABLE TO RETURN HOME W/CPAP W/O2, CM WILL FOLLOW UP W/RESPIRATORY, OF THAT IS OKAYED ANTIC PT WILL BE ABLE TO GET CPAP TOMORROW AND PT WILL BE SET UP W/[facility]. Original Note: CM CONTACTED PT'S SON ZEINAB AT 1:15PM, ZEINAB VERIFIED PT ONLY HAD EQUIPMENT FOR A HOME SLEEP STUDY HOWEVER DOES NOT HAVE A PHYSICAL CPAP IN HOME, RESPIRATORY AWARE AND REVIEWING AT HOME SLEEP STUDY REPORT.
--- NOTE | 2021-10-07 14:22 | P.PNIM_ITS ---
Subjective Subjective Date of Service: 10/07/21 Interval History: seen and evaluated this morning comfortable and cooperative follows command, laying in his bed Used BiPAP overnight interval history: No reported other events Review of Systems No fever, chills but complaining of generalized pain No chest pain, palpitation No shortness of breath or coughing No abdominal pain, nausea or vomiting No urinary symptoms No any rash or wounds Physical Exam Vital Signs: Vital Signs: Last Vital Signs Temp 97.1 F 10/07/21 11:17 Pulse 70 10/07/21 11:17 Resp 20 10/07/21 11:17 BP 146/80 H 10/07/21 11:17 Pulse Ox 99 10/07/21 11:17 BMI result Body Mass Index 18.8 Const: Other: General: Sitting comfortably, no acute distress, more cooperative Neck no JVD Resp: Clear to auscultation, no respiratory distress CVS: S1,S2,RRR GI: soft, non tender, bowel sounds audible, non distended Neuro:? motor grossly intact, alert Psych: appropriate affect, impaired insight, following commands Skinstage II coccyx ulcer? Objective Data Active Medications Acetaminophen (Acetaminophen 325 Mg Tablet) 650 mg PO Q6H PRN PRN Reason: Pain, Mild (Pain Scale 1-3) Last Admin: 10/04/21 14:45 Dose: 650 mg Documented by: ELLIOT Acetaminophen (Acetaminophen 325 Mg Tablet) 975 mg PO BID [facility] Last Admin: 10/07/21 09:31 Dose: 975 mg Documented by: FUAD Amlodipine Besylate (Amlodipine Besylate 10 Mg Tablet) 10 mg PO DAILY [facility]; Protocol Last Admin: 10/07/21 09:32 Dose: 10 mg Documented by: FUAD Atorvastatin Calcium (Atorvastatin Calcium 80 Mg Tablet) 80 mg PO BEDTIME [facility] Last Admin: 10/06/21 21:14 Dose: 80 mg Documented by: BUSHRA Bupropion HCl (Bupropion Hcl Xl 300 Mg Tab.Er.24h) 300 mg PO DAILY [facility] Last Admin: 10/07/21 09:31 Dose: 300 mg Documented by: FUAD Lisinopril 10 mg/ (Hydrochlorothiazide 12.5 mg) 0 mg PO DAILY [facility] Last Admin: 10/07/21 09:31 Dose: 1 each Documented by: FUAD Cyanocobalamin (Cyanocobalamin (Vitamin B-12) 1,000 Mcg Tablet) 1,000 mcg PO DAILY [facility] Last Admin: 10/07/21 09:32 Dose: 1,000 mcg Documented by: FUAD Diazepam (Diazepam 2 Mg Tablet) 1 mg PO BID [facility] Last Admin: 10/07/21 09:31 Dose: 1 mg Documented by: FUAD Diclofenac Sodium (Diclofenac Sodium Delayed Rel 75 Mg Tablet.) 75 mg PO BID [facility] Last Admin: 10/06/21 08:12 Dose: 75 mg Documented by: ELLIOT Enoxaparin Sodium (Enoxaparin Sodium 40 Mg/0.4 Ml Syringe) 40 mg SUBCUT Q24H [facility] Last Admin: 10/07/21 09:38 Dose: Not Given Documented by: FUAD Non-Admin Reason: Patient Refused Finasteride (Finasteride 5 Mg Tablet) 5 mg PO DAILY [facility] Last Admin: 10/07/21 09:32 Dose: 5 mg Documented by: FUAD Folic Acid (Folic Acid 1 Mg Tablet) 1 mg PO DAILY [facility] Last Admin: 10/07/21 09:31 Dose: 1 mg Documented by: FUAD Gabapentin (Gabapentin 100 Mg Capsule) 200 mg PO TID [facility] Last Admin: 10/07/21 09:32 Dose: 200 mg Documented by: FUAD Nicotine (Nicotine 21 Mg Patch.Td24) 21 mg TRANSDERMA DAILY [facility] Last Admin: 10/07/21 09:39 Dose: Not Given Documented by: FUAD Non-Admin Reason: Patient Refused Omeprazole (Omeprazole 40 Mg Capsule.) 40 mg PO DAILY@0630 [facility] Last Admin: 10/07/21 06:00 Dose: 40 mg Documented by: BUSHRA Ondansetron HCl (Ondansetron Hcl 4 Mg/2 Ml Vial) 4 mg IVPUSH Q8H PRN PRN Reason: Nausea and Vomiting Psyllium Hydrophilic Mucilloid (Psyllium Seed 3.4 Gm Powd.Pack) 3.4 gm PO DAILY [facility] Last Admin: 10/07/21 09:38 Dose: Not Given Documented by: FUAD Non-Admin Reason: Patient Refused Quetiapine Fumarate (Quetiapine Fumarate 25 Mg Tablet) 25 mg PO Q8H PRN PRN Reason: anxiety/restlessness Last Admin: 10/05/21 21:05 Dose: 25 mg Documented by: UBALDO Sodium Chloride (0.9 % Sodium Chloride Flush 3 Ml Syringe) 3 ml IVFLUSH QSHIFT [facility] Last Admin: 10/07/21 09:30 Dose: Not Given Documented by: FUAD Non-Admin Reason: No Access Tamsulosin HCl (Tamsulosin Hcl 0.4 Mg Capsule) 0.8 mg PO DAILY [facility] Last Admin: 10/07/21 09:32 Dose: 0.8 mg Documented by: FUAD Trazodone HCl (Trazodone Hcl 50 Mg Tablet) 150 mg PO BEDTIME [facility] Last Admin: 10/06/21 21:15 Dose: 150 mg Documented by: BUSHRA Venlafaxine HCl (Venlafaxine Hcl Er 150 Mg Cap.Er.24h) 150 mg PO DAILY [facility] Last Admin: 10/07/21 09:32 Dose: 150 mg Documented by: FUAD Labs CBC & Chem 7: 09/30/21 06:13 10/04/21 08:04 Assessment and Plan (1) COPD (chronic obstructive pulmonary disease): Status: Acute (2) Adult failure to thrive: Status: Acute (3) Hypercapnic respiratory failure: Status: Acute (4) Weakness: Status: Acute Plan 71M presented with ams, found to have hypercapneic resp failure, went to ICU for bipap improved and was downgraded to medical floor with improvement in symptoms. Metabolic encephalopathy , multifactorial due to acute hypoxic and hypercapnic respiratory failure due to COPD with acute exacerbation improved, around his baseline Continue BiPAP at night (13/10) Had overnight oximetry, did not qualify for BiPAP encourage bipap with plan to discharge on BiPAP machine or sleep study scheduled by end of September, trying to safe plan for discharge but patient cannot be qualified for BiPAP or CPAP at this time based on the previous studies. 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 wellbutrin effexor chronic back pain direct marketing specialist appreciated now off suboxone, on oxycontin 10mg bid, and oxy 5mg q6h prn titrate as needed htn Stable BP, continue lisinopril, hctz DVT pptx, Lovenox reason for continued hospitalization: awaiting safe dispo as the patient will require BiPAP at discharge to prevent recurrent readmission for hypercapnic respiratory failure. Quality Stroke Does the patient have a stroke diagnosis?: No VTE Prior VTE?: No VTE Risk Level:: Medical - moderate - high VTE Device Contraindication: Treatment Not Indicated VTE Drug Contraindication: N/A - Med Ordered
--- NOTE | 2021-10-07 15:17 | MHC.CLN ---
F/U DIET DOWNGRADED TODAY BY OPTOMETRIST PRESIDENT/PRACTICE OWNER TO PUREE CONSISTENCY. SUPPLEMENT ENSURE ENLIVE TID TO INCREASE KCALS. PROVIDES 1050 KCAL, 60 G PROTEIN. VARIABLE INTAKE X PRIOR TWO DAYS, 25-75%. CONTINUE TO MONITOR PO INTAKE CLOSELY.
[2021-10-07 15:24] VITALS: BP 101/62; PULSE 85; RESP 18; TEMP 36.3; O2SAT 98
[2021-10-07 19:23] VITALS: BP 120/57; PULSE 84; RESP 18; TEMP 36.5; O2SAT 95
[2021-10-07] MEDS: traZODone HCL 50 MG TABLET 150 MG PO (20:52)
[2021-10-07] MEDS: Atorvastatin Calcium 80 MG TABLET PO (20:52)
[2021-10-07 22:11] VITALS: PULSE 66; RESP 18; O2SAT 97
[2021-10-08] VITALS (9 sets, daily range): BP systolic 132–161; BP diastolic 76–90; PULSE 68–98; RESP 14–18; TEMP 35.9–36.5; O2SAT 68–98
[2021-10-08] MEDS: Omeprazole 40 MG CAPSULE.DR PO (06:12)
[2021-10-08 07:14] LABS: Anion Gap 10 (12-20); Blood Urea Nitrogen 25 mg/dL (9-16); Calcium 9.4 mg/dL (8.4-10.2); Carbon Dioxide 36 mmol/L (22-29); Chloride 90 mmol/L (96-108); Creatinine Clr Calc Pharmacy 112.8; Estimated Glomerular Filt Rate > 60; Glucose Random 107 mg/dL (60-115); Potassium 3.3 mmol/L (3.3-5.1); Sodium 133 mmol/L (135-145)
[2021-10-08] MEDS: Acetaminophen 325 MG TABLET 975 MG PO ×2 (07:32→20:45)
[2021-10-08] MEDS: Gabapentin 100 MG CAPSULE 200 MG PO ×3 (07:32→20:46)
[2021-10-08] MEDS: Folic Acid 1 MG TABLET PO (07:32)
[2021-10-08] MEDS: Cyanocobalamin (Vitamin B-12) 1,000 MCG TABLET 1000 MCG PO (07:33)
[2021-10-08] MEDS: buPROPion HCl XL 300 MG TAB.ER.24H PO (07:33)
[2021-10-08] MEDS: amLODIPine Besylate 10 MG TABLET PO (07:33)
[2021-10-08] MEDS: Nicotine 21 MG PATCH.TD24 TRANSDERMA (07:33)
[2021-10-08] MEDS: Venlafaxine HCl ER 150 MG CAP.ER.24H PO (07:33)
[2021-10-08] MEDS: Tamsulosin HCL 0.4 MG CAPSULE 0.8 MG PO (07:33)
[2021-10-08] MEDS: Finasteride 5 MG TABLET PO (07:33)
[2021-10-08] MEDS: lisinopriL 10 MG, hydroCHLOROthiazide 12.5 MG PO (07:33)
[2021-10-08] MEDS: diazePAM 2 MG TABLET 1 MG PO ×2 (07:34→20:45)
[2021-10-08] MEDS: Enoxaparin Sodium 40 MG/0.4 ML SYRINGE SUBCUT (07:34)
--- NOTE | 2021-10-08 11:22 | P.PNIM_ITS ---
Subjective Subjective Date of Service: 10/08/21 Interval History: seen and evaluated this morning comfortable and cooperative follows command, laying in his bed Used BiPAP overnight interval history: No reported other events Review of Systems No fever, chills but complaining of generalized pain No chest pain, palpitation No shortness of breath or coughing No abdominal pain, nausea or vomiting No urinary symptoms No any rash or wounds Physical Exam Vital Signs: Vital Signs: Last Vital Signs Temp 97.7 F 10/08/21 08:00 Pulse 68 10/08/21 09:07 Resp 18 10/08/21 08:43 BP 161/90 H 10/08/21 09:07 Pulse Ox 98 10/08/21 09:07 BMI result Body Mass Index 18.8 Const: Other: General: Sitting comfortably, no acute distress, more cooperative Neck no JVD Resp: Clear to auscultation, no respiratory distress CVS: S1,S2,RRR GI: soft, non tender, bowel sounds audible, non distended Neuro:? motor grossly intact, alert Psych: appropriate affect, impaired insight, following commands Skinstage II coccyx ulcer? Objective Data Active Medications Acetaminophen (Acetaminophen 325 Mg Tablet) 650 mg PO Q6H PRN PRN Reason: Pain, Mild (Pain Scale 1-3) Last Admin: 10/04/21 14:45 Dose: 650 mg Documented by: ELLIOT Acetaminophen (Acetaminophen 325 Mg Tablet) 975 mg PO BID [facility] Last Admin: 10/08/21 07:32 Dose: 975 mg Documented by: PADMA Amlodipine Besylate (Amlodipine Besylate 10 Mg Tablet) 10 mg PO DAILY [facility]; Protocol Last Admin: 10/08/21 07:33 Dose: 10 mg Documented by: PADMA Atorvastatin Calcium (Atorvastatin Calcium 80 Mg Tablet) 80 mg PO BEDTIME [facility] Last Admin: 10/07/21 20:52 Dose: 80 mg Documented by: ODRISDany Bupropion HCl (Bupropion Hcl Xl 300 Mg Tab.Er.24h) 300 mg PO DAILY [facility] Last Admin: 10/08/21 07:33 Dose: 300 mg Documented by: PADMA Lisinopril 10 mg/ (Hydrochlorothiazide 12.5 mg) 0 mg PO DAILY [facility] Last Admin: 10/08/21 07:33 Dose: 1 each Documented by: PADMA Cyanocobalamin (Cyanocobalamin (Vitamin B-12) 1,000 Mcg Tablet) 1,000 mcg PO D AILY [facility] Last Admin: 10/08/21 07:33 Dose: 1,000 mcg Documented by: PADMA Diazepam (Diazepam 2 Mg Tablet) 1 mg PO BID [facility] Last Admin: 10/08/21 07:34 Dose: 1 mg Documented by: PADMA Diclofenac Sodium (Diclofenac Sodium Delayed Rel 75 Mg Tablet.) 75 mg PO BID [facility] Last Admin: 10/06/21 08:12 Dose: 75 mg Documented by: ELLIOT Enoxaparin Sodium (Enoxaparin Sodium 40 Mg/0.4 Ml Syringe) 40 mg SUBCUT Q24H [facility] Last Admin: 10/08/21 07:34 Dose: 40 mg Documented by: PADMA Finasteride (Finasteride 5 Mg Tablet) 5 mg PO DAILY [facility] Last Admin: 10/08/21 07:33 Dose: 5 mg Documented by: PADMA Folic Acid (Folic Acid 1 Mg Tablet) 1 mg PO DAILY [facility] Last Admin: 10/08/21 07:32 Dose: 1 mg Documented by: PADMA Gabapentin (Gabapentin 100 Mg Capsule) 200 mg PO TID [facility] Last Admin: 10/08/21 07:32 Dose: 200 mg Documented by: PADMA Nicotine (Nicotine 21 Mg Patch.Td24) 21 mg TRANSDERMA DAILY [facility] Last Admin: 10/08/21 07:33 Dose: 21 mg Documented by: PADMA Omeprazole (Omeprazole 40 Mg Capsule.) 40 mg PO DAILY@0630 [facility] Last Admin: 10/08/21 06:12 Dose: 40 mg Documented by: ODRISDany Ondansetron HCl (Ondansetron Hcl 4 Mg/2 Ml Vial) 4 mg IVPUSH Q8H PRN PRN Reason: Nausea and Vomiting Psyllium Hydrophilic Mucilloid (Psyllium Seed 3.4 Gm Powd.Pack) 3.4 gm PO DAILY [facility] Last Admin: 10/08/21 07:32 Dose: 3.4 gm Documented by: PADMA Quetiapine Fumarate (Quetiapine Fumarate 25 Mg Tablet) 25 mg PO Q8H PRN PRN Reason: anxiety/restlessness Last Admin: 10/05/21 21:05 Dose: 25 mg Documented by: HO.SANNAFA Sodium Chloride (0.9 % Sodium Chloride Flush 3 Ml Syringe) 3 ml IVFLUSH QSHIFT [facility] Last Admin: 10/08/21 07:34 Dose: Not Given Documented by: PADMA Non-Admin Reason: No Access Tamsulosin HCl (Tamsulosin Hcl 0.4 Mg Capsule) 0.8 mg PO DAILY [facility] Last Admin: 10/08/21 07:33 Dose: 0.8 mg Documented by: PADMA Trazodone HCl (Trazodone Hcl 50 Mg Tablet) 150 mg PO BEDTIME [facility] Last Admin: 10/07/21 20:52 Dose: 150 mg Documented by: ODRISDany Venlafaxine HCl (Venlafaxine Hcl Er 150 Mg Cap.Er.24h) 150 mg PO DAILY [facility] Last Admin: 10/08/21 07:33 Dose: 150 mg Documented by: PADMA Labs CBC & Chem 7: 09/30/21 06:13 10/08/21 06:13 Labs: Laboratory Results - last 24 hr 10/08/21 06:13 Anion Gap 10 L Estim Creat Clear Calc 112.8 Estimated GFR > 60 Random Glucose 107 Calcium 9.4 Assessment and Plan (1) Hypercapnic respiratory failure: Status: Acute (2) COPD (chronic obstructive pulmonary disease): Status: Acute (3) Adult failure to thrive: Status: Acute Plan 71M presented with ams, found to have hypercapneic resp failure, went to ICU for bipap improved and was downgraded to medical floor with improvement in symptoms. Metabolic encephalopathy , multifactorial improved, around his baseline due to acute hypoxic and hypercapnic respiratory failure due to COPD with acute exacerbation Continue BiPAP at night (13/10) Had overnight oximetry, did not qualify for BiPAP encourage bipap with plan to discharge on BiPAP machine or sleep study scheduled by end of September, trying to safe plan for discharge but patient cannot be qualified for BiPAP or CPAP at this time based on the previous studies. 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 Quality Stroke Does the patient have a stroke diagnosis?: No VTE Prior VTE?: No VTE Risk Level:: Medical - moderate - high VTE Device Contraindication: Treatment Not Indicated VTE Drug Contraindication: N/A - Med Ordered
--- NOTE | 2021-10-08 15:36 | MHC.CM.PN ---
[facility] UPDATED IN ALLSCRIPTS OF THIS NOTE, FACILITY IS FOLLOWING BUT NO BED OFFER IS MADE YET
[2021-10-08] MEDS: Bismuth Subsalicylate 262 MG TABLET PO (17:42)
[2021-10-08] MEDS: traZODone HCL 50 MG TABLET 150 MG PO (20:45)
[2021-10-08] MEDS: Atorvastatin Calcium 80 MG TABLET PO (20:46)
[2021-10-09 04:00] VITALS: BP 172/88; PULSE 61; RESP 17; RESP 18; TEMP 36.4; O2SAT 96
[2021-10-09] MEDS: Omeprazole 40 MG CAPSULE.DR PO (05:32)
[2021-10-09] MEDS: Bismuth Subsalicylate 262 MG TABLET PO (06:52)
[2021-10-09 07:49] VITALS: BP 146/82; PULSE 74; RESP 16; TEMP 36.3; O2SAT 98
[2021-10-09] MEDS: Acetaminophen 325 MG TABLET 975 MG PO (08:15)
[2021-10-09] MEDS: Cyanocobalamin (Vitamin B-12) 1,000 MCG TABLET 1000 MCG PO (08:15)
[2021-10-09] MEDS: Folic Acid 1 MG TABLET PO (08:15)
[2021-10-09] MEDS: Finasteride 5 MG TABLET PO (08:15)
[2021-10-09] MEDS: Tamsulosin HCL 0.4 MG CAPSULE 0.8 MG PO (08:16)
[2021-10-09] MEDS: lisinopriL 10 MG, hydroCHLOROthiazide 12.5 MG PO (08:16)
[2021-10-09] MEDS: buPROPion HCl XL 300 MG TAB.ER.24H PO (08:16)
[2021-10-09] MEDS: amLODIPine Besylate 10 MG TABLET PO (08:16)
[2021-10-09] MEDS: Venlafaxine HCl ER 150 MG CAP.ER.24H PO (08:16)
[2021-10-09] MEDS: diazePAM 2 MG TABLET 1 MG PO (08:17)
[2021-10-09] MEDS: Gabapentin 100 MG CAPSULE 200 MG PO ×2 (08:31→14:53)
[2021-10-09] MEDS: Nicotine 21 MG PATCH.TD24 TRANSDERMA (08:38)
--- NOTE | 2021-10-09 09:26 | MHC.CM.PN ---
CM CONTACTED PT'S SON/HCP ZEINAB AT 9:20AM TO DISCUSS DCP, ZEINAB AWARE WE HAVE NOT BEEN ABLE TO QUALIFY/OBTAIN A CPAP FOR PT W/IN HOME SLEEP STUDY THAT HAS BEEN DONE AND AT TIME OF THIS NOTE RESPIRATORY HAS NOT BEEN ABLE TO GET PT IN TO [facility] APPT THAT 10/28, ZEINAB IS AWARE THAT [facility] REFERRAL HAS BEEN PLACED AND ONCE WE RECEIVE A BED OFFER THEY WILL NEED TO ACCEPT BED OFFER IT IS A SAFE D/C PLAN, TAKE PT HOME W/OUT CPAP OR HE WILL BE GIVEN A NOTICE OF DISCHARGE AND WILL BE EXPECTED TO START PAYING UPFRONT FOR HOSPITAL STAY. PER DISCUSSION ZEINAB WILL WAIT FOR A BED OFFER TO DECIDE. SNF AND [facility] REFERRALS UPDATED AND CM WILL CONT TO FOLLOW FOR BED OFFERS, REFERRALS PLACED IN [place] WELL.
[2021-10-09] MEDS: Enoxaparin Sodium 40 MG/0.4 ML SYRINGE SUBCUT (09:40)
--- NOTE | 2021-10-09 09:56 | MHC.CM.PN ---
PT HAS BEEN VACCINATED AGAINST COVID. MODERNA X2 AT THE [place] AND A PFIZER BOOSTER AT [facility].
--- NOTE | 2021-10-09 10:20 | MHC.CM.PN ---
[facility] WAS ASKING QUESTIONS AND SHOWING INTEREST HOWEVER THEY ARE NOW DECLINING, CM ALSO RECEIVED MESSAGE TO CALL GLENN FROM [facility] AND PER CONVERSATION PT IS NOT MEETING FOR [facility] LEVEL OF CARE. CM WILL CONT TO FOLLOW REFERRALS AND EXPAND TO THE [facility].
--- NOTE | 2021-10-09 11:22 | MHC.CLN ---
F/U DIET=PUREE CONSISTENCY. SUPPLEMENT ENSURE ENLIVE TID TO INCREASE KCALS. PROVIDES 1050 KCAL, 60 G PROTEIN. VARIABLE INTAKE, WITH AVERAGE INTAKE X 5 DAYS 25-50%. PRESSURE INJURY APPEARS HEALED. RD TO FOLLOW WEEKLY. CONTINUE TO MONITOR PO INTAKE.
[2021-10-09 11:49] VITALS: BP 140/83; PULSE 73; RESP 15; TEMP 36.3; O2SAT 97
--- NOTE | 2021-10-09 12:46 | HO.PM.IMPN ---
Subjective Subjective Date of Service: 10/09/21 Interval History: seen and evaluated this morning comfortable and cooperative follows command, laying in his bed Used BiPAP overnight interval history: No reported other events Review of Systems No fever, chills but complaining of generalized pain No chest pain, palpitation No shortness of breath or coughing No abdominal pain, nausea or vomiting No urinary symptoms No any rash or wounds Physical Exam Vital Signs: Vital Signs: Last Vital Signs Temp 97.3 F 10/09/21 11:49 Pulse 73 10/09/21 11:49 Resp 15 10/09/21 11:49 BP 140/83 H 10/09/21 11:49 Pulse Ox 97 10/09/21 11:49 BMI result Body Mass Index 18.8 Const: Other: General: Sitting comfortably, no acute distress, more cooperative Neck no JVD Resp: Clear to auscultation, no respiratory distress CVS: S1,S2,RRR GI: soft, non tender, bowel sounds audible, non distended Neuro:? motor grossly intact, alert Psych: appropriate affect, impaired insight, following commands Skinstage II coccyx ulcer? Objective Data Active Medications Acetaminophen (Acetaminophen 325 Mg Tablet) 650 mg PO Q6H PRN PRN Reason: Pain, Mild (Pain Scale 1-3) Last Admin: 10/04/21 14:45 Dose: 650 mg Documented by: ELLIOT Acetaminophen (Acetaminophen 325 Mg Tablet) 975 mg PO BID [facility] Last Admin: 10/09/21 08:15 Dose: 975 mg Documented by: SHANNON Amlodipine Besylate (Amlodipine Besylate 10 Mg Tablet) 10 mg PO DAILY [facility]; Protocol Last Admin: 10/09/21 08:16 Dose: 10 mg Documented by: SHANNON Atorvastatin Calcium (Atorvastatin Calcium 80 Mg Tablet) 80 mg PO BEDTIME [facility] Last Admin: 10/08/21 20:46 Dose: 80 mg Documented by: SORAYA Bismuth Subsalicylate (Bismuth Subsalicylate 262 Mg Tablet) 262 mg PO Q4H PRN PRN Reason: Heartburn Last Admin: 10/09/21 06:52 Dose: 262 mg Documented by: SORAYA Bupropion HCl (Bupropion Hcl Xl 300 Mg Tab.Er.24h) 300 mg PO DAILY [facility] Last Admin: 10/09/21 08:16 Dose: 300 mg Documented by: SHANNON Lisinopril 10 mg/ (Hydrochlorothiazide 12.5 mg) 0 mg PO DAILY [facility] Last Admin: 10/09/21 08:16 Dose: 22.5 each Documented by: SHANNON Cyanocobalamin (Cyanocobalamin (Vitamin B-12) 1,000 Mcg Tablet) 1,000 mcg PO DAILY [facility] Last Admin: 10/09/21 08:15 Dose: 1,000 mcg Documented by: SHANNON Diazepam (Diazepam 2 Mg Tablet) 1 mg PO BID [facility] Last Admin: 10/09/21 08:17 Dose: 1 mg Documented by: SHANNON Diclofenac Sodium (Diclofenac Sodium Delayed Rel 75 Mg Tablet.) 75 mg PO BID [facility] Last Admin: 10/06/21 08:12 Dose: 75 mg Documented by: ELLIOT Enoxaparin Sodium (Enoxaparin Sodium 40 Mg/0.4 Ml Syringe) 40 mg SUBCUT Q24H [facility] Last Admin: 10/09/21 09:40 Dose: 40 mg Documented by: PADMA Finasteride (Finasteride 5 Mg Tablet) 5 mg PO DAILY [facility] Last Admin: 10/09/21 08:15 Dose: 5 mg Documented by: SHANNON Folic Acid (Folic Acid 1 Mg Tablet) 1 mg PO DAILY [facility] Last Admin: 10/09/21 08:15 Dose: 1 mg Documented by: SHANNON Gabapentin (Gabapentin 100 Mg Capsule) 200 mg PO TID [facility] Last Admin: 10/09/21 08:31 Dose: 200 mg Documented by: SHANNON Nicotine (Nicotine 21 Mg Patch.Td24) 21 mg TRANSDERMA DAILY [facility] Last Admin: 10/09/21 08:38 Dose: 21 mg Documented by: SHANNON Omeprazole (Omeprazole 40 Mg Capsule.) 40 mg PO DAILY@0630 [facility] Last Admin: 10/09/21 05:32 Dose: 40 mg Documented by: SORAYA Ondansetron HCl (Ondansetron Hcl 4 Mg/2 Ml Vial) 4 mg IVPUSH Q8H PRN PRN Reason: Nausea and Vomiting Psyllium Hydrophilic Mucilloid (Psyllium Seed 3.4 Gm Powd.Pack) 3.4 gm PO DAILY [facility] Last Admin: 10/09/21 08:15 Dose: 3.4 gm Documented by: SHANNON Quetiapine Fumarate (Quetiapine Fumarate 25 Mg Tablet) 25 mg PO Q8H PRN PRN Reason: anxiety/restlessness Last Admin: 10/05/21 21:05 Dose: 25 mg Documented by: UBALDO Sodium Chloride (0.9 % Sodium Chloride Flush 3 Ml Syringe) 3 ml IVFLUSH QSHIFT [facility] Last Admin: 10/09/21 08:13 Dose: Not Given Documented by: PADMA Non-Admin Reason: No Access Tamsulosin HCl (Tamsulosin Hcl 0.4 Mg Capsule) 0.8 mg PO DAILY [facility] Last Admin: 10/09/21 08:16 Dose: 0.8 mg Documented by: SHANNON Trazodone HCl (Trazodone Hcl 50 Mg Tablet) 150 mg PO BEDTIME [facility] Last Admin: 10/08/21 20:45 Dose: 150 mg Documented by: SORAYA Venlafaxine HCl (Venlafaxine Hcl Er 150 Mg Cap.Er.24h) 150 mg PO DAILY [facility] Last Admin: 10/09/21 08:16 Dose: 150 mg Documented by: SHANNON Labs CBC & Chem 7: 09/30/21 06:13 10/08/21 06:13 Assessment and Plan (1) Hypercapnic respiratory failure: Status: Acute (2) Moderate malnutrition: Status: Acute Plan 71M presented with ams, found to have hypercapneic resp failure, went to ICU for bipap improved and was downgraded to medical floor with improvement in symptoms. Metabolic encephalopathy , multifactorial improved, around his baseline due to acute hypoxic and hypercapnic respiratory failure due to COPD with acute exacerbation Continue BiPAP at night (13/10) Had overnight oximetry, did not qualify for BiPAP encourage bipap with plan to discharge on BiPAP machine or sleep study scheduled by end of September, trying to safe plan for discharge but patient cannot be qualified for BiPAP or CPAP at this time based on the previous studies. 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 Quality Stroke Does the patient have a stroke diagnosis?: No VTE Prior VTE?: No VTE Risk Level:: Medical - moderate - high VTE Device Contraindication: Treatment Not Indicated VTE Drug Contraindication: N/A - Med Ordered
--- NOTE | 2021-10-09 14:24 | MHC.CM.PN ---
PT CLEARED FOR DISCHARGE TODAY HOME W/NEW [facility] FOR SN/OT/PT AND BIPAP LOANER FROM [facility] [place], PT'S SON/HCP ZEINAB WILL BE IN FOR TEACH BY RESPIRATORY AND PT WILL DC HOME VIA [facility].
--- NOTE | 2021-10-09 14:50 | W.MHC.F2F ---
Service Date Service Date: 10/09/21 Encounter Date of encounter: 10/09/21 Reasons for Services Signs and symptoms assessed: Physical deconditioning New BiPAP for hypercapnic respiratory failure Reason for nursing home: medication treatment and teach disease management Reason for physical therapy: home safety and mobility and therapeutic exercises Homebound: Leaving the home is medically contraindicated at this time without the asist of a device and/or another person due th the listed conditions above and below. Reason homebound: unsteady gait / fall risk Certification: Based on the above findings, I certify that this patient is confined to the home and needs intermittent nursing home care, physical therapy and/or speech therapy, or continues to need occupational therapy. The patient is under my care, and I have initiated the establishment of the plan of care. The patient will be followed by a physician who will periodically review the plan of care.
--- NOTE | 2021-10-09 14:50 | PM.DS ---
DS: Providers Provider Date of Service: 10/09/21 Date of admission: 09/10/21 10:14 Primary care physician: Lucía Higginbotham MD Consults: 09/17/21 10:07 Consult to Neurology Routine Consulting Provider: [facility] Reason for consultation: Dementia, confusion Has provider been notified: No 09/24/21 12:36 Consult to Care Team Routine Comment: Reason for consultation: suboxone DC DS: Diagnosis Discharge Diagnosis (1) Hypercapnic respiratory failure: Status: Acute (2) Moderate malnutrition: Status: Acute DS: Summary Hospital Course Hospital Course: The patient has prolonged hospital stay. For full details please return to full EMR. Admission note HPI This is a 71 yo M with a PMH as outlined below who was brought to [facility] [facility] ED on 09/09/21 by family for increasing confusion over the last 5 days prior to arrival. The patient is currently sedated and unable to provide a history. Hence, the history is obtained from his son Maliha (and HCP) who is bedside. His son (whom the patient lives) reports that the last 5 days his father has becoming increasingly confused and agitated. The son reports that his father also may have been hallucinating. He reports that the patient, who is on chronic suboxone for back pain recently had his dose increased (but has only received 1 dose of the increased amount). The son reports that in addition to the increasing confusion, his father has not been eating or drinking well. There are no reports of fevers or chills. Son reports that his father had a similar presentation in the past when he had a UTI. Initially upon arrival to the ED, the patient was found to be lethargic and minimally responsive. He was hypoxic down to 83% on RA.? His work up revealed a possible early RLL pneumonia. His VBG (suspected mixed sampling given pO2) showed a pH of 7.3 and pCO2 of 72. He was given IVF and IV antibiotics. Overnight, it appears that the patient became increasingluy more alert and eventually agitated -- pulling out his IV and dowell. He required IV sedation with haldol and ativan. The patient is seen this morning around 9 am. He is minimally responsive. He is seen again around 10am at which point in time, it appears that he is slowly waking up. Hospital course The patient was admitted primarily to the hospital for evaluation of COPD exacerbation and aspiration pneumonia. Developed hypercapnic respiratory failure with CO2 retention admitted to ICU for BiPAP which he improved significantly. His mentation continue to be an issue but improved with decreasing his home medications of diazepam, gabapentin and held his Suboxone. The patient mentation improved significantly in ease has a scheduled sleep study by the end of September. We could not qualify him for BiPAP during the hospital stay as his overnight oximetry study. To therapy team will give the BiPAP for the short-term until he is done with sleep study if he can get machine through them. He was noted to have aspiration pneumonia that was treated with IV antibiotics. Blood cultures remain negative. He finished his treatment during the hospital stay. He was prescribed nicotine patch for smoking disorder. Advised to quit smoking. Noticed to have urine retention. Started on tamsulosin and finasteride. To be discharged on both. Evaluated by physical therapy team who recommended SNF versus home PT. Patient will go home with [facility] to do physical therapy at home. He was on Suboxone at presentation which was held. He used oxycodone during the hospital stay but he did not require it anymore by the end of his hospital stay. To keep Suboxone hold at time of discharge as it can be discussed with his PCP. We advise you to quit smoking completely Decrease diazepam to 2.5 mg daily Suboxone was on hold during the hospital stay, consider discontinuing it after discussing with your PCP Start tamsulosin and finasteride for urine retention Start amlodipine 5 mg daily for high blood pressure, monitor your blood pressure at home and report 1 week readings for PCP Start omeprazole daily To follow-up for sleep study as outpatient as scheduled Time Spent with Patient Time attestation: Total time spent providing and/or coordinating discharge services: Discharge coordination time: Greater than 30 minutes Quality: Safe Use of Opioids Does Pt have an Active Cancer Diagnosis on the Problem List?: No Quality: Stroke Does the patient have a stroke diagnosis?: No Physical Exam Vital Signs: Vital Signs: Last Vital Signs Temp 97.3 F 10/09/21 11:49 Pulse 73 10/09/21 11:49 Resp 15 10/09/21 11:49 BP 140/83 H 10/09/21 11:49 Pulse Ox 97 10/09/21 11:49 BMI result Body Mass Index 18.8 Const: Other: General:? Sitting comfortably, no acute distress, more cooperative Neck no JVD Resp:? Clear to auscultation, no respiratory distress CVS: S1,S2,RRR GI: soft, non tender, bowel sounds audible, non distended Neuro:? motor grossly intact, alert, oriented to self and place Psych: appropriate affect, impaired insight, following commands Skin: stage II coccyx ulcer?with no surrounding erythema or drainage DS: Data Imaging CT scan - head: Radiologist's impression: ITS Impressions Chest X-Ray 09/09/21 17:40 IMPRESSION: Increased right basilar airspace disease may reflect component of atelectasis although early infiltrate could've a similar appearance. Clinical correlation and follow-up would be helpful. Head CT 09/09/21 18:59 IMPRESSION: No acute intracranial process seen. Chest CT 09/14/21 10:56 IMPRESSION: * [id number] centrilobular emphysema has an upper lobe predominance. * There are linear and somewhat nodular opacities in the posterior right upper lobe. Although these are likely inflammatory/infectious changes, follow-up is advised, particularly in a patient with risk factors. [address] follow-up is recommended to determine whether these abnormalities resolve/improve Fleischner Society guideline. Discharge Plan Discharge Patient Disposition: Home Health Service Discharge Diagnosis: Hypercapnic respiratory failure Encephalopathy Aspiration pneumonia Referrals: Nicola SHAHA [Outside] - 3-5 Days ([facility], OT and PT. START OF CARE WILL BE ON THURSDAY, PLEASE CALL [phone] WITH ANY QUESTIONS.) Lucía Higginbotham MD [Primary Care Provider] - 1 Week Discharge Medications: New tamsulosin 0.4 mg Capsule 0.8 mg PO DAILY Qty: 30 0RF nicotine 21 mg/24 hr Patch 24 Hour 21 mg transdermal DAILY Qty: 28 0RF omeprazole 40 mg Capsule,Delayed Release(Dr/Ec) 40 mg PO DAILY@0630 Qty: 30 0RF finasteride [Proscar] 5 mg Tablet 5 mg PO DAILY Qty: 30 0RF Metamucil Fiber Singles 3.4 gram Powder In Packet 3.4 g PO DAILY 30 Days 0RF folic acid 1 mg Tablet 1 mg PO DAILY Qty: 30 0RF amlodipine 5 mg tablet 5 mg PO DAILY Qty: 30 0RF oxycodone 5 mg tablet 5 mg PO Q8H PRN (Reason: pain (scale score 7-10)) Qty: 15 0RF Continued trazodone 150 mg PO BEDTIME 0RF venlafaxine 150 mg Capsule,Extended Release 24hr 150 mg PO DAILY 0RF acetaminophen 500 mg Tablet 1,000 mg PO BID 0RF acetaminophen 500 mg Tablet 500 mg PO DAILY@1200 0RF bupropion HCl 300 mg Tablet Extended Release 24 Hr 300 mg PO QAM 0RF diclofenac sodium 75 mg tablet,delayed release (DR/EC) 75 mg PO BID 0RF atorvastatin 80 mg tablet 80 mg PO BEDTIME 0RF lisinopril-hydrochlorothiazide 10-12.5 mg tablet 1 tab PO DAILY 0RF gabapentin 600 mg tablet 600 mg PO TID 0RF Changed diazepam 5 mg tablet 0.5 tab PO DAILY Qty: 0 0RF Held buprenorphine-naloxone 2-0.5 mg Tablet, Sublingual 3 tab SUBLINGUAL BID 0RF Hold Instructions: Held during hospital stay, can discontinue after checking with his PCP Discharge Orders: Discharge Order (Routine); Ordered 10/09/21 Ordered By: Caryn Dasilva Diet: advance to usual diet and low salt diet Activity on Discharge: As tolerated Stand Alone Forms: Patient Portal Discharge page Care Plan Goals: Read below Health Concerns: Read below Plan of Treatment: Read below Assessment: You were admitted to the hospital for evaluation of altered mentation. Found to be on respiratory failure with elevated CO2 levels. Treated with BiPAP in ICU with good response as your mental status improved. Your treated as well for pneumonia and completed the course of antibiotic during the hospital stay. We advise you to quit smoking completely Decrease diazepam to 2.5 mg daily Suboxone was on hold during the hospital stay, consider discontinuing it after discussing with your PCP Start tamsulosin and finasteride for urine retention Start amlodipine 5 mg daily for high blood pressure, monitor your blood pressure at home and report 1 week readings for PCP Start omeprazole daily To follow-up for sleep study as outpatient as scheduled Discharge Date/Time: 10/09/21 18:31
--- NOTE | 2021-10-09 15:38 | MHC.SLORD ---
Speech Language Pathology Order Status: Spoke with RN this afternoon. Per RN, patient is tolerating pills whole with liquid. RN reports patient will be discharged today. CORE MEASURES ABSTRACTOR attempted to see patient to assess for upgrade prior to discharge. CORE MEASURES ABSTRACTOR explained rationale for evaluation, but patient refused to participate. Unable to assess this date.
== END 2021-10-09 18:31 | disposition home health service (06) | DRG 177 ==
LOC: HO.ED 22:22 → HO.EDOVER 09-10 10:21 → HO.IMC 09-11 09:00 → HO.ICU 09-11 14:22 → HO.IMC 09-11 17:22 → HO.S3 09-30 16:48
PROVIDERS: Hospitalist; Internal Medicine; Internal Medicine Pulmonary Disease; Admitting Provider Family Medicine; Emergency Provider Internal Medicine; PCP Internal Medicine; Visit Provider Student in an Organized Health Care Education/Training Program
DX: J69.0 Pneumonitis due to inhalation of food and vomit (principal); G92.8 Other toxic encephalopathy; E43 Unspecified severe protein-calorie malnutrition; J96.01 Acute respiratory failure with hypoxia; J96.02 Acute respiratory failure with hypercapnia; N39.0 Urinary tract infection, site not specified; Z68.1 Body mass index [BMI] 19.9 or less, adult; N13.8 Other obstructive and reflux uropathy; J43.9 Emphysema, unspecified; I10 Essential (primary) hypertension; F17.210 Nicotine dependence, cigarettes, uncomplicated; F03.90 Unspecified dementia, unspecified severity, without behavioral disturbance, psychotic disturbance, mood disturbance, and anxiety; F41.9 Anxiety disorder, unspecified; G89.29 Other chronic pain; E53.8 Deficiency of other specified B group vitamins; N40.1 Benign prostatic hyperplasia with lower urinary tract symptoms; K29.70 Gastritis, unspecified, without bleeding; L89.152 Pressure ulcer of sacral region, stage 2; Z20.822 Contact with and (suspected) exposure to COVID-19; Z71.6 Tobacco abuse counseling; Z96.652 Presence of left artificial knee joint; Z87.440 Personal history of urinary (tract) infections; Z88.8 Allergy status to other drugs, medicaments and biological substances; Z79.891 Long term (current) use of opiate analgesic; Z79.899 Other long term (current) drug therapy
CPT/HCPCS: 36415; 36600; 70450; 71045; 71250; 80048; 80053; 80307; 81003; 82140; 82607; 82746; 82803; 83605; 84443; 84484; 85025; 85027; 87040; 87493; 87502; 87635; 92526; 92610; 93005; 94640; 94660; 96361; 96372; 96374; 96375; 97110; 97116; 97163; 97530; 99285; C1758; J0295; J0696; J1650; J2060

== ENCOUNTER → 2021-10-28 20:30 | Outpatient (REF) | payer BC, SELFPAY | LOC: HO.SL 20:30 | PROVIDERS: Visit Provider Internal Medicine | DX: G47.33 Obstructive sleep apnea (adult) (pediatric) (principal) | CPT/HCPCS: 95810 ==

== ENCOUNTER → 2021-12-24 13:48 | Outpatient (BNVA) | payer OTHER, SELFPAY | PROVIDERS: PCP Internal Medicine; Visit Provider Hospitalist | DX: J96.12 Chronic respiratory failure with hypercapnia (principal); J44.9 Chronic obstructive pulmonary disease, unspecified; R91.8 Other nonspecific abnormal finding of lung field | CPT/HCPCS: 99202 ==

== ENCOUNTER 2021-12-25 12:36 | Outpatient (REF) | payer MEDICARE, BC, SELFPAY ==
--- NOTE | ~2021-12-25 | CT_ITS ---
EXAMINATION: CT chest wo con. CLINICAL INFORMATION: Reason for Exam F/U RUL OPACITIES COMPARISON: Prior CT scan September 14, 2021 TECHNIQUE: Multidetector volumetric CT imaging of the chest was done. Axial MIP volume rendering provided. Sagittal and coronal reformatted images were obtained. This CT examination was performed using dose optimization techniques as appropriate, variously including the following: *Automated exposure control *Adjustment of mA and/or kV according to patient size (this includes techniques or standardized protocols for targeted exams where dose is matched to indication/reason for exam; i.e. extremities or head) *Use of iterative reconstruction technique CONTRAST: Noncontrasted study. DLP: 160 mGy-cm FINDINGS: CLEANING HANDYMAN: LINES/TUBES: Perinatal Technician reviewed, no lines. LUNGS: Lung parenchyma: Redemonstration of subsegmental atelectasis probably chronic infiltrate right lung base unchanged. Redemonstration underlying diffuse mild to moderate chong lobar pulmonary emphysema. Lung nodules/masses: There is 5 mm nodule right upper lobe image 191 series 7 with adjacent linear density likely scarring unchanged. Somewhat irregular nodule right upper lobe surrounded by emphysematous lung about 8 mm unchanged either. No new suspicious nodules. There is elevation right hemidiaphragm unchanged. AIRWAYS: Trachea and bronchi are normal. PLEURA: No pleural effusion or pneumothorax. MEDIASTINUM AND JOELLE: No mediastinal, hilar or axillary lymphadenopathy. No mediastinal mass. VESSELS: HEART AND PERICARDIUM: Thoracic aorta is normal in size. Heart is normal in size. No pericardial effusion. There are coronary calcifications pulmonary arteries are prominent right measure up to 3 cm, this has been described in association with possible underlying pulmonary hypertension. LOWER NECK, AXILLA: The visualized thyroid gland is unremarkable. No axillary mass or adenopathy. VISUALIZED ABDOMEN: Unremarkable CHEST WALL AND BONES: There is dextroscoliosis, degenerative changes of the area thoracic spine, motion artifact. The visualized bony thorax is within normal limits. CT/CT chest wo con IMPRESSION: *Stable somewhat irregular nodules largest is about 8 mm, found in the right upper lobe, unchanged from the recent CT scan of September 14, 2021. Continued imaging surveillance recommended, consider correlation with follow-up low-dose chest CT in 6 months. *Stable platelike atelectasis/infiltrate at right lung base, elevation right hemidiaphragm unchanged. *Coronary calcification. *Mild to moderate chong lobar pulmonary emphysema. *Prominence of the pulmonary arteries bilaterally the right measure up to 3 cm, this has been described in association with possible underlying pulmonary hypertension.
== END 2021-12-25 12:37 | disposition home or self-care (01) ==
LOC: HO.CT 12:36
PROVIDERS: PCP Internal Medicine; Visit Provider Nurse Practitioner
DX: R93.89 Abnormal findings on diagnostic imaging of other specified body structures (principal)
CPT/HCPCS: 71250

== ENCOUNTER 2022-01-20 13:34 | Outpatient (REF) | payer OTHER, MEDICARE, BC, SELFPAY ==
--- NOTE | 2022-01-20 15:23 | PFT_ITS ---
This patient was here for pulmonary function test, but patient was unable to perform the maneuvers for lung volumes in spite of many efforts. So this will be considered as no test. MD DAMON Singh/CLAUS / [id number]
== END 2022-01-20 13:35 | disposition home or self-care (01) ==
LOC: HO.RESP 13:34
PROVIDERS: PCP Internal Medicine; Visit Provider Hospitalist
DX: Z13.89 Encounter for screening for other disorder (principal)

== ENCOUNTER 2022-02-25 15:28 | Inpatient (IN) | payer OTHER, SELFPAY ==
[2022-02-25] VITALS (15 sets, daily range): BP systolic 76–165; BP diastolic 46–109; PULSE 36–90; RESP 9–20; TEMP 34.7–36.8; O2SAT 71–100; BMI 18.1; BMI 16.1
--- NOTE | ~2022-02-25 | XR_ITS ---
EXAMINATION: XR CHEST CLINICAL INFORMATION: Hypoxia COMPARISON: Previous chest x-ray August [address] November 2021 TECHNIQUE: Frontal view of the chest was obtained. FINDINGS: The cardiac and mediastinal contours are stable. The lungs are clear. There is no pleural effusion or pneumothorax. There is a left anterior fourth rib fracture, probably not acute. XR/XR chest 1V IMPRESSION: No evidence for acute disease in the chest.
--- NOTE | ~2022-02-25 | CT_ITS ---
EXAMINATION: CT ANGIOGRAM OF THE CHEST WITH AND WITHOUT CONTRAST (CT PULMONARY ANGIOGRAM FOR PE) CLINICAL INFORMATION: Reason for Exam severely hypoxic COMPARISON: Multiple prior CT scans of the chest most recently 12/25/2021 TECHNIQUE: Prior to contrast administration, noncontrast localization images were obtained. Subsequently, multidetector volumetric imaging was performed from the thoracic inlet to below the diaphragms following the administration of 70 mL Omnipaque 350 intravenous contrast. No contrast reaction reported Sagittal, coronal, and MIP oblique sagittal reformatted images were obtained on the CT workstation, uploaded to PACS, and reviewed. This CT examination was performed using dose optimization techniques as appropriate, variously including the following: *Automated exposure control *Adjustment of mA and/or kV according to patient size (this includes techniques or standardized protocols for targeted exams where dose is matched to indication/reason for exam; i.e. extremities or head) *Use of iterative reconstruction technique Total exam dose-length product 343 mGy-cm FINDINGS: QUALITY OF STUDY/CONTRAST BOLUS: Satisfactory. PULMONARY ARTERIES: No central or segmental pulmonary emboli. THORACIC AORTA: No aneurysm or dissection. LUNG: Subtle emphysematous changes are present at the apices. There is an area of linear scarring with a branching solid area and spiculated area distally (7:180) in the right upper lobe. A spiculated area measures about 1.2 cm and is unchanged when compared to the 12/25/2021 study. A large amount of endobronchial material is present in the distal left mainstem bronchus with bronchial thickening extending out into upper lobe as well as lower lobe bronchi. Some lower lobe bronchi demonstrate mucous plugging (for example 7:319) PLEURA: No pleural effusion or pneumothorax. MEDIASTINUM: Normal heart size. ET tube 4.3 cm above kendell. Please see discussion above regarding central bronchi No pericardial effusion. No hilar or mediastinal lymphadenopathy. No evidence of septal bowing or right heart strain. CHEST WALL/AXILLA: No axillary or internal mammary lymphadenopathy. OSSEOUS STRUCTURES: No acute or suspicious osseous abnormality. UPPER ABDOMEN: An NG tube is present with its tip in the distal esophagus No reflux of contrast into the hepatic veins to suggest elevated right heart pressures. CT/CT angio chest PE protocol IMPRESSION: 1. No pulmonary emboli seen 2. Tip of the NG tube is in the distal esophagus and should be advanced 3. Emphysema 4. Area of linear scarring in the right upper lobe with one spiculated area which appears stable. Continue to monitor on follow-up studies 5. Large amount of material present in the left mainstem bronchus intermedius with areas of bronchial plugging in the left lower lobe. These findings are new when compared to the 12/25/2021 study and could be secondary to aspiration VTE: negative
--- NOTE | ~2022-02-25 | XR_ITS ---
EXAMINATION: XR CHEST CLINICAL INFORMATION: Endotracheal tube placement. COMPARISON: 02/25/2022 chest radiograph. TECHNIQUE: Frontal view of the chest was obtained. FINDINGS: Support devices: Endotracheal tube placement with tip terminating approximately 7 cm proximal to kendell. The lungs are clear. The heart and mediastinal structures are unremarkable. XR/XR chest 1V IMPRESSION: 1. Endotracheal tube with tip terminating approximately 7 cm proximal to kendell. 2. No acute cardiopulmonary process.
--- NOTE | ~2022-02-25 | XR_ITS ---
EXAMINATION: XR CHEST CLINICAL INFORMATION: Endotracheal and orogastric tube placement COMPARISON: Previous day TECHNIQUE: Frontal view of the chest was obtained. FINDINGS: Endotracheal tube terminates 4.3 cm above the kendell. Enteric tube terminates the level of the GE junction. Streaky opacities at left lung base are unchanged. Small bilateral pleural effusions. No pneumothorax. Normal heart size. Aorta is tortuous and atherosclerotic. XR/XR chest 1V IMPRESSION: Stably positioned endotracheal tube. Orogastric tube is been retracted to the level of the GE junction. Similar appearing streaky opacities at left lung base. Small bilateral pleural effusions suspected.
--- NOTE | ~2022-02-25 | XR_ITS ---
EXAMINATION: XR CHEST CLINICAL INFORMATION: Orogastric tube placement COMPARISON: Chest radiograph earlier today at 4:39 PM TECHNIQUE: Frontal view of the chest was obtained. FINDINGS: Since the prior study, an NG tube has been placed with its tip coiled in the fundus. There is been no other changes. XR/XR chest 1V IMPRESSION: NG tube in good position with its tip coiled in the fundus.
--- NOTE | ~2022-02-25 | XR_ITS ---
EXAMINATION: XR CHEST CLINICAL INFORMATION: Post intubation COMPARISON: Previous chest x-ray most recent from yesterday TECHNIQUE: AP portable view of the chest was obtained. FINDINGS: The endotracheal tube tip is 5.6 cm above the kendell. There is a nasogastric tube with tip projecting over the proximal stomach. There is an esophageal probe with tip in the mid thoracic esophagus. The cardiac and mediastinal contours are stable. There is increased markings in the left lower lobe suggestive of pneumonia. The lungs are well inflated. There is no pleural effusion or pneumothorax. There are old left anterior third and fourth rib fractures. There are degenerative changes at the shoulders. XR/XR chest 1V IMPRESSION: Satisfactory position of endotracheal tube and nasogastric tube. Left base pneumonia.
--- NOTE | 2022-02-25 15:56 | ECG_ITS ---
Test Reason : SOB Blood Pressure : / mmHG Vent. Rate : 070 BPM Atrial Rate : 070 BPM P-R Int : 142 ms QRS Dur : 118 ms QT Int : 408 ms P-R-T Axes : 061 086 -74 degrees QTc Int : 440 ms Poor data quality, interpretation may be adversely affected Sinus rhythm with marked sinus arrhythmia Non-specific intra-ventricular conduction delay Nonspecific T wave abnormality Abnormal ECG When compared with ECG of 09-SEP-2021 14:46, QRS duration has increased Inverted T waves have replaced nonspecific T wave abnormality in Inferior leads Referred By: Marielle Singh Electronically Signed By:ROZINA HOWARD
[2022-02-25] MEDS: methylPREDNISolone Sod Succ 125 MG/2 ML VIAL IVPUSH (15:59)
[2022-02-25] MEDS: Magnesium Sulfate/H2O 2 GM/50 ML PIGGYBACK IV (15:59)
--- NOTE | 2022-02-25 16:03 | ED_ITS ---
HPI - General Adult General Chief complaint: General Medical Stated complaint: SOB Time Seen by Provider: 02/25/22 15:56 Source: family Mode of arrival: wheelchair Limitations: no limitations History of Present Illness HPI narrative: Patient comes to the emergency room accompanied by his son. Patient is short of breath and cannot give any history, additionally he has dementia. The son reports that the patient woke up with shortness of breath today. Patient known to have COPD. When patient arrived to the emergency room, patient was pale, diaphoretic, oxygen saturation in the high 60s. Patient was put on non- rebreather, oxygen saturation improved to the high 90s. Related Data Home Medications Medication Instructions Recorded Confirmed atorvastatin 80 mg tablet 80 mg PO BEDTIME 08/01/20 02/25/22 lisinopril 10 1 tab PO DAILY 08/01/20 02/25/22 mg-hydrochlorothiazide 12.5 mg tablet acetaminophen 500 mg tablet 1,000 mg PO TID PRN Pain 09/09/21 02/25/22 buprenorphine 2 mg-naloxone 0.5 mg 2 tab sublingual BIDWM 09/09/21 02/25/22 sublingual tablet venlafaxine 150 mg 150 mg PO DAILY 09/09/21 02/25/22 capsule,extended release 24 hr aspirin 81 mg tablet,delayed 81 mg PO DAILY 02/25/22 02/25/22 release buprenorphine 2 mg-naloxone 0.5 mg 3 tab sublingual BEDTIME 02/25/22 02/25/22 sublingual tablet bupropion HCl 200 mg tablet,12 hr 200 mg PO DAILY 02/25/22 02/25/22 sustained-release diazepam 5 mg tablet 0.5 tab PO BID 02/25/22 02/25/22 donepezil 5 mg tablet 1 tab PO BEDTIME 02/25/22 02/25/22 lidocaine 5 % topical patch 1 patch topical DAILY 02/25/22 02/25/22 (Lidoderm) oxycodone 5 mg tablet 5 mg PO BID PRN pain (scale score 02/25/22 02/25/22 7-10) tamsulosin 0.4 mg capsule 1 cap PO DAILY 02/25/22 02/25/22 trazodone 100 mg tablet 150 mg PO BEDTIME PRN Sleep 02/25/22 02/25/22 zolpidem 10 mg tablet 1 tab PO BEDTIME PRN Sleep if 02/25/22 02/25/22 trazodone does not work Previous Rx's Medication Instructions Recorded amlodipine 5 mg tablet 5 mg PO DAILY #30 tabs 10/09/21 finasteride 5 mg tablet (Proscar) 5 mg PO DAILY #30 tabs 10/09/21 omeprazole 40 mg capsule,delayed 40 mg PO DAILY@0630 #30 caps 10/09/21 release Allergies Allergy/AdvReac Type Severity Reaction Status Date / Time amitriptyline [From ELAVIL] AdvReac Unknown muscle Verified 12/24/21 13:56 spasms, uncontrollable arm movements Review of Systems 2 Review of Systems: Yes Unobtainable due to mental condition PMFSH Past Medical History Medical History Adult failure to thrive BPH w urinary obs/LUTS Chronic back pain Chronic hypercapnic respiratory failure COPD (chronic obstructive pulmonary disease) Cough Emphysema lung Groin pain HTN (hypertension) Left knee injury Moderate malnutrition Pulmonary nodules Weakness Surgical History H/O arthroscopic knee surgery History of left knee replacement Previous back surgery Social History Social History (Updated 09/10/21 @ 10:25 by Kevin Vasquez MD) Household Members: Family Housing: House Do you presently have visiting nurse or other home services: No Alcohol intake: never Patient Tobacco Use Status: Current everyday Tobacco user Tobacco use type: Cigarette Cigarette Packs Per Day: 1 Cigarettes Per Day: 20.0 Advance Directives: Yes Advance Directives Information Provided: No Advance Directives on File: No service: Yes Current occupational status: retired Physical Exam ED Vital Signs: Vital Signs - 24 hr 02/25/22 15:30 02/25/22 16:20 02/25/22 16:56 Temperature 98.2 F Pulse Rate 36 L 72 Respiratory Rate 20 16 Blood Pressure 76/46 L Pulse Oximetry 71 L Oxygen Delivery Method Room Air Fraction of Inspired Oxygen 50 02/25/22 17:15 02/25/22 17:19 02/25/22 17:23 Temperature Pulse Rate 77 82 90 Respiratory Rate 16 20 18 Blood Pressure 165/100 H 150/102 H 165/106 H Pulse Oximetry 100 95 93 Oxygen Delivery Method Fraction of Inspired Oxygen 02/25/22 18:16 02/25/22 18:41 Temperature Pulse Rate 67 70 Respiratory Rate 16 16 Blood Pressure 116/88 108/79 Pulse Oximetry 98 98 Oxygen Delivery Method Mechanical Ventilation Fraction of Inspired Oxygen 60 BMI result Body Mass Index 18.1 Const Other: Appearance: Alert. Oriented x1, very uncomfortable, tachypneic, very cachectic Eyes: Pupils equal, round and reactive to light. ENT: Pharynx normal. Neck: Normal inspection. Neck supple. No lymph nodes noted. No crepitus CVS: Normal heart rate and rhythm. Pulses normal. Normal S1 and S2 Respiratory: Patient in respiratory distress, when a non-rebreather 15 L was started, patient started to improve, barely audible breath sounds, no wheezing Abdomen: Soft and nontender. No rigidity. No distention. Skin: Skin warm and dry. Patient has stage 5 decubitus ulcers, see pictures below . Extremities: No lower extremity edema. No Lacerations. No Rash Neuro: Cranial nerves 2-12 grossly intact Psych: calm, cooperative, Course Course Course Narrative: I discussed the code status with the patient's son who is the healthcare proxy. According to the son, the patient has always wished to be full code. I discussed with the patient's son that the patient is very tachypneic, we will give him a chance with a non-rebreather/OxyMask which seems to be helping. Avendano andres, there is a chance that patient may have to be intubated Patient received 2 L of IV fluids, ceftriaxone, azithromycin. All labs are pending 16:50, patient oxygen saturation is in the low 90s with 10 L. patient is very tachypneic, looks fatigued, about to become unconscious. Patient was intubated. On arrival, patient's blood pressure in the low 70s initially, currently 130 systolic after IV fluids. We will stop propofol. Patient's chest x-ray does not show any acute abnormalities. Patient was severely hypoxic, we will go ahead and get a CTA for pulmonary embolism protocol CTA negative for pulmonary embolism. I discussed the patient with Dr. Grewal, pt being admitted Procedures Intubation Time out performed: Yes sedative: Etomidate Mg Given: 20 paralytic: Rocuronium Mg Given: 50 Laryngoscope: other (GlideScope) ET Tube Size: 8 ET Tube Uncuffed: No Tube Secured Depth (cm): 22 Tube Secured Location: lips Tube Placement Confirmation: visualized tube passing through cords, equal breath sounds bilaterally, no breath sounds over epigastrium and confirmation by capnometry Patient Tolerated Procedure: well Intubation Complications: none Medical Decision Making Lab Data Result diagrams: 02/25/22 16:11 02/25/22 16:11 Labs: Lab Results 02/25/22 02/25/22 02/25/22 Range/Units 16:11 16:11 16:12 WBC 11.1 H (4.8-10.8) X10*3/uL RBC 3.87 L (4.60-5.80) X10*6/uL Hgb 11.6 L (14.0-18.0) g/dl Hct 37.1 L (42.0-52.0) % MCV 95.9 (80.0-98.0) fL MCH 30.0 (27.0-33.0) pg MCHC 31.3 (31.0-36.0) g/dl RDW 14.6 (11.0-16.0) % Plt Count 318 D (160-400) X10*3/uL MPV 10.8 (9.4-12.4) fL Immature Gran % (Auto) 0.9 H (0.0-0.4) % Neut % (Auto) 89.8 H (45-73) % Lymph % (Auto) 4.8 L (20-40) % [place] % (Auto) 4.4 (2-11) % Eos % (Auto) 0.0 (0-4) % Baso % (Auto) 0.1 (0-2) % Lymph # (Auto) 0.5 L (1.2-4.9) X10*3/uL [place] # (Auto) 0.5 (0.1-1.2) X10*3/uL Eos # (Auto) 0.0 (0.0-0.4) X10*3/uL Baso # (Auto) 0.0 (0.0-0.2) X10*3/uL Abs Immat Gran (auto) 0.10 H (0.00-0.03) X10*3/uL Absolute Neuts (auto) 10.0 H (2.0-8.3) x10*3/uL Absolute Nucleated RBC 0.000 (0.0-0.012) X10*3/uL Nucleated RBC % (auto) 0.0 (0.0-0.2) /100WBC PT (10.0-13.1) SEC INR (0.9-1.1) VBG pH (7.32-7.43) VBG pCO2 mmHg VBG pO2 mmHg VBG HCO3 (22-26) mmol/L VBG O2 Saturation % VBG Base Excess mmol/L Sodium 143 (135-145) mmol/L Potassium 3.3 (3.3-5.1) mmol/L Chloride 96 (96-108) mmol/L Carbon Dioxide 31 H (22-29) mmol/L Anion Gap 19 (12-20) BUN 22 H (9-16) mg/dL Creatinine 0.49 L (0.5-1.4) mg/dL Estim Creat Clear Calc 115.3 Estimated GFR > 60 Random Glucose 242 H D (60-115) mg/dL Lactic Acid 2.0 (0.5-2.0) mmol/L Calcium 8.5 D (8.4-10.2) mg/dL Magnesium 4.2 H* (1.6-2.6) mg/dL Total Bilirubin 0.4 (0.0-1.0) mg/dL Direct Bilirubin 0.2 (0.0-0.5) mg/dL AST 16 (5-37) U/L ALT 14 (0-40) U/L Alkaline Phosphatase 95 (39-117) U/L Troponin I High Sens (<3.5-35.0) ng/L B-Natriuretic Peptide (<100) pg/mL Total Protein 5.9 L (6.5-8.0) g/dL Albumin 3.0 L (3.5-5.0) g/dL COVID-19 (RAD[facility]) (Negative) COVID-19 Clin Com 02/25/22 02/25/22 02/25/22 Range/Units 16:19 17:01 17:01 WBC (4.8-10.8) X10*3/uL RBC (4.60-5.80) X10*6/uL Hgb (14.0-18.0) g/dl Hct (42.0-52.0) % MCV (80.0-98.0) fL MCH (27.0-33.0) pg MCHC (31.0-36.0) g/dl RDW (11.0-16.0) % Plt Count (160-400) X10*3/uL MPV (9.4-12.4) fL Immature Gran % (Auto) (0.0-0.4) % Neut % (Auto) (45-73) % Lymph % (Auto) (20-40) % [place] % (Auto) (2-11) % Eos % (Auto) (0-4) % Baso % (Auto) (0-2) % Lymph # (Auto) (1.2-4.9) X10*3/uL [place] # (Auto) (0.1-1.2) X10*3/uL Eos # (Auto) (0.0-0.4) X10*3/uL Baso # (Auto) (0.0-0.2) X10*3/uL Abs Immat Gran (auto) (0.00-0.03) X10*3/uL Absolute Neuts (auto) (2.0-8.3) x10*3/uL Absolute Nucleated RBC (0.0-0.012) X10*3/uL Nucleated RBC % (auto) (0.0-0.2) /100WBC PT 11.6 (10.0-13.1) SEC INR 1.0 (0.9-1.1) VBG pH 7.31 L (7.32-7.43) VBG pCO2 85 mmHg VBG pO2 55 mmHg VBG HCO3 43 H (22-26) mmol/L VBG O2 Saturation 77.0 % VBG Base Excess 14.1 mmol/L Sodium (135-145) mmol/L Potassium (3.3-5.1) mmol/L Chloride (96-108) mmol/L Carbon Dioxide (22-29) mmol/L Anion Gap (12-20) BUN (9-16) mg/dL Creatinine (0.5-1.4) mg/dL Estim Creat Clear Calc Estimated GFR Random Glucose (60-115) mg/dL Lactic Acid (0.5-2.0) mmol/L Calcium (8.4-10.2) mg/dL Magnesium (1.6-2.6) mg/dL Total Bilirubin (0.0-1.0) mg/dL Direct Bilirubin (0.0-0.5) mg/dL AST (5-37) U/L ALT (0-40) U/L Alkaline Phosphatase (39-117) U/L Troponin I High Sens 6.5 D (<3.5-35.0) ng/L B-Natriuretic Peptide 48 (<100) pg/mL Total Protein (6.5-8.0) g/dL Albumin (3.5-5.0) g/dL COVID-19 ([facility]) (Negative) COVID-19 Clin Com 02/25/22 02/25/22 Range/Units 17:02 19:23 WBC (4.8-10.8) X10*3/uL RBC (4.60-5.80) X10*6/uL Hgb (14.0-18.0) g/dl Hct (42.0-52.0) % MCV (80.0-98.0) fL MCH (27.0-33.0) pg MCHC (31.0-36.0) g/dl RDW (11.0-16.0) % Plt Count (160-400) X10*3/uL MPV (9.4-12.4) fL Immature Gran % (Auto) (0.0-0.4) % Neut % (Auto) (45-73) % Lymph % (Auto) (20-40) % [place] % (Auto) (2-11) % Eos % (Auto) (0-4) % Baso % (Auto) (0-2) % Lymph # (Auto) (1.2-4.9) X10*3/uL [place] # (Auto) (0.1-1.2) X10*3/uL Eos # (Auto) (0.0-0.4) X10*3/uL Baso # (Auto) (0.0-0.2) X10*3/uL Abs Immat Gran (auto) (0.00-0.03) X10*3/uL Absolute Neuts (auto) (2.0-8.3) x10*3/uL Absolute Nucleated RBC (0.0-0.012) X10*3/uL Nucleated RBC % (auto) (0.0-0.2) /100WBC PT (10.0-13.1) SEC INR (0.9-1.1) VBG pH (7.32-7.43) VBG pCO2 mmHg VBG pO2 mmHg VBG HCO3 (22-26) mmol/L VBG O2 Saturation % VBG Base Excess mmol/L Sodium (135-145) mmol/L Potassium (3.3-5.1) mmol/L Chloride (96-108) mmol/L Carbon Dioxide (22-29) mmol/L Anion Gap (12-20) BUN (9-16) mg/dL Creatinine (0.5-1.4) mg/dL Estim Creat Clear Calc Estimated GFR Random Glucose (60-115) mg/dL Lactic Acid (0.5-2.0) mmol/L Calcium (8.4-10.2) mg/dL Magnesium (1.6-2.6) mg/dL Total Bilirubin (0.0-1.0) mg/dL Direct Bilirubin (0.0-0.5) mg/dL AST (5-37) U/L ALT (0-40) U/L Alkaline Phosphatase (39-117) U/L Troponin I High Sens (<3.5-35.0) ng/L B-Natriuretic Peptide (<100) pg/mL Total Protein (6.5-8.0) g/dL Albumin (3.5-5.0) g/dL COVID-19 (RAD[facility]) Invalid Negative (Negative) COVID-19 Clin Com See Note See Note Imaging Data CT scan - chest: Radiologist's impression: FINDINGS: QUALITY OF STUDY/CONTRAST BOLUS: Satisfactory. PULMONARY ARTERIES: No central or segmental pulmonary emboli.? THORACIC AORTA: No aneurysm or dissection. LUNG: Subtle emphysematous changes are present at the apices. There is an area of linear scarring with a branching solid area and spiculated area distally (7:180) in the right upper lobe. A spiculated area measures about 1.2 cm and is unchanged when compared to the 12/25/2021 study. A large amount of endobronchial material is present in the distal left mainstem bronchus with bronchial thickening extending out into upper lobe as well as lower lobe bronchi. Some lower lobe bronchi demonstrate mucous plugging (for example 7:319) PLEURA: No pleural effusion or pneumothorax. MEDIASTINUM: Normal heart size. ET tube 4.3 cm above kendell. Please see discussion above regarding central bronchi No pericardial effusion.? No hilar or mediastinal lymphadenopathy.? No evidence of septal bowing or right heart strain. CHEST WALL/AXILLA: No axillary or internal mammary lymphadenopathy. OSSEOUS STRUCTURES: No acute or suspicious osseous abnormality.? UPPER ABDOMEN: An NG tube is present with its tip in the distal esophagus? No reflux of contrast into the hepatic veins to suggest elevated right heart pressures. CT/CT angio chest PE protocol IMPRESSION: 1.? No pulmonary emboli seen 2.? Tip of the NG tube is in the distal esophagus and should be advanced 3.? Emphysema 4.? Area of linear scarring in the right upper lobe with one spiculated area which appears stable. Continue to monitor on follow-up studies 5.? Large amount of material present in the left mainstem bronchus intermedius with areas of bronchial plugging in the left lower lobe. These findings are new when compared to the 12/25/2021 study and could be secondary to aspiration ? VTE: negative Critical Care Time Critical Care Time Critical Care Time: Yes Total Critical Care Time: 90 Attestation: I have personally provided critical care time. Time includes review of lab data, radiology results, discussion with consultants, and monitoring for potential decompensation. Intervention performed as documented. Discharge Plan Discharge Clinical Impression: COPD (chronic obstructive pulmonary disease), Acute and chronic respiratory failure Patient Disposition: Admitted As Inpatient
[2022-02-25] MEDS: 0.9 % Sodium Chloride 2,000 ML 999 ML IVCONT (16:16)
[2022-02-25] MEDS: Albuterol Sulfate (0.083%) 2.5 MG/3 ML VIAL.NEB 10 MG INHALE (16:18)
[2022-02-25] MEDS: cefTRIAXone sodium 1 GM in 0.9 % Sodium Chloride 50 ML IV (16:20)
[2022-02-25 16:21] LABS: MANUAL DIFF FLAG NO
[2022-02-25 16:25] LABS: Basophils Percent Auto 0.1 % (0-2); Hematocrit 37.1 % (42.0-52.0); Hemoglobin 11.6 g/dl (14.0-18.0); Imm Gran Pct Auto 0.9 % (0.0-0.4); Lymphocytes Absolute Auto 0.5 X10*3/uL (1.2-4.9); Lymphocytes Percent Auto 4.8 % (20-40); Mean Corpuscular HGB Conc 31.3 g/dl (31.0-36.0); Mean Corpuscular Volume 95.9 fL (80.0-98.0); Mean Platelet Volume 10.8 fL (9.4-12.4); Monocytes Absolute Auto 0.5 X10*3/uL (0.1-1.2); Monocytes Percent Auto 4.4 % (2-11); Neutrophils Percent Auto 89.8 % (45-73); Platelet Count 318 X10*3/uL (160-400); Red Blood Count 3.87 X10*6/uL (4.60-5.80); Red Cell Distribution Width 14.6 % (11.0-16.0); White Blood Count 11.1 X10*3/uL (4.8-10.8)
[2022-02-25 16:27] LABS: Venous Blood Gas Refer to POC result
[2022-02-25 16:29] LABS: VBG Base Excess 14.1 mmol/L; VBG HCO3 43 mmol/L (22-26); VBG pCO2 85 mmHg; VBG pH 7.31 (7.32-7.43); VBG pO2 55 mmHg
--- NOTE | 2022-02-25 16:40 | PC.NURSE ---
pt appears to be bradycardic on monitor, appearing to have worsened labor of breathing, Dr Singh aware and at bedside. family and provider agree for intubation at this time. intubated without issue, resp tx at bedside. size 8, 23 quintin. dowell cath placed, OG tube placed.
[2022-02-25 16:48] LABS: Alanine Aminotransferase 14 U/L (0-40); Alkaline Phosphatase 95 U/L (39-117); Anion Gap 19 (12-20); Aspartate Amino Transferase 16 U/L (5-37); Bilirubin Direct 0.2 mg/dL (0.0-0.5); Bilirubin Total 0.4 mg/dL (0.0-1.0); Blood Urea Nitrogen 22 mg/dL (9-16); Calcium 8.5 mg/dL (8.4-10.2); Carbon Dioxide 31 mmol/L (22-29); Chloride 96 mmol/L (96-108); Creatinine Clr Calc Pharmacy 115.3; Estimated Glomerular Filt Rate > 60; Glucose Random 242 mg/dL (60-115); Magnesium 4.2 mg/dL (1.6-2.6); Potassium 3.3 mmol/L (3.3-5.1); Sodium 143 mmol/L (135-145); Total Protein 5.9 g/dL (6.5-8.0)
[2022-02-25] MEDS: propofoL 1,000 MG/100 ML VIAL 10.61 MG IVCONT (17:15)
[2022-02-25 17:21] LABS: Prothrombin Time 11.6 SEC (10.0-13.1)
[2022-02-25 17:39] LABS: B Type Natriuretic Peptide 48 pg/mL (<100); Troponin-I High Sensitivity 6.5 ng/L (<3.5-35.0)
[2022-02-25] MEDS: Azithromycin 500 MG in 0.9 % Sodium Chloride 250 ML 125 MG IV (17:39)
[2022-02-25 17:41] LABS: COVID-19 Test Invalid (Negative)
[2022-02-25] MEDS: iohexoL 350 MG/ML 100 ML INFUS..BTL IV (18:04)
--- NOTE | 2022-02-25 18:10 | PHA.MEDREC ---
Pharmacy Consult ? Medication Reconciliation Pharmacy has completed the medication reconciliation.
--- NOTE | 2022-02-25 18:46 | PC.NURSE ---
pt sister at bedside, requesting a molder foam rubber for guidance. Pako (amagon molder foam rubber)calling back this rn after being reached by switchboard. molder foam rubber prospects arrival to be about 25 mins.
[2022-02-25 19:45] LABS: COVID-19 Test Negative (Negative)
[2022-02-25] MEDS: Etomidate 20 MG/10 ML VIAL IVPUSH (19:49)
[2022-02-25] MEDS: Rocuronium Bromide 50 MG/5 ML VIAL IVPUSH (19:49)
--- NOTE | 2022-02-25 19:54 | PC.NURSE ---
assumed care of pt at 1900, pt sedated and on ventilator, propofol running at 55mcg/kg/hr, decreased to 50mcg/kg/hr - max rate, vss, respiratory at bedside - fiO2 decreased to 70, ICU provider at bedside w pt sister and bar and filler assembler. 20G IV left and right AC.
--- NOTE | 2022-02-25 20:04 | PC.NURSE ---
attempted to call in rn-rn to ICU - RN to call back
[2022-02-25] MEDS: Enoxaparin Sodium 40 MG/0.4 ML SYRINGE SUBCUT (20:13)
--- NOTE | 2022-02-25 20:28 | P.HPCC_ITS ---
History of Present Illness Date of Service: 02/25/22 Attending physician on admission: Richard Grewal Chief Complaint: Shortness of breath The patient is a 71-year-old male? with a past medical history of? COPD, hypertension, failure to thrive,? bed-bound and dementia? who presented to the emergency room? with complaints of shortness of breath.? Patient was accompanied by son/hcp? noted his father was severely short of breath and decided to bring him to the emergency room. ? On arrival to emergency room patient was tachypneic? 36, blood pressure 76/46, and satting 71% on room air.? Initially he was put on 15 L non-rebreather,? but later mentation status worsened requiring emergent intubation.? ?Laboratory data was significant for? WBC 11.1,? potassium 3.3, CO2 31, BUN 22, creatinine 0.49, magnesium 4.2,? albumin 3 IMAGING:? ?Chest CTA-? no acute findings ED course:? Patient received Solu-Medrol, magnesium, ceftriaxone, azithromycin,albuterol? ED physician? spoke with the patient's son/healthcare proxy regarding? goals of care and code status. The patient?s son? wanted the patient to continue to be full code.? ?Admitted to ICU for acute hypoxic respiratory failure requiring ventilator Review of Systems Review of Systems: Unable to do as patient is intubated PMFSH Past Medical History Medical History Adult failure to thrive BPH w urinary obs/LUTS Chronic back pain Chronic hypercapnic respiratory failure COPD (chronic obstructive pulmonary disease) Cough Emphysema lung Groin pain HTN (hypertension) Left knee injury Moderate malnutrition Pulmonary nodules Weakness Surgical History Surgical History H/O arthroscopic knee surgery History of left knee replacement Previous back surgery Social History Social History (Updated 09/10/21 @ 10:25 by Kevin Vasquez MD) Household Members: Family Housing: House Do you presently have visiting nurse or other home services: No Alcohol intake: never Patient Tobacco Use Status: Current everyday Tobacco user Tobacco use type: Cigarette Cigarette Packs Per Day: 1 Cigarettes Per Day: 20.0 Advance Directives: Yes Advance Directives Information Provided: No Advance Directives on File: No service: Yes Current occupational status: retired Meds Allergies Allergy/AdvReac Type Severity Reaction Status Date / Time amitriptyline [From AVI] AdvReac Unknown muscle Verified 12/24/21 13:56 spasms, uncontrollable arm movements Active Medications: Current Medications Acetaminophen (Acetaminophen Supp 650 Mg Supp.Rect) 650 mg UT Q6H PRN PRN Reason: Fever >101 Chlorhexidine Gluconate (Chlorhexidine Gluc Oral Rinse 15 Ml Mouthwash) 15 ml BUCCAL TID [facility] Enoxaparin Sodium (Enoxaparin Sodium 40 Mg/0.4 Ml Syringe) 40 mg SUBCUT Q24H [facility] Last Admin: 02/25/22 20:13 Dose: 40 mg Propofol (Diprivan) 1,000 mg in 100 mls @ 0 mls/hr IVCONT .Q0M [facility]; Protocol Last Titration: 02/25/22 19:51 Dose: 50 mcg/kg/min, 17.69 mls/hr Albumin Human (Kedbumin 25 %) 100 mls @ 100 mls/hr IV Q6H [facility] Stop: 02/26/22 15:14 Pantoprazole Sodium (Pantoprazole Sodium 40 Mg/10 Ml Vial) 40 mg IVPUSH DAILY@0630 [facility] Home Medications Medication Instructions Recorded Confirmed Last Taken Type atorvastatin 80 mg tablet 80 mg PO BEDTIME 08/01/20 02/25/22 09/08/21 History lisinopril 10 1 tab PO DAILY 08/01/20 02/25/22 09/09/21 History mg-hydrochlorothiazide 12.5 mg tablet acetaminophen 500 mg tablet 1,000 mg PO TID PRN Pain 09/09/21 02/25/22 09/09/21 History buprenorphine 2 mg-naloxone 0.5 mg 2 tab sublingual BIDWM 09/09/21 02/25/22 09/09/21 History sublingual tablet venlafaxine 150 mg 150 mg PO DAILY 09/09/21 02/25/22 09/09/21 History capsule,extended release 24 hr aspirin 81 mg tablet,delayed 81 mg PO DAILY 02/25/22 02/25/22 Unknown History release buprenorphine 2 mg-naloxone 0.5 mg 3 tab sublingual BEDTIME 02/25/22 02/25/22 Unknown History sublingual tablet bupropion HCl 200 mg tablet,12 hr 200 mg PO DAILY 02/25/22 02/25/22 Unknown History sustained-release diazepam 5 mg tablet 0.5 tab PO BID 02/25/22 02/25/22 Unknown History donepezil 5 mg tablet 1 tab PO BEDTIME 02/25/22 02/25/22 Unknown History lidocaine 5 % topical patch 1 patch topical DAILY 02/25/22 02/25/22 Unknown History (Lidoderm) oxycodone 5 mg tablet 5 mg PO BID PRN pain (scale score 02/25/22 02/25/22 Unknown History 7-10) tamsulosin 0.4 mg capsule 1 cap PO DAILY 02/25/22 02/25/22 Unknown History trazodone 100 mg tablet 150 mg PO BEDTIME PRN Sleep 02/25/22 02/25/22 Unknown History zolpidem 10 mg tablet 1 tab PO BEDTIME PRN Sleep if 02/25/22 02/25/22 Unknown History trazodone does not work Physical Exam Vital Signs: Vital Signs: Last Vital Signs Temp 98.2 F 02/25/22 15:30 Pulse 63 02/25/22 20:00 Resp 16 02/25/22 20:00 BP 110/74 02/25/22 20:00 Pulse Ox 96 02/25/22 20:00 O2 Del Method 02/25/22 20:00 FiO2 70 02/25/22 20:03 BMI result Body Mass Index 18.1 ?General:? Patient intubated. Cachectic ?HEENT:? Head is normocephalic, atraumatic, pupils equal round reactive to light accommodation bilaterally.? Extraocular movements appear intact.? Buccal mucosa is dry, Neck is supple without lymphadenopathy. ?Cardiac:? Clear S1-S2, no murmurs rubs or gallops. ?Pulmonary:? Clear to auscultation, no wheezes, rales or rhonchi. ?Abdomen:? positive bowel sounds in all 4 quadrants.? Soft. ?Musculoskeletal: Patient with clear signs of muscle wasting. Extremely thin. Moves extremity randomly.? Gait not assessed at this point. ?Skin:? Patient with several pressure ulcers and wounds extending from upper back to coccyx. Ecchymosis throughout his body. ?Neurologic:? No focal deficits noted. Vascular:? 2+ pulses upper and lower extremities distally.? Results Labs CBC and Chem 7: 02/25/22 16:11 02/25/22 16:11 Labs: Laboratory Results - last 24 hr 02/25/22 02/25/22 02/25/22 16:11 16:11 16:12 MCV 95.9 MCH 30.0 MCHC 31.3 RDW 14.6 Plt Count 318 D MPV 10.8 Immature Gran % (Auto) 0.9 H Neut % (Auto) 89.8 H Lymph % (Auto) 4.8 L Rooks % (Auto) 4.4 Eos % (Auto) 0.0 Baso % (Auto) 0.1 Lymph # (Auto) 0.5 L Rooks # (Auto) 0.5 Eos # (Auto) 0.0 Baso # (Auto) 0.0 Abs Immat Gran (auto) 0.10 H Absolute Neuts (auto) 10.0 H Absolute Nucleated RBC 0.000 Nucleated RBC % (auto) 0.0 PT INR VBG pH VBG pCO2 VBG pO2 VBG HCO3 VBG O2 Saturation VBG Base Excess Anion Gap 19 Estim Creat Clear Calc 115.3 Estimated GFR > 60 Random Glucose 242 H D Lactic Acid 2.0 Calcium 8.5 D Magnesium 4.2 H* Total Bilirubin 0.4 Direct Bilirubin 0.2 AST 16 ALT 14 Alkaline Phosphatase 95 B-Natriuretic Peptide Total Protein 5.9 L Albumin 3.0 L COVID-19 (RADHA) COVID-Global Active 02/25/22 02/25/22 02/25/22 16:19 17:01 17:01 MCV MCH MCHC RDW Plt Count MPV Immature Gran % (Auto) Neut % (Auto) Lymph % (Auto) Rooks % (Auto) Eos % (Auto) Baso % (Auto) Lymph # (Auto) Rooks # (Auto) Eos # (Auto) Baso # (Auto) Abs Immat Gran (auto) Absolute Neuts (auto) Absolute Nucleated RBC Nucleated RBC % (auto) PT 11.6 INR 1.0 VBG pH 7.31 L VBG pCO2 85 VBG pO2 55 VBG HCO3 43 H VBG O2 Saturation 77.0 VBG Base Excess 14.1 Anion Gap Estim Creat Clear Calc Estimated GFR Random Glucose Lactic Acid Calcium Magnesium Total Bilirubin Direct Bilirubin AST ALT Alkaline Phosphatase B-Natriuretic Peptide 48 Total Protein Albumin COVID-19 (RADHA) COVID-Global Active 02/25/22 02/25/22 17:02 19:23 MCV MCH MCHC RDW Plt Count MPV Immature Gran % (Auto) Neut % (Auto) Lymph % (Auto) Rooks % (Auto) Eos % (Auto) Baso % (Auto) Lymph # (Auto) Rooks # (Auto) Eos # (Auto) Baso # (Auto) Abs Immat Gran (auto) Absolute Neuts (auto) Absolute Nucleated RBC Nucleated RBC % (auto) PT INR VBG pH VBG pCO2 VBG pO2 VBG HCO3 VBG O2 Saturation VBG Base Excess Anion Gap Estim Creat Clear Calc Estimated GFR Random Glucose Lactic Acid Calcium Magnesium Total Bilirubin Direct Bilirubin AST ALT Alkaline Phosphatase B-Natriuretic Peptide Total Protein Albumin COVID-19 (RADHA) Invalid Negative COVID-19 Clin Com See Note See Note Imaging Radiologist's Impressions: Impressions Chest X-Ray 02/25/22 16:33 IMPRESSION: No evidence for acute disease in the chest. Chest X-Ray 02/25/22 16:50 IMPRESSION: 1. Endotracheal tube with tip terminating approximately 7 cm proximal to kendell. 2. No acute cardiopulmonary process. Chest CTA 02/25/22 18:13 IMPRESSION: 1. No pulmonary emboli seen 2. Tip of the NG tube is in the distal esophagus and should be advanced 3. Emphysema 4. Area of linear scarring in the right upper lobe with one spiculated area which appears stable. Continue to monitor on follow-up studies 5. Large amount of material present in the left mainstem bronchus intermedius with areas of bronchial plugging in the left lower lobe. These findings are new when compared to the 12/25/2021 study and could be secondary to aspiration VTE: negative Assessment and Plan (1) Acute respiratory failure with hypoxemia: Status: Acute (2) COPD exacerbation: Status: Acute (3) COPD (chronic obstructive pulmonary disease): Status: Acute (4) Failure to thrive in adult: Status: Acute Plan 72-year-old gentleman with underlying COPD admitted with acute hypoxic respiratory failure? require ventilator support Plan: Neuro:? No acute issues. Cardiac:? No acute issues. Pulmonary:? acute hypoxic respiratory failure,? likely from? COPD exacerbation.? Patient received ? systemic? glucocorticoids,? nebulized bronchodilators,? ceftriaxone and azithromycin.? Patient initially? responded to non-rebreather, but later required emergent intubation in the emergency room. No signs of acute infection/PE shown in? CTA and? normal lactate level.? Will continue with glucocorticoids and nebulized bronchodilators.? Renal:? No acute issues.?? Endo:? No acute issues.?? GI: ? no acute issues ID: leukocytosis-? patient has a mild elevation in white count,? no elevated lactic.? No evidence of severe infection.? Received ceftriaxone and azithromycin in the ED.? this is likely due to stress response.??? Heme/Onc:? No acute issues. Psych:? No acute issues. Miscellaneous: ? patient cachectic, failure to thrive,? with multiple wounds? all over the body. When the patient arrived to ICU I held another family meeting with patient son Maliha and patient sister Lelo, discussed goals of care and code status. Patient thomas Jett, decided to change code status to DNR.? Prophylaxis: ? Lovenox, PPI? Code status DNR? Critical care time spent:? 60 minutes Case discussed with Dr Grewal Critical Care Time Critical Care Time (minutes): 60
[2022-02-25] MEDS: propofoL 1,000 MG/100 ML VIAL 17.69 MG IVCONT (21:10)
[2022-02-26] VITALS (38 sets, daily range): BP systolic 78–172; BP diastolic 45–90; PULSE 56–115; RESP 14–28; TEMP 34–38; O2SAT 86–100; BMI 14.4
[2022-02-26] MEDS: Albumin Human 25 % 100 ML IV ×4 (00:43→17:37)
[2022-02-26] MEDS: Chlorhexidine Gluc Oral Rinse 15 ML MOUTHWASH BUCCAL ×5 (00:43→21:32)
[2022-02-26] MEDS: Potassium Chloride Packet 20 MEQ PACKET 40 MEQ OG-TUBE (00:44)
--- NOTE | 2022-02-26 02:50 | MHC.PIE ---
Addendum entered by Ezio Rivas RN 02/26/22 03:27: Urine output - 500ml emptied from ER / dowell at approx 2200. Then 0 output for at least 2 hours, Kennedy made aware. @ 0200 & 0300, urine output picked up, >100ml/hr. Original Note: Admitted patient to ICU room 255 at approx 2100. Patient intubated in ER. Patient on AC settings, tolerating with propofol drip. Patient arousable to tactile stimuli, grimacing. Settles without issue when left alone. Restraints initiated when patient arrived for airway safety. Kennedy CHAIN REPAIRER had family meeting - code status changed to DNR. Initially, patient limbs very cold, unable to get good O2sat. Using toe for O2sat monitoring. Increased fio2 to 100% at approx 2215 in response to O2sat in 80's. Also, CHAIN REPAIRER Kennedy and respiratory at bedside, ordered to increase RR to 20 from 16. Patient O2 improved, able to titrate down to 70% Unable to give IV meds initially r/t loss of #20 left AC. Difficulty gaining IV access - #22 put in right wrist after this RN & Kennedy CHAIN REPAIRER attempted multiple times. Starting meds late. Per Kennedy CHAIN REPAIRER, radiology reported NG tube too high up, inserted further, CXR done again, ok to use NG tube at this time. Order to give OG potassium & start trickle feed with promote. Hypothermic, temp 94.5, Kennedy CHAIN REPAIRER aware - order to start with warm blankets, temp up to 96.8, core. Patient cachectic, incredibly thin, ribs and chest bones very obvious and pronounced. Multiple pressure ulcers noted on patient, pictures taken and documented in chart, patient on air loss bed: Right ear cartilage - stage 3 -approx 1x0.5cm, white wound bed, with scab. Moist wound bed. [facility] pressure ulcer from CPAP at home - white wound bed, edges approximated. Open to air. Right buttocks unstageable / DTI - approx 3x3cm, rock, black eschar/scab wound bed. Foam dressing applied. Right buttocks Unstageable - 2x0.5cm - white wound bed, red edges. Foam dressing applied. Large round coccyx ulcer, Stage 4 (discussed w/ Carleny CHAIN REPAIRER) - 5x7cm. Seems to tunnel slightly under edges. White, red sinew, moist wound bed. Foam dressing applied. Smaller circular ulcer connected to large ulcer, more distal - unstageable, 2x3cm, white wound bed, moist. Foam dressing applied. Right hip, unstageable. 3x2cm - black/cream color eschar, purple surrounding wound bed. Foam dressing applied. Area of 3 ulcers - Lumbar, stage 3 on the upper triangle area, 2x2cm 0.2cm depth, ulcer white tisue on edges, pink wound bed. lower 2 ulcers, white wound beds,, no depth. Each approx 1x1cm Foam dressing applied. Right shoulder / scapula- unstageable, scabbed, white wound bed, purple surrounding. approx 2x2cm. Foam dressing applied. Right heel DTI - 4x4 - purple/ bruise. Heel protective boots applied. Right lateral ankle DTI/stage 2 - 2x2cm. purple, dry. Heel protective boots applied.
[2022-02-26] MEDS: propofoL 1,000 MG/100 ML VIAL 14.15 MG IVCONT (03:05)
[2022-02-26 06:21] LABS: VBG HCO3 39 mmol/L (22-26); VBG pCO2 45 mmHg; VBG pH 7.53 (7.32-7.43); VBG pO2 32 mmHg
[2022-02-26 06:22] LABS: Venous Blood Gas Refer to POC result
[2022-02-26 06:22] LABS: Basophils Percent Auto 0.1 % (0-2); Hematocrit 27.9 % (42.0-52.0); Hemoglobin 9.1 g/dl (14.0-18.0); Imm Gran Abs Auto 0.05 X10*3/uL (0.00-0.03); Imm Gran Pct Auto 0.4 % (0.0-0.4); Lymphocytes Absolute Auto 0.4 X10*3/uL (1.2-4.9); Lymphocytes Percent Auto 3.7 % (20-40); MANUAL DIFF FLAG SCAN; Mean Corpuscular HGB Conc 32.6 g/dl (31.0-36.0); Mean Corpuscular Hemoglobin 29.9 pg (27.0-33.0); Mean Corpuscular Volume 91.8 fL (80.0-98.0); Mean Platelet Volume 10.7 fL (9.4-12.4); Monocytes Absolute Auto 0.4 X10*3/uL (0.1-1.2); Monocytes Percent Auto 3.3 % (2-11); Neutrophils Absolute Auto 10.6 x10*3/uL (2.0-8.3); Neutrophils Percent Auto 92.5 % (45-73); Platelet Count 229 X10*3/uL (160-400); Red Blood Count 3.04 X10*6/uL (4.60-5.80); Red Cell Distribution Width 14.3 % (11.0-16.0); SCAN SMEAR FLAG 1; White Blood Count 11.4 X10*3/uL (4.8-10.8)
[2022-02-26] MEDS: Pantoprazole Sodium 40 MG/10 ML VIAL IVPUSH (06:26)
[2022-02-26 06:42] LABS: SLIDE REVIEW VERIFIED
--- NOTE | 2022-02-26 06:42 | PC.NURSE ---
RESPIRATORY ATTEMPTED TO REDUCE FI02 TO 50%, UNABLE TO TOLERATE - WOULD DESAT TO LOW 80S. FI02 INCREASED BACK TO 70% - CURRENT 02 95% BATHED, Q2HR REPOSITION WITH TURNING BED, PREVALON SYSTEM, PILLOWS, WEDGES, HEELBOS AND BARRIER CREAM TO BUTTOCK AND SPINE.
[2022-02-26 07:16] LABS: Albumin Level 3.3 g/dL (3.5-5.0); Blood Urea Nitrogen 21 mg/dL (9-16); Calcium 8.6 mg/dL (8.4-10.2); Creatinine Clr Calc Pharmacy 99.8; Estimated Glomerular Filt Rate > 60; Glucose Random 92 mg/dL (60-115); Phosphorus 1.8 mg/dL (2.7-4.5)
[2022-02-26 07:34] LABS: Anion Gap 19 (12-20); Carbon Dioxide 32 mmol/L (22-29); Chloride 98 mmol/L (96-108); Potassium 2.6 mmol/L (3.3-5.1); Sodium 146 mmol/L (135-145)
[2022-02-26] MEDS: Albuterol/Iprat 2.5/0.5MG 3 ML AMPUL.NEB INHALE ×3 (08:31→21:13)
[2022-02-26] MEDS: Potassium Chloride/H20 10 MEQ/100 ML PIGGYBACK 100 MEQ IV ×4 (09:27→13:29)
[2022-02-26] MEDS: Potassium Phosphate/NS 15 MMOL/250 ML PLAST..BAG 62.5 MMOL IV ×2 (09:27→13:53)
[2022-02-26] MEDS: Midazolam HCl/PF 2 MG/2 ML VIAL 0.5 MG IVPUSH (09:32)
[2022-02-26] MEDS: propofoL 200 MG/20 ML VIAL 50 MG IVPUSH (10:00)
[2022-02-26] MEDS: propofoL 1,000 MG/100 ML VIAL 5.63 MG IVCONT (10:00)
--- NOTE | 2022-02-26 10:54 | MHC.CLN ---
RE; CONSULT PT IS SEVERELY MALNOURISHED PT IS SEVERELY DEPLETED SUBCUTANEOUS FAT AND MUSCLE MASS, BMI 14 AND 23% SIGNIFICANT WT LOSS X 6 MONTHS WITH MULTIPLE PRESSURE INJURIES THROUGHOUT THE BODY PT IS CURRENTLY INTUBATED AND SEDATED PLAN TODAY IS TO EXTUBATE PER MD TF CURRENTLY RUNNING PROMOTE AT 10ML/HR TRICKLE FEED PROVIDING 240KCALS (520KCALS WITH SEDATION; 11KCALS/KG), 15G PROTEIN, 201ML FREE WATER FROM FORMULA PT IS AT RISK FOR RE-FEEDING SYNDROME-MONITOR PHOS, MG AND K+ CLOSELY CONTINUE CURRENT TF AT THIS TIME R/T RISK OF RE-FEEDING SEE ALSO FULL CLINICAL NUTRITION ASSESSMENT
[2022-02-26 11:51] LABS: Glucose, Whole Blood 94 mg/dL (60-115)
--- NOTE | 2022-02-26 12:02 | P.PCNCC_ITS ---
Procedures Date of Service Date of Service: 02/26/22 Intubation Intubation Comments: Patient emergently intubated for refractory hypoxia and hypercapnia with 7.5 cuffed ET tube under glide scope guidance with no immediate complications. X- ray for tube position is pending.
[2022-02-26 12:27] LABS: ABG HCO3 39 mmol/L (22-26); ABG pCO2 48 mmHg (32-45); ABG pH 7.52 (7.35-7.45); ABG pO2 66 mmHg (83-108)
[2022-02-26 13:10] LABS: ABG Refer to POC result
--- NOTE | 2022-02-26 13:35 | PM.CCPN ---
Subjective Subjective Date of Service: 02/26/22 Interval History: 71-year-old gentleman with underlying advanced COPD, hypertension, failure to thrive, severe protein calorie malnutrition, dementia, and bed-bound admitted on 02/26/2028 with progressive dyspnea and hypoxia secondary to COPD exacerbation requiring intubation and ventilatory support. Patient overnight with essentially resolution of his COPD exacerbation requiring ventilatory support, extubated around 09:00a.m., however, he required re-intubation around 11:00 secondary to re-development of refractory hypoxia and hypercapnia. Critical Care Time (minutes): 90 Physical Exam Vital Signs: Vital Signs: Last Vital Signs Temp 99.0 F 02/26/22 13:00 Pulse 72 02/26/22 13:00 Resp 18 02/26/22 13:00 BP 124/82 02/26/22 13:00 Pulse Ox 100 02/26/22 13:00 O2 Del Method 02/26/22 13:00 O2 Flow Rate 3.5 02/26/22 11:00 FiO2 100 02/26/22 13:00 BMI result Body Mass Index 14.4 Const: General: no acute distress and other ( Sedated on the vent) Nutritional Appearance: cachectic Eyes: Sclerae: sclerae normal EOM: EOMs intact bilaterally Neck: Neck: Yes no lymphadenopathy, Yes trachea midline and Yes supple Resp: Effort & Inspection: normal respiratory effort and no respiratory distress Auscultation: clear to auscultation bilaterally Cardio: Rate: regular rate Rhythm: regular rhythm Heart sounds: no gallops, no murmurs and no rubs GI: Palpation (GI): Soft to palpation and Other GI palpation findings present ( Nontender) Auscultation: normal bowel sounds Extrem: General: Yes no pedal edema, No clubbing and No cyanosis Objective Data Labs CBC & Chem 7: 02/26/22 06:06 02/26/22 06:07 Labs: Laboratory Results - last 24 hr 02/25/22 02/25/22 02/25/22 16:11 16:11 16:12 WBC 11.1 H RBC 3.87 L Hgb 11.6 L Hct 37.1 L MCV 95.9 MCH 30.0 MCHC 31.3 RDW 14.6 Plt Count 318 D MPV 10.8 Immature Gran % (Auto) 0.9 H Neut % (Auto) 89.8 H Lymph % (Auto) 4.8 L Stafford % (Auto) 4.4 Eos % (Auto) 0.0 Baso % (Auto) 0.1 Lymph # (Auto) 0.5 L Stafford # (Auto) 0.5 Eos # (Auto) 0.0 Baso # (Auto) 0.0 Abs Immat Gran (auto) 0.10 H Absolute Neuts (auto) 10.0 H Absolute Nucleated RBC 0.000 Nucleated RBC % (auto) 0.0 Smear Tech's Comments PT INR O2 Saturation ABG pH at Pt Temp ABG pCO2 at Pt Temp ABG pO2 at Pt Temp ABG HCO3 ABG Base Excess (Actual) VBG pH VBG pCO2 VBG pO2 VBG HCO3 VBG O2 Saturation VBG Base Excess Sodium 143 Potassium 3.3 Chloride 96 Carbon Dioxide 31 H Anion Gap 19 BUN 22 H Creatinine 0.49 L Estim Creat Clear Calc 115.3 Estimated GFR > 60 POC Glucose Random Glucose 242 H D Lactic Acid 2.0 Calcium 8.5 D Phosphorus Magnesium 4.2 H* Total Bilirubin 0.4 Direct Bilirubin 0.2 AST 16 ALT 14 Alkaline Phosphatase 95 Troponin I High Sens B-Natriuretic Peptide Total Protein 5.9 L Albumin 3.0 L COVID-19 (RADHA) COVID-19 Clin Com 02/25/22 02/25/22 02/25/22 16:19 17:01 17:01 WBC RBC Hgb Hct MCV MCH MCHC RDW Plt Count MPV Immature Gran % (Auto) Neut % (Auto) Lymph % (Auto) Stafford % (Auto) Eos % (Auto) Baso % (Auto) Lymph # (Auto) Stafford # (Auto) Eos # (Auto) Baso # (Auto) Abs Immat Gran (auto) Absolute Neuts (auto) Absolute Nucleated RBC Nucleated RBC % (auto) Smear Tech's Comments PT 11.6 INR 1.0 O2 Saturation ABG pH at Pt Temp ABG pCO2 at Pt Temp ABG pO2 at Pt Temp ABG HCO3 ABG Base Excess (Actual) VBG pH 7.31 L VBG pCO2 85 VBG pO2 55 VBG HCO3 43 H VBG O2 Saturation 77.0 VBG Base Excess 14.1 Sodium Potassium Chloride Carbon Dioxide Anion Gap BUN Creatinine Estim Creat Clear Calc Estimated GFR POC Glucose Random Glucose Lactic Acid Calcium Phosphorus Magnesium Total Bilirubin Direct Bilirubin AST ALT Alkaline Phosphatase Troponin I High Sens 6.5 D B-Natriuretic Peptide 48 Total Protein Albumin COVID-19 (RADHA) COVID-19 Clin Com 02/25/22 02/25/22 02/26/22 17:02 19:23 06:06 WBC 11.4 H RBC 3.04 L D Hgb 9.1 L D Hct 27.9 L D MCV 91.8 MCH 29.9 MCHC 32.6 RDW 14.3 Plt Count 229 D MPV 10.7 Immature Gran % (Auto) 0.4 Neut % (Auto) 92.5 H Lymph % (Auto) 3.7 L Stafford % (Auto) 3.3 Eos % (Auto) 0.0 Baso % (Auto) 0.1 Lymph # (Auto) 0.4 L Stafford # (Auto) 0.4 Eos # (Auto) 0.0 Baso # (Auto) 0.0 Abs Immat Gran (auto) 0.05 H Absolute Neuts (auto) 10.6 H Absolute Nucleated RBC 0.000 Nucleated RBC % (auto) 0.0 Smear Tech's Comments VERIFIED PT INR O2 Saturation ABG pH at Pt Temp ABG pCO2 at Pt Temp ABG pO2 at Pt Temp ABG HCO3 ABG Base Excess (Actual) VBG pH VBG pCO2 VBG pO2 VBG HCO3 VBG O2 Saturation VBG Base Excess Sodium Potassium Chloride Carbon Dioxide Anion Gap BUN Creatinine Estim Creat Clear Calc Estimated GFR POC Glucose Random Glucose Lactic Acid Calcium Phosphorus Magnesium Total Bilirubin Direct Bilirubin AST ALT Alkaline Phosphatase Troponin I High Sens B-Natriuretic Peptide Total Protein Albumin COVID-19 (RADHA) Invalid Negative COVID-19 Clin Com See Note See Note 02/26/22 02/26/22 02/26/22 06:07 06:11 10:59 WBC RBC Hgb Hct MCV MCH MCHC RDW Plt Count MPV Immature Gran % (Auto) Neut % (Auto) Lymph % (Auto) Stafford % (Auto) Eos % (Auto) Baso % (Auto) Lymph # (Auto) Stafford # (Auto) Eos # (Auto) Baso # (Auto) Abs Immat Gran (auto) Absolute Neuts (auto) Absolute Nucleated RBC Nucleated RBC % (auto) Smear Tech's Comments PT INR O2 Saturation ABG pH at Pt Temp ABG pCO2 at Pt Temp ABG pO2 at Pt Temp ABG HCO3 ABG Base Excess (Actual) VBG pH 7.53 H VBG pCO2 45 VBG pO2 32 VBG HCO3 39 H VBG O2 Saturation 47.0 VBG Base Excess 15.0 Sodium 146 H Potassium 2.6 L D Chloride 98 Carbon Dioxide 32 H Anion Gap 19 BUN 21 H Creatinine 0.45 L Estim Creat Clear Calc 99.8 Estimated GFR > 60 POC Glucose 94 Random Glucose 92 D Lactic Acid Calcium 8.6 Phosphorus 1.8 L Magnesium 2.0 Total Bilirubin Direct Bilirubin AST ALT Alkaline Phosphatase Troponin I High Sens B-Natriuretic Peptide Total Protein Albumin 3.3 L COVID-19 (RADHA) COVID-19 Clin Com 02/26/22 12:22 WBC RBC Hgb Hct MCV MCH MCHC RDW Plt Count MPV Immature Gran % (Auto) Neut % (Auto) Lymph % (Auto) Stafford % (Auto) Eos % (Auto) Baso % (Auto) Lymph # (Auto) Stafford # (Auto) Eos # (Auto) Baso # (Auto) Abs Immat Gran (auto) Absolute Neuts (auto) Absolute Nucleated RBC Nucleated RBC % (auto) Smear Tech's Comments PT INR O2 Saturation 93.0 ABG pH at Pt Temp 7.52 H ABG pCO2 at Pt Temp 48 H ABG pO2 at Pt Temp 66 L ABG HCO3 39 H ABG Base Excess (Actual) 15.0 VBG pH VBG pCO2 VBG pO2 VBG HCO3 VBG O2 Saturation VBG Base Excess Sodium Potassium Chloride Carbon Dioxide Anion Gap BUN Creatinine Estim Creat Clear Calc Estimated GFR POC Glucose Random Glucose Lactic Acid Calcium Phosphorus Magnesium Total Bilirubin Direct Bilirubin AST ALT Alkaline Phosphatase Troponin I High Sens B-Natriuretic Peptide Total Protein Albumin COVID-19 (RADHA) COVID-19 Clin Com Progress Note: A&P Assessment and plan (1) Acute on chronic respiratory failure with hypoxia and hypercapnia: Status: Acute (2) COPD exacerbation: Status: Acute (3) Failure to thrive in adult: Status: Acute (4) Severe protein-calorie malnutrition: Status: Acute Plan Assessment: 71-year-old gentleman admitted with acute hypoxic and hypercapnic respiratory failure requiring ventilatory support failing extubation attempt Plan: Neuro: No acute issues. Cardiac: Hypotension not secondary to shock, but secondary to sedation. Pulmonary: acute on chronic hypoxic and hypercapnic respiratory failure secondary to COPD exacerbation now requiring ventilatory support. Failed extubation attempt. Continue to titrate off ventilatory support as tolerated. Likely has significant component of respiratory muscle fatigue. Continue with nebulized bronchodilators and systemic glucocorticoids. Renal: No acute issues. Endo: No acute issues. GI: underlying severe protein calorie malnutrition. ID: No acute issues Heme/Onc: No acute issues. Psych: No acute issues. Miscellaneous: No acute issues. Prophylaxis: Heparin, ppi Diet: tube feeds Critical care time spent: 90 minutes excluding separately billable procedures Quality Stroke Does the patient have a stroke diagnosis?: No VTE Prior VTE?: No VTE Risk Level:: Medical - moderate - high VTE Device Contraindication: Treatment Not Indicated VTE Drug Contraindication: N/A - Med Ordered
--- NOTE | 2022-02-26 13:43 | MHC.CM.PN ---
Addendum entered by Charlee Camarillo 02/28/22 15:15: Correction to entry: should read: pt is at home with sons (2) and no spouse. Original Note: Pt in ICU on ventilatory support - impaired at baseline and unable to participate in CM assessment. Information obtained from EMR, discussion w/care team and conversation w/pt's son with whom he resides. Pt is at home with spouse and sons who assist pt with his care needs. Pt is dependent and not able to give history. He has a hospital bed, w/c and other adaptive medical equipment. His son Maliha states that pt has used [facility] in past. Maliha also states that family has been able to transport pt by lifting him in and out of vehicles. Pt is cachectic and frail appearing which Maliha states has been his baseline for a time. Maliha states goals of care are for a return to home with family and possible supportive services like VNA. Hospice discussion was not initiated but will be considered should pt fail to make clinical progress. Maliha would like to avoid placement of any kind if at all possible. HCP on file, Oracio Coreas MD is Dr. Higginbotham. CM to follow for finalization of d/c needs. At this time, it is too early to know his prognosis or future needs.
[2022-02-26] MEDS: fentaNYL citrate/NS 1,000 MCG/100 ML PLAST..BAG 5 MCG IVCONT (16:39)
[2022-02-26] MEDS: propofoL 1,000 MG/100 ML VIAL 14.07 MG IVCONT (18:46)
[2022-02-26 19:08] LABS: Anion Gap 17 (12-20); Blood Urea Nitrogen 24 mg/dL (9-16); Calcium 8.2 mg/dL (8.4-10.2); Carbon Dioxide 31 mmol/L (22-29); Chloride 101 mmol/L (96-108); Creatinine Clr Calc Pharmacy 99.8; Estimated Glomerular Filt Rate > 60; Glucose Random 139 mg/dL (60-115); Phosphorus 3.7 mg/dL (2.7-4.5); Potassium 3.8 mmol/L (3.3-5.1); Sodium 145 mmol/L (135-145)
--- NOTE | 2022-02-26 20:19 | PC.NURSE ---
Assumed care at 0700; Opal was sedated on 40 of propofol, but responded to verbal stimuli, opened eyes and sustained eye contact, nodded and shook head to answer simple yes/no questions. Patient endorsed pain, MD notified. Patient was weaned down on propofol and some vent weaning coordinated by RT, and was extubated to oxymask at about 09:20. Patient was initially having some SpO2 in mid 80's, but with poor waveform, eventually, however, he was becoming apneic, dusky, and unresponsive, with associated bradycardia to the low 40's, and was reintubated about 1130, now has #7.5 ETT, 24 cm at the lip. While awake, patient only repeated the word help, and did say he had pain and that his left shoulder hurt when asked where, and he called the name Fiorella, his sister; per his son, this is his baseline mentation. Patient is on AC settings 14; 350; 50%; and Peep of 5. Patient with minimal clear inline secretions. Lung sounds dim throughout. ABG was checked, and was 7.52/48, and reviewed by MD. Patient with Tmax 100.1. K was 2.6 this morning, and repleted with 4x 10 MeQ KCL and 2x 15 mmol of Kphos. 18:00 labs show corrected K and phos. Opal with +4 pitting edema to lower extremities. No cap refill to feet, cap refill to left hand >2 seconds, and R hand with normal cap refill, MD notified. telemetry today mostly sinus rhythm with some episodes of bradycardia, twice to the 40's, and intermittently to the 50's. Patient's family came in and was updated by the physician. They describe patient being on suboxone and oxycodone at home, Patient was started on fentanyl gtt per MD.
[2022-02-26] MEDS: Enoxaparin Sodium 40 MG/0.4 ML SYRINGE SUBCUT (21:32)
[2022-02-26] MEDS: fentaNYL citrate/NS 1,000 MCG/100 ML PLAST..BAG 15 MCG IVCONT (23:26)
[2022-02-27] VITALS (42 sets, daily range): BP systolic 79–195; BP diastolic 43–99; PULSE 48–120; RESP 14–21; TEMP 34.5–37.5; O2SAT 91–100
--- NOTE | 2022-02-27 01:14 | W.PM.CCHP ---
Procedures Date of Service Date of Service: 02/27/22 Intubation Intubation Comments: Patient self-extubated, unable to protect airway, hypoxic to 80s, reintubated with 7.5 cuffed ET tube under glide scope guidance with visualization of vocal cords, without immediate complications. ET w tube position verified with Chest X-ray. Consent for Procedure: Emergent-no informed consent obtained Time out performed: Yes Sedative: propofol Mg given: 50 Laryngoscope: fiber optic video scope ET tube size: 7.5 ET tube uncuffed: No Tube secured depth (cm): 25 Tube secured location: lips Tube placement confirmation: visualized tube passing through cords Patient tolerated procedure: well Intubation complications: none
[2022-02-27] MEDS: fentaNYL citrate/NS 1,000 MCG/100 ML PLAST..BAG 20 MCG IVCONT ×4 (04:53→19:58)
[2022-02-27] MEDS: propofoL 1,000 MG/100 ML VIAL 14.07 MG IVCONT ×2 (04:54→09:53)
[2022-02-27 06:07] LABS: VBG Base Excess 17.7 mmol/L; VBG HCO3 40 mmol/L (22-26); VBG pCO2 38 mmHg; VBG pH 7.62 (7.32-7.43); VBG pO2 104 mmHg
[2022-02-27 06:15] LABS: MANUAL DIFF FLAG NO
[2022-02-27 06:19] LABS: Basophils Percent Auto 0.1 % (0-2); Hematocrit 25.1 % (42.0-52.0); Hemoglobin 8.1 g/dl (14.0-18.0); Imm Gran Abs Auto 0.08 X10*3/uL (0.00-0.03); Imm Gran Pct Auto 0.7 % (0.0-0.4); Lymphocytes Absolute Auto 0.8 X10*3/uL (1.2-4.9); Lymphocytes Percent Auto 6.5 % (20-40); Mean Corpuscular HGB Conc 32.3 g/dl (31.0-36.0); Mean Corpuscular Hemoglobin 30.2 pg (27.0-33.0); Mean Corpuscular Volume 93.7 fL (80.0-98.0); Mean Platelet Volume 11.2 fL (9.4-12.4); Monocytes Absolute Auto 0.3 X10*3/uL (0.1-1.2); Monocytes Percent Auto 2.8 % (2-11); Neutrophils Percent Auto 89.9 % (45-73); Platelet Count 224 X10*3/uL (160-400); Red Blood Count 2.68 X10*6/uL (4.60-5.80); Red Cell Distribution Width 15.7 % (11.0-16.0); White Blood Count 12.2 X10*3/uL (4.8-10.8)
[2022-02-27 06:50] LABS: Albumin Level 3.2 g/dL (3.5-5.0); Anion Gap 13 (12-20); Blood Urea Nitrogen 21 mg/dL (9-16); Calcium 8.6 mg/dL (8.4-10.2); Carbon Dioxide 33 mmol/L (22-29); Chloride 101 mmol/L (96-108); Creatinine Clr Calc Pharmacy 104.5; Estimated Glomerular Filt Rate > 60; Glucose Random 181 mg/dL (60-115); Magnesium 1.9 mg/dL (1.6-2.6); Potassium 3.3 mmol/L (3.3-5.1); Sodium 144 mmol/L (135-145)
--- NOTE | 2022-02-27 07:00 | CA_ITS ---
Transthoracic Echocardiogram Patient (Last, First, Middle): Roddy Perez, Gender: Male Date of : 1950 Age: 71 Procedure Date: 02/27/2022 Procedure Type: Transthoracic Echocardiogram Location: ICU Height: 180.34 cm Weight: 46.72 kg BSA: 1.59 m2 Heart Rate: bpm BP: 105 / 61 mmHg Drug Coordinator: TO Referring MD: Richard Grewal MD Symptoms: hypoxia Study Quality: Fair Conclusions: - Normal left ventricular size, thickness, and systolic function. The visually estimated ejection fraction is between 55-60%. - Spectral Doppler is indicative of an impaired relaxation filling pattern. E/E prime ratio is >15, consistent with elevated filling pressures. - Mildly increased right ventricular cavity size. There is normal right ventricular systolic function. - There is moderate tricuspid valve regurgitation. Indeterminate right atrial pressure. Severe pulmonary hypertension is present. Findings Left Ventricle Normal left ventricular size, thickness, and systolic function. The visually estimated ejection fraction is between 55-60%. There is no evidence of regional wall motion abnormalities. Abnormal diastolic function is noted. Spectral Doppler is indicative of an impaired relaxation filling pattern. E/E prime ratio is >15, consistent with elevated filling pressures. Right Ventricle Mildly increased right ventricular cavity size. There is normal right ventricular systolic function. Atria Both atria are normal in size. Aortic Valve There is a normal trileaflet aortic valve. There is no aortic valve stenosis. There is no aortic valve regurgitation. Mitral Valve The mitral valve appears normal. There is mild to moderate mitral valve regurgitation. There is no mitral valve stenosis. Pulmonic Valve The pulmonic valve is likely normal. There is no pulmonic valve regurgitation. Tricuspid Valve Normal tricuspid valve structure. There is moderate tricuspid valve regurgitation. Indeterminate right atrial pressure. Severe pulmonary hypertension is present. Great Vessels There is mild dilatation of the sinuses of Valsalva measuring 3.85 cm and mild dilatation of the ascending aorta measuring 3.40 cm. The visualized portions of the pulmonary artery and branches are normal. Venous The inferior vena cava is dilated and does not collapse with inspiration. Pericardium/Pleural There is no evidence of pericardial effusion. Prior Study Comparison No prior study available for comparison. Measurements 2D Linear Measurements IVSd: 1.06 0.6-0.9/0.6-1.0 cm LVIDd: 4.82 3.9-5.3/4.2-5.9 cm LVIDd Index: 3.03 2.4-3.2/2.2-3.1 cm/m2 LVIDs: 3.28 2.0-3.6 cm LVPWd: 0.96 0.7-1.1 cm LA Diam: 3.60 2.7-3.8/3.0-4.0 cm LAIDs Index: 2.26 1.5-2.3 cm/m2 LV Mass: 216.50 67-162/88-224 g LV Mass Index: 136.16 43-95/49-115 g/m2 LVOT Diam: 2.00 3.0+(-)1.3 cm 2D Systolic Function EF 4C: 48.40 >55% Mitral Valve MV Pk E: 0.42 MV PK A: 0.69 MV Decel Time: 51.00 E/A: 0.60 E'Lateral: 3.05 E'Medial: 2.72 E/E' Med: 15.60 E/E' Lat: 13.90 PHT: 15.00 MVA PHT: 14.67 Decel Shannon: 8.34 Aortic Valve AoV Pk Jose Angel: 1.46 AoV Mn Jose Angel: 1.00 AoV VTI: 0.23 AoV Pk Grad: 9.00 Aov Mn Grad: 4.00 AMITA Cont.VTI: 2.09 LVOT LVOT Pk Jose Angel: 0.87 LVOT Mn Jose Angel: 0.58 LVOT VTI: 0.15 LVOT Pk Grad: 3.00 LVOT Mn Grad: 2.00 LVOT Diam: 2.00 LVOT Area: 3.14 Diastolic Function MV Pk E: 0.42 MV Pk A: 0.69 E/A: 0.60 E'Medial: 2.72 E/E' Med: 15.60 E' Laterial: 3.05 E/E' Lat: 13.90 Right Ventricle TAPSE (mm): 19.00 TVS' Jose Angel: 16.00 Tricuspid Valve TR Pk Jose Angel: 4.00 TR Pk Grad: 64.00 RA Press: 15.00 RVSP: 65.00 Great Vessels Aorta Sinus of Valsalva: 3.85 2.0-3.[address] Ridge: 2.38 1.7-3.4 cm Ao Asc: 3.40 2.1-3.4 cm Updated in Other Vendor System with Status of Final Rafita Prater MD electronically signed on 02/27/2022 3:19:08 PM with status of Final
[2022-02-27 07:57] LABS: Venous Blood Gas Refer to POC result
[2022-02-27] MEDS: Albuterol/Iprat 2.5/0.5MG 3 ML AMPUL.NEB INHALE ×3 (08:02→20:54)
[2022-02-27] MEDS: methylPREDNISolone Sod Succ 125 MG/2 ML VIAL 40 MG IVPUSH (08:06)
[2022-02-27] MEDS: Chlorhexidine Gluc Oral Rinse 15 ML MOUTHWASH BUCCAL ×3 (08:06→20:51)
--- NOTE | 2022-02-27 08:16 | P.CDIC_ITS ---
CDI Concurrent Query Documentation Clarification: PHYSICIAN'S DOCUMENTATION REQUEST Date of Query: 02/27/22 0817 Patient Name: Roddy Perez Admit Date: 02/25/22 Dear Doctor, A review of the medical record indicates additional documentation may be indicated. Please review below and update the documentation accordingly. Clarity and consistency of documentation within the medical record: Risk Factors/Clinical Indicators/Treatments ED 02/25 - patient has Stage 5 decubitus ulcers. ICU PN 02/25 - patient with several pressure ulcers and wounds extending from upper back to coccyx. Wound care 02/26 - Pressure Injury Stage IV posterior coccyx. Beefy red, white, seems to be tunneling slightly under edges generally. Based on the above, could you please provide, in the Progress Notes, further information regarding the ulcer/wound: Pressure injury Stage 4 posterior coccyx or other Stage and etiology of wound: * Location of the ulcer/wound, including laterality * Type (etiology) of ulcer/wound: * Diabetic ulcer * Venous stasis ulcer * Arterial (ischemic) ulcer * Pressure (decubitus) ulcer * Traumatic wound * Non-healing surgical wound * Other * Unable to determine * For a non-pressure ulcer, please indicate the depth/severity: * Limited to the breakdown of skin * With fat layer exposed * With necrosis of muscle * With necrosis of bone * Other * Unable to determine * If a pressure ulcer, please also include the stage* of the ulcer: * Stage 1 - Skin intact, non-blanchable redness * Stage 2 - Partial thickness loss of dermis, includes intact or open blister * Stage 3 - Full thickness tissue not including bone, tendon, or muscle * Stage 4 - Full thickness tissue loss, including exposed bones, tendon, or muscle * Unstageable - Full thickness tissue loss in which the base of the ulcer is covered by slough (yellow, alvarado, hale, green or brown) and/or eschar (alvarado, brown, or black) in the wound bed. * Suspected deep tissue injury * Unable to determine *Source: National Pressure Ulcer Advisory Panel (NPUAP) Use of terms such as suspected, likely, concern for, or probable (associated with a specific diagnosis that is being evaluated, monitored, or treated as if it exists) are acceptable and can be coded in the inpatient setting, when documented at the time of discharge. Thank you, Katiana Ring [facility], CDIS Extension: [phone] Please use your independent medical judgment in providing your response. THIS QUERY IS PART OF THE PERMANENT MEDICAL RECORD Provider Response: Other Other Diagnosis: Stage IV
--- NOTE | 2022-02-27 08:16 | MHC.CDI.CONC ---
CDI Concurrent Query Documentation Clarification: PHYSICIAN'S DOCUMENTATION REQUEST Date of Query: 02/27/22 0817 Patient Name: Roddy Perez Admit Date: 02/25/22 Dear Doctor, A review of the medical record indicates additional documentation may be indicated. Please review below and update the documentation accordingly. Clarity and consistency of documentation within the medical record: Risk Factors/Clinical Indicators/Treatments ED 02/25 - patient has Stage 5 decubitus ulcers. ICU PN 02/25 - patient with several pressure ulcers and wounds extending from upper back to coccyx. Wound care 02/26 - Pressure Injury Stage IV posterior coccyx. Beefy red, white, seems to be tunneling slightly under edges generally. Based on the above, could you please provide, in the Progress Notes, further information regarding the ulcer/wound: Pressure injury Stage 4 posterior coccyx or other Stage and etiology of wound: Location of the ulcer/wound, including laterality Type (etiology) of ulcer/wound: Diabetic ulcer Venous stasis ulcer Arterial (ischemic) ulcer Pressure (decubitus) ulcer Traumatic wound Non-healing surgical wound Other Unable to determine For a non-pressure ulcer, please indicate the depth/severity: Limited to the breakdown of skin With fat layer exposed With necrosis of muscle With necrosis of bone Other Unable to determine If a pressure ulcer, please also include the stage* of the ulcer: Stage 1 - Skin intact, non-blanchable redness Stage 2 - Partial thickness loss of dermis, includes intact or open blister Stage 3 - Full thickness tissue not including bone, tendon, or muscle Stage 4 - Full thickness tissue loss, including exposed bones, tendon, or muscle Unstageable - Full thickness tissue loss in which the base of the ulcer is covered by slough (yellow, alvarado, hale, green or brown) and/or eschar (alvarado, brown, or black) in the wound bed. Suspected deep tissue injury Unable to determine *Source: National Pressure Ulcer Advisory Panel (NPUAP) Use of terms such as suspected, likely, concern for, or probable (associated with a specific diagnosis that is being evaluated, monitored, or treated as if it exists) are acceptable and can be coded in the inpatient setting, when documented at the time of discharge. Thank you, Katiana Ring [facility], CDIS Extension: [phone] Please use your independent medical judgment in providing your response. THIS QUERY IS PART OF THE PERMANENT MEDICAL RECORD Provider Response: Other Other Diagnosis: Stage IV
--- NOTE | 2022-02-27 08:18 | P.CONWO_ITS ---
History of Present Illness Data of Consult Service Date: 02/27/22 Requesting physician: Richard Grewal Primary Care Provider: Lucía Higginbotham MD [facility] Reason for consult: Multiple wounds This is a 71-year-old male with a history of dementia who is cared for at home and who was brought to the emergency room by his son for evaluation of shortness of breath. He required intubation in the emergency department and was admitted to the intensive care unit for treatment of acute respiratory failure. Noted to have severe protein calorie malnutrition, now receiving nutritional support via tube feedings. Noted and admission to have multiple wounds. At the time of my visit, he remained intubated. He failed a trial of extubation yesterday and required re-intubation again early this morning after self-extubation. Review of Systems Review of Systems: Yes unobtainable due to endotracheal tube and Unobtainable due to mental condition PMFSH Medical History Adult failure to thrive BPH w urinary obs/LUTS Chronic back pain Chronic hypercapnic respiratory failure COPD (chronic obstructive pulmonary disease) Cough Emphysema lung Groin pain HTN (hypertension) Left knee injury Moderate malnutrition Pulmonary nodules Weakness Surgical History H/O arthroscopic knee surgery History of left knee replacement Previous back surgery Social History (Updated 09/10/21 @ 10:25 by Kevin Vasquez MD) Household Members: Family Housing: House Do you presently have visiting nurse or other home services: No Unable to assess alcohol history related to: Unable to respond Alcohol intake: never Patient Tobacco Use Status: Current everyday Tobacco user Tobacco use type: Cigarette Cigarette Packs Per Day: 1 Cigarettes Per Day: 20.0 e-Cigarette/Vaping Use: Currently Using Use of substances other than those prescribed or required for medical reasons: Unable to respond Currently Displaying Signs/Symptoms of Drug Intoxication Withdrawal: No Spiritual Healthcare Practices: unknown [facility] Healthcare Practices: unknown Cultural Healthcare Practices: unknown Advance Directives: Yes Advance Directives Information Provided: No Advance Directives on File: No Advance Directives Date on File: 02/25/22 Recently lost weight without trying: Unsure Nutrition Risks: Anorexia and Emaciation/Cachexia service: Yes Current occupational status: retired Meds Allergies Allergy/AdvReac Type Severity Reaction Status Date / Time amitriptyline [From ELAVIL] AdvReac Unknown muscle Verified 12/24/21 13:56 spasms, uncontrollable arm movements Active Medications: Current Medications Acetaminophen (Acetaminophen Supp 650 Mg Supp.Rect) 650 mg MO Q6H PRN PRN Reason: Fever >101 Albuterol/Ipratropium (Albuterol/Iprat 2.5/0.5mg 3 Ml Ampul.Neb) 3 ml INHALE RQ6H WHILE AWAKE [facility] Last Admin: 02/27/22 08:02 Dose: 3 ml Chlorhexidine Gluconate (Chlorhexidine Gluc Oral Rinse 15 Ml Mouthwash) 15 ml BUCCAL TID J LUIS Last Admin: 02/27/22 08:06 Dose: 15 ml Enoxaparin Sodium (Enoxaparin Sodium 40 Mg/0.4 Ml Syringe) 40 mg SUBCUT Q24H [facility] Last Admin: 02/26/22 21:32 Dose: 40 mg Propofol (Diprivan) 1,000 mg in 100 mls @ 0 mls/hr IVCONT .Q0M [facility]; Protocol Last Admin: 02/27/22 04:54 Dose: 50 mcg/kg/min, 14.07 mls/hr Norepinephrine Bitartrate (Levophed) 8 mg in 250 mls @ 0 mls/hr IVCONT .Q0M [facility]; Protocol Last Admin: 02/27/22 08:07 Dose: 0.09 mcg/kg/min, 7.91 mls/hr Dopamine HCl/Dextrose (Dopamine Hcl/D5w) 400 mg in 250 mls @ 0 mls/hr IVCONT .Q0M J LUIS; Protocol Fentanyl (Sublimaze/Ns) 1,000 mcg in 100 mls @ 0 mls/hr IVCONT .Q0M [facility]; Protocol Last Admin: 02/27/22 04:53 Dose: 200 mcg/hr, 20 mls/hr Methylprednisolone Sodium Succinate (Methylprednisolone Sod Succ 125 Mg/2 Ml Vial) 40 mg IVPUSH DAILY [facility] Last Admin: 02/27/22 08:06 Dose: 40 mg Naloxone HCl (Naloxone Hcl 0.4 Mg/Ml Vial) 0.2 mg IVPUSH Q2M PRN PRN Reason: Excessive sedation or RR < 8 Omeprazole (Omeprazole 20 Mg/10 Ml Susp.Recon) 40 mg PO DAILY@0630 [facility] Last Admin: 02/27/22 06:08 Dose: 40 mg Home Medications Medication Instructions Recorded Confirmed Last Taken Type atorvastatin 80 mg tablet 80 mg PO BEDTIME 08/01/20 02/25/22 09/08/21 History lisinopril 10 1 tab PO DAILY 08/01/20 02/25/22 09/09/21 History mg-hydrochlorothiazide 12.5 mg tablet acetaminophen 500 mg tablet 1,000 mg PO TID PRN Pain 09/09/21 02/25/22 09/09/21 History buprenorphine 2 mg-naloxone 0.5 mg 2 tab sublingual BIDWM 09/09/21 02/25/22 09/09/21 History sublingual tablet venlafaxine 150 mg 150 mg PO DAILY 09/09/21 02/25/22 09/09/21 History capsule,extended release 24 hr aspirin 81 mg tablet,delayed 81 mg PO DAILY 02/25/22 02/25/22 Unknown History release buprenorphine 2 mg-naloxone 0.5 mg 3 tab sublingual BEDTIME 02/25/22 02/25/22 Unknown History sublingual tablet bupropion HCl 200 mg tablet,12 hr 200 mg PO DAILY 02/25/22 02/25/22 Unknown History sustained-release diazepam 5 mg tablet 0.5 tab PO BID 02/25/22 02/25/22 Unknown History donepezil 5 mg tablet 1 tab PO BEDTIME 02/25/22 02/25/22 Unknown History lidocaine 5 % topical patch 1 patch topical DAILY 02/25/22 02/25/22 Unknown History (Lidoderm) oxycodone 5 mg tablet 5 mg PO BID PRN pain (scale score 02/25/22 02/25/22 Unknown History 7-10) tamsulosin 0.4 mg capsule 1 cap PO DAILY 02/25/22 02/25/22 Unknown History trazodone 100 mg tablet 150 mg PO BEDTIME PRN Sleep 02/25/22 02/25/22 Unknown History zolpidem 10 mg tablet 1 tab PO BEDTIME PRN Sleep if 02/25/22 02/25/22 Unknown History trazodone does not work Physical Exam Vital Signs and Narrative: Vital Signs: Last Vital Signs Temp 98.9 F 02/27/22 08:00 Pulse 78 02/27/22 08:00 Resp 14 02/27/22 08:00 BP 98/57 L 02/27/22 08:00 Pulse Ox 99 02/27/22 08:00 O2 Del Method 02/27/22 08:00 O2 Flow Rate 3.5 02/26/22 11:00 FiO2 30 02/27/22 08:00 BMI result Body Mass Index 14.4 Const: Other: Intubated General: combative (Intermittently) Nutritional Appearance: cachectic HEENT: Other: Deep ulcers present extending to cartilage over bridge of nose and right pinna Outer ear/TM images: 1. Face images: 1. Skin: Other: Bridge of nose-ulcer extending to cartilage Left pinna-ulcerative outer helix extending to cartilage Rt. Buttock-moist necrotic tissue unstageable Mid-Coccyx/Left sacral-stage 4 exposed muscle, undermining of skin edges just inferior to open wound, two small areas or moist necrotic tissue unstageable Right shoulder-stage 3 -exposed muscle/subcutaneous tissue stage III Right hip-Necrotic wound unstageable Right medial malleolus-small eschar, unstageable Results Labs CBC and Chem 7: 02/27/22 05:55 02/27/22 05:55 Labs: Laboratory Results - last 24 hr 02/26/22 02/26/22 02/26/22 10:59 12:22 18:32 MCV MCH MCHC RDW Plt Count MPV Immature Gran % (Auto) Neut % (Auto) Lymph % (Auto) [place] % (Auto) Eos % (Auto) Baso % (Auto) Lymph # (Auto) [place] # (Auto) Eos # (Auto) Baso # (Auto) Abs Immat Gran (auto) Absolute Neuts (auto) Absolute Nucleated RBC Nucleated RBC % (auto) O2 Saturation 93.0 ABG pH at Pt Temp 7.52 H ABG pCO2 at Pt Temp 48 H ABG pO2 at Pt Temp 66 L ABG HCO3 39 H ABG Base Excess (Actual) 15.0 VBG pH VBG pCO2 VBG pO2 VBG HCO3 VBG O2 Saturation VBG Base Excess Anion Gap 17 Estim Creat Clear Calc 99.8 Estimated GFR > 60 POC Glucose 94 Random Glucose 139 H D Calcium 8.2 L Phosphorus 3.7 Magnesium Albumin 02/27/22 02/27/22 02/27/22 05:55 05:55 05:58 MCV 93.7 MCH 30.2 MCHC 32.3 RDW 15.7 Plt Count 224 MPV 11.2 Immature Gran % (Auto) 0.7 H Neut % (Auto) 89.9 H Lymph % (Auto) 6.5 L [place] % (Auto) 2.8 Eos % (Auto) 0.0 Baso % (Auto) 0.1 Lymph # (Auto) 0.8 L [place] # (Auto) 0.3 Eos # (Auto) 0.0 Baso # (Auto) 0.0 Abs Immat Gran (auto) 0.08 H Absolute Neuts (auto) 11.0 H Absolute Nucleated RBC 0.000 Nucleated RBC % (auto) 0.0 O2 Saturation ABG pH at Pt Temp ABG pCO2 at Pt Temp ABG pO2 at Pt Temp ABG HCO3 ABG Base Excess (Actual) VBG pH 7.62 H* VBG pCO2 38 VBG pO2 104 VBG HCO3 40 H VBG O2 Saturation 99.0 VBG Base Excess 17.7 Anion Gap 13 Estim Creat Clear Calc 104.5 Estimated GFR > 60 POC Glucose Random Glucose 181 H Calcium 8.6 Phosphorus 2.0 L Magnesium 1.9 Albumin 3.2 L Imaging Radiologist's Impressions: Impressions Chest X-Ray 02/26/22 12:00 IMPRESSION: Satisfactory position of endotracheal tube and nasogastric tube. Left base pneumonia. Chest X-Ray 02/27/22 01:30 IMPRESSION: Stably positioned endotracheal tube. Orogastric tube is been retracted to the level of the GE junction. Similar appearing streaky opacities at left lung base. Small bilateral pleural effusions suspected. Assessment and Plan (1) Severe protein-calorie malnutrition: Status: Acute (2) Decubitus skin ulcer: Status: Acute Plan 71-year-old male admitted from home with failure to thrive, respiratory failure, severe protein calorie malnutrition. Wound care service has been asked to evalu ate because of the presence of multiple decubitus ulcers, as noted below, associated with recommended dressing type: Bridge of nose-ulcer extending to cartilage-Hydrofera blue Left pinna-ulcerative outer helix extending to cartilage-Hydrofera blue Rt. Buttock-moist necrotic tissue-Santyl, extra thick protective cream to intact skin at wound edges daily Mid-Coccyx/Left sacral-stage 4 exposed muscle, undermining of skin edges-Calcium alginate with silver daily to every other day, cover with Alevyn foam dressing just inferior to open wound, two small areas or moist necrotic tissue-santyl, extra thick protective cream to intact skin at wound edges daily Right shoulder-stage 3 muscle/subcu-Calcium alginate with silver every other day, cover with Alevyn foam dressing Right hip-Necrotic wound-santyl, extra thick protective cream to intact skin at wound edges daily Right medial malleolus-protective cream, Alevyn foam dressing Protein calorie malnutrition-increase tube feedings as tolerated, continue monitoring for refeeding syndrome Thank you for asking the Wound Care Service to participate in his care. Please call if reassessment is needed.
--- NOTE | 2022-02-27 08:23 | P.CDIC_ITS ---
CDI Concurrent Query Documentation Clarification: PHYSICIAN'S DOCUMENTATION REQUEST Date of Query: 02/27/22 0824 Patient Name: Roddy Perez Admit Date: 02/25/22 Dear Doctor, A review of the medical record indicates additional documentation may be indicated. Please review below and update the documentation accordingly. Clinical Indicators: Risk Factors/Clinical Indicators/Treatments Wound care notes 02/26 - Pressure injury/wound lower posterior back Stage III. [place], white, area of three ulcers. Two lower 1x1cm and one upper 2x2x0.2 Based on the above, could you please provide, in the Progress Notes, further information regarding the ulcer/wound: Pressure injury Stage III lower posterior back or other etiology of stage/ulcer: * Location of the ulcer/wound, including laterality * Type (etiology) of ulcer/wound: * Diabetic ulcer * Venous stasis ulcer * Arterial (ischemic) ulcer * Pressure (decubitus) ulcer * Traumatic wound * Non-healing surgical wound * Other * Unable to determine * For a non-pressure ulcer, please indicate the depth/severity: * Limited to the breakdown of skin * With fat layer exposed * With necrosis of muscle * With necrosis of bone * Other * Unable to determine * If a pressure ulcer, please also include the stage* of the ulcer: * Stage 1 - Skin intact, non-blanchable redness * Stage 2 - Partial thickness loss of dermis, includes intact or open blister * Stage 3 - Full thickness tissue not including bone, tendon, or muscle * Stage 4 - Full thickness tissue loss, including exposed bones, tendon, or muscle * Unstageable - Full thickness tissue loss in which the base of the ulcer is covered by slough (yellow, alvarado, hale, green or brown) and/or eschar (alvarado, brown, or black) in the wound bed. * Suspected deep tissue injury - Purple or maroon localized area of discolored intact skin or blood-filled blister due to damage of underlying soft tissues from pressure and/or shear. The area may be preceded by tissue that is painful, firm, mushy, boggy, warmer, or cooler as compare to adjacent tissue. * Unable to determine *Source: National Pressure Ulcer Advisory Panel (NPUAP) Use of terms such as suspected, likely, concern for, or probable (associated with a specific diagnosis that is being evaluated, monitored, or treated as if it exists) are acceptable and can be coded in the inpatient setting, when documented at the time of discharge. Thank you, Katiana Ring [facility], CDIS Extension: [phone] Please use your independent medical judgment in providing your response. THIS QUERY IS PART OF THE PERMANENT MEDICAL RECORD Provider Response: Other ( stage III) Other Diagnosis: stage III
--- NOTE | 2022-02-27 08:23 | MHC.CDI.CONC ---
CDI Concurrent Query Documentation Clarification: PHYSICIAN'S DOCUMENTATION REQUEST Date of Query: 02/27/22 0824 Patient Name: Roddy Perez Admit Date: 02/25/22 Dear Doctor, A review of the medical record indicates additional documentation may be indicated. Please review below and update the documentation accordingly. Clinical Indicators: Risk Factors/Clinical Indicators/Treatments Wound care notes 02/26 - Pressure injury/wound lower posterior back Stage III. [place], white, area of three ulcers. Two lower 1x1cm and one upper 2x2x0.2 Based on the above, could you please provide, in the Progress Notes, further information regarding the ulcer/wound: Pressure injury Stage III lower posterior back or other etiology of stage/ulcer: Location of the ulcer/wound, including laterality Type (etiology) of ulcer/wound: Diabetic ulcer Venous stasis ulcer Arterial (ischemic) ulcer Pressure (decubitus) ulcer Traumatic wound Non-healing surgical wound Other Unable to determine For a non-pressure ulcer, please indicate the depth/severity: Limited to the breakdown of skin With fat layer exposed With necrosis of muscle With necrosis of bone Other Unable to determine If a pressure ulcer, please also include the stage* of the ulcer: Stage 1 - Skin intact, non-blanchable redness Stage 2 - Partial thickness loss of dermis, includes intact or open blister Stage 3 - Full thickness tissue not including bone, tendon, or muscle Stage 4 - Full thickness tissue loss, including exposed bones, tendon, or muscle Unstageable - Full thickness tissue loss in which the base of the ulcer is covered by slough (yellow, alvarado, hale, green or brown) and/or eschar (alvarado, brown, or black) in the wound bed. Suspected deep tissue injury - Purple or maroon localized area of discolored intact skin or blood-filled blister due to damage of underlying soft tissues from pressure and/or shear. The area may be preceded by tissue that is painful, firm, mushy, boggy, warmer, or cooler as compare to adjacent tissue. Unable to determine *Source: National Pressure Ulcer Advisory Panel (NPUAP) Use of terms such as suspected, likely, concern for, or probable (associated with a specific diagnosis that is being evaluated, monitored, or treated as if it exists) are acceptable and can be coded in the inpatient setting, when documented at the time of discharge. Thank you, Katiana Ring [facility], CDIS Extension: [phone] Please use your independent medical judgment in providing your response. THIS QUERY IS PART OF THE PERMANENT MEDICAL RECORD Provider Response: Other ( stage III) Other Diagnosis: stage III
[2022-02-27] MEDS: Cisatracurium Besylate 20 MG/10 ML VIAL 10 MG IVPUSH (09:15)
[2022-02-27] MEDS: Cisatracurium Besylate 100 MG in 0.9 % Sodium Chloride 40 ML IVCONT (10:02)
[2022-02-27] MEDS: Midazolam HCl/NS 50 MG/50 ML PLAST..BAG IVCONT (10:05)
--- NOTE | 2022-02-27 10:16 | ECG_ITS ---
Test Reason : rhythm check Blood Pressure : / mmHG Vent. Rate : 115 BPM Atrial Rate : 115 BPM P-R Int : 200 ms QRS Dur : 102 ms QT Int : 308 ms P-R-T Axes : 000 083 030 degrees QTc Int : 426 ms Poor data quality, interpretation may be adversely affected Sinus tachycardia Nonspecific ST abnormality Abnormal ECG When compared with ECG of 25-FEB-2022 19:38, Vent. rate has increased BY 45 BPM QRS duration has decreased Referred By: Richard Grewal Electronically Signed By:ROZINA HOWARD
--- NOTE | 2022-02-27 10:17 | MHC.CLN ---
F/U PT IS SEVERELY MALNOURISHED SEE FULL CLINICAL NUTRITION ASSESSMENT DATED 02/26/22 PT REMAINS INTUBATED AND SEDATED TF CURRENTLY RUNNING PROMOTE AT 40ML/HR AND TOLERATING WITH LOW/NO RESIDUALS PER NSG PT'S MAX GOAL RATE PROMOTE AT 50ML/HR WITH 30ML PROSOURCE Q DAY AND 120ML FREE WATER FLUSHES Q 8 HRS TO PROVIDE 1260KCALS (1631KCALS WITH SEDATION; 35KCALS/KG), 90G TOTAL PROTEIN (1.9G/KG), 1367ML TOTAL WATER FROM FORMULA AND FLUSHES (29ML/KG) PT IS AT RISK FOR RE-FEEDING SYNDROME-MONITOR PHOS, MG AND K+ CLOSELY MONITOR TOLERANCE, RESIDUALS AND LYTES
--- NOTE | 2022-02-27 10:43 | P.CDIC_ITS ---
CDI Concurrent Query Documentation Clarification: PHYSICIAN'S DOCUMENTATION REQUEST Date of Query: 02/27/22 1043 Patient Name: Roddy Perez Admit Date: 02/25/22 Dear Doctor, A review of the medical record indicates additional documentation may be needed. Please review below and update the documentation accordingly. Clinical Indicators: Is there a diagnosis that correlates with these lab findings: Risk Factors/Clinical Indicators/Treatments LABS 02/25 - potassium 2.6 L IV Potassium chloride Based on the above, could you clarify in the Progress Notes the appropriate diagnosis, if significant, that supports the above abnormalities and additional evaluation, monitoring, and/or treatment rendered: * Hypokalemia, poa, resolved or other etiology of lab finding * Labs indicate a diagnosis of (please specify) * Other (please specify) * Unable to determine Use of terms such as suspected, likely, concern for, or probable (associated with a specific diagnosis that is being evaluated, monitored, or treated as if it exists) are acceptable and can be coded in the inpatient setting, when documented at the time of discharge. Thank you, Katiana Ring [facility], CDIS Extension: [phone] Please use your independent medical judgment in providing your response. THIS QUERY IS PART OF THE PERMANENT MEDICAL RECORD Provider Response: Other ( hypokalemia, now resolved) Other Diagnosis: hypokalemia, now resolved
[2022-02-27] MEDS: DOPamine HCL/D5W 400 MG/250 ML PLAST..BAG 8.79 MG IVCONT (11:34)
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
--- NOTE | 2022-02-27 14:40 | PM.CCPN ---
Subjective Subjective Date of Service: 02/27/22 Interval History: 71-year-old gentleman with underlying advanced COPD, hypertension, failure to thrive, severe protein calorie malnutrition, dementia, and bed-bound admitted on 02/26/2028 with progressive dyspnea and hypoxia secondary to COPD exacerbation requiring intubation and ventilatory support. patient was extubated on 02/18/2022, however required re-intubation secondary to respiratory muscle fatigue and development of hypoxia with hypercapnia. Patient with self-extubation overnight requiring re-intubation. Critical Care Time (minutes): 60 Physical Exam Vital Signs: Vital Signs: Last Vital Signs Temp 98.7 F 02/27/22 12:00 Pulse 106 H 02/27/22 14:00 Resp 15 02/27/22 14:00 BP 124/65 02/27/22 14:00 Pulse Ox 98 02/27/22 14:00 O2 Del Method 02/27/22 14:00 O2 Flow Rate 3.5 02/26/22 11:00 FiO2 50 02/27/22 14:00 BMI result Body Mass Index 14.4 Const: General: no acute distress and other ( Sedated on the vent) Nutritional Appearance: cachectic Eyes: Sclerae: sclerae normal EOM: EOMs intact bilaterally Neck: Neck: Yes no lymphadenopathy, Yes trachea midline and Yes supple Resp: Effort & Inspection: normal respiratory effort and no respiratory distress Auscultation: clear to auscultation bilaterally Cardio: Rate: regular rate Rhythm: regular rhythm Heart sounds: no gallops, no murmurs and no rubs GI: Palpation (GI): Soft to palpation and Other GI palpation findings present ( Nontender) Auscultation: normal bowel sounds Extrem: General: Yes no pedal edema, No clubbing and No cyanosis Objective Data Labs CBC & Chem 7: 02/27/22 05:55 02/27/22 05:55 Labs: Laboratory Results - last 24 hr 02/26/22 02/27/22 02/27/22 18:32 05:55 05:55 WBC 12.2 H RBC 2.68 L Hgb 8.1 L Hct 25.1 L MCV 93.7 MCH 30.2 MCHC 32.3 RDW 15.7 Plt Count 224 MPV 11.2 Immature Gran % (Auto) 0.7 H Neut % (Auto) 89.9 H Lymph % (Auto) 6.5 L Power % (Auto) 2.8 Eos % (Auto) 0.0 Baso % (Auto) 0.1 Lymph # (Auto) 0.8 L Power # (Auto) 0.3 Eos # (Auto) 0.0 Baso # (Auto) 0.0 Abs Immat Gran (auto) 0.08 H Absolute Neuts (auto) 11.0 H Absolute Nucleated RBC 0.000 Nucleated RBC % (auto) 0.0 VBG pH VBG pCO2 VBG pO2 VBG HCO3 VBG O2 Saturation VBG Base Excess Sodium 145 144 Potassium 3.8 D 3.3 Chloride 101 101 Carbon Dioxide 31 H 33 H Anion Gap 17 13 BUN 24 H 21 H Creatinine 0.45 L 0.43 L Estim Creat Clear Calc 99.8 104.5 Estimated GFR > 60 > 60 Random Glucose 139 H D 181 H Calcium 8.2 L 8.6 Phosphorus 3.7 2.0 L Magnesium 1.9 Albumin 3.2 L 02/27/22 05:58 WBC RBC Hgb Hct MCV MCH MCHC RDW Plt Count MPV Immature Gran % (Auto) Neut % (Auto) Lymph % (Auto) Power % (Auto) Eos % (Auto) Baso % (Auto) Lymph # (Auto) Power # (Auto) Eos # (Auto) Baso # (Auto) Abs Immat Gran (auto) Absolute Neuts (auto) Absolute Nucleated RBC Nucleated RBC % (auto) VBG pH 7.62 H* VBG pCO2 38 VBG pO2 104 VBG HCO3 40 H VBG O2 Saturation 99.0 VBG Base Excess 17.7 Sodium Potassium Chloride Carbon Dioxide Anion Gap BUN Creatinine Estim Creat Clear Calc Estimated GFR Random Glucose Calcium Phosphorus Magnesium Albumin Microbiology Microbiology Results: Microbiology 02/25/22 17:01 Blood - Venous Blood Culture - Preliminary No growth after 24 hours. 02/25/22 16:14 Blood - Venous Blood Culture - Preliminary No growth after 24 hours. Progress Note: A&P Assessment and plan (1) COPD exacerbation: Status: Acute (2) Failure to thrive in adult: Status: Acute (3) Severe protein-calorie malnutrition: Status: Acute (4) Acute on chronic respiratory failure with hypoxia and hypercapnia: Status: Acute (5) Decubitus skin ulcer: Status: Acute Plan Assessment: 71-year-old gentleman admitted with acute hypoxic and hypercapnic respiratory failure requiring ventilatory support failing extubation attempt Plan: Neuro: No acute issues. Cardiac: Continue to titrate off pressor support as tolerated. 2D echocardiogram is pending. Pulmonary: acute on chronic hypoxic and hypercapnic respiratory failure secondary to COPD exacerbation now requiring ventilatory support. Failed extubation attempt. Continue to titrate off ventilatory support as tolerated. Likely has significant component of respiratory muscle fatigue. Continue with nebulized bronchodilators and systemic glucocorticoids. Renal: No acute issues. Endo: No acute issues. GI: underlying severe protein calorie malnutrition. ID: No acute issues Heme/Onc: No acute issues. Psych: No acute issues. Miscellaneous: No acute issues. Prophylaxis: Heparin, ppi Diet: tube feeds Critical care time spent: 60 minutes excluding separately billable procedures Quality Stroke Does the patient have a stroke diagnosis?: No VTE Prior VTE?: No VTE Risk Level:: Medical - moderate - high VTE Device Contraindication: Treatment Not Indicated VTE Drug Contraindication: N/A - Med Ordered
[2022-02-27] MEDS: propofoL 1,000 MG/100 ML VIAL 11.26 MG IVCONT ×2 (16:09→19:58)
[2022-02-27] MEDS: Potassium Chloride/H20 10 MEQ/100 ML PIGGYBACK 100 MEQ IV ×4 (19:58→23:26)
[2022-02-27] MEDS: Enoxaparin Sodium 40 MG/0.4 ML SYRINGE SUBCUT (20:51)
[2022-02-28] VITALS (32 sets, daily range): BP systolic 92–161; BP diastolic 56–110; PULSE 45–103; RESP 10–22; TEMP 34–38; O2SAT 30–100; BMI 16.6
[2022-02-28] MEDS: fentaNYL citrate/NS 1,000 MCG/100 ML PLAST..BAG 20 MCG IVCONT ×4 (00:59→21:39)
[2022-02-28] MEDS: Midazolam HCl/NS 50 MG/50 ML PLAST..BAG IVCONT (01:00)
[2022-02-28] MEDS: propofoL 1,000 MG/100 ML VIAL 11.26 MG IVCONT (04:42)
[2022-02-28 05:31] LABS: VBG Base Excess 15.6 mmol/L; VBG HCO3 39 mmol/L (22-26); VBG pCO2 43 mmHg; VBG pH 7.56 (7.32-7.43); VBG pO2 62 mmHg
[2022-02-28 05:38] LABS: Basophils Percent Auto 0.1 % (0-2); Hematocrit 25.9 % (42.0-52.0); Hemoglobin 8.2 g/dl (14.0-18.0); Imm Gran Abs Auto 0.04 X10*3/uL (0.00-0.03); Imm Gran Pct Auto 0.4 % (0.0-0.4); Lymphocytes Absolute Auto 0.6 X10*3/uL (1.2-4.9); Lymphocytes Percent Auto 5.9 % (20-40); MANUAL DIFF FLAG SCAN; Mean Corpuscular HGB Conc 31.7 g/dl (31.0-36.0); Mean Corpuscular Hemoglobin 30.1 pg (27.0-33.0); Mean Corpuscular Volume 95.2 fL (80.0-98.0); Mean Platelet Volume 11.2 fL (9.4-12.4); Monocytes Absolute Auto 0.3 X10*3/uL (0.1-1.2); Monocytes Percent Auto 3.3 % (2-11); Neutrophils Absolute Auto 9.4 x10*3/uL (2.0-8.3); Neutrophils Percent Auto 90.3 % (45-73); Platelet Count 209 X10*3/uL (160-400); Red Blood Count 2.72 X10*6/uL (4.60-5.80); Red Cell Distribution Width 15.8 % (11.0-16.0); SCAN SMEAR FLAG 1; White Blood Count 10.4 X10*3/uL (4.8-10.8)
[2022-02-28 05:58] LABS: Blood Urea Nitrogen 22 mg/dL (9-16); Calcium 8.3 mg/dL (8.4-10.2); Creatinine Clr Calc Pharmacy 112.3; Estimated Glomerular Filt Rate > 60; Glucose Random 165 mg/dL (60-115); Magnesium 1.8 mg/dL (1.6-2.6); Phosphorus 1.7 mg/dL (2.7-4.5)
[2022-02-28 05:59] LABS: SLIDE REVIEW VERIFIED
[2022-02-28 06:15] LABS: Anion Gap 14 (12-20); Carbon Dioxide 32 mmol/L (22-29); Chloride 102 mmol/L (96-108); Potassium 4.5 mmol/L (3.3-5.1); Sodium 143 mmol/L (135-145)
[2022-02-28 06:22] LABS: Venous Blood Gas Refer to POC result
[2022-02-28] MEDS: Albuterol/Iprat 2.5/0.5MG 3 ML AMPUL.NEB INHALE ×3 (07:50→20:10)
[2022-02-28] MEDS: Sodium,Potassium Phosphates POWD.PACK 2 PACKET OG-TUBE (08:10)
[2022-02-28] MEDS: Chlorhexidine Gluc Oral Rinse 15 ML MOUTHWASH BUCCAL ×3 (08:10→19:57)
[2022-02-28] MEDS: methylPREDNISolone Sod Succ 125 MG/2 ML VIAL 40 MG IVPUSH (08:11)
[2022-02-28] MEDS: Albumin Human 25 % 100 ML IV ×3 (08:15→19:57)
--- NOTE | 2022-02-28 08:25 | P.CDIC_ITS ---
CDI Concurrent Query Documentation Clarification: PHYSICIAN'S DOCUMENTATION REQUEST Date of Query: 02/28/22 0825 Patient Name: Roddy Perez Admit Date: 02/25/22 Dear Doctor, A review of the medical record indicates additional documentation may be indicated. Please review below and update the documentation accordingly. Clinical Indicators: Risk Factors/Clinical Indicators/Treatments Wound care notes 02/27 - Pressure injury/wound Stage II right heel. Purple, dry Heel boots applied. Based on the above, could you please provide, in the Progress Notes, further information regarding the ulcer/wound: * For a non-pressure ulcer, please indicate the depth/severity: * Limited to the breakdown of skin * With fat layer exposed * With necrosis of muscle * With necrosis of bone * Other * Unable to determine * If a pressure ulcer, please also include the stage* of the ulcer: * Stage 1 - Skin intact, non-blanchable redness * Stage 2 - Partial thickness loss of dermis, includes intact or open blister * Stage 3 - Full thickness tissue not including bone, tendon, or muscle Other * Unable to determine *Source: National Pressure Ulcer Advisory Panel (NPUAP) Use of terms such as suspected, likely, concern for, or probable (associated with a specific diagnosis that is being evaluated, monitored, or treated as if it exists) are acceptable and can be coded in the inpatient setting, when documented at the time of discharge. Thank you, Katiana Ring [facility], CDIS Extension: [phone] Please use your independent medical judgment in providing your response. THIS QUERY IS PART OF THE PERMANENT MEDICAL RECORD Provider Response: Other ( stage II) Other Diagnosis: stage II
--- NOTE | 2022-02-28 08:25 | MHC.CDI.CONC ---
CDI Concurrent Query Documentation Clarification: PHYSICIAN'S DOCUMENTATION REQUEST Date of Query: 02/28/22 0825 Patient Name: Roddy Perez Admit Date: 02/25/22 Dear Doctor, A review of the medical record indicates additional documentation may be indicated. Please review below and update the documentation accordingly. Clinical Indicators: Risk Factors/Clinical Indicators/Treatments Wound care notes 02/27 - Pressure injury/wound Stage II right heel. Purple, dry Heel boots applied. Based on the above, could you please provide, in the Progress Notes, further information regarding the ulcer/wound: For a non-pressure ulcer, please indicate the depth/severity: Limited to the breakdown of skin With fat layer exposed With necrosis of muscle With necrosis of bone Other Unable to determine If a pressure ulcer, please also include the stage* of the ulcer: Stage 1 - Skin intact, non-blanchable redness Stage 2 - Partial thickness loss of dermis, includes intact or open blister Stage 3 - Full thickness tissue not including bone, tendon, or muscle Other Unable to determine *Source: National Pressure Ulcer Advisory Panel (NPUAP) Use of terms such as suspected, likely, concern for, or probable (associated with a specific diagnosis that is being evaluated, monitored, or treated as if it exists) are acceptable and can be coded in the inpatient setting, when documented at the time of discharge. Thank you, Katiana Ring [facility], CDIS Extension: [phone] Please use your independent medical judgment in providing your response. THIS QUERY IS PART OF THE PERMANENT MEDICAL RECORD Provider Response: Other ( stage II) Other Diagnosis: stage II
[2022-02-28] MEDS: Collagenase Clostridium Hist. 30 GM TUBE 1 APPL TOPICAL (09:36)
[2022-02-28] MEDS: Potassium Phosphate/NS 15 MMOL/250 ML PLAST..BAG 62.5 MMOL IV ×4 (09:37→23:07)
--- NOTE | 2022-02-28 09:59 | MHC.CM.PN ---
Addendum entered by Charlee Camarillo 02/28/22 15:08: Pt's son from [place] will be in to visit over the weekend. Family will then discuss possible change in code and care status. Pt's sister Lelo (HCP #2) in to visit. Updated [facility] rehabilitation case coordinator, Johnny on potential code status change following family conference. Original Note: [facility] rehabilitation case coordinator Johnny Jaimes in to see pt. Requested any updates w/status be relayed to him at [phone] ext [phone]. He will be speaking with his director about filing criminal charges. CM Director updated on case. Pt remains intubated - MD to speak with family about goals of care today. Referrals for STR have been made with a few sites following for medical stability. CM to follow for d/c need
--- NOTE | 2022-02-28 10:28 | MHC.CLN ---
F/U PT REMAINS INTUBATED AND SEDATED PT'S MAX GOAL RATE PROMOTE AT 50ML/HR WITH 30ML PROSOURCE Q DAY AND 120ML FREE WATER FLUSHES Q 8 HRS TO PROVIDE 1260KCALS (1557KCALS WITH SEDATION; 33KCALS/KG), 90G TOTAL PROTEIN (1.9G/KG), 1367ML TOTAL WATER FROM FORMULA AND FLUSHES (29ML/KG) MONITOR PHOS, MG AND K+ CLOSELY MONITOR TOLERANCE, RESIDUALS AND LYTES
[2022-02-28] MEDS: fentaNYL citrate/NS 1,000 MCG/100 ML PLAST..BAG 15 MCG IVCONT (11:07)
[2022-02-28] MEDS: propofoL 1,000 MG/100 ML VIAL 8.44 MG IVCONT (11:08)
--- NOTE | 2022-02-28 13:11 | PM.CCPN ---
Subjective Subjective Date of Service: 02/28/22 Interval History: ICU day 3 for acute on chronic hypoxic hypercapnic respiratory failure, end-stage COPD, cachexia 71-year-old gentleman with underlying advanced COPD, hypertension, failure to thrive, severe protein calorie malnutrition, dementia, and bed-bound admitted on 02/26/2028 with progressive dyspnea and hypoxia secondary to COPD exacerbation requiring intubation and ventilatory support. patient was extubated on 02/18/2022, however required re-intubation secondary to respiratory muscle fatigue and development of hypoxia with hypercapnia. No events overnight. Critical Care Time (minutes): 45 Physical Exam Vital Signs: Vital Signs: Last Vital Signs Temp 99.0 F 02/28/22 13:00 Pulse 76 02/28/22 13:00 Resp 14 02/28/22 13:00 BP 92/56 L 02/28/22 13:00 Pulse Ox 99 02/28/22 13:00 O2 Del Method 02/28/22 13:00 O2 Flow Rate 3.5 02/26/22 11:00 FiO2 30 02/28/22 13:00 BMI result Body Mass Index 16.6 Const: General: no acute distress and other ( Sedated on the vent) Nutritional Appearance: cachectic Eyes: Sclerae: sclerae normal EOM: EOMs intact bilaterally Neck: Neck: Yes no lymphadenopathy, Yes trachea midline and Yes supple Resp: Effort & Inspection: normal respiratory effort and no respiratory distress Auscultation: clear to auscultation bilaterally Cardio: Rate: regular rate Rhythm: regular rhythm Heart sounds: no gallops, no murmurs and no rubs GI: Palpation (GI): Soft to palpation and Other GI palpation findings present ( Nontender) Auscultation: normal bowel sounds Extrem: General: Yes no pedal edema, No clubbing and No cyanosis Objective Data Labs CBC & Chem 7: 02/28/22 05:19 02/28/22 05:19 Labs: Laboratory Results - last 24 hr 02/28/22 02/28/22 02/28/22 05:19 05:19 05:26 WBC 10.4 RBC 2.72 L Hgb 8.2 L Hct 25.9 L MCV 95.2 MCH 30.1 MCHC 31.7 RDW 15.8 Plt Count 209 MPV 11.2 Immature Gran % (Auto) 0.4 Neut % (Auto) 90.3 H Lymph % (Auto) 5.9 L [place] % (Auto) 3.3 Eos % (Auto) 0.0 Baso % (Auto) 0.1 Lymph # (Auto) 0.6 L [place] # (Auto) 0.3 Eos # (Auto) 0.0 Baso # (Auto) 0.0 Abs Immat Gran (auto) 0.04 H Absolute Neuts (auto) 9.4 H Absolute Nucleated RBC 0.000 Nucleated RBC % (auto) 0.0 Smear Tech's Comments VERIFIED VBG pH 7.56 H VBG pCO2 43 VBG pO2 62 VBG HCO3 39 H VBG O2 Saturation 92.0 VBG Base Excess 15.6 Sodium 143 Potassium 4.5 D Chloride 102 Carbon Dioxide 32 H Anion Gap 14 BUN 22 H Creatinine 0.40 L Estim Creat Clear Calc 112.3 Estimated GFR > 60 Random Glucose 165 H Calcium 8.3 L Phosphorus 1.7 L Magnesium 1.8 Albumin 3.0 L Microbiology Microbiology Results: Microbiology 02/25/22 17:01 Blood - Venous Blood Culture - Preliminary No growth after 48 hours. 02/25/22 16:14 Blood - Venous Blood Culture - Preliminary No growth after 48 hours. Progress Note: A&P Assessment and plan (1) Decubitus skin ulcer: Status: Acute (2) Severe protein-calorie malnutrition: Status: Acute (3) Acute on chronic respiratory failure with hypoxia and hypercapnia: Status: Acute (4) COPD exacerbation: Status: Acute (5) COPD (chronic obstructive pulmonary disease): Status: Acute (6) Failure to thrive in adult: Status: Acute Plan Assessment: 71-year-old gentleman admitted with acute hypoxic and hypercapnic respiratory failure requiring ventilatory support failing extubation attempt Plan: Neuro: No acute issues. Cardiac: Continue to titrate off pressor support as tolerated. 2D echocardiogram is pending. Pulmonary: acute on chronic hypoxic and hypercapnic respiratory failure secondary to COPD exacerbation now requiring ventilatory support. Failed extubation attempt. Continue to titrate off ventilatory support as tolerated. Likely has significant component of respiratory muscle fatigue. Continue with nebulized bronchodilators and systemic glucocorticoids. From the point of view of COPD exacerbation patient likely be able to be extubated in a.m.. Family is considering goals of care after extubation. Renal: No acute issues. Endo: No acute issues. GI: underlying severe protein calorie malnutrition. ID: No acute issues Heme/Onc: No acute issues. Psych: No acute issues. Miscellaneous: No acute issues. Prophylaxis: Heparin, ppi Diet: tube feeds Critical care time spent: 45 minutes Quality Stroke Does the patient have a stroke diagnosis?: No VTE Prior VTE?: No VTE Risk Level:: Medical - moderate - high VTE Device Contraindication: Treatment Not Indicated VTE Drug Contraindication: N/A - Med Ordered
[2022-02-28] MEDS: propofoL 1,000 MG/100 ML VIAL 14.07 MG IVCONT ×2 (18:33→23:08)
[2022-02-28] MEDS: Enoxaparin Sodium 40 MG/0.4 ML SYRINGE SUBCUT (19:57)
[2022-03-01] VITALS (35 sets, daily range): BP systolic 89–171; BP diastolic 58–104; PULSE 49–136; RESP 13–31; TEMP 34.8–37.3; O2SAT 92–100; BMI 17.2
[2022-03-01] MEDS: Albumin Human 25 % 100 ML IV (01:12)
[2022-03-01] MEDS: fentaNYL citrate/NS 1,000 MCG/100 ML PLAST..BAG 20 MCG IVCONT ×3 (02:26→15:35)
[2022-03-01 05:28] LABS: VBG HCO3 37 mmol/L (22-26); VBG pCO2 50 mmHg; VBG pH 7.48 (7.32-7.43); VBG pO2 69 mmHg
[2022-03-01 05:31] LABS: Venous Blood Gas Refer to POC result
[2022-03-01 05:42] LABS: MANUAL DIFF FLAG NO
[2022-03-01 05:50] LABS: Eosinophils Percent Auto 0.2 % (0-4); Hematocrit 22.4 % (42.0-52.0); Imm Gran Abs Auto 0.03 X10*3/uL (0.00-0.03); Imm Gran Pct Auto 0.5 % (0.0-0.4); Lymphocytes Absolute Auto 0.7 X10*3/uL (1.2-4.9); Lymphocytes Percent Auto 12.6 % (20-40); Mean Corpuscular HGB Conc 31.3 g/dl (31.0-36.0); Mean Corpuscular Volume 96.1 fL (80.0-98.0); Mean Platelet Volume 11.6 fL (9.4-12.4); Monocytes Absolute Auto 0.2 X10*3/uL (0.1-1.2); Monocytes Percent Auto 4.2 % (2-11); Neutrophils Absolute Auto 4.7 x10*3/uL (2.0-8.3); Neutrophils Percent Auto 82.5 % (45-73); Platelet Count 165 X10*3/uL (160-400); Red Blood Count 2.33 X10*6/uL (4.60-5.80); Red Cell Distribution Width 15.6 % (11.0-16.0); White Blood Count 5.7 X10*3/uL (4.8-10.8)
[2022-03-01] MEDS: Midazolam HCl/NS 50 MG/50 ML PLAST..BAG IVCONT (05:58)
[2022-03-01] MEDS: propofoL 1,000 MG/100 ML VIAL 11.26 MG IVCONT (06:00)
[2022-03-01 06:05] LABS: Albumin Level 3.5 g/dL (3.5-5.0); Anion Gap 12 (12-20); Blood Urea Nitrogen 18 mg/dL (9-16); Calcium 8.3 mg/dL (8.4-10.2); Carbon Dioxide 33 mmol/L (22-29); Chloride 104 mmol/L (96-108); Creatinine Clr Calc Pharmacy 132.9; Estimated Glomerular Filt Rate > 60; Glucose Random 125 mg/dL (60-115); Magnesium 1.9 mg/dL (1.6-2.6); Phosphorus 3.7 mg/dL (2.7-4.5); Potassium 4.6 mmol/L (3.3-5.1); Sodium 144 mmol/L (135-145)
[2022-03-01] MEDS: propofoL 1,000 MG/100 ML VIAL 14.07 MG IVCONT (08:12)
[2022-03-01] MEDS: methylPREDNISolone Sod Succ 125 MG/2 ML VIAL 40 MG IVPUSH (08:12)
[2022-03-01] MEDS: Collagenase Clostridium Hist. 30 GM TUBE 1 APPL TOPICAL (08:13)
[2022-03-01] MEDS: Chlorhexidine Gluc Oral Rinse 15 ML MOUTHWASH BUCCAL (08:13)
[2022-03-01] MEDS: Albuterol/Iprat 2.5/0.5MG 3 ML AMPUL.NEB INHALE ×3 (09:00→19:32)
--- NOTE | 2022-03-01 11:35 | PC.NURSE ---
Addendum entered by Baldemar Devlin RN 03/01/22 17:21: md informed of pt's increased RR and increased HR. prn meds administered as ordered Addendum entered by Baldemar Devlin RN 03/01/22 15:29: per md verbal order place pt on 200mcg fent drip despite pt no longer being intubated. Addendum entered by Baldemar Devlin RN 03/01/22 14:46: pt extubated around 1430. per verbal order, place dex t 1.5 and restart fent at 100 for RR and pain. confirmed fent drip order w/ and 2nd RN. Sitter at bedside d/t pt being restrained while on bipap Addendum entered by Baldemar Devlin RN 03/01/22 14:21: prop and fent off. per MD pt to be extubated. RT at bedside. dex titrate to 0.5 per md verbal order. Original Note: Informed MD this AM of pt's drop in H&H. ?'ed checking Q6 POCs on pt d/t pt being on tube feeds. Family at bedside this AM speaking w/ in regards to pt's plan of care and updating family on pt's status. Fent and versed rips titrated per verbal order
[2022-03-01] MEDS: dexmedeTOMIDidine HCL/NS 400 MCG/100 ML INFUS..BTL 14.03 MCG IVCONT ×2 (12:32→20:34)
[2022-03-01] MEDS: acetaZOLAMIDE sodium 500 MG VIAL IVPUSH ×2 (14:42→20:27)
[2022-03-01] MEDS: Furosemide 20 MG/2 ML VIAL IVPUSH (14:42)
--- NOTE | 2022-03-01 15:19 | PM.CCPN ---
Subjective Subjective Date of Service: 03/01/22 Interval History: Mr. Perez was admitted to the ICU on February 25 with acute respiratory failure 2? terminal end stage COPD. The patient is a 71 yo M with PMHx of long time smoking (stopped this past August), COPD, chronic hypercarbic respiratory failure, adult failure to thrive, dementia, hypertension, and moderate protein calorie malnutrition. The patient lives with two of his sons.? He?s been bed bound since his last hospitalization in August. The patient was brought to the ED by his son on Feb 25 bec of dyspnea x 1 day.? On arrival to the ED, he was pale, diaphoretic, SpO2 high 60s on room air.? Sat improved to the high 90s on NRBFM, but his mental status later deteriorated and he required emergent tracheal intubation.? There was no evidence of any pneumonia; the patient was felt to have a COPD exacerbation.? The patient was then admitted to the ICU. Patient improved over that night and was extubated the next day, but required re-intubation 2 hours later.? Early the next morning (February 27), the patient self-extubated and had to be reintubated.? Echo showed normal LV size and fxn, impaired relaxation, mildly increased RV cavity size with normal function, mild to moderate MR, moderate TR, and severe pulmonary hypertension, with estimated RVSP 79 mm. This morning, the patient was on propofol 50 ug, fentanyl 200ug, and Versed 2mg for sedation, yet was still awake, mouthing words, and had very good upper arm and receiving weigher strength.? After discussion with the patient?s sons, we extubated to BiPAP with no problem.? But the patient kept trying to get the mask off, repeatedly saying that he didn?t want it.? So we changed him to high flow.? On the high flow, he became very tachypneic, even with fentanyl 200ug/hr and dilaudid 2mg boluses.? An ABG at 1730 on high flow 80% showed 7.38/49/211/+3.? So we gave him Risperdal 0.5 mg and he settled down nicely. Very emaciated.? When I asked him how he is doing, he said fine and smiled. ?HR about 100, BP 140/100, RR 20-25 w mild access musc use, Sat 100% on 40% HFNC.? No JVD at 30-40?.? Chest w diminished BS throughout.? No wheezes.? Normal exp phase.? No paradox.? Soft heart tones, I heard no murmur or gallop.? Abdomen benign.? No edema. The patient has mult wounds, as described by Dr. Tapia on Feb 27. LABORATORY DATA:? Below.? Notably, white count is 5.7, hemoglobin down to 7.0 today (from 8.2 yesterday), BUN/creatinine 18/0.3. Chest x-rays show hyperinflated lungs.? IMPRESSION: 1. End stage COPD. 2. Pulmonary cachexia 3. Acute resp failure.? Looks more to me like 2? to terminal end stage COPD (ie finally reached the point where Vd/Vt is > 55%) as opposed to a real COPD exacerbation.? Nonetheless, I?ll bump his Solumedrol to 40mg bid.? Check a sputum gram stain; if positive, would add Zithromax.? But I haven?t heard him cough once.? If family is not inclined towards comfort care, would then proceed with tracheostomy.? Gave him a dose of diuretic to see if that improves his lung fxn at all. 4. Multiple wounds as noted above in Dr. Tapia?s note.? Would care as she prescribed. 5. Nutrition.? This may fountain pen turner to be the bottom line.? As it stands, the patient is not going to be taking any nutrition per os.? I?ll talk to the family tomorrow about how to proceed from here. I spoke with the patient?s four sons at length in conference.? I indicate to them my opinion that his inexorably deteriorating lung condition has reached the point that he cannot survive unsupported.? I indicated that a tracheostomy was likely the only way his situation could be improved, and asked them to consider if their father would want that.? But I indicated that even that was no panacea, he?d live at a correction and would have complication after complication.? I recommended against it. Ultimately we made the decision to extubate to BiPAP (after shaving his paulino), and we would reintubate if he failed. ADDENDUM:? According to the patient?s Med Rec, the patient was on Suboxone.? I spoke to son Maliha ([phone]) about that.? He takes it for chronic back pain.? [facility] He has chronic back pain for which he takes 12 mg suboxone plus 10 mg oxycodone daily.? He also take valium, bupropion, and venlafaxine. After we got that information, cut his fentanyl down to 100 mcg, non titrating.? Then we gave him 4 mg of IV Dilaudid.? He really calmed down after that, and his RR dropped to 8, with SpO2 high 90?s up to 100% on the 33% HFNC. There's a possibility that his current 'resp failure' is actually just opiate withdrawal. We'll see how things go as he gets further away from his last dose of suboxone. Critical care time (including multiple visits to the bedside, mult d/w family, and d/w Dr. Grewal:? 120+ min Critical Care Time (minutes): 120 Physical Exam Vital Signs: Vital Signs: Last Vital Signs Temp 98.7 F 03/01/22 13:00 Pulse 84 03/01/22 14:57 Resp 28 H 03/01/22 14:57 BP 136/89 03/01/22 14:00 Pulse Ox 98 03/01/22 14:00 O2 Del Method 03/01/22 14:00 O2 Flow Rate 3.5 02/26/22 11:00 FiO2 30 03/01/22 14:00 BMI result Body Mass Index 17.2 Objective Data Labs CBC & Chem 7: 03/01/22 05:13 03/01/22 05:13 Labs: Laboratory Results - last 24 hr 03/01/22 03/01/22 03/01/22 05:13 05:13 05:22 WBC 5.7 RBC 2.33 L Hgb 7.0 L* Hct 22.4 L MCV 96.1 MCH 30.0 MCHC 31.3 RDW 15.6 Plt Count 165 MPV 11.6 Immature Gran % (Auto) 0.5 H Neut % (Auto) 82.5 H Lymph % (Auto) 12.6 L [place] % (Auto) 4.2 Eos % (Auto) 0.2 Baso % (Auto) 0.0 Lymph # (Auto) 0.7 L [place] # (Auto) 0.2 Eos # (Auto) 0.0 Baso # (Auto) 0.0 Abs Immat Gran (auto) 0.03 Absolute Neuts (auto) 4.7 Absolute Nucleated RBC 0.000 Nucleated RBC % (auto) 0.0 VBG pH 7.48 H VBG pCO2 50 VBG pO2 69 VBG HCO3 37 H VBG O2 Saturation 93.0 VBG Base Excess 13.0 Sodium 144 Potassium 4.6 Chloride 104 Carbon Dioxide 33 H Anion Gap 12 BUN 18 H Creatinine 0.39 L Estim Creat Clear Calc 132.9 Estimated GFR > 60 Random Glucose 125 H Calcium 8.3 L Phosphorus 3.7 Magnesium 1.9 Albumin 3.5 Microbiology Microbiology Results: Microbiology 02/25/22 17:01 Blood - Venous Blood Culture - Preliminary No growth after 48 hours. 02/25/22 16:14 Blood - Venous Blood Culture - Preliminary No growth after 48 hours. Quality Stroke Does the patient have a stroke diagnosis?: No VTE Prior VTE?: No VTE Risk Level:: Medical - moderate - high VTE Device Contraindication: Treatment Not Indicated VTE Drug Contraindication: N/A - Med Ordered Critical Care Time Critical Care Time (minutes): 120
--- NOTE | 2022-03-01 15:33 | MHC.CM.PN ---
MESSAGE LEFT FOR [facility] PIECE WORK CHECKER MARIANNA RAPP @ [phone] CALL BACK REQUESTED DETAILS ABOUT REASON FOR CALL LEFT ON VOICEMAIL. CALL TO [facility] [employer] HOTLINE [phone]. AGENCY HAS NO ADDITIONAL INFORMATION. T/W SPOKE WITH [employer] MEAT TRIMMER AND RESULTS OF CONVERSATION RELAYED TO ICU MD. CASE MANAGEMENT TO CONTINUE TO FOLLOW CLOSELY
[2022-03-01] MEDS: dexmedeTOMIDidine HCL/NS 400 MCG/100 ML INFUS..BTL 21.04 MCG IVCONT (16:24)
[2022-03-01] MEDS: HYDROmorphone HCl 1 MG/ML SYRINGE IVPUSH ×2 (17:18→17:27)
[2022-03-01 17:43] LABS: ABG Base Excess 3.5 mmol/L; ABG HCO3 29 mmol/L (22-26); ABG pCO2 49 mmHg (32-45); ABG pH 7.38 (7.35-7.45); ABG pO2 211 mmHg (83-108)
[2022-03-01] MEDS: risperiDONE Oral Sol 1 MG/ML SOLUTION 0.5 MG PO (17:50)
[2022-03-01] MEDS: Esmolol HCl/NaCl Iso 2,500 MG/250 ML IV.SOLN 8.42 MG IVCONT (18:30)
[2022-03-01] MEDS: Enoxaparin Sodium 40 MG/0.4 ML SYRINGE SUBCUT (20:25)
[2022-03-01] MEDS: methylPREDNISolone Sod Succ 40 MG/ML VIAL IVPUSH (20:26)
[2022-03-01] MEDS: fentaNYL citrate/NS 1,000 MCG/100 ML PLAST..BAG 10 MCG IVCONT (20:34)
[2022-03-01] MEDS: HYDROmorphone HCl 2 MG/ML VIAL 4 MG IVPUSH (20:34)
[2022-03-01 23:12] LABS: ABG Refer to POC result
[2022-03-02] VITALS (16 sets, daily range): BP systolic 123–156; BP diastolic 75–100; PULSE 46–136; RESP 15–30; TEMP 36.4–37.1; O2SAT 94–100
[2022-03-02] MEDS: Albuterol/Iprat 2.5/0.5MG 3 ML AMPUL.NEB INHALE ×2 (00:40→05:00)
[2022-03-02] MEDS: HYDROmorphone HCl 2 MG/ML VIAL IVPUSH ×2 (00:46→08:46)
[2022-03-02 05:19] LABS: VBG Base Excess 5.3 mmol/L; VBG HCO3 31 mmol/L (22-26); VBG O2 % Saturation < 30.0 %; VBG pCO2 53 mmHg; VBG pH 7.37 (7.32-7.43); VBG pO2 27 mmHg
[2022-03-02 05:40] LABS: Hematocrit 28.4 % (42.0-52.0); Hemoglobin 8.7 g/dl (14.0-18.0); Mean Corpuscular HGB Conc 30.6 g/dl (31.0-36.0); Mean Corpuscular Hemoglobin 30.2 pg (27.0-33.0); Mean Corpuscular Volume 98.6 fL (80.0-98.0); Mean Platelet Volume 11.7 fL (9.4-12.4); Platelet Count 221 X10*3/uL (160-400); Red Blood Count 2.88 X10*6/uL (4.60-5.80); Red Cell Distribution Width 14.9 % (11.0-16.0); White Blood Count 9.9 X10*3/uL (4.8-10.8)
[2022-03-02 05:49] LABS: Venous Blood Gas Refer to POC result
[2022-03-02] MEDS: fentaNYL citrate/NS 1,000 MCG/100 ML PLAST..BAG 10 MCG IVCONT (05:57)
[2022-03-02 06:02] LABS: Albumin Level 3.7 g/dL (3.5-5.0); Anion Gap 16 (12-20); Blood Urea Nitrogen 27 mg/dL (9-16); Calcium 8.9 mg/dL (8.4-10.2); Carbon Dioxide 31 mmol/L (22-29); Chloride 102 mmol/L (96-108); Creatinine Clr Calc Pharmacy 119.4; Estimated Glomerular Filt Rate > 60; Glucose Random 118 mg/dL (60-115); Magnesium 2.1 mg/dL (1.6-2.6); Potassium 3.6 mmol/L (3.3-5.1); Sodium 145 mmol/L (135-145)
[2022-03-02] MEDS: acetaZOLAMIDE sodium 500 MG VIAL IVPUSH (08:09)
[2022-03-02] MEDS: methylPREDNISolone Sod Succ 40 MG/ML VIAL IVPUSH (08:09)
[2022-03-02] MEDS: Collagenase Clostridium Hist. 30 GM TUBE 1 APPL TOPICAL (08:18)
--- NOTE | 2022-03-02 10:13 | PC.NURSE ---
Assumed care at 07:00. Patient alert, but nonverbal. Following commands, no apparent distress. Patient was in sinus rhythm with known T-wave inversions in lead II; distant heart sounds; minimal edema; had 11-beats of Vtach on monitor at 8:08; no associated signs or symptoms. On high flow oxygen at 25 LPM and 30% FIO2. Patient RR 16-18. Was due for wound dressing changes as last change was 02/27; has numerous wounds including unstagebles, stage IV's and others, and patient was pre-medicated for wound dressing changes with 2 mg IV dilaudid 2 mg, which had previously been well tolerated per nursing report. Patient was also on esmolol gtt at 25 and fentanyl gtt at 100. Then patient was given about 10 minutes for medicine to be fully active before wound care. At 9:06, patient with bradycardia to 40's and widened QRS to 129 ms MD notified, RT notified, RN providing respiratory support with AMBU bag 09:08, patient becomes pulseless, monitor PEA bradycardia with new BBB 9:09, epi 1 mg IV given per telephone order 09:11 0.2 mg IV narcan given per MD 09:14 0.4mg IV narcan given 09:17 PEA 09:18 Asystole aware, in to bedside to assess, time of 09:08; family notified. NEDS notified and declined for all donation, discussed patient with Herman, confirmation number # [id number]
--- NOTE | 2022-03-02 10:43 | P.PNCC_ITS ---
Subjective Subjective Date of Service: 03/02/22 Interval History: Mr. Perez was admitted to the ICU on February 25 with acute respiratory failure 2? terminal end stage COPD. The patient is a 71 yo M with PMHx of long time smoking (stopped this past August), COPD, chronic hypercarbic respiratory failure, adult failure to thrive, dementia, hypertension, and moderate protein calorie malnutrition. The patient lives with two of his sons.? He?s been bed bound since his last hospitalization in August. The patient was brought to the ED by his son on Feb 25 bec of dyspnea x 1 day.? On arrival to the ED, he was pale, diaphoretic, SpO2 high 60s on room air.? Sat improved to the high 90s on NRBFM, but his mental status later deteriorated and he required emergent tracheal intubation.? There was no eviden ce of any pneumonia; the patient was felt to have a COPD exacerbation.? The patient was then admitted to the ICU. The patient improved over that night and was extubated the next day, but required re-intubation 2 hours later bec of gross ventilatory failure.? Early the next morning (February 27), the patient self-extubated and had to be reintubated.? Echo on 02/27 showed normal LV size and fxn, impaired relaxation, mildly increased RV cavity size with normal function, mild to moderate MR, moderate TR, and severe pulmonary hypertension, with estimated RVSP 79 mm. 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 He looked extremely uncomfortable and unhappy with the ETT.? After discussion with the patient?s sons, we extubated to BiPAP with no problem.? But the patient kept trying to get the mask off, repeatedly saying that he didn?t want it.? So we changed him to high flow.? On the high flow, he became very tachypneic, even with fentanyl 200ug/hr and dilaudid 2mg boluses.? An ABG at 1730 on high flow 80% showed 7.38/49/211/+3.? So we gave him Risperdal 0.5 mg and he settled down nicely. I asked him how he was doing, he said fine and smiled. We dropped his fentanyl infusion rate to 100 mcg.? Last night at about 20:00, we gave him 4 mg of IV Dilaudid (in view of the fact that he had been on Suboxone).? His respiratory rate (while still on the fentanyl) dropped to about 8-9, sat was maintained at 98-100% on the HFNC 33%. Overnight last night, the patient remained on the HFNC.? He was given 2 mg Dilaudid early this morning and did fine with it.? VBG this morning showed 7.37/53/+5.? Lytes were OK.? At about 9am the nurses were preparing to do wound care.? The patient belem?d down, and went astolic.? He was given PPV by mask and epinephrine, with no only a few beats but no pulse.? He was asystolic at 0907.? I pronounced him on my arrival to the ICU shortly thereafter. I spoke with the patient?s son Maliha.? He came in to the hospital and we spoke further.? The family seems content with his care. IMPRESSION: 1. End stage COPD. 2. Pulmonary cachexia w severe PCM. 3. Acute resp failure.? More likely terminal end stage COPD (ie finally reached the point where Vd/Vt is > 55%) as opposed to a COPD exacerbation. 4. Multiple wounds as noted above in Dr. Tapia?s note. 5. Cor pulmonale w severe PHTN.? 2? CLD. Time:?45 min ([id number]) Critical Care Time (minutes): 0 Physical Exam Vital Signs: Vital Signs: Last Vital Signs Temp 97.6 F 03/02/22 08:26 Pulse 46 L 03/02/22 09:07 Resp 15 03/02/22 08:46 BP 133/75 03/02/22 08:00 Pulse Ox 98 03/02/22 08:00 O2 Del Method 03/02/22 09:00 O2 Flow Rate 25 03/02/22 08:00 FiO2 30 03/02/22 08:00 BMI result Body Mass Index 17.2 Objective Data Labs CBC & Chem 7: 03/02/22 05:13 03/02/22 05:13 Labs: Laboratory Results - last 24 hr 03/01/22 03/02/22 03/02/22 17:38 05:13 05:13 WBC 9.9 RBC 2.88 L D Hgb 8.7 L D Hct 28.4 L D MCV 98.6 H MCH 30.2 MCHC 30.6 L RDW 14.9 Plt Count 221 D MPV 11.7 Absolute Nucleated RBC 0.000 Nucleated RBC % (auto) 0.0 O2 Saturation 99.0 ABG pH at Pt Temp 7.38 ABG pCO2 at Pt Temp 49 H ABG pO2 at Pt Temp 211 H ABG HCO3 29 H ABG Base Excess (Actual) 3.5 VBG pH VBG pCO2 VBG pO2 VBG HCO3 VBG O2 Saturation VBG Base Excess Sodium 145 Potassium 3.6 D Chloride 102 Carbon Dioxide 31 H Anion Gap 16 BUN 27 H Creatinine 0.45 L Estim Creat Clear Calc 119.4 Estimated GFR > 60 Random Glucose 118 H Calcium 8.9 D Phosphorus 4.0 Magnesium 2.1 Albumin 3.7 03/02/22 05:13 WBC RBC Hgb Hct MCV MCH MCHC RDW Plt Count MPV Absolute Nucleated RBC Nucleated RBC % (auto) O2 Saturation ABG pH at Pt Temp ABG pCO2 at Pt Temp ABG pO2 at Pt Temp ABG HCO3 ABG Base Excess (Actual) VBG pH 7.37 VBG pCO2 53 VBG pO2 27 VBG HCO3 31 H VBG O2 Saturation < 30.0 VBG Base Excess 5.3 Sodium Potassium Chloride Carbon Dioxide Anion Gap BUN Creatinine Estim Creat Clear Calc Estimated GFR Random Glucose Calcium Phosphorus Magnesium Albumin Microbiology Microbiology Results: Microbiology 02/25/22 17:01 Blood - Venous Blood Culture - Preliminary No growth after 48 hours. 02/25/22 16:14 Blood - Venous Blood Culture - Preliminary No growth after 48 hours. Quality Stroke Does the patient have a stroke diagnosis?: No VTE Prior VTE?: No VTE Risk Level:: Medical - moderate - high VTE Device Contraindication: Treatment Not Indicated VTE Drug Contraindication: N/A - Med Ordered
--- NOTE | 2022-03-02 11:21 | PM.DDS ---
Discharge Sum: Prov Provider Primary care physician: Lucía Higginbotham MD Consults: 02/26/22 03:56 Consult to Wound Care Stat Consulting Provider: [facility] [place] Wound Care Management Reason for consultation: STAGING AND TREATMENT OF MULTIPLE WOUNDS, ADVISE AND TREAT Has provider been notified: Yes 03/01/22 15:23 Consult for Sitter Routine Reason for consultation: Delirium, not keeping oxygen mask on. Has provider been notified: Yes Discharge Sum: Diag Contributing Factors (1) Decubitus skin ulcer: (2) Severe protein-calorie malnutrition: (3) Acute on chronic respiratory failure with hypoxia and hypercapnia: (4) COPD exacerbation: (5) COPD (chronic obstructive pulmonary disease): (6) Failure to thrive in adult: Discharge Sum: Summary Date and Time Date of admission: 02/25/22 19:28 Date of : 03/02/22 Time of : 09:07 Summary Details: NOTE - DISCHARGE SUMMARY DISCHARGE DIAGNOSES: 1. End stage COPD. 2. Pulmonary cachexia w severe PCM. 3. Acute resp failure. 4. Multiple wounds. 5. Cor pulmonale w severe PHTN. The patient was a 71 yo M with PMHx of long time smoking, COPD, chronic hypercarbic respiratory failure, adult failure to thrive, dementia, hypertension, and moderate protein calorie malnutrition. The patient was brought to the ED by his son on Feb 25 bec of dyspnea x 1 day.? On arrival to the ED, he was pale, diaphoretic, SpO2 high 60s on room air.? Sat improved to the high 90s on NRBFM, but his mental status later deteriorated and he required emergent tracheal intubation.? There was no evidence of any pneumonia; the patient was felt to have a COPD exacerbation.? The patient was then admitted to the ICU. The patient improved over that night and was extubated the next day, but required re-intubation two hours later bec of gross ventilatory failure.? Early the next morning, the patient self-extubated and had to be reintubated.? Echo on 02/27 showed normal LV size and fxn, impaired relaxation, mildly increased RV cavity size with normal function, mild to moderate MR, moderate TR, and severe pulmonary hypertension, with estimated RVSP 79 mm. 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 He looked extremely uncomfortable and unhappy with the ETT.? After discussion with the patient?s sons, we extubated to BiPAP with no problem.? But the patient kept trying to get the mask off, repeatedly saying that he didn?t want it.? So we changed him to high flow.? On the high flow, he became very tachypneic, even with fentanyl 200ug/hr and dilaudid 2mg boluses.? An ABG at 1730 on high flow 80% showed 7.38/49/211/+3.? So we gave him Risperdal 0.5 mg and he settled down nicely. We dropped his fentanyl infusion rate to 100 mcg.? Later that evening, we gave him Dilaudid for WOB.? His respiratory rate dropped into a comfortable range and Sat was maintained at 98-100% on the HFNC 33%. Overnight that night, the patient remained on the HFNC.? He was given Dilaudid early in the morning and did fine with it.? VBG later that morning showed 7.37/53/+5.? Lytes were OK.? At about 9am the nurses were preparing to do wound care.? The patient belem?d down, and went astolic.? He was given PPV by mask and epinephrine, with only a few beats but no pulse.? He went asystolic at 0907, with no respiratory effort, and was pronounced. I spoke with the patient?s son Maliha.? The family seemed content with his care. Additional Data Attending physician: Richard Grewal MD
== END 2022-03-02 09:08 | disposition expired | DRG 208 ==
LOC: HO.ED 17:01 → HO.EDOVER 20:08 → HO.ICU 20:13
PROVIDERS: Anesthesiology; Admitting Provider Registered Nurse Community Health; Emergency Provider Emergency Medicine; PCP Internal Medicine; Visit Provider Internal Medicine Pulmonary Disease
DX: J43.9 Emphysema, unspecified (principal); E43 Unspecified severe protein-calorie malnutrition; L89.103 Pressure ulcer of unspecified part of back, stage 3; L89.113 Pressure ulcer of right upper back, stage 3; L89.154 Pressure ulcer of sacral region, stage 4; J96.22 Acute and chronic respiratory failure with hypercapnia; J96.21 Acute and chronic respiratory failure with hypoxia; R64 Cachexia; Z68.1 Body mass index [BMI] 19.9 or less, adult; L89.510 Pressure ulcer of right ankle, unstageable; L89.810 Pressure ulcer of head, unstageable; L89.612 Pressure ulcer of right heel, stage 2; L89.210 Pressure ulcer of right hip, unstageable; E87.6 Hypokalemia; Z66 Do not resuscitate; Z20.822 Contact with and (suspected) exposure to COVID-19; Z96.652 Presence of left artificial knee joint; Z74.01 Bed confinement status; F03.90 Unspecified dementia, unspecified severity, without behavioral disturbance, psychotic disturbance, mood disturbance, and anxiety; R62.7 Adult failure to thrive; Z88.8 Allergy status to other drugs, medicaments and biological substances; Z79.82 Long term (current) use of aspirin; Z79.899 Other long term (current) drug therapy
CPT/HCPCS: 36415; 36600; 71045; 71275; 80048; 80076; 82040; 82803; 82947; 83605; 83735; 83880; 84100; 84484; 85025; 85027; 85610; 87040; 87635; 93005; 93306; 94002; 94003; 94640; 94799; 96361; 96365; 96366; 96367; 96375; 99285; J0456; J0696; J1170; J1265; J1650; J1940; J2250; J2920; J2930; J3010; J3475; P9047; Q9957; Q9967